=== PATIENT | male | born 1970 | race Two or more races ===

== ENCOUNTER → 2020-10-01 12:48 | Outpatient (BNVA) | payer MEDICARE, MEDICAID, SELFPAY | PROVIDERS: Visit Provider Physician Assistant ==

== ENCOUNTER 2020-10-01 15:34 | Outpatient (REF) | payer MEDICARE, MEDICAID, SELFPAY ==
--- NOTE | ~2020-10-01 | US_ITS ---
EXAMINATION: ULTRASOUND NONVASCULAR RIGHT ELBOW. CLINICAL INFORMATION: Pain and swelling status post injury right elbow. COMPARISON: None TECHNIQUE: Limited imaging through the right anterior and medial elbow is performed. FINDINGS: There is moderate amount of fluid collection seen within the biceps muscle fascia with discontinuous appearing biceps tendon to the radial tuberosity insertion. The findings is highly suspicious for if incomplete tear. No retraction of the tendon seen to suspect any complete tear. This finding can be better evaluated with MRI. If patient cannot have MRI further limited imaging of right elbow with IV contrast can be performed. US/US extremity nonvascular IMPRESSION: There is moderate fluid collection seen within the biceps muscle fascia with discontinuous appearing biceps tendon at the radial tuberosity insertion most suspicious of in complete biceps tear.
== END 2020-10-01 15:35 | disposition home or self-care (01) ==
LOC: HO.HMGCX 15:34
PROVIDERS: PCP Internal Medicine; Visit Provider Physician Assistant
DX: S46.201A Unspecified injury of muscle, fascia and tendon of other parts of biceps, right arm, initial encounter (principal); X58.XXXA Exposure to other specified factors, initial encounter; Y93.9 Activity, unspecified; Y92.9 Unspecified place or not applicable; Y99.9 Unspecified external cause status
CPT/HCPCS: 76882; 99202

== ENCOUNTER → 2021-08-21 10:54 | Outpatient (BNVA) | payer MEDICARE, MEDICAID, SELFPAY | PROVIDERS: PCP Internal Medicine; Visit Provider Internal Medicine Pulmonary Disease | DX: I82.533 Chronic embolism and thrombosis of popliteal vein, bilateral (principal); R06.00 Dyspnea, unspecified | CPT/HCPCS: 99202 ==

== ENCOUNTER → 2021-09-30 10:54 | Outpatient (REF) | payer MEDICARE, MEDICAID, SELFPAY | LOC: HO.SL 10:54 | PROVIDERS: PCP Internal Medicine; Visit Provider Internal Medicine | DX: G47.33 Obstructive sleep apnea (adult) (pediatric) (principal) | CPT/HCPCS: 95806 ==

== ENCOUNTER 2021-12-17 14:27 | Emergency (ER) | payer MEDICARE, MEDICAID, SELFPAY | END 2021-12-17 19:16 | disposition left against medical advice (07) | PROVIDERS: Emergency Provider Emergency Medicine; PCP Internal Medicine | DX: R11.10 Vomiting, unspecified (principal) ==

== ENCOUNTER → 2021-12-22 15:37 | Outpatient (BNVA) | payer MEDICARE, MEDICAID, SELFPAY | PROVIDERS: PCP Internal Medicine; Visit Provider Surgery Vascular Surgery | DX: I73.9 Peripheral vascular disease, unspecified (principal); I82.533 Chronic embolism and thrombosis of popliteal vein, bilateral | CPT/HCPCS: 99212 ==

== ENCOUNTER → 2022-01-20 11:05 | Outpatient (BNVA) | payer MEDICARE, MEDICAID, SELFPAY | PROVIDERS: PCP Internal Medicine; Visit Provider Dietitian, Registered | DX: E11.65 Type 2 diabetes mellitus with hyperglycemia (principal); Z71.3 Dietary counseling and surveillance | CPT/HCPCS: 97802 ==

== ENCOUNTER 2022-02-15 11:16 | Outpatient (REF) | payer MEDICARE, MEDICAID, SELFPAY ==
--- NOTE | 2022-02-15 14:54 | MHC.AU.AEV ---
Adult Audiological Evaluation Date of Visit: 02/15/22 Reason for Appointment: Genaro was referred for an audiological evaluation due to reported history of middle ear dysfunction/ear infections. He noted that he was on antibiotics about two weeks ago. Genaro reported that if his ears are clear, he is able to hear normally; however, he reported significant ear pain, discomfort, and intermittent hearing difficulties, bilaterally, that has not resolved since November. He also reported intermittent tinnitus, bilaterally, as well as constant lightheadedness/dizziness that also began about two months ago. Ear History: Recent Ear Pain: Both Ears Recent Ear Infections: Both Ears Ear Infections in Childhood: Both Ears Tinnitus/Ringing/Noises in Ears: Both Ears Blocked/Full Sensation in Ear(s): Both Ears History of occupational noise exposure?: No Medical History: Diabetes, High Blood Pressure Medication List: Metoprolol, Metformin Otoscopy: Right Ear: Unremarkable Left Ear: Tympanic membrane is red and bulging Tympanometry: Tympanometry performed due to: History of middle ear dysfunction Right Ear: Normal Middle Ear System (Type A) Left Ear: Non-compliant Middle Ear System (Type B) Hearing Evaluation: Transducer(s) Used: Insert Earphones, Method: Conventional Audiometry, Stimuli Used: Pure Tones Right Ear: Normal hearing 250-8000 Hz Left Ear: Mild to moderate conductive hearing loss 250-6000 Hz rising to normal hearing at 8000 Hz Speech Recognition Threshold (SRT): Method Used: Monitored Live Voice, Stimuli Used: Spondee Words Right Ear: 15 dB HL Left Ear: 30 dB HL Word Discrimination: Method: Recorded Lists Word Lists Used:: W-22 Right Ear: 96% correct at 55 dB HL Left Ear: 96% correct at 70 dB HL Recommendations: Follow up with primary care physician for middle ear dysfunction. Referral to Ear, Nose, and Throat for history of middle ear dysfunction/ear infections. Audiological re-evaluation post-treatment or in 3 months to monitor middle ear status and conductive hearing loss in left ear. Diagnosis: Primary Diagnosis: H90.12 ConductiveHL, Unilateral Left Ear, W/Unrestricted Contralateral Secondary Diagnosis: H69.92 Unspecified Eustachian Tube Dysfunction, Left Ear Services Performed: Comprehensive Audiological Evaluation (CPT 91282) Tympanometry (CPT 49401) Signature: Provider: Tad Duarte [facility]ieA
== END 2022-02-15 11:17 | disposition home or self-care (01) ==
LOC: HO.SH 11:16
PROVIDERS: Visit Provider Internal Medicine
DX: Z01.118 Encounter for examination of ears and hearing with other abnormal findings (principal); H90.12 Conductive hearing loss, unilateral, left ear, with unrestricted hearing on the contralateral side; H69.92 Unspecified Eustachian tube disorder, left ear
CPT/HCPCS: 92557; 92567

== ENCOUNTER → 2022-03-17 10:32 | Outpatient (BNVA) | payer MEDICARE, MEDICAID, SELFPAY | PROVIDERS: PCP Internal Medicine; Visit Provider Dietitian, Registered | DX: E11.65 Type 2 diabetes mellitus with hyperglycemia (principal) | CPT/HCPCS: 97803 ==

== ENCOUNTER 2022-10-10 03:39 | Emergency (ER) | payer MEDICARE, MEDICAID, SELFPAY ==
--- NOTE | ~2022-10-10 | XR_ITS ---
EXAMINATION: XR CHEST CLINICAL INFORMATION: Chest pain COMPARISON: None available. TECHNIQUE: Frontal view of the chest was obtained. FINDINGS: Normal symmetric lung volumes. No parenchymal consolidation. No pleural effusion. No pneumothorax. Cardiomediastinal silhouette and pulmonary vascularity are within normal limits. No acute osseous abnormalities. XR/XR chest 1V IMPRESSION: No acute findings.
--- NOTE | ~2022-10-10 | CT_ITS ---
EXAMINATION: CT ANGIOGRAM OF THE CHEST WITH AND WITHOUT CONTRAST (CT PULMONARY ANGIOGRAM FOR PE) CLINICAL INFORMATION: Reason for Exam R/O R sided PE COMPARISON: None available. TECHNIQUE: Prior to contrast administration, noncontrast localization images were obtained. Subsequently, multidetector volumetric imaging was performed from the thoracic inlet to below the diaphragms following the administration of 65 mL Omnipaque 350 intravenous contrast. No contrast reaction reported Sagittal, coronal, and MIP oblique sagittal reformatted images were obtained on the CT workstation, uploaded to PACS, and reviewed. This CT examination was performed using dose optimization techniques as appropriate, variously including the following: *Automated exposure control *Adjustment of mA and/or kV according to patient size (this includes techniques or standardized protocols for targeted exams where dose is matched to indication/reason for exam; i.e. extremities or head) *Use of iterative reconstruction technique Total exam dose-length product 582 mGy-cm FINDINGS: QUALITY OF STUDY/CONTRAST BOLUS: Satisfactory. PULMONARY ARTERIES: No pulmonary emboli. THORACIC AORTA: No aneurysm. LUNG: No focal consolidation, nodules or masses. Diffuse mild bronchial wall thickening without bronchiectasis. Mild mosaic attenuation in the lower lungs likely relates to air trapping related to a degree of small airways inflammation. PLEURA: No pleural effusion or pneumothorax. MEDIASTINUM: Normal heart size. No pericardial effusion. No hilar or mediastinal lymphadenopathy. No evidence of septal bowing or right heart strain. CORONARY ARTERY CALCIFICATION: None visualized on this study. CHEST WALL/AXILLA: No axillary or internal mammary lymphadenopathy. OSSEOUS STRUCTURES: No acute or suspicious osseous abnormality. UPPER ABDOMEN: Cholelithiasis. No reflux of contrast into the hepatic veins to suggest elevated right heart pressures. CT/CT angio chest PE protocol IMPRESSION: * No evidence of pulmonary embolism. * No aortic aneurysm or dissection. * No pneumonitis or parenchymal consolidation. * Diffuse mild bronchial wall thickening and mild mosaic attenuation in the lower lungs likely relates to a degree of small airways inflammation. * Cholelithiasis. VTE: negative.
--- NOTE | 2022-10-10 03:42 | ECG_ITS ---
Test Reason : chest pain Blood Pressure : / mmHG Vent. Rate : 084 BPM Atrial Rate : 084 BPM P-R Int : 162 ms QRS Dur : 092 ms QT Int : 392 ms P-R-T Axes : 059 012 017 degrees QTc Int : 463 ms Normal sinus rhythm Normal ECG No previous ECGs available Referred By: Generic ED Physician Electronically Signed By:Germán Rosenthal
[2022-10-10 03:48] VITALS: BP 124/85; PULSE 88; RESP 20; TEMP 36.6; O2SAT 98; BMI 40.0
[2022-10-10 04:02] LABS: Basophils Percent Auto 0.4 % (0-2); Eosinophils Absolute Auto 0.1 X10*3/uL (0.0-0.4); Eosinophils Percent Auto 1.1 % (0-4); Hematocrit 45.7 % (42.0-52.0); Hemoglobin 15.7 g/dl (14.0-18.0); Imm Gran Abs Auto 0.02 X10*3/uL (0.00-0.03); Imm Gran Pct Auto 0.2 % (0.0-0.4); Lymphocytes Percent Auto 65.3 % (20-40); MANUAL DIFF FLAG SCAN; Mean Corpuscular HGB Conc 34.4 g/dl (31.0-36.0); Mean Corpuscular Hemoglobin 31.5 pg (27.0-33.0); Mean Corpuscular Volume 91.8 fL (80.0-98.0); Mean Platelet Volume 9.6 fL (9.4-12.4); Monocytes Absolute Auto 0.6 X10*3/uL (0.1-1.2); Monocytes Percent Auto 6.6 % (2-11); Neutrophils Absolute Auto 2.5 x10*3/uL (2.0-8.3); Neutrophils Percent Auto 26.4 % (45-73); Platelet Count 266 X10*3/uL (160-400); Red Blood Count 4.98 X10*6/uL (4.60-5.80); Red Cell Distribution Width 12.2 % (11.0-16.0); SCAN SMEAR FLAG 1; White Blood Count 9.3 X10*3/uL (4.8-10.8)
--- NOTE | 2022-10-10 04:02 | ED_ITS ---
HPI - Chest Pain General Chief Complaint: Chest Pain Stated Complaint: Chest Pain Time Seen by Provider: 10/10/22 03:55 Source: patient Mode of arrival: wheelchair Limitations: no limitations History of Present Illness HPI narrative: Patient comes to the emergency room complaining of right-sided chest pain. Patient states he was sleeping and the chest pain woke him up for sleep. Patient states that he has history of DVTs, he is supposed to be on Eliquis, but has been off of it for several months because he is not compliant with his medication. Patient complaining of severe anxiety. Denies shortness of breath Related Data Home Medications Medication Instructions Recorded Confirmed aripiprazole 5 mg tablet (Abilify) 5 mg PO DAILY 05/07/20 11/19/21 escitalopram oxalate 20 mg tablet 20 mg PO DAILY 05/07/20 11/18/21 (Lexapro) trazodone 100 mg tablet 100 mg PO BEDTIME 05/07/20 11/19/21 metoclopramide HCl 10 mg tablet 10 mg PO QID 07/28/21 11/19/21 (Reglan) ondansetron HCl 4 mg tablet 4 mg PO Q8H PRN Nausea And Vomiting 07/28/21 11/19/21 Previous Rx's Medication Instructions Recorded lisinopril 5 mg tablet 5 mg PO DAILY 90 days #90 tabs 11/17/20 metoprolol succinate 50 mg 50 mg PO DAILY #90 tabs 11/17/20 tablet,extended release 24 hr alprazolam 0.25 mg tablet 0.25 mg PO BID PRN anxiety 10 days 02/19/21 #20 tabs empagliflozin 10 mg tablet 10 mg PO DAILY 30 days #30 tabs 08/27/21 (Jardiance) AUTO PAP 6-20 cm H2o humidified air #1 ea 10/15/21 apixaban 5 mg tablet (Eliquis) 5 mg PO BID 90 days #180 tabs 07/23/22 gabapentin 300 mg capsule 300 mg PO TID 90 days #270 caps 07/23/22 metformin 1,000 mg tablet 1,000 mg PO BID 90 days #180 tabs 07/23/22 blood sugar diagnostic (FreeStyle #100 ea 07/26/22 Lite Strips) blood-glucose meter (FreeStyle #1 ea 07/26/22 Lite Meter kit) lancets 28 gauge (FreeStyle #100 ea 07/26/22 Lancets) omeprazole 20 mg capsule,delayed 20 mg PO DAILY 30 days #30 caps 08/16/22 release Allergies Allergy/AdvReac Type Severity Reaction Status Date / Time Penicillins [PENICILLINS] Allergy Unknown UNKNOWN Verified 12/22/21 15:43 Review of Systems Review of Systems: Constitutional : No Weight loss, No Fever, No Chills, No Night Sweats, No Fatigue, No Malaise ENT/Mouth : No Hearing loss, No Ear Pain, No Nasal Congestion, No Sinus Pain, No Hoarseness, No sore throat, No Rhinorrhea, No Swallowing Difficulty Eyes: No Eye Pain, No Swelling, No Redness, No Foreign Body, No Discharge, No Vi kristy Changes Cardiovascular : Complaining of right-sided Chest Pain, No SOB, No Dyspnea on Exertion, No Orthopnea, No Edema, No Palpitations Respiratory : No Cough, No Sputum, No Wheezing, No Smoke Exposure, No Dyspnea Gastrointestinal : No Nausea, No Vomiting, No Diarrhea, No Constipation, No abdo filemon Pain, No Hematochezia, No Melena Genitourinary : no irregular bleeding, No Dysuria, No Urinary Frequency, No Hematuria, No Urinary Incontinence, No Urgency, No Flank Pain, No Urinary Flow Changes, No Hesitancy Musculoskeletal : No joint pain, No Myalgias, No Joint Swelling Skin : No Skin Lesions, No rash Neuro : No Weakness, No Numbness, No Paresthesias, No Loss of Consciousness, No Dizziness, No Headache Psych : Complaining of anxiety, No Depression, No SI/HI/AH/VH, No Social Issues, Heme/Lymph: No Bruising, No Bleeding,No Lymphadenopathy Endocrine : No Polyuria, No Polydipsia, No Temperature Intolerance [facility] Past Medical History Medical History Carpal tunnel syndrome Closed fracture of right proximal tibia DVT (deep venous thrombosis) Femoral distal fracture History of pulmonary embolism Hypertension Injury of tendon of biceps Medicare annual wellness visit, initial Nausea Obstructive sleep apnea Obstructive sleep apnea (adult) (pediatric) Peripheral vascular disease Type 2 diabetes mellitus with hyperglycemia Surgical History History of femoropopliteal bypass History of repair of left rotator cuff History of total right knee replacement Status post debridement Status post osteotomy Total knee replacement status Family History Family History Father CVD (cardiovascular disease) Diabetes Hypertension Mother Diabetes Hypertension Brother Past heart attack Substance abuse Maternal Uncle Schizophrenia Paternal Uncle CVD (cardiovascular disease) Social History Social History Household Members: None Housing: Condominium Are you a primary acute care physician to a significant other at home: No Do you presently have visiting nurse or other home services: No Alcohol intake: never Patient Tobacco Use Status: Never used Tobacco Smoked in Last 30 Days: No e-Cigarette/Vaping Use: Never Used Second Hand Smoke Exposure: No Use of substances other than those prescribed or required for medical reasons: Yes Substance Use Type: Marijuana Advance Directives: No Advance Directives Information Provided: No service: No Current occupational status: unemployed Cognitive needs: No Hearing needs: No Vision needs: No Physical Exam Vital Signs: Vital Signs: Last Vital Signs Temp 98.2 F 10/10/22 06:26 Pulse 83 10/10/22 06:26 Resp 17 10/10/22 06:26 BP 118/78 10/10/22 06:26 Pulse Ox 95 10/10/22 06:26 O2 Del Method Nasal Cannula 10/10/22 06:26 O2 Flow Rate 2 10/10/22 06:26 BMI result Body Mass Index 40.0 Const: Other: Appearance: Alert. Oriented X3. Very anxious Eyes: Pupils equal, round and reactive to light. ENT: Pharynx normal. Neck: Normal inspection. Neck supple. No lymph nodes noted. No crepitus CVS: Normal heart rate and rhythm. Pulses normal. Normal S1 and S2 Respiratory: No respiratory distress. Breath sounds normal. No Wheezing. No rales Abdomen: Soft and nontender. No rigidity. No distention. Skin: Diaphoretic, Normal skin color. Normal skin turgor. Extremities: No lower extremity edema. No Lacerations. No Rash Neuro: Oriented X 3. No motor deficit. No sensory deficit. Moving all ex tremities. No slurred speech. CN 2 through 12 grossly intact Psych: Calm, cooperative, anxious Course Course Course Narrative: -my interpretation of EKG: Normal sinus rhythm, heart rate 84, no ST segment depression or elevation, no T-wave inversion, QTC 463 -patient's labs are pending Medications Administered Discontinued Medications Generic Name Dose Route Start Last Admin Trade Name Vandana PRN Reason Stop Dose Admin Aspirin 325 mg 10/10/22 04:02 10/10/22 04:16 Aspirin Enteric Coated 325 Mg Tablet.Dr CALDERA 10/10/22 04:03 325 mg ONCE ONE Administration Iohexol 65 ml 10/10/22 06:19 10/10/22 06:19 Iohexol 350 Mg/Ml 100 Ml Infus..Btl IV 10/10/22 06:20 65 ml ONCE ONE Administration Lorazepam 2 mg 10/10/22 04:01 10/10/22 04:16 Lorazepam 2 Mg/Ml Vial IVPUSH 10/10/22 04:02 2 mg ONCE ONE Administration Lorazepam 2 mg 10/10/22 05:28 10/10/22 05:49 Lorazepam 2 Mg/Ml Vial IVPUSH 10/10/22 05:29 2 mg ONCE ONE Administration Medical Decision Making Medical Decision Making [facility] Narrative: -patient is very anxious, required 4 mg of IV Ativan. -CT scan for pulmonary embolism pending -interpretation of EKG: Sinus rhythm, heart rate 84, no ST segment depression or elevation, no T-wave inversion, QTC 463, troponin negative -please follow-up CTA, sign-out given to Dr. Hampton Lab Data 10/10/22 03:57 10/10/22 03:57 Labs: Lab Results 10/10/22 10/10/22 10/10/22 Range/Units 03:57 03:57 03:57 WBC 9.3 (4.8-10.8) X10*3/uL RBC 4.98 (4.60-5.80) X10*6/uL Hgb 15.7 (14.0-18.0) g/dl Hct 45.7 (42.0-52.0) % MCV 91.8 (80.0-98.0) fL MCH 31.5 (27.0-33.0) pg MCHC 34.4 (31.0-36.0) g/dl RDW 12.2 (11.0-16.0) % Plt Count 266 (160-400) X10*3/uL MPV 9.6 (9.4-12.4) fL Immature Gran % (Auto) 0.2 (0.0-0.4) % Neut % (Auto) 26.4 L (45-73) % Lymph % (Auto) 65.3 H (20-40) % Dillon % (Auto) 6.6 (2-11) % Eos % (Auto) 1.1 (0-4) % Baso % (Auto) 0.4 (0-2) % Lymph # (Auto) 6.1 H (1.2-4.9) X10*3/uL Dillon # (Auto) 0.6 (0.1-1.2) X10*3/uL Eos # (Auto) 0.1 (0.0-0.4) X10*3/uL Baso # (Auto) 0.0 (0.0-0.2) X10*3/uL Abs Immat Gran (auto) 0.02 (0.00-0.03) X10*3/uL Absolute Neuts (auto) 2.5 (2.0-8.3) x10*3/uL Absolute Nucleated RBC 0.000 (0.0-0.012) X10*3/uL Nucleated RBC % (auto) 0.0 (0.0-0.2) /100WBC Smear Tech's Comments VERIFIED D-Dimer High Sensitivty NG/ML Sodium 139 (135-145) mmol/L Potassium 3.9 (3.3-5.1) mmol/L Chloride 103 (96-108) mmol/L Carbon Dioxide 24 (22-29) mmol/L Anion Gap 16 (12-20) BUN 17 H (9-16) mg/dL Creatinine 1.07 (0.5-1.4) mg/dL Estim Creat Clear Calc 112.3 Estimated GFR > 60 Random Glucose 117 H (60-115) mg/dL Calcium 9.7 (8.4-10.2) mg/dL Troponin I High Sens 4.4 (<3.5-35.0) ng/L // Range/Units 03:57 WBC (4.8-10.8) X10*3/uL RBC (4.60-5.80) X10*6/uL Hgb (14.0-18.0) g/dl Hct (42.0-52.0) % MCV (80.0-98.0) fL MCH (27.0-33.0) pg MCHC (31.0-36.0) g/dl RDW (11.0-16.0) % Plt Count (160-400) X10*3/uL MPV (9.4-12.4) fL Immature Gran % (Auto) (0.0-0.4) % Neut % (Auto) (45-73) % Lymph % (Auto) (20-40) % Dillon % (Auto) (2-11) % Eos % (Auto) (0-4) % Baso % (Auto) (0-2) % Lymph # (Auto) (1.2-4.9) X10*3/uL Dillon # (Auto) (0.1-1.2) X10*3/uL Eos # (Auto) (0.0-0.4) X10*3/uL Baso # (Auto) (0.0-0.2) X10*3/uL Abs Immat Gran (auto) (0.00-0.03) X10*3/uL Absolute Neuts (auto) (2.0-8.3) x10*3/uL Absolute Nucleated RBC (0.0-0.012) X10*3/uL Nucleated RBC % (auto) (0.0-0.2) /100WBC Smear Tech's Comments D-Dimer High Sensitivty 249 NG/ML Sodium (135-145) mmol/L Potassium (3.3-5.1) mmol/L Chloride (96-108) mmol/L Carbon Dioxide (22-29) mmol/L Anion Gap (12-20) BUN (9-16) mg/dL Creatinine (0.5-1.4) mg/dL Estim Creat Clear Calc Estimated GFR Random Glucose (60-115) mg/dL Calcium (8.4-10.2) mg/dL Troponin I High Sens (<3.5-35.0) ng/L Discharge Plan Discharge Clinical Impression: Atypical chest pain Patient Disposition: Still a Patient Prescriptions: No Action (DME) AUTO PAP 6-20 cm H2o humidified air See Rx Instructions .Route .MEDSUPPLY Qty: 1 0RF Rx Instructions: As directed Eliquis 5 mg tablet 5 mg PO BID 90 Days Qty: 180 3RF gabapentin 300 mg capsule 300 mg PO TID 90 Days Qty: 270 1RF metformin 1,000 mg tablet 1,000 mg PO BID 90 Days Qty: 180 2RF (DME) blood-glucose meter [FreeStyle Lite Meter] Kit See Rx Instructions .ROUTE .MEDSUPPLY Qty: 1 0RF Rx Instructions: As directed (DME) FreeStyle Lite Strips Strip See Rx Instructions .ROUTE .MEDSUPPLY Qty: 100 3RF Rx Instructions: As directed check the BS QD (DME) lancets [FreeStyle Lancets] 28 gauge misc See Rx Instructions .ROUTE .MEDSUPPLY Qty: 100 3RF Rx Instructions: As directed check BS QD omeprazole 20 mg capsule,delayed release(DR/EC) 20 mg PO DAILY 30 Days Qty: 30 1RF aripiprazole [Abilify] 5 mg tablet 5 mg PO DAILY escitalopram oxalate [Lexapro] 20 mg tablet 20 mg PO DAILY trazodone 100 mg tablet 100 mg PO BEDTIME alprazolam 0.25 mg tablet 0.25 mg PO BID PRN (Reason: anxiety) 10 Days Qty: 20 0RF metoprolol succinate 50 mg tablet extended release 24 hr 50 mg PO DAILY Qty: 90 1RF lisinopril 5 mg tablet 5 mg PO DAILY 90 Days Qty: 90 2RF Jardiance 10 mg tablet 10 mg PO DAILY 30 Days Qty: 30 3RF metoclopramide HCl [Reglan] 10 mg tablet 10 mg PO QID ondansetron HCl 4 mg tablet 4 mg PO Q8H PRN (Reason: Nausea And Vomiting)
[2022-10-10 04:05] LABS: Lymphocytes Absolute Auto 6.1 X10*3/uL (1.2-4.9)
[2022-10-10] MEDS: Aspirin Enteric Coated 325 MG TABLET.DR PO (04:16)
[2022-10-10] MEDS: LORazepam 2 MG/ML VIAL IVPUSH ×2 (04:16→05:49)
[2022-10-10 04:21] LABS: D Dimer High Sensitivity 249 NG/ML
[2022-10-10 04:25] LABS: Anion Gap 16 (12-20); Blood Urea Nitrogen 17 mg/dL (9-16); Calcium 9.7 mg/dL (8.4-10.2); Carbon Dioxide 24 mmol/L (22-29); Chloride 103 mmol/L (96-108); Creatinine Clr Calc Pharmacy 112.3; Estimated Glomerular Filt Rate > 60; Glucose Random 117 mg/dL (60-115); Potassium 3.9 mmol/L (3.3-5.1); Sodium 139 mmol/L (135-145)
[2022-10-10 04:26] LABS: Troponin-I High Sensitivity 4.4 ng/L (<3.5-35.0)
--- NOTE | 2022-10-10 04:30 | PC.NURSE ---
pt calm and cooperative. bilateral 20g IV placed in ac by this rn and rn discharge. blood work obtained and sent down to lab. ekg obtained. dr canchola made aware of pt status and at pt bedside. pt medicated according to mar. pt at bedside. pt known to have sleep apnea. labwork pending now
[2022-10-10 04:38] LABS: SLIDE REVIEW VERIFIED
[2022-10-10 05:47] VITALS: BP 116/78; PULSE 82; RESP 16; TEMP 36.6; O2SAT 95
--- NOTE | 2022-10-10 05:52 | PC.NURSE ---
pt medicated according to mar. lights dimmed. at bedside
[2022-10-10] MEDS: iohexoL 350 MG/ML 100 ML INFUS..BTL 65 ML IV (06:19)
[2022-10-10 06:26] VITALS: BP 118/78; PULSE 83; RESP 17; TEMP 36.8; O2SAT 95
[2022-10-10 07:14] VITALS: BP 109/76; PULSE 85; RESP 13; O2SAT 100
--- NOTE | 2022-10-10 07:17 | PC.NURSE ---
assumed care of this pt at 0700. pt sleeping at the time of assuming care. at his bedside, vss.
[2022-10-10] MEDS: Apixaban 5 MG TABLET PO (08:57)
[2022-10-10 08:58] VITALS: BP 105/77; PULSE 88
--- NOTE | 2022-10-10 09:10 | PC.NURSE ---
pt cleared for discharge, discharge instructions reviewed with pt and at his bedside. Eliquis given prior to discharge. vss.
[2022-10-11 08:39] LABS: Glucose, Whole Blood 124 mg/dL (60-115)
== END 2022-10-10 09:10 | disposition home or self-care (01) ==
PROVIDERS: Emergency Medicine; Emergency Provider Emergency Medicine Emergency Medical Services; PCP Internal Medicine
DX: R07.89 Other chest pain (principal); F12.90 Cannabis use, unspecified, uncomplicated; Z79.899 Other long term (current) drug therapy; Z86.718 Personal history of other venous thrombosis and embolism; Z79.01 Long term (current) use of anticoagulants; Z91.148 Patient's other noncompliance with medication regimen for other reason
CPT/HCPCS: 36415; 71045; 71275; 80048; 82947; 84484; 85025; 85379; 93005; 96374; 96376; 99285; J2060; Q9967

== ENCOUNTER 2022-12-04 20:04 | Emergency (ER) | payer MEDICARE, MEDICAID, SELFPAY ==
--- NOTE | ~2022-12-04 | XR_ITS ---
EXAMINATION: XR RIBS, LEFT CLINICAL INFORMATION: Left-sided chest pain COMPARISON: None available. TECHNIQUE: Single view chest with 3 views of the left ribs were obtained. FINDINGS: Lungs are clear. No consolidation, pneumothorax, or pleural effusion. The cardiomediastinal silhouette and pulmonary vasculature are normal. Osseous structures are unremarkable. Ribs are intact. No fractures are identified. XR/XR ribs LT min 3V w CXR1V IMPRESSION: Unremarkable examination.
--- NOTE | ~2022-12-04 | XR_ITS ---
EXAMINATION: XR CHEST CLINICAL INFORMATION: Severe back and chest pain COMPARISON: 10/10/2022 TECHNIQUE: 2 views of the chest were obtained. FINDINGS: The lungs are clear with no focal consolidation. No evidence of pneumothorax, pulmonary edema, or pleural effusions. The cardiomediastinal silhouette is unremarkable. No acute osseous findings. XR/XR chest 2V IMPRESSION: No acute cardiopulmonary findings.
[2022-12-04 20:17] VITALS: BP 133/89; PULSE 92; RESP 18; TEMP 36.3; O2SAT 98; BMI 39.6
--- NOTE | 2022-12-04 20:19 | ED.BACK ---
HPI - Back Pain/Injury General Chief Complaint: Back Pain/Injury Stated Complaint: back INJ/chest INJ Time Seen by Provider: 12/04/22 21:46 Source: patient and family Mode of arrival: ambulatory Limitations: no limitations History of Present Illness HPI Narrative: 52 yo male with history of DM, anxiety, GERD, PAD, PE on Eliquis, HTN who prsents to the ER for evaluation of severe middle and lower back pain, lower chest pain that started 3 days ago when he was pushing his car when the battery . No falls. He heard a crack at the time, which brought him to his knees. He deferred ambulance transfer at the time. He has been in bed since. No improvement with tylenol. Tearful and very uncomfortable in triage. tenderness of the soft tissues of the entire thorax. limited ROM and mobility due to severe pain. SPO2 96%. No urinary incontinence or stool incontinence. Related Data Home Medications Medication Instructions Recorded Confirmed aripiprazole 5 mg tablet (Abilify) 5 mg PO DAILY 05/07/20 11/19/21 escitalopram oxalate 20 mg tablet 20 mg PO DAILY 05/07/20 11/18/21 (Lexapro) trazodone 100 mg tablet 100 mg PO BEDTIME 05/07/20 11/19/21 metoclopramide HCl 10 mg tablet 10 mg PO QID 07/28/21 11/19/21 (Reglan) ondansetron HCl 4 mg tablet 4 mg PO Q8H PRN Nausea And Vomiting 07/28/21 11/19/21 Previous Rx's Medication Instructions Recorded lisinopril 5 mg tablet 5 mg PO DAILY 90 days #90 tabs 11/17/20 metoprolol succinate 50 mg 50 mg PO DAILY #90 tabs 11/17/20 tablet,extended release 24 hr alprazolam 0.25 mg tablet 0.25 mg PO BID PRN anxiety 10 days 02/19/21 #20 tabs empagliflozin 10 mg tablet 10 mg PO DAILY 30 days #30 tabs 08/27/21 (Jardiance) AUTO PAP 6-20 cm H2o humidified air #1 ea 10/15/21 apixaban 5 mg tablet (Eliquis) 5 mg PO BID 90 days #180 tabs 07/23/22 gabapentin 300 mg capsule 300 mg PO TID 90 days #270 caps 07/23/22 metformin 1,000 mg tablet 1,000 mg PO BID 90 days #180 tabs 07/23/22 blood sugar diagnostic (FreeStyle #100 ea 07/26/22 Lite Strips) blood-glucose meter (FreeStyle #1 ea 07/26/22 Lite Meter kit) lancets 28 gauge (FreeStyle #100 ea 07/26/22 Lancets) omeprazole 20 mg capsule,delayed 20 mg PO DAILY 30 days #30 caps 08/16/22 release apixaban 5 mg tablet (Eliquis) 5 mg PO Q12H 30 days #60 tabs 10/10/22 morphine 15 mg immediate release 15 mg PO Q4-6H PRN pain #14 tabs 10/10/22 tablet ondansetron 4 mg disintegrating 4 mg PO Q6-8H PRN nausea and 10/10/22 tablet vomiting #14 tabs cyclobenzaprine 10 mg tablet 10 mg PO BEDTIME PRN muscle spasm 12/04/22 #10 tabs oxycodone 5 mg tablet 5 mg PO Q8H PRN pain #10 tabs 12/04/22 Allergies Allergy/AdvReac Type Severity Reaction Status Date / Time Penicillins [PENICILLINS] Allergy Unknown UNKNOWN Verified 12/22/21 15:43 Review of Systems Review of Systems: All other systems are reviewed and are negative Constitutional: Reports as per HPI and Reports no additional constitutional complaints Eyes: Reports as per HPI and Reports no additional eye complaints Reports system reviewed and no additional complaints, except as documented Cardiovascular: Reports as per HPI and Reports no additional cardiovascular complaints Respiratory: Reports as per HPI and Reports no additional respiratory complaints Gastrointestinal: Reports as per HPI and Reports no additional gastrointestinal complaints Genitourinary: Reports no additional female genitourinary complaints Musculoskeletal: Reports no additional musculoskeletal complaints Skin/Breast: Reports system reviewed and no additional complaints, except as docu Psychiatric: Reports no additional psychiatric complaints Endocrine: Reports no additional endocrine complaints Hematologic/Lymphatic: Reports no additional hematologic/lymphatic complaints Allergic/Immunologic: Reports no additional allergic/immunologic complaints Reports system reviewed and no additional complaints, except as documented and Reports Abnormal speech present [facility] Past Medical History Medical History Carpal tunnel syndrome Closed fracture of right proximal tibia DVT (deep venous thrombosis) Femoral distal fracture History of pulmonary embolism Hypertension Injury of tendon of biceps Medicare annual wellness visit, initial Nausea Obstructive sleep apnea Obstructive sleep apnea (adult) (pediatric) Peripheral vascular disease Type 2 diabetes mellitus with hyperglycemia Surgical History History of femoropopliteal bypass History of repair of left rotator cuff History of total right knee replacement Status post debridement Status post osteotomy Total knee replacement status Family History Family History Father CVD (cardiovascular disease) Diabetes Hypertension Mother Diabetes Hypertension Brother Past heart attack Substance abuse Maternal Uncle Schizophrenia Paternal Uncle CVD (cardiovascular disease) Social History Social History Household Members: None Housing: Condominium Are you a primary human services care specialist to a significant other at home: No Do you presently have visiting nurse or other home services: No Alcohol intake: never Patient Tobacco Use Status: Never used Tobacco Smoked in Last 30 Days: Yes e-Cigarette/Vaping Use: Never Used Second Hand Smoke Exposure: No Use of substances other than those prescribed or required for medical reasons: No Substance Use Type: Marijuana Advance Directives: No Advance Directives Information Provided: No service: No Current occupational status: unemployed Cognitive needs: No Hearing needs: No Vision needs: No Physical Exam Vital Signs: Vital Signs: Last Vital Signs Temp 97.2 F 12/04/22 23:52 Pulse 64 12/04/22 23:52 Resp 16 12/04/22 23:52 BP 102/62 12/04/22 23:52 Pulse Ox 96 12/04/22 23:52 O2 Del Method Room Air 12/04/22 23:52 BMI result Body Mass Index 39.6 Vital signs have been reviewed as appeared to be correct. Blood pressure normal. Heart rate normal. Respiration rate normal. Temperature normal. Oxygen saturation normal. Appearance: Alert. Oriented X3. In acute distress due to lumbar pain. Head: Normal external exam. Normocephalic. Atraumatic. No Renteria signs noted. No raccoon eyes noted Eyes: PERRLA. EOMI. Conjunctiva and sclera normal. Eyelids normal. ENT: TM's Normal. Pharynx normal. Uvula midline. Moist mucous membranes. No trismus noted. No drooling noted. No muffled voice noted. Neck: Normal inspection. Neck supple. FROM. No adenopathy. Thyroid Normal. No meningeal signs. No neck mass noted. CVS: Normal heart rate and rhythm. Heart sound normal. No murmurs noted. Pulses normal throughout. Respiratory: No respiratory distress. Painless inspiration. Breath sounds normal. No wheezes/rales/rhonchi noted. Chest nontender. No accessory muscle usage noted or decreased air movement noted. Abdomen: Soft and nontender. Bowel sounds normal in all 4 quadrants. No distention noted. No organomegaly noted. No visible injury noted. Back: No CVA tenderness. Limited movement with paraspinous muscle spasm. Skin: Skin warm and dry. Normal skin color. Normal skin turgor. No rashes/lesions/lacerations noted. Extremities: No lower extremity edema. Extremities exhibit normal range of motion. Extremities nontender. Neuro: Oriented X 3. Cranial nerve exam: II-XII are grossly intact No motor deficit. No sensory deficit. Reflexes normal. Course Course Course Narrative: RME - 52 yo male with history of DM, anxiety, GERD, PAD, PE on Eliquis, HTN who prsents to the ER for evaluation of severe middle and lower back pain, lower chest pain that started 3 days ago when he was pushing his car when the battery . No falls. He heard a crack at the time, which brought him to his knees. He deferred ambulance transfer at the time. He has been in bed since. No improvement with tylenol. Tearful and very uncomfortable in triage. tenderness of the soft tissues of the entire thorax. limited ROM and mobility due to severe pain. SPO2 96%. Plan: 2V CXR, mediate and reassess Reevaluation(s) Reevaluation #1: Feels better with muscle relaxant, oxycodone will recommend to avoid strenuous activity, bedrest and heating pad. Time: 22:36 Medications Administered Discontinued Medications Generic Name Dose Route Start Last Admin Trade Name Freq PRN Reason Stop Dose Admin Oxycodone HCl 5 mg 12/04/22 22:06 12/04/22 22:23 Oxycodone Hcl Immed Release 5 Mg Tablet PO 12/04/22 22:07 5 mg ONCE ONE Administration Medical Decision Making Differential Diagnosis Differential Diagnoses: The differential diagnosis associated with the presentation includes (Lumbar radiculopathy, sciatica, muscle spasm, rib fracture, chest wall contusion, ACS, electrolyte abnormalities, severe anemia.) Admission/Observation Consideration of admission/observation: Escalation of care including admission/observation considered Lab Data MDM Lab Attestation statement: I reviewed the patient's lab results. 12/04/22 22:22 12/04/22 22:22 Labs: Lab Results 12/04/22 12/04/22 12/04/22 Range/Units 22:22 22:22 22:22 WBC 7.7 (4.8-10.8) X10*3/uL RBC 3.94 L D (4.60-5.80) X10*6/uL Hgb 12.5 L D (14.0-18.0) g/dl Hct 37.4 L (42.0-52.0) % MCV 94.9 (80.0-98.0) fL MCH 31.7 (27.0-33.0) pg MCHC 33.4 (31.0-36.0) g/dl RDW 12.2 (11.0-16.0) % Plt Count 205 (160-400) X10*3/uL MPV 9.6 (9.4-12.4) fL Immature Gran % (Auto) 0.1 (0.0-0.4) % Neut % (Auto) 26.4 L (45-73) % Lymph % (Auto) 63.4 H (20-40) % Bladen % (Auto) 6.5 (2-11) % Eos % (Auto) 3.2 (0-4) % Baso % (Auto) 0.4 (0-2) % Lymph # (Auto) 4.9 (1.2-4.9) X10*3/uL Bladen # (Auto) 0.5 (0.1-1.2) X10*3/uL Eos # (Auto) 0.3 (0.0-0.4) X10*3/uL Baso # (Auto) 0.0 (0.0-0.2) X10*3/uL Abs Immat Gran (auto) 0.01 (0.00-0.03) X10*3/uL Absolute Neuts (auto) 2.0 (2.0-8.3) x10*3/uL Absolute Nucleated RBC 0.000 (0.0-0.012) X10*3/uL Nucleated RBC % (auto) 0.0 (0.0-0.2) /100WBC Smear Tech's Comments VERIFIED Sodium 140 (135-145) mmol/L Potassium 3.8 (3.3-5.1) mmol/L Chloride 108 (96-108) mmol/L Carbon Dioxide 24 (22-29) mmol/L Anion Gap 12 (12-20) BUN 18 H (9-16) mg/dL Creatinine 1.11 (0.5-1.4) mg/dL Estim Creat Clear Calc 104.5 Estimated GFR > 60 Random Glucose 146 H (60-115) mg/dL Calcium 8.7 D (8.4-10.2) mg/dL Troponin I High Sens < 2.7 (<3.5-35.0) ng/L Lipase 25 (8-78) U/L Independent Interpretation I performed an independent interpretation of an: Plain X-Ray (Lumbar spine/left trap and chest x-ray: No acute fracture) Radiology Impression Discussion of test interpretation with radiology: I have reviewed the radiologist's reading. Discharge Plan Discharge Clinical Impression: Strain of lumbar region Patient Disposition: Home, Self-Care Instructions: Muscle Strain (ED) Prescriptions: New oxycodone 5 mg tablet 5 mg PO Q8H PRN (Reason: pain) Qty: 10 0RF Rx Instructions: Partial Fill upon patient request. cyclobenzaprine 10 mg tablet 10 mg PO BEDTIME PRN (Reason: muscle spasm) Qty: 10 0RF No Action (DME) AUTO PAP 6-20 cm H2o humidified air See Rx Instructions .Route .MEDSUPPLY Qty: 1 0RF Rx Instructions: As directed Eliquis 5 mg tablet 5 mg PO BID 90 Days Qty: 180 3RF gabapentin 300 mg capsule 300 mg PO TID 90 Days Qty: 270 1RF metformin 1,000 mg tablet 1,000 mg PO BID 90 Days Qty: 180 2RF (DME) blood-glucose meter [FreeStyle Lite Meter] Kit See Rx Instructions .ROUTE .MEDSUPPLY Qty: 1 0RF Rx Instructions: As directed (DME) FreeStyle Lite Strips Strip See Rx Instructions .ROUTE .MEDSUPPLY Qty: 100 3RF Rx Instructions: As directed check the BS QD (DME) lancets [FreeStyle Lancets] 28 gauge misc See Rx Instructions .ROUTE .MEDSUPPLY Qty: 100 3RF Rx Instructions: As directed check BS QD omeprazole 20 mg capsule,delayed release(DR/EC) 20 mg PO DAILY 30 Days Qty: 30 1RF morphine 15 mg tablet 15 mg PO Q4-6H PRN (Reason: pain) Qty: 14 0RF Rx Instructions: Patient may request partial fill; Partial Fill upon patient request. ondansetron 4 mg tablet,disintegrating 4 mg PO Q6-8H PRN (Reason: nausea and vomiting) Qty: 14 0RF Eliquis 5 mg tablet 5 mg PO Q12H 30 Days Qty: 60 0RF aripiprazole [Abilify] 5 mg tablet 5 mg PO DAILY escitalopram oxalate [Lexapro] 20 mg tablet 20 mg PO DAILY trazodone 100 mg tablet 100 mg PO BEDTIME alprazolam 0.25 mg tablet 0.25 mg PO BID PRN (Reason: anxiety) 10 Days Qty: 20 0RF metoprolol succinate 50 mg tablet extended release 24 hr 50 mg PO DAILY Qty: 90 1RF lisinopril 5 mg tablet 5 mg PO DAILY 90 Days Qty: 90 2RF Jardiance 10 mg tablet 10 mg PO DAILY 30 Days Qty: 30 3RF metoclopramide HCl [Reglan] 10 mg tablet 10 mg PO QID ondansetron HCl 4 mg tablet 4 mg PO Q8H PRN (Reason: Nausea And Vomiting) Referrals: Po,Rebel Frances MD [Primary Care Provider] -
--- NOTE | 2022-12-04 22:06 | ECG_ITS ---
Test Reason : PAIN Blood Pressure : / mmHG Vent. Rate : 075 BPM Atrial Rate : 075 BPM P-R Int : 190 ms QRS Dur : 100 ms QT Int : 406 ms P-R-T Axes : 060 034 012 degrees QTc Int : 453 ms Normal sinus rhythm Normal ECG When compared with ECG of 10-OCT-2022 03:44, No significant change was found Referred By: Krystal Archibald Electronically Signed By:MIAN QUIROZ MD
[2022-12-04] MEDS: oxyCODONE HCl Immed Release 5 MG TABLET PO (22:23)
[2022-12-04 22:28] LABS: Basophils Percent Auto 0.4 % (0-2); Eosinophils Absolute Auto 0.3 X10*3/uL (0.0-0.4); Eosinophils Percent Auto 3.2 % (0-4); Hematocrit 37.4 % (42.0-52.0); Hemoglobin 12.5 g/dl (14.0-18.0); Imm Gran Abs Auto 0.01 X10*3/uL (0.00-0.03); Imm Gran Pct Auto 0.1 % (0.0-0.4); Lymphocytes Absolute Auto 4.9 X10*3/uL (1.2-4.9); Lymphocytes Percent Auto 63.4 % (20-40); MANUAL DIFF FLAG SCAN; Mean Corpuscular HGB Conc 33.4 g/dl (31.0-36.0); Mean Corpuscular Hemoglobin 31.7 pg (27.0-33.0); Mean Corpuscular Volume 94.9 fL (80.0-98.0); Mean Platelet Volume 9.6 fL (9.4-12.4); Monocytes Absolute Auto 0.5 X10*3/uL (0.1-1.2); Monocytes Percent Auto 6.5 % (2-11); Neutrophils Percent Auto 26.4 % (45-73); Platelet Count 205 X10*3/uL (160-400); Red Blood Count 3.94 X10*6/uL (4.60-5.80); Red Cell Distribution Width 12.2 % (11.0-16.0); SCAN SMEAR FLAG 1; White Blood Count 7.7 X10*3/uL (4.8-10.8)
[2022-12-04 22:33] VITALS: BP 143/78; PULSE 89; RESP 20; O2SAT 96
[2022-12-04 22:51] LABS: Anion Gap 12 (12-20); Blood Urea Nitrogen 18 mg/dL (9-16); Calcium 8.7 mg/dL (8.4-10.2); Carbon Dioxide 24 mmol/L (22-29); Chloride 108 mmol/L (96-108); Creatinine Clr Calc Pharmacy 104.5; Estimated Glomerular Filt Rate > 60; Glucose Random 146 mg/dL (60-115); Lipase 25 U/L (8-78); Potassium 3.8 mmol/L (3.3-5.1); Sodium 140 mmol/L (135-145)
[2022-12-04 22:56] LABS: SLIDE REVIEW VERIFIED
[2022-12-04 23:01] LABS: Troponin-I High Sensitivity < 2.7 ng/L (<3.5-35.0)
[2022-12-04 23:52] VITALS: BP 102/62; PULSE 64; RESP 16; TEMP 36.2; O2SAT 96
== END 2022-12-05 00:35 | disposition home or self-care (01) ==
PROVIDERS: Emergency Provider Emergency Medicine; PCP Internal Medicine
DX: S39.012A Strain of muscle, fascia and tendon of lower back, initial encounter (principal); X50.9XXA Other and unspecified overexertion or strenuous movements or postures, initial encounter; E11.9 Type 2 diabetes mellitus without complications; I10 Essential (primary) hypertension; Z86.711 Personal history of pulmonary embolism; Z86.718 Personal history of other venous thrombosis and embolism; Z79.01 Long term (current) use of anticoagulants; Y93.89 Activity, other specified; Y92.410 Unspecified street and highway as the place of occurrence of the external cause; Y99.9 Unspecified external cause status
CPT/HCPCS: 36415; 71046; 71101; 80048; 83690; 84484; 85025; 93005; 99283; 99285

== ENCOUNTER → 2022-12-04 22:06 | Outpatient (BNV) | payer MEDICARE, MEDICAID, SELFPAY | PROVIDERS: Emergency Provider Emergency Medicine; PCP Internal Medicine; Visit Provider Internal Medicine Cardiovascular Disease | DX: R07.9 Chest pain, unspecified (principal) | CPT/HCPCS: 93010 ==

== ENCOUNTER 2023-08-19 10:02 | Outpatient (AMB) | payer MEDICARE, MEDICAID, SELFPAY ==
[2023-08-19 10:03] VITALS: BP 112/70; PULSE 83; O2SAT 97; BMI 39.3
--- NOTE | 2023-08-19 10:03 | A.OFFPC_ITS ---
Vital Signs 08/19/23 10:03 Height 5 ft 10 in Weight 274 lb 0.8 oz BMI 39.3 BP 112/70 Blood Pressure Location Lt brachial Position Sitting Pulse 83 Pulse Source Pulse Oximeter Pulse Oximetry (%) 97 Oxygen Delivery Method Room Air Intake Visit Reasons: Annual PE Intake Note: Patient is here today for a physical. Endoscopy Nurse Required: No Allergies Penicillins [PENICILLINS] Allergy (Unknown, Verified 08/19/23 10:04) UNKNOWN Medication List - Last Reconciled 08/19/23 by Rebel Farah MD alprazolam 0.25 mg PO BID PRN 10 days aripiprazole (Abilify) 5 mg PO DAILY [AUTO PAP 6-20 cm H2o humidified air As directed] blood sugar diagnostic (FreeStyle Lite Strips) As directed check the BS QD blood-glucose meter (FreeStyle Lite Meter kit) As directed empagliflozin (Jardiance) 10 mg PO DAILY 30 days escitalopram oxalate (Lexapro) 20 mg PO DAILY gabapentin 300 mg PO TID 90 days lancets (FreeStyle Lancets) As directed check BS QD lisinopril 5 mg PO DAILY 90 days metformin 1,000 mg PO BID 90 days metoprolol succinate ER 50 mg PO DAILY omeprazole 20 mg PO DAILY 30 days ondansetron HCl 4 mg PO Q8H PRN trazodone 100 mg PO BEDTIME Tobacco use date assessed: 08/19/23 Dental Screening Dental Screen Date: 08/19/23 Did you have a dental visit in the last 12 months?: Yes Did you have a dental problem in the last 6 months where you did not have access to dental care?: No Was dental information given to patient?: Patient has dentist HPI Annual PE HPI Details 52-year-old obese male with severe obstr uctive sleep apnea GERD history of pulmonary embolism diabetes mellitus hypertension generalized anxiety disorder coming in for physical exam last seen in 2021. Review of the notes November 2022 ER visit for low back pain when he was pushing his car after the battery diet. Diagnosis of straining on the lower back. [facility] November 2022. PAtient stopped eliquis due to having hematochezia. better now. has nausea , vomiting , chills, not using the CPAP [facility] Medical History Carpal tunnel syndrome Closed fracture of right proximal tibia DVT (deep venous thrombosis) Femoral distal fracture History of pulmonary embolism Hypertension Injury of tendon of biceps Medicare annual wellness visit, initial Nausea Obstructive sleep apnea Obstructive sleep apnea (adult) (pediatric) Peripheral vascular disease Type 2 diabetes mellitus with hyperglycemia Surgical History History of femoropopliteal bypass History of repair of left rotator cuff History of total right knee replacement Status post debridement Status post osteotomy Total knee replacement status Family History Father CVD (cardiovascular disease) Diabetes Hypertension Mother Diabetes Hypertension Brother Past heart attack Substance abuse Maternal Uncle Schizophrenia Paternal Uncle CVD (cardiovascular disease) Social History (Updated 08/19/23 @ 10:40 by Rebel Farah MD) Household Members: None [facility] Are you a primary health careers instructor to a significant other at home: No Do you presently have visiting nurse or other home services: No Alcohol intake: never Patient Tobacco Use Status: Never used Tobacco Years Smoked: smokes week occ e-Cigarette/Vaping Use: Never Used Second Hand Smoke Exposure: No Substance Use Type: Marijuana service: No Current occupational status: unemployed Cognitive needs: No Hearing needs: No Vision needs: No Questionnaire PHQ-9 Over the last 2 weeks, how often have you been bothered by any of the following problems? 1. Little interest or pleasure in doing things: more than half the days 2. Feeling down, depressed, or hopeless: more than half the days 3. Trouble falling or staying asleep, or sleeping too much: more than half the days (falling asleep ) 4. Feeling tired or having little energy: more than half the days 5. Poor appetite or overeating: nearly every day 6. Feeling bad about yourself - or that you are a failure or have let yourself or your family down: nearly every day 7. Trouble concentrating on things, such as reading the newspaper or watching television: several days 8. Moving or speaking so slowly that other people could have noticed. Or the opposite - being so fidgety or restless that you have been moving around a lot more than usual: nearly every day 9. Thoughts that you would be better off or of hurting yourself in some way: not at all Total score: 18 Depression Screening Interpretation: Positive Depression Screening Done: Yes 14052 - PHQ-9 Billing: Yes Source: Developed by Drs. Leighton West, Comfort Harper, Aries Allan and colleagues, with an educational shane from [employer]. Thrive Questionnaire Date Thrive assessed: 08/19/23 I am a: Patient What is your living situation today?: I have a steady place to live Within the past 12 months, did the food you bought not last and you didn't have the money to get more?: Never true Within the past 12 months, did you worry whether your food would run out before you got money to buy more?: Never true Do you have trouble paying for medicines?: No Do you have trouble getting transportation to medical appointments?: No Do you have trouble paying your heating and electricity bill?: No Do you have trouble taking care of your child, family member or friend?: No Do you have trouble with day-to-day activities such as bathing, preparing meals, shopping, managing finances, etc.?: No Are you currently unemployed and looking for a job?: No Are you interested in more education?: No Please select the resources that you would like help with: None Currently or been in a relationship where the following occur: no concerns reported THRIVE Score: 0 AUDIT C Alcohol Use Questionnaire (AUDIT-C) 1. How often do you have a drink containing alcohol?: 2-4 times a month 2. How many drinks containing alcohol do you have on a typical day when you are drinking?: 3 or 4 3. How often do you have six or more drinks on one occasion?: Never Total Score: 3 CAM-7 AMB Questionnaire CAM-7 Date CAM - 7 assessed: 08/19/23 Feeling nervous, anxious, or on edge: 3 = Nearly every day Not being able to stop or control worryin = Nearly every day Worrying too much about different things: 3 = Nearly every day Trouble relaxin = Nearly every day Being so restless that it is hard to sit still: 3 = Nearly every day Becoming easily annoyed or irritable: 3 = Nearly every day Feeling afraid as if something awful might happen: 3 = Nearly every day Total CAM-7 score (0-4 normal; 5-9 mild; 10-14 moderate; 15-21 severe): 21 Source: Developed by Drs. Leighton West, Comfort Harper, Aries Allan and colleagues, with an educational shane from [employer]. CAM-7 Assessment Billing CAM-7 Assessment Tool: CAM-7 Assessment 88920 Review of Systems Const Denies poor appetite and Denies weakness Eyes Denies no additional complaints ENT Reports Normal hearing present, Denies dizziness, Denies nasal congestion, Denies tinnitus and Denies sore throat Card Denies chest pain, Denies syncope, Denies rapid heart rate and Denies dyspnea Resp Denies cough and Denies dyspnea GI Denies change in stool character, Reports constipation, Denies diarrhea, Denies nausea and Denies vomiting Denies dysuria and Denies urinary frequency Neuro Reports Normal hearing present, Denies confusion, Denies dizziness, Denies syncope and Denies weakness Psych Denies confusion Physical exam (Primary Care) Vital Signs: Last Vital Signs Pulse 83 08/19/23 10:03 BP 112/70 08/19/23 10:03 Pulse Ox 97 08/19/23 10:03 Oxygen Delivery Method Room Air 08/19/23 10:03 BMI result Body Mass Index 39.3 Tobacco/Smoking Status: Tobacco use Status Tobacco use date assessed 08/19/23 08/19/23 10:05 Patient Tobacco Use Status Never used Tobacco 08/19/23 10:05 e-Cigarette/Vaping Use Never Used 08/19/23 10:05 PHQ-9: PHQ-9 Score PHQ-9: Total score 18 08/19/23 10:25 Depression Screening Interpretation: Positive Thrive Assessment: Date of Thrive Assessment Date Thrive assessed 08/19/23 08/19/23 10:05 Currently or been in a relationship where the following occur: no concerns reported Const General: No confusion Orientation/consciousness: No confusion HENMT Head: Yes normocephalic Ears: external ears normal and TM's normal bilaterally Face and sinus: Yes normal facial exam Mouth: moist mucous membranes Throat: Yes tonsils normal Eyes Conjunctivae: conjunctivae normal Pupils: Equal, round and reactive pupils present and Pupil accommodation reflex normal Direct Ophthalmoscopy: normal light reflex Neck Neck: No lymphadenopathy Thyroid: Thyroid normal Chest Chest palpation & inspection: normal inspection of the chest Resp Effort & Inspection: normal respiratory effort and no audible wheezes Auscultation: clear to auscultation bilaterally, no crackles, no wheezes and lung sounds not diminished Cardio Rate: regular rate Rhythm: regular rhythm Peripheral pulses: radial pulses present and dorsalis pedis present GI Palpation (GI): no masses Auscultation: normal bowel sounds and normoactive bowel sounds Rectal Exam - Male: Yes deferred Skin General skin exam: no rashes or lesions noted Rashes: no rashes Neuro General: No confusion Cranial nerves: Yes Equal, round and reactive pupils present and Yes Normal hearing present Cognition (Neuro): normal cognition Gait exam (Neuro): Normal gait present Motor exam (neuro): 5/5 motor strength present throughout Deep tendon reflexes (DTR's): Right brachioradialis reflex intensity grade: 2+, Left brachioradialis reflex intensity grade: 2+, Right patellar reflex intensity grade: 2+ and Left patellar reflex intensity grade: 2+ Extrem General: No edema Results AMB Hemoglobin A1c AMB Hemoglobin A1c 6.6 % Last Edit by AKSHAT Bernal on 08/19/23 10:23 Results Reviewed Results Reviewed: Laboratory Last Values Hgb A1c (Clinic) 6.6 % (4.0-6.0) H 08/19/23 10:03 Assessment and Plan Assessment & Plan (1) Annual physical exam: Code(s): Z00.00 - Encounter for general adult medical examination without abnormal findings (2) Type 2 diabetes mellitus with hyperglycemia: Code(s): E11.65 - Type 2 diabetes mellitus with hyperglycemia Qualifiers: Diabetes mellitus half-way insulin use: without emt intermediate use Qualified Code(s): E11.65 - Type 2 diabetes mellitus with hyperglycemia Plan: Decrease the amount of carbohydrate intake, pasta, bread, rice and potatoes are all sugar and that is aside from all the sweet stuff, remember that fruits are good but they are Sweet also. Hemoglobin A1c goal of less than 6.5. Patient is on Jardiance 10 mg once a day metformin 1000 mg twice a day (3) Hypertension: Code(s): I10 - Essential (primary) hypertension Qualifiers: Hypertension type: essential hypertension Qualified Code(s): I10 - Essential (primary) hypertension Plan: Continue with blood pressure medication. Decrease salt intake and exercise patient takes metoprolol 50 mg once a day lisinopril 5 mg once a day (4) History of pulmonary embolism: Code(s): Z86.711 - Personal history of pulmonary embolism Plan: Continue with anticoagulation renal function test twice a day year. (5) GERD (gastroesophageal reflux disease): Code(s): K21.9 - Gastro-esophageal reflux disease without esophagitis Plan: Avoid the foods that causes that usually spicy foods, tomato products, juices, coffee, soda and foods that your sensitive to. After eating do not lie down, allow 3-4 hours before in lie down. And keep the head of bed above 30 degrees to avoid the acid from going up. (6) Generalized anxiety disorder: [facility] October 2019 Code(s): F41.1 - Generalized anxiety disorder Plan: Continue with counseling and therapy (7) Severe obstructive sleep apnea: Comment: September 2021 Code(s): G47.33 - Obstructive sleep apnea (adult) (pediatric) Plan: has n ot been using the CPAP, willing to reinstate again (8) Dysphagia: Code(s): R13.10 - Dysphagia, unspecified (9) Vasectomy evaluation: Code(s): Z30.09 - Encounter for other general counseling and advice on contraception (10) Onychomycosis: Code(s): B35.1 - Tinea unguium (11) Tinea pedis: Code(s): B35.3 - Tinea pedis (12) Hearing difficulty: Code(s): H91.90 - Unspecified hearing loss, unspecified ear Orders: Orders Complete Blood Count Auto Diff Today E11.65 - Type 2 diabetes mellitus with hyperglycemia Creatinine Urine Today E11.65 - Type 2 diabetes mellitus with hyperglycemia Microalbumin, Random (w Creat) Today E11.65 - Type 2 diabetes mellitus with hyperglycemia Free T4 (Free Thyroxine) Today E11.65 - Type 2 diabetes mellitus with hyperglyce melly FL barium swallow Today R13.10 - Dysphagia, unspecified FL upper GI series Today R13.10 - Dysphagia, unspecified AMB Hemoglobin A1c Today E11.65 - Type 2 diabetes mellitus with hyperglycemia Comprehensive Met. Panel Today E11.65 - Type 2 diabetes mellitus with hyperglycemia Lipid Panel Today E11.65 - Type 2 diabetes mellitus with hyperglycemia, E78.00 - Pure hypercholesterolemia, unspecified Thyroid Stimulating Hormone Today E11.65 - Type 2 diabetes mellitus with hyperglycemia Vitamin B12 and Folate Today E11.65 - Type 2 diabetes mellitus with hyperglycemia Prostate Specific Antigen Scr Today E11.65 - Type 2 diabetes mellitus with hyperglycemia IRON PROFILE Today E11.65 - Type 2 diabetes mellitus with hyperglycemia Reticulocyte Count Today E11.65 - Type 2 diabetes mellitus with hyperglycemia Ferritin Today E11.65 - Type 2 diabetes mellitus with hyperglycemia D Dimer High Sensitivity Today I82.533 - Chronic embolism and thrombosis of popliteal vein, bilateral Referrals Gastroenterology Referral Z12.11 - Encounter for screening for malignant neoplasm of colon Urology Referral Z30.09 - Encounter for other general counseling and advice on contraception Podiatry Referral E11.65 - Type 2 diabetes mellitus with hyperglycemia Speech and Hearing Referral H91.90 - Unspecified hearing loss, unspecified ear Medications: New clotrimazole 1% 1 appl topical BID 45 grams 2RF 4 weeks B35.3 - Tinea pedis miconazole nitrate 2% (Zeasorb AF) 1 appl topical BID 85 grams 2RF B35.3 - Tinea pedis Refilled [AUTO PAP 6-20 cm H2o humidified air] As directed 1 ea 0RF G47.33 - Obstructive sleep apnea (adult) (pediatric) apixaban (Eliquis) 5 mg PO BID 90 days 180 tabs 3RF Z86.711 - Personal history of pulmonary embolism Coding Level of Care Code Est Pt Prev Care 40-64y(26861) Diagnoses Annual physical exam Z00.00 Type 2 diabetes mellitus with hyperglycemia, without long-term current use of insulin E11.65 Diabetes mellitus emt intermediate insulin use: without emt intermediate use Essential hypertension I10 Hypertension type: essential hypertension History of pulmonary embolism Z86.711 GERD (gastroesophageal reflux disease) K21.9 Generalized anxiety disorder F41.1 Severe obstructive sleep apnea G47.33 Dysphagia R13.10 Vasectomy evaluation Z30.09 Onychomycosis B35.1 Tinea pedis B35.3 Hearing difficulty H91.90 Additional Codes CAM-7 Assessment Billing - CAM-7 Assessment Tool: CAM-7 Assessment 27253 ([id number])
== END 2023-08-19 11:06 | disposition home or self-care (01) ==
PROVIDERS: PCP Internal Medicine; Visit Provider Internal Medicine
DX: Z00.00 Encounter for general adult medical examination without abnormal findings (principal); E11.65 Type 2 diabetes mellitus with hyperglycemia; I10 Essential (primary) hypertension; Z86.711 Personal history of pulmonary embolism; K21.9 Gastro-esophageal reflux disease without esophagitis; F41.1 Generalized anxiety disorder; G47.33 Obstructive sleep apnea (adult) (pediatric); R13.10 Dysphagia, unspecified; Z30.09 Encounter for other general counseling and advice on contraception; B35.1 Tinea unguium; B35.3 Tinea pedis
CPT/HCPCS: 83036; 99396

== ENCOUNTER 2023-10-07 12:52 | Outpatient (AMB) | payer MEDICARE, MEDICAID, SELFPAY ==
--- NOTE | 2023-10-07 13:06 | A.OFFVIS_ITS ---
Intake Visit Reasons: vasectomy consultation Intake Note: New Patient presents for initial visit for Vasectomy Consult Children# 6 Expected Children# 1 Urology Medications: none Blood Thinner: Apixaban Reconnaissance Crewmember Required: No Accompanied by: Self / Same As Patient Allergies Penicillins [PENICILLINS] Allergy (Unknown, Verified 10/07/23 16:03) UNKNOWN Medication List - Last Reconciled 10/07/23 by ANNA FonsecaP- alprazolam 0.25 mg PO BID PRN 10 days apixaban (Eliquis) 5 mg PO BID 90 days aripiprazole (Abilify) 5 mg PO DAILY [AUTO PAP 6-20 cm H2o humidified air As directed] blood sugar diagnostic (FreeStyle Lite Strips) As directed check the BS QD blood-glucose meter (FreeStyle Lite Meter kit) As directed clotrimazole 1% 1 appl topical BID 4 weeks empagliflozin (Jardiance) 10 mg PO DAILY 30 days escitalopram oxalate (Lexapro) 20 mg PO DAILY gabapentin 300 mg PO TID 90 days lancets (FreeStyle Lancets) As directed check BS QD lisinopril 5 mg PO DAILY 90 days metformin 1,000 mg PO BID 90 days metoprolol succinate ER 50 mg PO DAILY miconazole nitrate 2% (Zeasorb AF) 1 appl topical BID omeprazole 20 mg PO DAILY 30 days ondansetron HCl 4 mg PO Q8H PRN trazodone 100 mg PO BEDTIME HPI Comments Details: Genaro is a very pleasant 53-year-old male patient of Dr. Farah. He has a past medical history of obstructive sleep apnea, DVT, carpal tunnel, PVD, type 2 diabetes, and hypertension. He presents to the office today for - vasectomy evaluation Vasectomy evaluation The patient presents for vasectomy consultation.? He is currently He has fathered -?6 children with 3 partners The youngest child is - is with his 7th child. She is due to give next week. 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 Vasectomy as intended as a permanent form of control. Printed information and literature was provided to the patient. Overall there is a one in 2500 failure rate. This can occur at any time after vasectomy. Risks were discussed highlighting hematoma, spermatocele, epididymal congestion, development of sperm antibodies, and development of chronic pain estimated between 1-5%. The procedure was reviewed in detail. Anatomical diagrams of the male genitalia were used to explain the location of the vas deferens. The vas deferens will be transected, the proximal end will be cauterized, a metal clip would be applied to separate the 2 vas deferens ends. It was explained the procedure will be done in the office and takes approximately 10-15 minutes. Less common problems that arise with vasectomy include hematoma, bleeding, allergic reaction to anesthetic, epididymal infection, epididymal congestion, scrotal discomfort, spermatic leak, spermatic granuloma and the possibility of antisperm antibodies. He understands these risks and wishes to proceed. Consent was signed at the office today. He also understands that it takes 12 weeks for sperm to fully clear the system. He will need to provide a semen sample at 12 weeks and if this is not clear a 2nd sample at 16 weeks. Medical clearance to stop using protection will only be provided if he satisfies published criteria for sperm clearance. [facility] Medical History Obstructive sleep apnea (adult) (pediatric) Medicare annual wellness visit, initial DVT (deep venous thrombosis) Injury of tendon of biceps Nausea Closed fracture of right proximal tibia Femoral distal fracture Obstructive sleep apnea Carpal tunnel syndrome Peripheral vascular disease History of pulmonary embolism Type 2 diabetes mellitus with hyperglycemia Hypertension Surgical History History of total right knee replacement Status post debridement Total knee replacement status Status post osteotomy History of femoropopliteal bypass History of repair of left rotator cuff Family History Father CVD (cardiovascular disease) Diabetes Hypertension Mother Diabetes Hypertension Brother Past heart attack Substance abuse Maternal Uncle Schizophrenia Paternal Uncle CVD (cardiovascular disease) Social History Household Members: None Housing: Condominium Are you a primary director medicare sales to a significant other at home: No Do you presently have visiting nurse or other home services: No Alcohol intake: never Patient Tobacco Use Status: Never used Tobacco Years Smoked: smokes week occ e-Cigarette/Vaping Use: Never Used Second Hand Smoke Exposure: No Substance Use Type: Marijuana service: No Current occupational status: unemployed Cognitive needs: No Hearing needs: No Vision needs: No Review of Systems Const Reports no additional complaints Eyes Reports no additional complaints ENT Reports no additional complaints Card Reports as per HPI Resp Reports as per HPI GI Reports no additional complaints Reports as per HPI Musc Reports no additional complaints Neuro Reports as per HPI Psych Reports no additional complaints Endo Reports as per HPI Vlad/Lymph Reports no additional complaints Aller/Immun Reports no additional complaints Physical Exam Const General: cooperative, healthy appearing, comfortable, no acute distress, well developed, alert and awake Nutritional Appearance: overweight Orientation/consciousness: patient oriented x3 Limitations: no limitations HEENT Head: Yes normal to inspection, Yes normocephalic and Yes atraumatic Ears: hearing grossly normal bilaterally Eyes General: appearance normal, both eyes and all related structures Neck Neck: Yes normal visual inspection and Yes trachea midline Chest Chest palpation & inspection: normal inspection of the chest Resp Effort & Inspection: normal respiratory effort and able to speak in complete sentences Cardio Rate: regular rate GI Inspection: Yes normal to inspection General: Yes no CVA tenderness Penis: normal penis Meatus: meatus normal Scrotum: scrotum normal Testes: Testes normal Back/Spine/Pelvis Back: no CVA tenderness Skin General skin exam: no rashes or lesions noted Neuro General: patient oriented x3 Extrem General: Yes normal to inspection Psych Appearance: grossly normal and well kempt Mental Status: mental status grossly normal Speech and movement: Normal speech and movement present and Clear speech present Affect: normal affect Attitude: cooperative Thought process: Normal thought process present Thought content: Normal thought content present Insight: Fair insight present (Psych) Judgement: Fair judgement present (Psych) Results AMB Urinalysis, Automated UA Leukoctes 0 Anayeli/uL Last Edit by Zohra Zavala on 10/07/23 13:28 UA Nitrite Negative Last Edit by Patrickhowsimplelilliam Zavala on 10/07/23 13:28 UA Urobilinogen 0.2 mg/dL Last Edit by Cristal Studioslilliam Zavala on 10/07/23 13:28 UA Protein 15 mg/dL Last Edit by Zohra Wendyrachele on 10/07/23 13:28 UA pH 5.5 Last Edit by Zohra Zavala on 10/07/23 13:28 UA Blood 10 Martin/uL Last Edit by Zohra Zavala on 10/07/23 13:28 UA Specific [place] 1.025 Last Edit by Zohra Zavala on 10/07/23 13:28 UA Ketone Negative Last Edit by Zohra Zavala on 10/07/23 13:28 UA Bilirubin 1 mg/dL Last Edit by Zohra Zavala on 10/07/23 13:28 UA Glucose 0 mg/dL Last Edit by Zohra Zavala on 10/07/23 13:28 Results Reviewed Results Reviewed: Laboratory Last Values Urine pH (Auto) 5.5 10/07/23 13:26 Specific [place] (Auto) 1.025 10/07/23 13:26 Urine Protein (Auto) 15 mg/dL 10/07/23 13:26 Glucose (UA)(Auto) 0 mg/dL 10/07/23 13:26 Urine Ketones (Auto) Negative 10/07/23 13:26 Urine Blood (Auto) 10 Martin/uL 10/07/23 13:26 Urine Nitrite (Auto) Negative 10/07/23 13:26 Urine Bilirubin (Auto) 1 mg/dL 10/07/23 13:26 Urine Urobilinogen (Auto) 0.2 mg/dL 10/07/23 13:26 Leukocyte Esterase (Auto) 0 Anayeli/uL 10/07/23 13:26 Assessment & Plan Assessment & Plan (1) Anxiety about health: Code(s): R45.89 - Other symptoms and signs involving emotional state Category: Medical Plan In office urinalysis results reviewed with the patient today; as noted above. Discussed at length risks and benefits of vasectomy; as noted above. All questions were answered. Prescriptions provided as well as education regarding specific instructions were given to bring medications to office day of procedure. Discussed semen analysis with in office assessment or fellows; information provided. Will schedule for vasectomy with Dr. Escobar as discussed. Follow-up per Dr. Escobar's order; or sooner with any issues, concerns, and or questions. Orders: Orders AMB Urinalysis Automated Today Z13.9 - Encounter for screening, unspecified Medications: New acetaminophen-codeine 300-30 mg 1 tab PO Q8H 3 days 9 tabs 0RF R45.89 - Other symptoms and signs involving emotional state diazepam Take medication after arrival at office 2 mg PO BID 1 day PRN 2 tabs 0RF anxiety R45.89 - Other symptoms and signs involving emotional state Patient Instructions: The patient had an opportunity to ask questions regarding the treatment plan. All questions were answered. Physical exam, labs, and imaging were discussed and reviewed in detail. As well as risks, benefits, and discussion of treatment choices. No major barriers to understanding were identified. The patient expre ssed understanding and agreement with the above treatment plan. The patient was made aware they should contact our office by phone for worsening of their current condition, the appearance of new symptoms, or with any questions or concerns. Compliance is encouraged with any medications and follow up testing that is ordered. It is a privilege to be allowed the opportunity to participate in? your urological care.? Again, if you have any questions or concerns If you have any questions or concerns please do not hesitate to contact me. The office is [phone]. This note is constructed using voice recognition software. While every effort has been made to ensure accuracy filament wound parts fabricator errors may have been included. Yours sincerely, SILVIA Fonseca-CHOLO Coding Level of Care Code New Pt Level 4 (09043) Diagnoses Anxiety about health R45.89
== END 2023-10-07 13:50 | disposition home or self-care (01) ==
PROVIDERS: PCP Internal Medicine; Visit Provider Nurse Practitioner Family
DX: Z13.9 Encounter for screening, unspecified (principal); R45.89 Other symptoms and signs involving emotional state
CPT/HCPCS: 99204

== ENCOUNTER → 2023-10-07 12:52 | Outpatient (BNVA) | payer MEDICARE, MEDICAID, SELFPAY | PROVIDERS: PCP Internal Medicine; Visit Provider Nurse Practitioner Family | DX: R45.89 Other symptoms and signs involving emotional state (principal) | CPT/HCPCS: 81003; 99202 ==

== ENCOUNTER 2023-10-20 10:25 | Outpatient (REF) | payer MEDICARE, MEDICAID, SELFPAY | END 2023-10-20 10:26 | disposition home or self-care (01) | LOC: HO.SH 10:25 | PROVIDERS: Visit Provider Internal Medicine | DX: Z01.118 Encounter for examination of ears and hearing with other abnormal findings (principal); H91.90 Unspecified hearing loss, unspecified ear | CPT/HCPCS: 92557; 92567 ==

== ENCOUNTER 2023-11-16 14:48 | Outpatient (AMB) | payer MEDICARE, MEDICAID, SELFPAY ==
--- NOTE | 2023-11-16 14:52 | MHC.OFFVIS ---
Intake Visit Reasons: vasectomy Intake Note: Patient presents to the office today for a vasectomy procedure. Urology Meds: None Blood Thinner: Apixaban Customer Supply Chain Analyst Required: No Accompanied by: Self / Same As Patient Allergies Penicillins [PENICILLINS] Allergy (Unknown, Verified 11/16/23 14:52) UNKNOWN HPI Comments Details: Genaro is a very pleasant 53-year-old male patient of Dr. Farah. He has a past medical history of obstructive sleep apnea, DVT, carpal tunnel, PVD, type 2 diabetes, and hypertension. He presents to the office today for - vasectomy evaluation Vasectomy evaluation The patient presents for vasectomy consultation.? He is currently He has fathered -?6 children with 3 partners The youngest child is - is with his 7th child. She is due to give next week. 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 Vasectomy as intended as a permanent form of control. Printed information and literature was provided to the patient. Overall there is a one in 2500 failure rate. This can occur at any time after vasectomy. Risks were discussed highlighting hematoma, spermatocele, epididymal congestion, development of sperm antibodies, and development of chronic pain estimated between 1-5%. The procedure was reviewed in detail. Anatomical diagrams of the male genitalia were used to explain the location of the vas deferens. The vas deferens will be transected, the proximal end will be cauterized, a metal clip would be applied to separate the 2 vas deferens ends. It was explained the procedure will be done in the office and takes approximately 10-15 minutes. Less common problems that arise with vasectomy include hematoma, bleeding, allergic reaction to anesthetic, epididymal infection, epididymal congestion, scrotal discomfort, spermatic leak, spermatic granuloma and the possibility of antisperm antibodies. He understands these risks and wishes to proceed. Consent was signed at the office today. He also understands that it takes 12 weeks for sperm to fully clear the system. He will need to provide a semen sample at 12 weeks and if this is not clear a 2nd sample at 16 weeks. Medical clearance to stop using protection will only be provided if he satisfies published criteria for sperm clearance. COUNTS INCLUDE 234 BEDS AT THE [facility] Medical History Obstructive sleep apnea (adult) (pediatric) Medicare annual wellness visit, initial DVT (deep venous thrombosis) Injury of tendon of biceps Nausea Closed fracture of right proximal tibia Femoral distal fracture Obstructive sleep apnea Carpal tunnel syndrome Peripheral vascular disease History of pulmonary embolism Type 2 diabetes mellitus with hyperglycemia Hypertension Surgical History History of total right knee replacement Status post debridement Total knee replacement status Status post osteotomy History of femoropopliteal bypass History of repair of left rotator cuff Family History Father CVD (cardiovascular disease) Diabetes Hypertension Mother Diabetes Hypertension Brother Past heart attack Substance abuse Maternal Uncle Schizophrenia Paternal Uncle CVD (cardiovascular disease) Social History Household Members: None Housing: Condominium Are you a primary medication care manager to a significant other at home: No Do you presently have visiting nurse or other home services: No Alcohol intake: never Patient Tobacco Use Status: Never used Tobacco Years Smoked: smokes week occ e-Cigarette/Vaping Use: Never Used Second Hand Smoke Exposure: No Substance Use Type: Marijuana service: No Current occupational status: unemployed Cognitive needs: No Hearing needs: No Vision needs: No Office Procedures Vasectomy Details: Preoperative diagnosis: Anxiety regarding Postoperative diagnosis: Anxiety regarding unplanned Procedure: Bilateral vasectomy Informed consent had been completed. Preoperative and postoperative instructions were provided to the patient. The patient has transportation to home identified at the completion of the procedure. Anti-anxiolytic prescription medication had been taken after consent verification and all questions answered. Tylenol with Codeine pain medication was also provided. The penis was elevated using a rubber band that was attached to the patient's shirt. Both vasa were palpated through the skin using a 3 finger technique and the penoscrotal junction was prepped with Betadine. After Betadine application the left vas was elevated using a 3 finger grasping technique. 1% lidocaine was used to create a subdermal bubble. Further anesthetic was then advanced using the 25-gauge needle along the vasa in a proximal fashion. Approximately 2 minutes were allowed to for local anesthetic uptake. Using the sharp spreading instrument the scrotal skin was spread longitudinally in line with the vasa until the subdermal layer had been divided. The vasa was then elevated from the scrotum using a ring clamp. Care was taken to elevate the superior portion of the vasa by rotating the ring clamp in a caudad direction. The battery powered cautery was used to divide the vasal sheath in a longitudinal direction on the exposed vasa and to strip the vasal sheath from the vasa. A 2nd narrower ring clamp was placed on the exposed vas and used to lift the vas from the vasal sheath. so it grasped the elevated vas. The cautery was used to divide vasal attachments and allow full exposure of a small loop of vasa. The sharp spreading instrument was then used to create a tunnel under the vasa and spread to allow the blood vessels of the vasa to retract from the vasa. A mosquito clamp was placed on the proximal portion of the vas. The battery-powered cautery was used to make a partial division in the proximal vas and then inserted in order to cauterize the proximal end of the vas. This was then cut and allowed to retract into the vasal sheath. The mosquito was then used to twist the vasa 180 degrees creating a fascial interposition. Using a 4-0 chromic suture the fascial interposition was sutured closed. The distal portion of the vas was then cut in order to obtain a segment of vasa. The vasa were allowed to retract back into the scrotum. A small snap was then used to approximate the skin edges and allow hemostasis without placement of a suture. A similar procedure was repeated on the right side. He tolerated the procedure well. Triple antibiotic was applied. A gauze was applied. An ice pack was applied to assist with minimizing swelling. Postoperative instructions were confirmed. He understands the need to continue to use control methods. A semen sample should be brought for inspection under the microscope in 10-12 weeks. CPT 36587 Vasectomy performed by: Bijan Escobar Informed consent given: Yes Informed consent signed: Yes Time out checklist: patient, procedure, site marked/identified, positioning of patient, supplies available, allergies confirmed and team agrees on procedure Time out staff in room: Yes Time out verified: Yes Preoperative sedation: Yes Anesthetic used: other Specimens: vas segments not sent to pathology 35654 - Vasectomy Assessment & Plan Assessment & Plan (1) Anxiety about health: Code(s): R45.89 - Other symptoms and signs involving emotional state Category: Medical Plan 3m f/u Patient Instructions: Imaging studies, laboratory and physical exam results were discussed and reviewed in detail. No major barriers to patient understanding were identified. An opportunity to ask questions regarding the treatment plan was provided. All questions were answered. The patient expressed understanding and agreement with the above treatment plan. The patient is aware they should contact our office by phone for worsening of their current condition or the appearance of new urologic symptoms. Compliance is encouraged with any medications and followup testing that is ordered. It is a privilege to participate in the urologic care of your patient. If you have any questions or concerns regarding treatment for the above conditions, or other urologic issues, please do not hesitate to contact me. The office telephone contact is [phone]. This note is constructed using voice recognition software. While every effort has been made to ensure accuracy manager philosophy errors may have been included. Yours sincerely, Dr Bijan Escobar MD, [facility] - Urology Providers of Expert, Compassionate Care for the Genitourinary System Coding Level of Care Code Global (82252) Diagnoses Anxiety about health R45.89 CPT Codes Office Procedure - CPT: 41224 - Vasectomy ([id number])
== END 2023-11-16 15:44 | disposition home or self-care (01) ==
PROVIDERS: PCP Internal Medicine; Visit Provider Urology
DX: Z30.2 Encounter for sterilization (principal); R45.89 Other symptoms and signs involving emotional state
CPT/HCPCS: 55250; 99024

== ENCOUNTER → 2023-11-16 14:48 | Outpatient (BNVA) | payer MEDICARE, MEDICAID, SELFPAY | PROVIDERS: PCP Internal Medicine; Visit Provider Urology | DX: Z30.2 Encounter for sterilization (principal); R45.89 Other symptoms and signs involving emotional state | CPT/HCPCS: 55250; 99212 ==

== ENCOUNTER 2023-11-30 08:21 | Outpatient (AMB) | payer MEDICARE, MEDICAID, SELFPAY ==
--- NOTE | 2023-11-30 08:29 | A.OFFVIS_ITS ---
Vital Signs 11/30/23 08:30 Height 5 ft 10 in Weight 275 lb BMI 39.5 BP 116/73 Blood Pressure Location Lt brachial Position Sitting Pulse 96 Intake Visit Reasons: Screening Colonoscopy Intake Note: Genaro presents in the office as a screening colonoscopy. CC: Has acid reflux - never had a colonoscopy. Episodes where he will wake up nauseous and vomiting all day - he wont be able to eat or keep anything down. Once a month at least this episode will occur. Depending on what he eats he will have trev reguriation. Dinkey Operator Required: No Allergies Penicillins [PENICILLINS] Allergy (Unknown, Verified 11/30/23 08:32) UNKNOWN HPI HPI Screening Colonoscopy: Details: 53 year old? male with past medical history of cholelithiasis, anxiety, PAD, history of PE, JEANINE, DVT, GERD, diabetes is here today for pre colonoscopy screening.? Patient was sent to us by his PCP.? This is his first colonoscopy screening.? Patient denies any gastrointestinal symptoms in the past or at present.? However patient does report to have acid reflux and has been on omeprazole 20 mg for some time. Patient reports that despite taking medications daily still has symptoms. Occasional dysphagia as well. Patient was sent for barium swallow and upper GI series and will have that done end of this month. Patient denies in trouble moving his bowels. Denies melena, hematochezia. Denies any personal or family history of gastrointestinal disease, colon polyps, or CRC.? Denies history of difficulty with sedation or anesthesia in the past.? History of sleep apnea, unable to use the machine as machine was never ordered for him. Patient was encouraged to call PCP to send him to Pulmonary for pulmonary function test. Denies any history of cardiac, renal, pulmonary, or hepatic disease.?? No history of infectious? diseases like hepatitis A, B, C, HIV or tuberculosis.? Patient is on Eliquis, history of DVTs and PE many years ago. Will need to stop 48 hours before the procedure REPLACED BY [facility] Medical History Obstructive sleep apnea (adult) (pediatric) Medicare annual wellness visit, initial DVT (deep venous thrombosis) Injury of tendon of biceps Nausea Closed fracture of right proximal tibia Femoral distal fracture Obstructive sleep apnea Carpal tunnel syndrome Peripheral vascular disease History of pulmonary embolism Type 2 diabetes mellitus with hyperglycemia Hypertension Surgical History History of total right knee replacement Status post debridement Total knee replacement status Status post osteotomy History of femoropopliteal bypass History of repair of left rotator cuff Family History Father CVD (cardiovascular disease) Diabetes Hypertension Mother Diabetes Hypertension Brother Past heart attack Substance abuse Maternal Uncle Schizophrenia Paternal Uncle CVD (cardiovascular disease) Social History Household Members: None [facility] Are you a primary child care lead teacher to a significant other at home: No Do you presently have visiting nurse or other home services: No Alcohol intake: never Patient Tobacco Use Status: Never used Tobacco Years Smoked: smokes week occ e-Cigarette/Vaping Use: Never Used Second Hand Smoke Exposure: No Substance Use Type: Marijuana service: No Current occupational status: unemployed Cognitive needs: No Hearing needs: No Vision needs: No Review of Systems Const Denies weight gain and Denies weight loss ENT Reports no additional complaints, Denies dysphagia and Denies odynophagia Card Reports no additional complaints Resp Reports no additional complaints GI Denies abdominal pain, Denies belching, Denies melena, Reports bloating, Denies change in bowel habits, Denies dysphagia, Denies excessive flatus, Denies dyspepsia, Reports heartburn, Denies diarrhea, Denies loose stools, Denies nausea, Denies odynophagia and Denies vomiting Reports no additional complaints Musc Reports no additional complaints Neuro Reports no additional complaints Psych Reports no additional complaints Endo Reports no additional complaints Physical Exam Vital Signs: Last Vital Signs Pulse 96 11/30/23 08:30 BP 116/73 11/30/23 08:30 BMI result Body Mass Index 39.5 Const General: healthy appearing and no acute distress Nutritional Appearance: obese Orientation/consciousness: patient oriented x3 Resp Effort & Inspection: normal respiratory effort, able to speak in complete sentences, no tracheal deviation and symmetric chest movement Auscultation: clear to auscultation bilaterally Cardio Rate: regular rate GI Inspection: Yes normal to inspection, No distended and Yes obesity Palpation (GI): Soft to palpation, not firm, nontender and No hepatosplenomegaly present Auscultation: normal bowel sounds General: Yes no CVA tenderness Back/Spine/Pelvis Back: no CVA tenderness Skin General skin exam: elasticity normal, turgor normal and dry skin Neuro General: patient oriented x3 Psych Appearance: grossly normal Mental Status: mental status grossly normal Assessment & Plan Assessment & Plan (1) GERD (gastroesophageal reflux disease): Code(s): K21.9 - Gastro-esophageal reflux disease without esophagitis Category: Medical Qualifiers: Esophagitis presence: esophagitis presence not specified Qualified Code(s): K21.9 - Gastro-esophageal reflux disease without esophagitis (2) Dysphagia: Code(s): R13.10 - Dysphagia, unspecified Category: Medical Qualifiers: Dysphagia type: unspecified Qualified Code(s): R13.10 - Dysphagia, unspecified (3) Colon cancer screening: Code(s): Z12.11 - Encounter for screening for malignant neoplasm of colon Category: Medical Plan Patient denies any GI, cardiac or respiratory symptoms.? Denies any issues with anesthesia in the past.? History of sleep apnea, not using CPAP.? No history infectious diseases in the past or present.? Patient is on Eliquis, history of PE. May stop Eliquis 48 hours before the procedure and restart as soon as able after.? Patient reports acid reflux currently on omeprazole. Has been on it for some time. Will change the omeprazole to pantoprazole 40 mg. Patient will be sent for upper endoscopy to rule out gastritis, esophagitis, Suero's, duodenitis, H pylori. No family or personal history of colon cancer or polyps.? Patient denies melena, hematochezia, unintentional weight loss or ribbon like stools.? Discussed at length the pre-procedure,? prep, diet & medications as well as what to expect prior, during and after the procedure.?? Stressed the importance of good bowel prep.? Recommended the use of Vaseline or Calmoseptine OTC & baby wipes with bowel movements to promote comfort.? ?Patient verbalizes understanding and agrees to plan of care.? She was given the opportunity to ask questions and all questions answered.? We will see her after the procedure.? Medications: New bisacodyl (Dulcolax (bisacodyl)) take 4 tabs at noon the day before your colonoscopy 20 mg (4 x 5 mg) PO ONCE 1 day 4 tabs 0RF Z12.11 - Encounter for screening for malignant neoplasm of colon pantoprazole take one tablet half an hour before breakfast 40 mg PO DAILY 30 tabs 3RF K21.9 - Gastro-esophageal reflux disease without esophagitis polyethylene glycol 3350 (Miralax) As directed by gastroenterology department at [facility] 238 grams PO ONCE 238 grams 0RF Z12.11 - Encounter for screening for malignant neoplasm of colon Discontinued omeprazole Discontinued Reason: Doctor's Order 20 mg PO DAILY 30 days 30 caps 1RF K21.9 - Gastro-esophageal reflux disease without esophagitis, R11.2 - Nausea with vomiting, unspecified Coding Level of Care Code New Pt Level 3 (42127) Diagnoses Gastroesophageal reflux disease, unspecified whether esophagitis present K21.9 Esophagitis presence: esophagitis presence not specified Dysphagia, unspecified type R13.10 Dysphagia type: unspecified Colon cancer screening Z12.11 Time Spent (min) 40 Comment 30 minutes spent with patient and additional 10 minutes spent reviewing his records
[2023-11-30 08:30] VITALS: BP 116/73; PULSE 96; BMI 39.5
== END 2023-11-30 09:12 | disposition home or self-care (01) ==
PROVIDERS: PCP Internal Medicine; Referring Provider Internal Medicine; Visit Provider Nurse Practitioner Family
DX: K21.9 Gastro-esophageal reflux disease without esophagitis (principal); R13.10 Dysphagia, unspecified; Z12.11 Encounter for screening for malignant neoplasm of colon
CPT/HCPCS: 99203; 99213

== ENCOUNTER → 2023-11-30 08:21 | Outpatient (BNVA) | payer MEDICARE, MEDICAID, SELFPAY | PROVIDERS: PCP Internal Medicine; Referring Provider Internal Medicine; Visit Provider Nurse Practitioner Family | DX: Z01.818 Encounter for other preprocedural examination (principal); K21.9 Gastro-esophageal reflux disease without esophagitis; R13.10 Dysphagia, unspecified | CPT/HCPCS: 99202 ==

== ENCOUNTER 2023-12-21 08:31 | Outpatient (REF) | payer MEDICARE, MEDICAID, SELFPAY ==
--- NOTE | ~2023-12-21 | FL_ITS ---
EXAMINATION: XR FLUOROSCOPY UPPER GI WITH AIR CLINICAL INFORMATION: Dysphagia. Abdominal pain and vomiting COMPARISON: None TECHNIQUE: Fluoroscopic air contrast upper GI examination was performed utilizing standard techniques with thin and thick barium and effervescent granules. Numerous spot images were obtained. FINDINGS: Lateral cine images of the oropharynx and hypopharynx demonstrate normal swallow mechanism with normal epiglottic inversion and soft palate elevation. No tracheal penetration, glottic or subglottic aspiration identified. No nasopharyngeal reflux present. Hypopharyngeal structures appear normal without evidence of mass or diverticulum. There is ballooning of the hypopharynx with mild to moderate cricopharyngeal achalasia present. Dual and single contrast images of the esophagus demonstrate normal caliber, contour, and mucosal pattern. No evidence of stricture, mass, or ulcerations identified. Esophageal peristalsis was mildly disordered. No evidence of hiatus hernia identified. No significant gastroesophageal reflux was seen during the course of the examination and on reflux views. Dual contrast and single contrast images of the stomach demonstrated a normal contour. There are multiple focal areas of contrast pooling in the fundus of the stomach that likely represents small superficial aphthous ulcers. No masses are present. Contrast freely passed into the gastric antrum and duodenal bulb without delay. Single and air-contrast images of the duodenal bulb demonstrate no abnormality. The duodenal sweep has a normal appearance, course, and mucosal fold appearance. The imaged proximal jejunum has a normal fold pattern and caliber. There is rapid transit of the barium column with the right colon starting to opacify after 10 minutes. FLUOROSCOPY TIME: 4 minutes 23 seconds Number of Spot Images: 10 Number of Cine: 14 DOSE AREA PRODUCT: 4300 uGy-m2 (microgray-meter squared) FL/FL upper GI w air w Ba Swallow IMPRESSION: 1. Ballooning of the hypopharynx with mild to moderate cricopharyngeal achalasia 2. Multifocal areas of contrast pooling in the fundus the stomach that likely represent small superficial aphthous ulcers. Findings suggest gastritis. Recommend correlation with EGD. 3. Rapid transit of the barium column with the right colon starting to opacify after 10 minutes. Etiology is unclear. This procedure was performed by Pb Williamson PA-C, and supervised by Dr. Gonzales
== END 2023-12-21 08:32 | disposition home or self-care (01) ==
LOC: HO.XRAY 08:31
PROVIDERS: PCP Internal Medicine; Visit Provider Internal Medicine
DX: R13.10 Dysphagia, unspecified (principal)
CPT/HCPCS: 74246

== ENCOUNTER → 2023-12-21 08:32 | Outpatient (BNV) | payer MEDICARE, MEDICAID, SELFPAY | PROVIDERS: PCP Internal Medicine; Visit Provider Physician Assistant Surgical | DX: R13.10 Dysphagia, unspecified (principal) | CPT/HCPCS: 74246 ==

== ENCOUNTER 2024-01-11 10:44 | Emergency (ER) | payer MEDICARE, MEDICAID, SELFPAY ==
--- NOTE | ~2024-01-11 | CT_ITS ---
EXAMINATION: CT HEAD WITHOUT CONTRAST (STROKE PROTOCOL) CLINICAL INFORMATION: Sudden onset severe headache. COMPARISON: None available. TECHNIQUE: Contiguous axial imaging was performed from the skull base to vertex without intravenous administration of contrast. This CT examination was performed using dose optimization techniques as appropriate, variously including the following: *Automated exposure control *Adjustment of mA and/or kV according to patient size (this includes techniques or standardized protocols for targeted exams where dose is matched to indication/reason for exam; i.e. extremities or head) *Use of iterative reconstruction technique DLP: 772 mGy-cm FINDINGS: No intracranial hemorrhage, large infarction, or mass lesion is seen. No extra-axial collection is appreciated. The ventricles are normal in size and configuration without evidence of hydrocephalus. Scattered right mastoid air cell air-fluid levels. Opacification of left mastoid air cells. Left middle ear opacification. The visualized paranasal sinuses appear clear. CT/CT head for stroke IMPRESSION: No acute intracranial finding. Bilateral mastoiditis, left worse than right. Left otitis media. This critical result was discussed with Dr. Silva at 11:46 AM on January 10, 2074. It was ascertained that the content and urgency of the report was understood at the time of direct communication. Electronically signed by: Anibal Malik MD 01/11/2024 11:47 AM EDT
[2024-01-11 10:46] VITALS: BP 136/88; PULSE 92; RESP 20; TEMP 36.9; O2SAT 94; BMI 36.6
--- NOTE | 2024-01-11 10:49 | ECG_ITS ---
Test Reason : PRE-SYNCOPE Blood Pressure : / mmHG Vent. Rate : 082 BPM Atrial Rate : 082 BPM P-R Int : 166 ms QRS Dur : 096 ms QT Int : 368 ms P-R-T Axes : 030 013 013 degrees QTc Int : 429 ms Normal sinus rhythm Normal ECG When compared with ECG of 04-DEC-2022 22:19, No significant change was found Referred By: Generic ED Physician Electronically Signed By:JORDAN RAMIREZ
--- NOTE | 2024-01-11 11:02 | ED_ITS ---
HPI - General Adult General Chief complaint: Syncope Stated complaint: Outpatient response Time Seen by Provider: 01/11/24 10:51 History of Present Illness ED Provider: Shira ESPARZA narrative: Patient is a 53-year-old male with a number of medical and psychiatric issues. He is on apixaban because of a history of DVTs. The patient says that he felt mildly chilled yesterday. Today he had an appointment at the hospital and drove himself to the hospital but at around the time that he arrived at the hospital he developed a fairly abrupt onset severe headache and he apparently had a near syncopal episode in the lobby of the hospital. A rapid response was called and he was brought to the hospital. He was sweaty, weak, and dizzy. The patient says that he has a chronic sensation of his ears being clogged. He does not really have any acute complaints with his ears. He says that he has a history of fluid in his ears and recently had an audiology evaluation. He is awaiting an ENT referral. Related Data Home Medications ?Medication ?Instructions ?Recorded ?Confirmed escitalopram oxalate 20 mg tablet 20 mg PO DAILY 05/07/20 10/07/23 (Lexapro) trazodone 100 mg tablet 100 mg PO BEDTIME 05/07/20 10/07/23 ondansetron HCl 4 mg tablet 4 mg PO Q8H PRN Nausea And Vomiting 07/28/21 10/07/23 aripiprazole 10 mg tablet 10 mg PO DAILY 11/30/23 Previous Rx's ?Medication ?Instructions ?Recorded lisinopril 5 mg tablet 5 mg PO DAILY 90 days #90 tabs 11/17/20 metoprolol succinate 50 mg 50 mg PO DAILY #90 tabs 11/17/20 tablet,extended release 24 hr alprazolam 0.25 mg tablet 0.25 mg PO BID PRN anxiety 10 days 02/19/21 #20 tabs empagliflozin 10 mg tablet 10 mg PO DAILY 30 days #30 tabs 08/27/21 (Jardiance) gabapentin 300 mg capsule 300 mg PO TID 90 days #270 caps 07/23/22 metformin 1,000 mg tablet 1,000 mg PO BID 90 days #180 tabs 07/23/22 blood sugar diagnostic (FreeStyle #100 ea 07/26/22 Lite Strips) blood-glucose meter (FreeStyle #1 ea 07/26/22 Lite Meter kit) lancets 28 gauge (FreeStyle #100 ea 07/26/22 Lancets) AUTO PAP 6-20 cm H2o humidified air #1 ea 08/19/23 apixaban 5 mg tablet (Eliquis) 5 mg PO BID 90 days #180 tabs 08/19/23 clotrimazole 1 % topical cream 1 appl topical BID 4 weeks #45 08/19/23 grams miconazole nitrate 2 % topical 1 appl topical BID #85 grams 08/19/23 powder (Zeasorb AF) diazepam 2 mg tablet 2 mg PO BID PRN anxiety 1 day #2 10/07/23 tabs bisacodyl 5 mg tablet,delayed 20 mg (4 x 5 mg) PO ONCE 1 day #4 11/30/23 release (Dulcolax (bisacodyl)) tabs pantoprazole 40 mg tablet,delayed 40 mg PO DAILY #30 tabs 11/30/23 release polyethylene glycol 3350 17 238 g PO ONCE #238 grams 11/30/23 gram/dose oral powder (Miralax) Allergies Allergy/AdvReac Type Severity Reaction Status Date / Time Penicillins [PENICILLINS] Allergy Unknown UNKNOWN Verified 01/11/24 10:48 Review of Systems 2 Review of Systems: Yes all other systems are reviewed and are negative [facility] Past Medical History Medical History Obstructive sleep apnea (adult) (pediatric) Medicare annual wellness visit, initial DVT (deep venous thrombosis) Injury of tendon of biceps Nausea Closed fracture of right proximal tibia Femoral distal fracture Obstructive sleep apnea Carpal tunnel syndrome Peripheral vascular disease History of pulmonary embolism Type 2 diabetes mellitus with hyperglycemia Hypertension Surgical History History of total right knee replacement Status post debridement Total knee replacement status Status post osteotomy History of femoropopliteal bypass History of repair of left rotator cuff Family History Family History Father CVD (cardiovascular disease) Diabetes Hypertension Mother Diabetes Hypertension Brother Past heart attack Substance abuse Maternal Uncle Schizophrenia Paternal Uncle CVD (cardiovascular disease) Social History Social History Household Members: None [facility] Are you a primary post acute care nurse practitioner to a significant other at home: No Do you presently have visiting nurse or other home services: No Alcohol intake: never Patient Tobacco Use Status: Never used Tobacco Years Smoked: smokes week occ e-Cigarette/Vaping Use: Never Used Second Hand Smoke Exposure: No Substance Use Type: Marijuana Advance Directives: No service: No Current occupational status: unemployed Cognitive needs: No Hearing needs: No Vision needs: No Physical Exam ED Vital Signs: Vital Signs - 24 hr 01/11/24 14:06 Temperature 98.5 F Pulse Rate 92 Respiratory Rate 20 Blood Pressure 136/88 Pulse Oximetry 94 Oxygen Delivery Method Room Air BMI result Body Mass Index 36.6 Const Other: The patient wa awake but seemed mildly drowsy. He was diaphoretic and looks uncomfortable. HENMT Other: Face is symmetrical. The pharynx is unremarkable. Tympanic membranes are unremarkable bilaterally. No bulging of the membranes. No deformed architecture of the membranes. No significant injection of the tympanic membranes. Ear canals are clear. Eyes Other: Pupils are round equal, conjunctivae clear, extraocular movements intact. Neck Other: No cervical adenopathy Resp Effort & Inspection: normal respiratory effort Auscultation: clear to auscultation bilaterally Cardio Rate: regular rate Rhythm: regular rhythm Heart sounds: S1 normal heart sound present and S2 normal heart sound present GI Other: Abdomen is soft and nontender Skin Other: The skin was initially diaphoretic, no rash Neuro Other: The patient initially looked somewhat drowsy and uncomfortable. No gross disorientation or altered cognition. The face is symmetrical. Eye movements intact. Speech was without dysarthria or aphasia. He moves his extremities symmetrically. No definite focal neurological finding. Extrem Other: No peripheral edema Medications Administered Discontinued Medications Generic Name Dose Route Start Last Admin Trade Name Freq PRN Reason Stop Dose Admin Acetaminophen 975 mg 01/11/24 13:35 01/11/24 14:00 Acetaminophen 325 Mg Tablet PO 01/11/24 13:36 975 mg ONCE ONE Administration Diphenhydramine HCl 25 mg 01/11/24 11:07 01/11/24 11:20 Diphenhydramine Hcl 50 Mg/Ml Vial IVPUSH 01/11/24 11:08 25 mg ONCE ONE Administration Metoclopramide HCl 10 mg 01/11/24 11:07 01/11/24 11:20 Metoclopramide Hcl 10 Mg/2 Ml Vial IVPUSH 01/11/24 11:08 10 mg ONCE ONE Administration Morphine Sulfate 4 mg 01/11/24 11:07 01/11/24 11:20 Morphine Sulfate 4 Mg/Ml Cartridge IVPUSH 01/11/24 11:08 4 mg ONCE ONE Administration Protocol Medical Decision Making Medical Decision Making MDM Narrative: The patient was brought to the emergency room after a rapid response in the hospital lobby. The patient was complaining of near-syncope and a sudden headache. Given this history the patient was made a code stroke for a stat noncontrast head CT to evaluate for possible subarachnoid hemorrhage. The head CT was done within 6 hours of the onset of the headache. No sign of subarachnoid hemorrhage. Other labs were sent including a COVID test. The patient has come back positive for COVID. The patient was treated for his headache with morphine, metoclopramide, and diphenhydramine as well as IV fluids. His headache improved somewhat. There were findings on the CT scan of left middle ear opacification as well as mastoid air cell opacification. Clinically the patient does not seem to have either otitis media or mastoiditis. I think this is an incidental finding to the patient's presentation and probably a chronic finding. The patient has had problems with hearing recently and has seen an sleeve machine tender and has been referred to ENT. He is encouraged to follow through with this referral. The patient is on multiple medications and I think he is not a candidate for Paxlovid for his COVID because of his multiple medications. He seems stable for discharge home to isolate himself at home until he is feeling better. Lab Data 01/11/24 10:59 01/11/24 10:59 Labs: Lab Results 01/11/24 01/11/24 Range/Units 10:59 11:45 WBC 5.8 (4.8-10.8) X10*3/uL RBC 4.49 L (4.60-5.80) X10*6/uL Hgb 14.6 (14.0-18.0) g/dl Hct 42.9 (42.0-52.0) % MCV 95.5 (80.0-98.0) fL MCH 32.5 (27.0-33.0) pg MCHC 34.0 (31.0-36.0) g/dl RDW 12.5 (11.0-16.0) % Plt Count 222 (160-400) X10*3/uL MPV 9.9 (9.4-12.4) fL Immature Gran % (Auto) 0.3 (0.0-0.4) % Neut % (Auto) 70.5 (45-73) % Lymph % (Auto) 16.6 L (20-40) % Conway % (Auto) 10.9 (2-11) % Eos % (Auto) 1.2 (0-4) % Baso % (Auto) 0.5 (0-2) % Lymph # (Auto) 1.0 L (1.2-4.9) X10*3/uL Conway # (Auto) 0.6 (0.1-1.2) X10*3/uL Eos # (Auto) 0.1 (0.0-0.4) X10*3/uL Baso # (Auto) 0.0 (0.0-0.2) X10*3/uL Abs Immat Gran (auto) 0.02 (0.00-0.03) X10*3/uL Absolute Neuts (auto) 4.1 (2.0-8.3) x10*3/uL Absolute Nucleated RBC 0.000 (0.0-0.012) X10*3/uL Nucleated RBC % (auto) 0.0 (0.0-0.2) /100WBC PT 11.4 (11.1-13.3) SEC INR 0.9 (0.9-1.1) Sodium 140 (135-145) mmol/L Potassium 4.3 (3.3-5.1) mmol/L Chloride 106 (96-108) mmol/L Carbon Dioxide 26 (22-29) mmol/L Anion Gap 12 (12-20) BUN 9 (9-16) mg/dL Creatinine 0.84 (0.5-1.4) mg/dL Estim Creat Clear Calc 131.0 Estimated GFR > 60 Random Glucose 103 (60-115) mg/dL Calcium 9.6 D (8.4-10.2) mg/dL Total Bilirubin 0.4 (0.0-1.0) mg/dL AST 17 (5-37) U/L ALT 11 (0-40) U/L Alkaline Phosphatase 67 (39-117) U/L Troponin I High Sens < 2.7 (<3.5-35.0) ng/L C-Reactive Protein 1.36 H (< or = 0.50) mg/dL Total Protein 7.8 (6.5-8.0) g/dL Albumin 4.0 (3.5-5.0) g/dL Influenza Type A (PCR) NEGATIVE (Negative) Influenza Type B (PCR) NEGATIVE (Negative) RSV RNA Qual (PCR) NEGATIVE (Negative) SARS-CoV-2 RNA (RT-PCR) POSITIVE A (Negative) Discharge Plan Discharge Clinical Impression: COVID-19, Acute headache Patient Disposition: Home, Self-Care Instructions: COVID-19 (Coronavirus Disease 2019) (ED) Additional Instructions: You have tested positive for COVID today. I suspect this is why you are feeling so miserable. Please plan on resting and taking it easy for the next several days. I recommend staying home for 4 days and isolate yourself at home. After that you may go outside wearing a mask for the next 5 days. Please stay in touch with your regular doctor for additional advice as needed. Drink lot of fluids. Use acetaminophen as needed for discomfort. Return to the emergency room if worse. Prescriptions: No Action gabapentin 300 mg capsule 300 mg PO TID 90 Days Qty: 270 1RF metformin 1,000 mg tablet 1,000 mg PO BID 90 Days Qty: 180 2RF (DME) blood-glucose meter [FreeStyle Lite Meter] Kit See Rx Instructions .ROUTE .MEDSUPPLY Qty: 1 0RF Rx Instructions: As directed (DME) FreeStyle Lite Strips Strip See Rx Instructions .ROUTE .MEDSUPPLY Qty: 100 3RF Rx Instructions: As directed check the BS QD (DME) lancets [FreeStyle Lancets] 28 gauge misc See Rx Instructions .ROUTE .MEDSUPPLY Qty: 100 3RF Rx Instructions: As directed check BS QD escitalopram oxalate [Lexapro] 20 mg tablet 20 mg PO DAILY trazodone 100 mg tablet 100 mg PO BEDTIME alprazolam 0.25 mg tablet 0.25 mg PO BID PRN (Reason: anxiety) 10 Days Qty: 20 0RF metoprolol succinate 50 mg tablet extended release 24 hr 50 mg PO DAILY Qty: 90 1RF lisinopril 5 mg tablet 5 mg PO DAILY 90 Days Qty: 90 2RF Jardiance 10 mg tablet 10 mg PO DAILY 30 Days Qty: 30 3RF ondansetron HCl 4 mg tablet 4 mg PO Q8H PRN (Reason: Nausea And Vomiting) (DME) AUTO PAP 6-20 cm H2o humidified air See Rx Instructions .Route .MEDSUPPLY Qty: 1 0RF Rx Instructions: As directed Eliquis 5 mg tablet 5 mg PO BID 90 Days Qty: 180 3RF clotrimazole 1 % cream 1 appl topical BID 28 Days Qty: 45 2RF miconazole nitrate [Zeasorb AF] 2 % powder 1 appl topical BID Qty: 85 2RF diazepam 2 mg tablet 2 mg PO BID PRN (Reason: anxiety) 1 Days Qty: 2 0RF Rx Instructions: Take medication after arrival at office aripiprazole 10 mg tablet 10 mg PO DAILY bisacodyl [Dulcolax (bisacodyl)] 5 mg tablet,delayed release (DR/EC) 20 mg PO ONCE 1 Days Qty: 4 0RF Rx Instructions: take 4 tabs at noon the day before your colonoscopy polyethylene glycol 3350 [Miralax] 17 gram/dose powder 238 g PO ONCE Qty: 238 0RF Rx Instructions: As directed by gastroenterology department at [facility] pantoprazole 40 mg tablet,delayed release (DR/EC) 40 mg PO DAILY Qty: 30 3RF Rx Instructions: take one tablet half an hour before breakfast Interventions: ED Discharge Assessment Last Done: 01/11/24 14:06 Discharge Date/Time: 01/11/24 14:07 Print Language: Portuguese
[2024-01-11 11:05] LABS: Basophils Percent Auto 0.5 % (0-2); Eosinophils Absolute Auto 0.1 X10*3/uL (0.0-0.4); Eosinophils Percent Auto 1.2 % (0-4); Hematocrit 42.9 % (42.0-52.0); Hemoglobin 14.6 g/dl (14.0-18.0); Imm Gran Abs Auto 0.02 X10*3/uL (0.00-0.03); Imm Gran Pct Auto 0.3 % (0.0-0.4); Lymphocytes Percent Auto 16.6 % (20-40); Mean Corpuscular Hemoglobin 32.5 pg (27.0-33.0); Mean Corpuscular Volume 95.5 fL (80.0-98.0); Mean Platelet Volume 9.9 fL (9.4-12.4); Monocytes Absolute Auto 0.6 X10*3/uL (0.1-1.2); Monocytes Percent Auto 10.9 % (2-11); Neutrophils Absolute Auto 4.1 x10*3/uL (2.0-8.3); Neutrophils Percent Auto 70.5 % (45-73); Red Blood Count 4.49 X10*6/uL (4.60-5.80); Red Cell Distribution Width 12.5 % (11.0-16.0)
[2024-01-11 11:06] LABS: Platelet Count 222 X10*3/uL (160-400); White Blood Count 5.8 X10*3/uL (4.8-10.8)
[2024-01-11 11:10] LABS: INTERNATIONAL NORM RATIO 0.9 (0.9-1.1); Prothrombin Time 11.4 SEC (11.1-13.3)
[2024-01-11 11:19] LABS: Alanine Aminotransferase 11 U/L (0-40); Alkaline Phosphatase 67 U/L (39-117); Anion Gap 12 (12-20); Aspartate Amino Transferase 17 U/L (5-37); Bilirubin Total 0.4 mg/dL (0.0-1.0); Blood Urea Nitrogen 9 mg/dL (9-16); Calcium 9.6 mg/dL (8.4-10.2); Carbon Dioxide 26 mmol/L (22-29); Chloride 106 mmol/L (96-108); Estimated Glomerular Filt Rate > 60; Glucose Random 103 mg/dL (60-115); Potassium 4.3 mmol/L (3.3-5.1); Sodium 140 mmol/L (135-145); Total Protein 7.8 g/dL (6.5-8.0)
[2024-01-11] MEDS: Metoclopramide HCl 10 MG/2 ML VIAL IVPUSH (11:20)
[2024-01-11] MEDS: Morphine Sulfate 4 MG/ML CARTRIDGE IVPUSH (11:20)
[2024-01-11] MEDS: diphenhydrAMINE HCL 50 MG/ML VIAL 25 MG IVPUSH (11:20)
[2024-01-11 11:27] LABS: Troponin-I High Sensitivity < 2.7 ng/L (<3.5-35.0)
[2024-01-11 11:44] LABS: C Reactive Protein 1.36 mg/dL (< or = 0.50)
[2024-01-11 12:25] LABS: Influenza A PCR NEGATIVE (Negative); Influenza B PCR NEGATIVE (Negative); Resp Syncy Virus RNA Qual PCR NEGATIVE (Negative); SARS COV2 PCR INHOUSE POSITIVE (Negative)
[2024-01-11] MEDS: Acetaminophen 325 MG TABLET 975 MG PO (14:00)
[2024-01-11 14:06] VITALS: BP 136/88; PULSE 92; RESP 20; TEMP 36.9; O2SAT 94
== END 2024-01-11 14:07 | disposition home or self-care (01) ==
PROVIDERS: Emergency Provider Emergency Medicine; PCP Internal Medicine
DX: U07.1 COVID-19 (principal); R51.9 Headache, unspecified; I10 Essential (primary) hypertension; E11.9 Type 2 diabetes mellitus without complications; Z79.899 Other long term (current) drug therapy
CPT/HCPCS: 0241U; 36415; 70450; 80053; 84484; 85025; 85610; 86140; 93005; 96374; 96375; 99283; 99284; J1200; J2270; J2765

== ENCOUNTER 2024-02-10 15:14 | Outpatient (AMB) | payer MEDICARE, MEDICAID, SELFPAY ==
--- NOTE | 2024-02-10 15:20 | A.OFFPC_ITS ---
Vital Signs 02/10/24 15:21 Height 5 ft 10 in Weight 256 lb 2 oz BMI 36.7 BP 140/78 H Blood Pressure Location Lt brachial Position Sitting Pulse 99 Pulse Source Pulse Oximeter Pulse Oximetry (%) 98 Oxygen Delivery Method Room Air Intake Visit Reasons: water in R ear Intake Note: Patient is here to follow up on water in right air, coughing, and hearing loss in both ear. Roofer Vinyl Coating Required: No Menu Planner: Not Required per policy Accompanied by: Self / Same As Patient Allergies Penicillins [PENICILLINS] Allergy (Unknown, Verified 02/10/24 15:21) UNKNOWN Tobacco use date assessed: 02/10/24 Dental Screening Dental Screen Date: 08/19/23 HPI water in R ear HPI Details 53-year-old obese male with diabetes salvatore litus hypertension history of pulmonary embolism GERD generalized anxiety disorder severe obstructive sleep apnea coming in for an acute problem. Last seen in 08/10/2023. ER visit in January 10 for syncope. Had severe headache patient feels complains of ears being clogged. Patient had a CT scan of the head negative results noted though COVID became positive. Noted left middle ear opacification as well as mastoid air cell opacification December 26 patient had an upper GI series showing ballooning hypopharynx with [id number] cricopharyngeal achalasia multiple areas of contrast pooling in the fundus of the stomach that represent small aphthous ulcers suggesting gastritis. Has a schedule gastroenterology follow-up in February meanwhile patient complains of dizziness and having ear pain can not hear much from the right ear but feels congested. Patient has been using a nose spray but I do not see that nose spray in my list. Patient does have penicillin allergy and will treat otitis media with doxycycline. ENT referral done as for the blood work that I have requested because of the diabetes prescription sent. [facility] Medical History Obstructive sleep apnea (adult) (pediatric) Medicare annual wellness visit, initial DVT (deep venous thrombosis) Injury of tendon of biceps Nausea Closed fracture of right proximal tibia Femoral distal fracture Obstructive sleep apnea Carpal tunnel syndrome Peripheral vascular disease History of pulmonary embolism Type 2 diabetes mellitus with hyperglycemia Hypertension Surgical History History of total right knee replacement Status post debridement Total knee replacement status Status post osteotomy History of femoropopliteal bypass History of repair of left rotator cuff Family History Father CVD (cardiovascular disease) Diabetes Hypertension Mother Diabetes Hypertension Brother Past heart attack Substance abuse Maternal Uncle Schizophrenia Paternal Uncle CVD (cardiovascular disease) Social History Household Members: None Housing: Condominium Are you a primary career development coordinator to a significant other at home: No Do you presently have visiting nurse or other home services: No Alcohol intake: never Patient Tobacco Use Status: Never used Tobacco Years Smoked: smokes week occ e-Cigarette/Vaping Use: Never Used Second Hand Smoke Exposure: No Substance Use Type: Marijuana service: No Current occupational status: unemployed Cognitive needs: No Hearing needs: No Vision needs: No Questionnaire Thrive Questionnaire Date Thrive assessed: 08/19/23 Are you currently unemployed and looking for a job?: I choose not to answer this question CAM-7 AMB Questionnaire CAM-7 Date CAM - 7 assessed: 08/19/23 Source: Developed by Drs. Leighton West, Comfort Harper, Aries Allan and colleagues, with an educational shane from [employer]. Physical exam (Primary Care) Vital Signs: Last Vital Signs Pulse 99 02/10/24 15:21 BP 140/78 H 02/10/24 15:21 Pulse Ox 98 02/10/24 15:21 Oxygen Delivery Method Room Air 02/10/24 15:21 BMI result Body Mass Index 36.7 Tobacco/Smoking Status: Tobacco use Status Tobacco use date assessed 02/10/24 02/10/24 15:26 Patient Tobacco Use Status Never used Tobacco 02/10/24 15:20 e-Cigarette/Vaping Use Never Used 02/10/24 15:20 Thrive Assessment: Date of Thrive Assessment Date Thrive assessed 08/19/23 02/10/24 15:20 Const General: alert; No acute distress HENMT Other: Bilateral TM bulging with erythema Eyes Conjunctivae: conjunctivae normal Resp Auscultation: no wheezes and diminished lung sounds Cardio Rate: regular rate Rhythm: regular rhythm GI Inspection: Yes normal to inspection Extrem General: Yes normal to inspection and No edema Assessment and Plan Assessment & Plan (1) Type 2 diabetes mellitus with hyperglycemia: Code(s): E11.65 - Type 2 diabetes mellitus with hyperglycemia Qualifiers: Diabetes mellitus terminal make up operator insulin use: without terminal make up operator use Qualified Code(s): E11.65 - Type 2 diabetes mellitus with hyperglycemia Plan: Decrease the amount of carbohydrate intake, pasta, bread, rice and potatoes are all sugar and that is aside from all the sweet stuff, remember that fruits are good but they are Sweet also. Hemoglobin A1c goal of less than 6.5. Patient on Jardiance 10 mg once a day metformin a 1000 mg twice a day (2) Hypertension: Code(s): I10 - Essential (primary) hypertension Qualifiers: Hypertension type: essential hypertension Qualified Code(s): I10 - Essential (primary) hypertension Plan: Continue with blood pressure medication. Decrease salt intake and exercise metoprolol 50 mg once a day lisinopril 5 mg once a day (3) History of pulmonary embolism: Code(s): Z86.711 - Personal history of pulmonary embolism Plan: Continue with anticoagulation and checking renal function twice a day year. (4) GERD (gastroesophageal reflux disease): Code(s): K21.9 - Gastro-esophageal reflux disease without esophagitis Qualifiers: Esophagitis presence: esophagitis presence not specified Qualified Code(s): K21.9 - Gastro-esophageal reflux disease without esophagitis Plan: Avoid the foods that causes that usually spicy foods, tomato products, juices, coffee, soda and foods that your sensitive to. After eating do not lie down, allow 3-4 hours before in lie down. And keep the head of bed above 30 degrees to avoid the acid from going up. Concern that the recent upper GI series ulcerations. (5) Colon cancer screening: Code(s): Z12.11 - Encounter for screening for malignant neoplasm of colon Plan: Reminder to see test deck supervisor and colon cancer screening. (6) Generalized anxiety disorder: Comment: Anais foss every month October 2019 Code(s): F41.1 - Generalized anxiety disorder Plan: Continue with present medication and counseling (7) Severe obstructive sleep apnea: Comment: September 2021 Code(s): G47.33 - Obstructive sleep apnea (adult) (pediatric) Plan: Discussion about sleep apnea problem (8) Otitis media, left: Code(s): H66.92 - Otitis media, unspecified, left ear Plan: Antibiotic prescription sent in advised to get ear nose and throat referral and sent in nose spray to decongest. Orders: Referrals Ear/Nose/Throat Referral H66.92 - Otitis media, unspecified, left ear Medications: New doxycycline hyclate 100 mg PO DAILY 20 caps 0RF H66.92 - Otitis media, unspecified, left ear fluticasone propionate 50 mcg/actuation (Flonase Allergy Relief) administer into each nostril 2 sprays intranasal DAILY 16 grams 2RF H66.92 - Otitis media, unspecified, left ear Coding Level of Care Code Est Pt Level 4 (19719) Complex EM visit Add On G2211 Diagnoses Type 2 diabetes mellitus with hyperglycemia, without long-term current use of insulin E11.65 Diabetes mellitus terminal make up operator insulin use: without terminal make up operator use Essential hypertension I10 Hypertension type: essential hypertension History of pulmonary embolism Z86.711 Gastroesophageal reflux disease, unspecified whether esophagitis present K21.9 Esophagitis presence: esophagitis presence not specified Colon cancer screening Z12.11 Generalized anxiety disorder F41.1 Severe obstructive sleep apnea G47.33 Otitis media, left H66.92
[2024-02-10 15:21] VITALS: BP 140/78; PULSE 99; O2SAT 98; BMI 36.7
== END 2024-02-10 16:14 | disposition home or self-care (01) ==
PROVIDERS: PCP Internal Medicine; Visit Provider Internal Medicine
DX: E11.65 Type 2 diabetes mellitus with hyperglycemia (principal); I10 Essential (primary) hypertension; Z86.711 Personal history of pulmonary embolism; K21.9 Gastro-esophageal reflux disease without esophagitis; Z12.11 Encounter for screening for malignant neoplasm of colon; F41.1 Generalized anxiety disorder; G47.33 Obstructive sleep apnea (adult) (pediatric); H66.92 Otitis media, unspecified, left ear

== ENCOUNTER → 2024-02-10 15:14 | Outpatient (BNVA) | payer MEDICARE, MEDICAID, SELFPAY | PROVIDERS: PCP Internal Medicine; Visit Provider Internal Medicine | DX: E11.65 Type 2 diabetes mellitus with hyperglycemia (principal); I10 Essential (primary) hypertension; K21.9 Gastro-esophageal reflux disease without esophagitis; F41.1 Generalized anxiety disorder; G47.33 Obstructive sleep apnea (adult) (pediatric); H66.92 Otitis media, unspecified, left ear; Z86.711 Personal history of pulmonary embolism | CPT/HCPCS: 99212 ==

== ENCOUNTER 2024-02-15 10:59 | Outpatient (AMB) | payer MEDICARE, MEDICAID, SELFPAY ==
--- NOTE | 2024-02-15 11:22 | MHC.OFFVIS ---
Intake Visit Reasons: hree-month follow-up sperm analysis Intake Note: Patient is present for Post OP Vasectomy Semen Analysis Cleaning And Maintenance Worker Required: No Accompanied by: Self / Same As Patient Allergies Penicillins [PENICILLINS] Allergy (Unknown, Verified 02/15/24 11:26) UNKNOWN HPI Comments Details: Genaro is a very pleasant 53-year-old male patient of Dr. Farah. He has a past medical history of obstructive sleep apnea, DVT, carpal tunnel, PVD, type 2 diabetes, and hypertension. He presents to the office today for - vasectomy follow-up No sperm seen on high-powered field evaluation Vasectomy follow-up The patient presents for vasectomy follow-up.? He is currently He has fathered -?6 children with 3 partners The youngest child is - is with his 7th child. She is due to give next week. His partner is aware and permissive for a vasectomy Current form of control is is [facility] Medical History Left ear pain Obstructive sleep apnea (adult) (pediatric) Medicare annual wellness visit, initial DVT (deep venous thrombosis) Injury of tendon of biceps Nausea Closed fracture of right proximal tibia Femoral distal fracture Obstructive sleep apnea Carpal tunnel syndrome Peripheral vascular disease History of pulmonary embolism Type 2 diabetes mellitus with hyperglycemia Hypertension Surgical History History of total right knee replacement Status post debridement Total knee replacement status Status post osteotomy History of femoropopliteal bypass History of repair of left rotator cuff Family History Father CVD (cardiovascular disease) Diabetes Hypertension Mother Diabetes Hypertension Brother Past heart attack Substance abuse Maternal Uncle Schizophrenia Paternal Uncle CVD (cardiovascular disease) Social History Household Members: None Housing: Condominium Are you a primary childcare worker to a significant other at home: No Do you presently have visiting nurse or other home services: No Alcohol intake: never Patient Tobacco Use Status: Never used Tobacco Years Smoked: smokes week occ e-Cigarette/Vaping Use: Never Used Second Hand Smoke Exposure: No Substance Use Type: Marijuana service: No Current occupational status: unemployed Cognitive needs: No Hearing needs: No Vision needs: No Review of Systems Const Denies chills and Denies fever(s) Card Reports no additional complaints and Denies syncope Resp Denies cough GI Denies abdominal pain and Denies heartburn Reports as per HPI and Denies change in libido Neuro Denies syncope Psych Denies change in libido Endo Denies change in libido Physical Exam Const General: cooperative, healthy appearing, comfortable and no acute distress Orientation/consciousness: patient oriented x3 HEENT Face and sinus: Yes normal facial exam Mouth: moist mucous membranes Neck Neck: Yes normal visual inspection, Yes full ROM and Yes trachea midline Chest Chest palpation & inspection: normal inspection of the chest Resp Effort & Inspection: normal respiratory effort, able to speak in complete sentences and no respiratory distress GI Inspection: Yes normal to inspection Back/Spine/Pelvis Cervical Spine: normal cervical lordosis Thoracic/Lumbar Spine: thoracic and lumbar spine normal to inspection Skin General skin exam: no rashes or lesions noted Neuro General: patient oriented x3, gait normal, tone normal and moves all extremities Extrem General: Yes normal to inspection and Yes capillary refill normal Assessment & Plan Assessment & Plan (1) Anxiety about health: Code(s): R45.89 - Other symptoms and signs involving emotional state Category: Medical Plan P.r.n. follow-up Patient Instructions: Imaging studies, laboratory and physical exam results were discussed and reviewed in detail. No major barriers to patient understanding were identified. An opportunity to ask questions regarding the treatment plan was provided. All questions were answered. The patient expressed understanding and agreement with the above treatment plan. The patient is aware they should contact our office by phone for worsening of their current condition or the appearance of new urologic symptoms. Compliance is encouraged with any medications and followup testing that is ordered. It is a privilege to participate in the urologic care of your patient. If you have any questions or concerns regarding treatment for the above conditions, or other urologic issues, please do not hesitate to contact me. The office telephone contact is [phone]. This note is constructed using voice recognition software. While every effort has been made to ensure accuracy transit mixer driver errors may have been included. Yours sincerely, Dr Bijan Escobar MD, [facility] - Urology Providers of Expert, Compassionate Care for the Genitourinary System Coding Level of Care Code Est Pt Level 3 (45018) Diagnoses Anxiety about health R45.40
== END 2024-02-15 11:58 | disposition home or self-care (01) ==
PROVIDERS: PCP Internal Medicine; Visit Provider Urology
DX: R45.89 Other symptoms and signs involving emotional state (principal)
CPT/HCPCS: 99213

== ENCOUNTER → 2024-02-15 10:59 | Outpatient (BNVA) | payer MEDICARE, MEDICAID, SELFPAY | PROVIDERS: PCP Internal Medicine; Visit Provider Urology | DX: R45.89 Other symptoms and signs involving emotional state (principal) | CPT/HCPCS: 99212 ==

== ENCOUNTER 2024-02-15 21:30 | Emergency (ER) | payer MEDICARE, MEDICAID, SELFPAY ==
--- NOTE | ~2024-02-15 | CT_ITS ---
EXAMINATION: CT ABDOMEN AND PELVIS WITH CONTRAST CLINICAL INFORMATION: Abdominal pain. COMPARISON: June 21, 2018. TECHNIQUE: Multidetector volumetric images were obtained from the superior aspect of the liver through the pubic symphysis following administration 85 mL of Omnipaque 350 intravenous contrast. Sagittal and coronal reformatted images were obtained on the technologist's workstation. Oral contrast: No This CT examination was performed using dose optimization techniques as appropriate, variously including the following: *Automated exposure control *Adjustment of mA and/or kV according to patient size (this includes techniques or standardized protocols for targeted exams where dose is matched to indication/reason for exam; i.e. extremities or head) *Use of iterative reconstruction technique DLP: 897 mGy-cm FINDINGS: LUNG BASES: There is a partially imaged lingular opacity/infiltrate. LIVER, GALLBLADDER, AND BILIARY TREE: The liver is normal in size, shape, and attenuation. No focal hepatic lesion or biliary ductal dilatation is present. Multiple gallstones are seen. PANCREAS: Unremarkable. SPLEEN: Unremarkable. ADRENAL GLANDS: Unremarkable. KIDNEYS AND URETERS: The kidneys are normal in size, shape, and attenuation. No hydronephrosis, hydroureter, or calculi seen. No perinephric stranding. BLADDER: Unremarkable. GASTROINTESTINAL TRACT: The small and large bowel are unremarkable. The appendix is unremarkable. ABDOMINAL WALL: There is a right inguinal hernia containing fat. LYMPH NODES: Normal. VASCULAR: Unremarkable. PELVIC VISCERA: Unremarkable. OSSEOUS STRUCTURES: Unremarkable. CT/CT abdomen pelvis w IV con IMPRESSION: 1. Partially imaged lingular opacity/infiltrate. Consider pneumonia. 2. Cholelithiasis. 3. Right inguinal hernia containing fat. 4. No other significant abnormality seen. Fleischner guidelines were followed. Electronically signed by: Ed Haynes MD 02/16/2024 12:00 AM EDT
--- NOTE | 2024-02-15 21:33 | ECG_ITS ---
Test Reason : CHEST PAIN Blood Pressure : / mmHG Vent. Rate : 091 BPM Atrial Rate : 091 BPM P-R Int : 168 ms QRS Dur : 094 ms QT Int : 382 ms P-R-T Axes : 055 005 016 degrees QTc Int : 469 ms Normal sinus rhythm Septal infarct , age undetermined Abnormal ECG When compared with ECG of 11-JAN-2024 11:00, No significant change was found Referred By: Generic ED Physician Electronically Signed By:JORDAN RAMIREZ
[2024-02-15 21:37] VITALS: BP 162/102; PULSE 101; O2SAT 98
[2024-02-15 21:46] VITALS: BP 170/103; PULSE 89; RESP 18; TEMP 37.4; O2SAT 96; BMI 34.6
--- NOTE | 2024-02-15 21:50 | PC.NURSE ---
EKG obtained at bedside by all source intelligence technician. IV established, labs obtained, provider at bedside.
[2024-02-15 21:51] LABS: MANUAL DIFF FLAG NO
[2024-02-15 21:52] LABS: Basophils Percent Auto 0.5 % (0-2); Eosinophils Percent Auto 0.3 % (0-4); Hematocrit 43.1 % (42.0-52.0); Hemoglobin 14.9 g/dl (14.0-18.0); Imm Gran Abs Auto 0.01 X10*3/uL (0.00-0.03); Imm Gran Pct Auto 0.2 % (0.0-0.4); Lymphocytes Absolute Auto 2.5 X10*3/uL (1.2-4.9); Mean Corpuscular HGB Conc 34.6 g/dl (31.0-36.0); Mean Corpuscular Volume 92.5 fL (80.0-98.0); Mean Platelet Volume 9.4 fL (9.4-12.4); Monocytes Absolute Auto 0.3 X10*3/uL (0.1-1.2); Monocytes Percent Auto 4.2 % (2-11); Neutrophils Absolute Auto 3.7 x10*3/uL (2.0-8.3); Neutrophils Percent Auto 56.8 % (45-73); Platelet Count 338 X10*3/uL (160-400); Red Blood Count 4.66 X10*6/uL (4.60-5.80); Red Cell Distribution Width 12.3 % (11.0-16.0); SCAN SMEAR FLAG 1; White Blood Count 6.4 X10*3/uL (4.8-10.8)
--- NOTE | 2024-02-15 22:08 | ED.CHESTPAIN ---
HPI - Chest Pain General Chief Complaint: Chest Pain Stated Complaint: DIZZY,CHEST PAIN Time Seen by Provider: 02/15/24 21:52 Source: patient, EMS and old records reviewed Mode of arrival: EMS Limitations: no limitations History of Present Illness ED Provider: CORY ESPARZA narrative: 53 yo male with PMH of PAD, gastritis, anxiety, GERD, HTN, DM2, PE on eliquis, recently put on doxy 02/09 by PCP for ear infection and mastoid effusion now here with n/v and abrupt onset epigastric pain 1.5 hours after taking doxy on an empty stomach. He is hyperventilating and crying. Stating this has never happened to him before. He feels short of breath. He is breathing rapidly. He notes his stomach has never hurt like this before MD complaint: chest pain (epigastric pain) Onset (ago): hour(s) (630pm) Timing of current episode: constant Prior episodes: No Onset: during rest and other (after taking doxy) Pain location: substernal and epigastric Pain radiation: none Severity: severe Quality: fullness Relieving factors: nothing Exacerbating factors: eating Context: other (recent doxy dose) Associated symptoms: nausea, vomiting and dyspnea Treatment prior to arrival: none Related Data Home Medications ?Medication ?Instructions ?Recorded ?Confirmed escitalopram oxalate 20 mg tablet 20 mg PO DAILY 05/07/20 10/07/23 (Lexapro) trazodone 100 mg tablet 100 mg PO BEDTIME 05/07/20 10/07/23 ondansetron HCl 4 mg tablet 4 mg PO Q8H PRN Nausea And Vomiting 07/28/21 10/07/23 aripiprazole 10 mg tablet 10 mg PO DAILY 11/30/23 Previous Rx's ?Medication ?Instructions ?Recorded lisinopril 5 mg tablet 5 mg PO DAILY 90 days #90 tabs 11/17/20 metoprolol succinate 50 mg 50 mg PO DAILY #90 tabs 11/17/20 tablet,extended release 24 hr alprazolam 0.25 mg tablet 0.25 mg PO BID PRN anxiety 10 days 02/19/21 #20 tabs empagliflozin 10 mg tablet 10 mg PO DAILY 30 days #30 tabs 08/27/21 (Jardiance) gabapentin 300 mg capsule 300 mg PO TID 90 days #270 caps 07/23/22 metformin 1,000 mg tablet 1,000 mg PO BID 90 days #180 tabs 07/23/22 blood sugar diagnostic (FreeStyle #100 ea 07/26/22 Lite Strips) blood-glucose meter (FreeStyle #1 ea 07/26/22 Lite Meter kit) lancets 28 gauge (FreeStyle #100 ea 07/26/22 Lancets) AUTO PAP 6-20 cm H2o humidified air #1 ea 08/19/23 apixaban 5 mg tablet (Eliquis) 5 mg PO BID 90 days #180 tabs 08/19/23 clotrimazole 1 % topical cream 1 appl topical BID 4 weeks #45 08/19/23 grams miconazole nitrate 2 % topical 1 appl topical BID #85 grams 08/19/23 powder (Zeasorb AF) diazepam 2 mg tablet 2 mg PO BID PRN anxiety 1 day #2 10/07/23 tabs bisacodyl 5 mg tablet,delayed 20 mg (4 x 5 mg) PO ONCE 1 day #4 11/30/23 release (Dulcolax (bisacodyl)) tabs pantoprazole 40 mg tablet,delayed 40 mg PO DAILY #30 tabs 11/30/23 release polyethylene glycol 3350 17 238 g PO ONCE #238 grams 11/30/23 gram/dose oral powder (Miralax) doxycycline hyclate 100 mg capsule 100 mg PO DAILY #20 caps 02/10/24 fluticasone propionate 50 2 spray intranasal DAILY #16 grams 02/10/24 mcg/actuation nasal spray,suspension (Flonase Allergy Relief) levofloxacin 750 mg tablet 750 mg PO Q24H #9 tabs 02/16/24 Allergies Allergy/AdvReac Type Severity Reaction Status Date / Time Penicillins [PENICILLINS] Allergy Unknown UNKNOWN Verified 02/15/24 21:50 Review of Systems Review of Systems: Constitutional : No Weight loss, No Fever, No Chills ENT/Mouth : No sore throat, No Rhinorrhea Eyes: No Eye Pain, No Swelling Cardiovascular : pos Chest Pain, pos SOB, no Dyspnea on Exertion, No Orthopnea, No Edema, No Palpitations Respiratory : No Cough, No Sputum Gastrointestinal : pos Nausea, pos Vomiting, No Diarrhea, pos abdominal Pain, No Hematochezia, No Melena Genitourinary : No Dysuria, No Urinary Frequency Musculoskeletal : No joint pain, No Myalgias, No Joint Swelling Skin : No Skin Lesions, No rash Neuro : No Weakness, No Numbness, No Dizziness, No Headache Psych : No Anxiety/Panic, No Depression Heme/Lymph: No Bruising, No Lymphadenopathy Endocrine : No Polyuria, No Polydipsia All other systems reviewed and are negative [facility] Past Medical History Attestation statement: The following information was validated with the patient. Source: old records reviewed Medical History Left ear pain Obstructive sleep apnea (adult) (pediatric) Medicare annual wellness visit, initial DVT (deep venous thrombosis) Injury of tendon of biceps Nausea Closed fracture of right proximal tibia Femoral distal fracture Obstructive sleep apnea Carpal tunnel syndrome Peripheral vascular disease History of pulmonary embolism Type 2 diabetes mellitus with hyperglycemia Hypertension Surgical History History of total right knee replacement Status post debridement Total knee replacement status Status post osteotomy History of femoropopliteal bypass History of repair of left rotator cuff Family History Family History Father CVD (cardiovascular disease) Diabetes Hypertension Mother Diabetes Hypertension Brother Past heart attack Substance abuse Maternal Uncle Schizophrenia Paternal Uncle CVD (cardiovascular disease) Social History Social History Household Members: None Housing: Condominium Are you a primary inspector health care facilities to a significant other at home: No Do you presently have visiting nurse or other home services: No Alcohol intake: never Patient Tobacco Use Status: Never used Tobacco Years Smoked: smokes week occ e-Cigarette/Vaping Use: Never Used Second Hand Smoke Exposure: No Substance Use Type: Marijuana Advance Directives: No Advance Directives Information Provided: No Do you have a plan to hurt others: No Plan service: No Current occupational status: unemployed Cognitive needs: No Hearing needs: No Vision needs: No Physical Exam Vital Signs: Vital Signs: Last Vital Signs Temp 99.0 F 02/15/24 23:57 Pulse 100 02/15/24 23:57 Resp 20 02/15/24 23:57 BP 143/95 H 02/15/24 23:57 Pulse Ox 99 02/15/24 23:57 O2 Del Method Nasal Cannula 02/15/24 23:57 O2 Flow Rate 1 02/15/24 23:57 BMI result Body Mass Index 34.6 Appearance: Alert. Oriented X3. anxious tearful hyperventilating mild acute distress. Eyes: Pupils equal, round and reactive to light. ENT: Pharynx dry MM. Neck: Normal inspection. Neck supple. CVS: Normal heart rate and rhythm. Pulses normal. Respiratory: No respiratory distress. Breath sounds normal. Abdomen: Soft and moderate diffuse ttp no rebound Skin: Skin warm and dry. Normal skin color. Normal skin turgor. Extremities: No lower extremity edema. Neuro: Oriented X 3. No motor deficit. No sensory deficit. Medications Administered Discontinued Medications Generic Name Dose Route Start Last Admin Trade Name Freq PRN Reason Stop Dose Admin Acetaminophen 650 mg 02/16/24 00:06 02/16/24 00:20 Acetaminophen 325 Mg Tablet PO 02/16/24 00:07 650 mg ONCE ONE Administration Sodium Chloride 1,000 mls @ 999 mls/hr 02/15/24 21:56 02/15/24 22:20 Ns IV 02/15/24 22:56 999 mls/hr .Q1H1M ONE Administration Iohexol 85 ml 02/15/24 22:37 02/15/24 22:38 Iohexol 350 Mg/Ml 100 Ml Infus..Btl IV 02/15/24 22:38 85 ml ONCE ONE Administration Lorazepam 2 mg 02/15/24 21:56 02/15/24 22:16 Lorazepam 2 Mg/Ml Vial IVPUSH 02/15/24 21:57 2 mg ONCE ONE Administration Pantoprazole Sodium 40 mg 02/15/24 21:56 02/15/24 22:16 Pantoprazole Sodium 40 Mg/10 Ml Vial IVPUSH 02/15/24 21:57 40 mg ONCE ONE Administration Medical Decision Making Medical Decision Making MDM Narrative: 53 yo male with PMH of PAD, gastritis, anxiety, GERD, HTN, DM2, PE on eliquis here with c/o abdominal pain after taking doxy on empty stomach at this time he is hyperventilating will obtain labs, EKG, CT scan for perforation but lower suspicion. IVF, IV ativan for anxiety, IV protonix for gastritis. He will be switched to levofloxacin instead of doxy if his work up is reassuring and he feels better. Symptoms atypical for ACS seems related to the pill - will repeat trop x 2, he is compliant with eliquis doubt VTE Differential Diagnosis Differential Diagnoses: The differential diagnosis associated with the presentation includes gastritis from doxy, anxiety, viral syndrome, atypical chest pain, acs Admission/Observation Consideration of admission/observation: Escalation of care including admission/observation considered patient is feeling much better repeat trop flat plan to start on levofloxacin and stop doxycycline no further vomiting states he feels much better with ativan and protonix Lab Data [facility] Lab Attestation statement: I reviewed the patient's lab results. repeat trop flat 02/15/24 21:44 02/15/24 21:44 Labs: Lab Results 02/15/24 02/15/24 02/16/24 Range/Units 21:33 21:44 00:12 WBC 6.4 (4.8-10.8) X10*3/uL RBC 4.66 (4.60-5.80) X10*6/uL Hgb 14.9 (14.0-18.0) g/dl Hct 43.1 (42.0-52.0) % MCV 92.5 (80.0-98.0) fL MCH 32.0 (27.0-33.0) pg MCHC 34.6 (31.0-36.0) g/dl RDW 12.3 (11.0-16.0) % Plt Count 338 D (160-400) X10*3/uL MPV 9.4 (9.4-12.4) fL Immature Gran % (Auto) 0.2 (0.0-0.4) % Neut % (Auto) 56.8 (45-73) % Lymph % (Auto) 38.0 (20-40) % Schuyler % (Auto) 4.2 (2-11) % Eos % (Auto) 0.3 (0-4) % Baso % (Auto) 0.5 (0-2) % Lymph # (Auto) 2.5 (1.2-4.9) X10*3/uL Schuyler # (Auto) 0.3 (0.1-1.2) X10*3/uL Eos # (Auto) 0.0 (0.0-0.4) X10*3/uL Baso # (Auto) 0.0 (0.0-0.2) X10*3/uL Abs Immat Gran (auto) 0.01 (0.00-0.03) X10*3/uL Absolute Neuts (auto) 3.7 (2.0-8.3) x10*3/uL Absolute Nucleated RBC 0.000 (0.0-0.012) X10*3/uL Nucleated RBC % (auto) 0.0 (0.0-0.2) /100WBC Hold Purple Top SEE NOTE Hold Blue Top SEE NOTE Sodium 141 (135-145) mmol/L Potassium 3.7 (3.3-5.1) mmol/L Chloride 103 (96-108) mmol/L Carbon Dioxide 24 (22-29) mmol/L Anion Gap 18 (12-20) BUN 11 (9-16) mg/dL Creatinine 0.96 (0.5-1.4) mg/dL Estim Creat Clear Calc 118.1 Estimated GFR > 60 Random Glucose 194 H (60-115) mg/dL Calcium 9.7 (8.4-10.2) mg/dL Total Bilirubin 0.7 (0.0-1.0) mg/dL Direct Bilirubin 0.2 (0.0-0.5) mg/dL AST 13 (5-37) U/L ALT 9 (0-40) U/L Alkaline Phosphatase 68 (39-117) U/L Troponin I High Sens < 2.7 < 2.7 (<3.5-35.0) ng/L Total Protein 8.4 H (6.5-8.0) g/dL Albumin 4.2 (3.5-5.0) g/dL Lipase 10 (8-78) U/L Hold Red Top See Note Independent Interpretation I performed an independent interpretation of an: EKG and CT Scan (gallstones but LFTs normal, R LL subtle opacity) Interpretation: Rate: 91 Rhythm: NSR Erskine: normal Normal P waves. Normal VERO. Normal QRS complex. ST T wave : normal no CAMILLE qTC: 469 prior studies: no acute ischemia The study has been interpreted contemporaneously by me. . Radiology Impression Discussion of test interpretation with radiology: I have reviewed the radiologist's reading. External Record Review External record reviewed: Office record Prescription Management I considered prescription management with: Antibiotic Discharge Plan Discharge Clinical Impression: Panic attack Gastritis Qualifiers: Gastritis type: unspecified gastritis Chronicity: acute Gastritis bleeding: without bleeding Qualified Code(s): K29.00 - Acute gastritis without bleeding Pneumonia Qualifiers: Pneumonia type: due to unspecified organism Laterality: left Lung location: lower lobe of lung Qualified Code(s): J18.9 - Pneumonia, unspecified organism Patient Disposition: Home, Self-Care Instructions: Gastritis (ED), Anxiety (ED), Pneumonia (ED) Additional Instructions: STOP DOXYCYCLINE stay hydrated return for any worsening symptoms - fevers, vomiting, worsening pain or any other concerns small pneumonia left lung - the new antibiotic will cover both lung and ear issues they found small gallstones on CT scan you can follow up with your doctor or surgeon as needed while on the antibiotic no strenuous exercise until 5 days after antibiotic you can injure your tendon. Prescriptions: New levofloxacin 750 mg tablet 750 mg PO Q24H Qty: 9 0RF No Action gabapentin 300 mg capsule 300 mg PO TID 90 Days Qty: 270 1RF metformin 1,000 mg tablet 1,000 mg PO BID 90 Days Qty: 180 2RF (DME) blood-glucose meter [FreeStyle Lite Meter] Kit See Rx Instructions .ROUTE .MEDSUPPLY Qty: 1 0RF Rx Instructions: As directed (DME) FreeStyle Lite Strips Strip See Rx Instructions .ROUTE .MEDSUPPLY Qty: 100 3RF Rx Instructions: As directed check the BS QD (DME) lancets [FreeStyle Lancets] 28 gauge misc See Rx Instructions .ROUTE .MEDSUPPLY Qty: 100 3RF Rx Instructions: As directed check BS QD escitalopram oxalate [Lexapro] 20 mg tablet 20 mg PO DAILY trazodone 100 mg tablet 100 mg PO BEDTIME alprazolam 0.25 mg tablet 0.25 mg PO BID PRN (Reason: anxiety) 10 Days Qty: 20 0RF metoprolol succinate 50 mg tablet extended release 24 hr 50 mg PO DAILY Qty: 90 1RF lisinopril 5 mg tablet 5 mg PO DAILY 90 Days Qty: 90 2RF Jardiance 10 mg tablet 10 mg PO DAILY 30 Days Qty: 30 3RF ondansetron HCl 4 mg tablet 4 mg PO Q8H PRN (Reason: Nausea And Vomiting) (DME) AUTO PAP 6-20 cm H2o humidified air See Rx Instructions .Route .MEDSUPPLY Qty: 1 0RF Rx Instructions: As directed Eliquis 5 mg tablet 5 mg PO BID 90 Days Qty: 180 3RF clotrimazole 1 % cream 1 appl topical BID 28 Days Qty: 45 2RF miconazole nitrate [Zeasorb AF] 2 % powder 1 appl topical BID Qty: 85 2RF doxycycline hyclate 100 mg capsule 100 mg PO DAILY Qty: 20 0RF fluticasone propionate [Flonase Allergy Relief] 50 mcg/actuation spray,suspension 2 spray intranasal DAILY Qty: 16 2RF Rx Instructions: administer into each nostril diazepam 2 mg tablet 2 mg PO BID PRN (Reason: anxiety) 1 Days Qty: 2 0RF Rx Instructions: Take medication after arrival at office aripiprazole 10 mg tablet 10 mg PO DAILY bisacodyl [Dulcolax (bisacodyl)] 5 mg tablet,delayed release (DR/EC) 20 mg PO ONCE 1 Days Qty: 4 0RF Rx Instructions: take 4 tabs at noon the day before your colonoscopy polyethylene glycol 3350 [Miralax] 17 gram/dose powder 238 g PO ONCE Qty: 238 0RF Rx Instructions: As directed by gastroenterology department at [facility] pantoprazole 40 mg tablet,delayed release (DR/EC) 40 mg PO DAILY Qty: 30 3RF Rx Instructions: take one tablet half an hour before breakfast Print Language: Khmer
[2024-02-15 22:11] VITALS: BP 181/109; PULSE 92; RESP 20; TEMP 36.8; O2SAT 100
[2024-02-15 22:15] LABS: Anion Gap 18 (12-20); Blood Urea Nitrogen 11 mg/dL (9-16); Calcium 9.7 mg/dL (8.4-10.2); Carbon Dioxide 24 mmol/L (22-29); Chloride 103 mmol/L (96-108); Creatinine Clr Calc Pharmacy 118.1; Estimated Glomerular Filt Rate > 60; Glucose Random 194 mg/dL (60-115); Potassium 3.7 mmol/L (3.3-5.1); Sodium 141 mmol/L (135-145)
[2024-02-15] MEDS: Pantoprazole Sodium 40 MG/10 ML VIAL IVPUSH (22:16)
[2024-02-15] MEDS: LORazepam 2 MG/ML VIAL IVPUSH (22:16)
[2024-02-15] MEDS: 0.9 % Sodium Chloride 1,000 ML 999 ML IV (22:20)
[2024-02-15 22:24] LABS: Troponin-I High Sensitivity < 2.7 ng/L (<3.5-35.0)
[2024-02-15 22:27] LABS: Alanine Aminotransferase 9 U/L (0-40); Albumin Level 4.2 g/dL (3.5-5.0); Alkaline Phosphatase 68 U/L (39-117); Aspartate Amino Transferase 13 U/L (5-37); Bilirubin Direct 0.2 mg/dL (0.0-0.5); Bilirubin Total 0.7 mg/dL (0.0-1.0); Lipase 10 U/L (8-78); Total Protein 8.4 g/dL (6.5-8.0)
[2024-02-15] MEDS: iohexoL 350 MG/ML 100 ML INFUS..BTL 85 ML IV (22:38)
[2024-02-15 23:57] VITALS: BP 143/95; PULSE 100; RESP 20; TEMP 37.2; O2SAT 99
--- NOTE | 2024-02-16 00:18 | MHC.EDTECH ---
0000 rounding done ,vitals taken ,repeated trop drawn and sent to lab .
[2024-02-16] MEDS: Acetaminophen 325 MG TABLET 650 MG PO (00:20)
[2024-02-16 00:38] LABS: Troponin-I High Sensitivity < 2.7 ng/L (<3.5-35.0)
[2024-02-16] MEDS: levoFLOXacin 750 MG TABLET PO (00:52)
[2024-02-16 00:57] VITALS: BP 143/95; PULSE 100; RESP 20; TEMP 37.2; O2SAT 99
== END 2024-02-16 01:45 | disposition home or self-care (01) ==
PROVIDERS: Emergency Provider Emergency Medicine
DX: K29.00 Acute gastritis without bleeding (principal); F41.0 Panic disorder [episodic paroxysmal anxiety]; J18.9 Pneumonia, unspecified organism; R42 Dizziness and giddiness; R06.02 Shortness of breath; I10 Essential (primary) hypertension; E11.9 Type 2 diabetes mellitus without complications; Z86.711 Personal history of pulmonary embolism; Z79.01 Long term (current) use of anticoagulants
CPT/HCPCS: 36415; 74177; 80048; 80076; 83690; 84484; 85025; 93005; 96374; 96375; 99284; J2060; J2470; Q9967

== ENCOUNTER 2024-02-18 12:21 | Inpatient (IN) | payer MEDICARE, MEDICAID, SELFPAY ==
--- NOTE | ~2024-02-18 | US_ITS ---
EXAMINATION: US ABDOMEN LIMITED CLINICAL INFORMATION: Right upper quadrant/epigastric pain. Tenderness to palpation. Nausea and vomiting.. COMPARISON: CT scan dated February 15, 2024. TECHNIQUE: Real-time imaging of the right upper quadrant abdominal viscera. FINDINGS: PANCREAS: Head and body appear unremarkable. Tail not visualized. LIVER: The liver appears unremarkable in size, contour, and echogenicity. No focal hepatic lesion is appreciated. No intrahepatic biliary duct dilatation is seen. Hepatopedal portal flow. GALLBLADDER: Multiple, approximately 1 cm gallstones. The gallbladder is physiologically distended without evidence of sludge, polyps, wall thickening or pericholecystic fluid. Technologist reports positive sonographic Gan's sign. COMMON BILE DUCT: Normal in caliber measuring 0.3 cm in diameter. RIGHT KIDNEY: Not evaluated by the technologist. FREE FLUID: None. US/US abdomen limited IMPRESSION: Cholelithiasis. Technologist reports a positive sonographic Gan's sign. Electronically signed by: Anibal Malik MD 02/18/2024 03:01 PM EDT
--- NOTE | ~2024-02-18 | XR_ITS ---
EXAMINATION: XR CHEST CLINICAL INFORMATION: Shortness of breath, weakness. COMPARISON: Chest radiograph 12/04/2022. TECHNIQUE: Frontal view of the chest was obtained. FINDINGS: Increased interstitial markings. New focal nodular-like opacity projecting over the left lower lung field. No pleural effusion. No pneumothorax. Normal appearance of the cardiomediastinal silhouette. No acute osseous findings. XR/XR chest 1V IMPRESSION: New nodular-like opacity overlying the left lower lung field possibly related with an infectious/inflammatory infiltrate in the appropriate clinical context. Recommend short-term follow-up imaging to ensure resolution and to rule out true underlying pulmonary nodule. Mild diffuse interstitial prominence could be seen with small airways disease. Electronically signed by: Tova Contreras MD 02/18/2024 01:33 PM EDT
--- NOTE | ~2024-02-18 | NM_ITS ---
BILIARY TRACT IMAGING STUDY CLINICAL INDICATION: Right upper quadrant pain, cholelithiasis, positive Gan sign. Also nausea and vomiting. PROCEDURE: Scintillation camera images were obtained over the abdomen for an observation of 4 hours following the intravenous administration of 5 millicuries technetium 99m mebrofenin. COMPARISON: No previous biliary scan is available for comparison. Abdominal ultrasound dated 02/18/[address] scan of the abdomen and pelvis dated 02/15/2024 are available for comparison.. FINDINGS: There is good concentration of activity in the liver by 5 minutes post injection. Biliary activity is well visualized by 10 minutes, and there is good visualization of small bowel activity by 20 minutes. The gallbladder is well visualized by 30 minutes. Delayed images obtained at 4 hours post injection show visualization of diffuse small bowel activity and almost complete clearance of activity from the liver. The gallbladder continues to be well visualized at this time. NM/NM hepatobiliary wo pharm IMPRESSION: Normal biliary scan. Visualization of the gallbladder is evidence of a patent cystic duct and strong evidence against the diagnosis of acute cholecystitis. The common bile duct is patent. Liver function appears normal. Electronically signed by: Dain Tony MD 02/21/2024 11:23 AM EDT
[2024-02-18 12:26] VITALS: BP 155/74; PULSE 105; RESP 24; TEMP 36.5; O2SAT 100; BMI 35.8
--- NOTE | 2024-02-18 12:35 | ECG_ITS ---
Test Reason : SOB Blood Pressure : / mmHG Vent. Rate : 106 BPM Atrial Rate : 106 BPM P-R Int : 144 ms QRS Dur : 088 ms QT Int : 370 ms P-R-T Axes : 066 006 015 degrees QTc Int : 491 ms Sinus tachycardia with Premature atrial complexes Otherwise normal ECG When compared with ECG of 15-FEB-2024 21:32, Premature atrial complexes are now Present Referred By: Namrata Peck Electronically Signed By:JORDAN RAMIREZ
[2024-02-18 12:40] LABS: Glucose, Whole Blood 215 mg/dL (60-115)
--- NOTE | 2024-02-18 12:55 | ED.ABDPAIN ---
HPI - Abdominal Pain General Chief Complaint: Abdominal Pain Stated Complaint: vomiting-weakness Time Seen by Provider: 02/18/24 12:38 Source: patient Mode of arrival: ambulatory Limitations: no limitations History of Present Illness HPI narrative: Patient is a 53-year-old male with past medical history of PID, gastritis, anxiety, GERD, hypertension, type 2 diabetes, pulmonary embolism compliant on Eliquis who presents emergency department for evaluation. Review of his medical record he had a CT of the head obtained 01/11/2024 to rule out stroke due to sudden onset severe headache was found to have left otitis media and bilateral mastoiditis left worse than right, who was found to be positive for COVID-19 at that time and was ultimately discharged home. Patient reports on 02/10/2024 he was prescribed doxycycline for treatment of an ear infection and mastoid effusion by his primary care doctor. Reports during that 5 day. He attempted to take the antibiotic a couple of times but he would vomit within a few minutes of taking it, he had presented to the emergency department 5 days later reporting that he had taken the doxycycline on an empty stomach, he had abrupt onset of nausea vomiting and epigastric pain. He had serum labs obtained which were overall unremarkable, CT of the abdomen and pelvis without acute intra-abdominal pathology, there were gallstones noted at that time however LFTs and lipase were unremarkable, additionally there was an incidental finding of pneumonia in the left lower lobe, doxycycline was discontinued and he was advised to begin taking Levaquin. He reports that since his discharge, he has been unable to tolerate any oral intake. Reports that he attempted to take the Levaquin and he vomited approximately 5 minutes afterwards. He has not been able to keep anything down. He continues to have pain to the epigastric and right upper quadrant of his abdomen. He feels generally fatigued and weak. He states he additionally has some dizziness described as a room spinning sensation that is intermittent, at times is worse with position change for/head movement, endorses ringing to the right ear but this has been chronic over the past 2 months due to his reported infection of the ear Related Data Home Medications ?Medication ?Instructions ?Recorded ?Confirmed escitalopram oxalate 20 mg tablet 20 mg PO DAILY 05/07/20 02/18/24 (Lexapro) trazodone 100 mg tablet 100 mg PO BEDTIME PRN Sleep 05/07/20 02/18/24 aripiprazole 10 mg tablet 10 mg PO DAILY 11/30/23 02/18/24 pantoprazole 40 mg tablet,delayed 40 mg PO DAILY PRN Acid Reflux 02/18/24 02/18/24 release Previous Rx's ?Medication ?Instructions ?Recorded lisinopril 5 mg tablet 5 mg PO DAILY 90 days #90 tabs 11/17/20 metoprolol succinate 50 mg 50 mg PO DAILY #90 tabs 11/17/20 tablet,extended release 24 hr gabapentin 300 mg capsule 300 mg PO TID 90 days #270 caps 07/23/22 metformin 1,000 mg tablet 1,000 mg PO BID 90 days #180 tabs 07/23/22 blood sugar diagnostic (FreeStyle #100 ea 07/26/22 Lite Strips) blood-glucose meter (FreeStyle #1 ea 07/26/22 Lite Meter kit) lancets 28 gauge (FreeStyle #100 ea 07/26/22 Lancets) AUTO PAP 6-20 cm H2o humidified air #1 ea 08/19/23 apixaban 5 mg tablet (Eliquis) 5 mg PO BID 90 days #180 tabs 08/19/23 fluticasone propionate 50 2 spray intranasal DAILY #16 grams 02/10/24 mcg/actuation nasal spray,suspension (Flonase Allergy Relief) levofloxacin 750 mg tablet 750 mg PO Q24H #9 tabs 02/16/24 Allergies Allergy/AdvReac Type Severity Reaction Status Date / Time Penicillins [PENICILLINS] Allergy Unknown UNKNOWN Verified 02/18/24 12:31 Review of Systems Review of Systems Yes all other systems are reviewed and are negative PMFSH Past Medical History Attestation statement: The following information was validated with the patient. Source: old records reviewed Medical History Left ear pain Obstructive sleep apnea (adult) (pediatric) Medicare annual wellness visit, initial DVT (deep venous thrombosis) Injury of tendon of biceps Nausea Closed fracture of right proximal tibia Femoral distal fracture Obstructive sleep apnea Carpal tunnel syndrome Peripheral vascular disease History of pulmonary embolism Type 2 diabetes mellitus with hyperglycemia Hypertension Surgical History History of total right knee replacement Status post debridement Total knee replacement status Status post osteotomy History of femoropopliteal bypass History of repair of left rotator cuff Family History Family History Father CVD (cardiovascular disease) Diabetes Hypertension Mother Diabetes Hypertension Brother Past heart attack Substance abuse Maternal Uncle Schizophrenia Paternal Uncle CVD (cardiovascular disease) Social History Social History Household Members: Spouse Housing: House Are you a primary infant childcare provider to a significant other at home: No Do you presently have visiting nurse or other home services: Yes ([employer]) Alcohol intake: never Patient Tobacco Use Status: Never used Tobacco Years Smoked: smokes week occ e-Cigarette/Vaping Use: Never Used Second Hand Smoke Exposure: No Substance Use Type: Marijuana service: No Current occupational status: unemployed Cognitive needs: No Hearing needs: No Vision needs: No Physical Exam ED Vital Signs: Vital Signs - 24 hr 02/18/24 12:26 02/18/24 15:02 Temperature 97.7 F 98 F Pulse Rate 105 H 80 Respiratory Rate 24 H 15 Blood Pressure 155/74 H 107/71 Pulse Oximetry 100 95 Oxygen Delivery Method Room Air Room Air BMI result Body Mass Index 35.8 Appearance: Alert.?Oriented to person, place and time. No acute distress.?Normal affect. Eyes: Pupils equal, round and reactive to light.? EOMI. No nystagmus. ENT: Pharynx normal.? Uvula is midline. No trismus. No drooling. Left TM is mildly erythematous, left mastoid tenderness upon palpation, right TM with increased erythema in comparison to left, mildly bulging without mastoid tenderness Neck: Normal inspection.? Neck supple.?? CVS: Heart sounds normal. Normal heart rate and rhythm.? Pulses normal.?? Respiratory: No respiratory distress.? Lung sounds clear to auscultation bilaterally?? Abdomen: Soft with right upper quadrant and epigastric tenderness upon palpation, no lower abdominal tenderness, no rebound tenderness. CVA tenderness. Normoactive bowel sounds. No pulsatile mass.?? Skin: Skin warm and dry.? Normal skin color.? Extremities: No lower extremity edema.? No calf ttp? Neuro: Moves all extremities spontaneously. Sensation intact bilaterally. CN II-XII intact. No focal neuro deficits. Ambulates with normal steady gait. Course Reevaluation(s) Reevaluation #1: Chest x-ray was obtained from nursing protocol, new nodular like opacity overlying the left lower lung field infectious versus inflammatory infiltrate, correlates with lower lobe infiltrate seen on recent CT imaging consistent with pneumonia, do not suspect this is a true underlying pulmonary nodule given his imaging obtained 2 days ago. Abdominal ultrasound revealing cholelithiasis, no gallbladder wall thickening or sludge is noted. He has a notable ROBERTA with BUN and creatinine 24/1.42 with GFR of 52 in comparison to labs from 3 days ago BUN/creatinine 11/0.96 and GFR >60 , this coupled with his intractable nausea and vomiting inability to tolerate his routine oral medications including anticoagulants, as well as antibiotics for his urine infection and pneumonia I feel he is appropriate for inpatient admission at this time Time: 15:41 Medical Decision Making Medical Decision Making MDM Narrative: Patient is a 53-year-old male with past medical history of PAD, gastritis, anxiety, GERD, hypertension, type 2 diabetes, pulmonary embolism compliant on Eliquis presenting to emergency department for evaluation of abdominal pain, intractable nausea vomiting, and dizziness as per HPI. Overall he appears very anxious, at times hyperventilating but is able to be calmed with instruction. Arrives initially mildly tachypneic, mild tachycardia but afebrile. Lung sounds are clear at the apices bilaterally, diminished at the bilateral lower bases. On abdominal examination he is noted to have exquisite tenderness over the right upper quadrant and epigastrium, has mild tenderness over the left upper quadrant, lower quadrants are benign. No CVA tenderness. He has no focal neurological deficits. Given gallstones found on CT imaging, concern for possible cholecystitis, as etiology for increased pain and nausea/vomiting, will obtain LFTs, lipase, consider ultrasound for further evaluation, he had a CT scan 2 days ago home, at this time would defer repeat CT scan. He has known left lower lobe pneumonia, lower suspicion that this is a causes acute right upper abdominal pain, additionally he is not hypoxic, and is tachypnea I believe is secondary to his anxiety. He does have a history of gastritis and GERD which may be attributing to his symptoms and has not been taking his antacids. Unfortunately due to his vomiting he has not been able to keep down any of his medications including his Eliquis, I have a lower suspicion for acute pulmonary embolism as etiology for his pain. Differential Diagnosis Differential Diagnoses: The differential diagnosis associated with the presentation includes (See narrative above) Admission/Observation Consideration of admission/observation: Escalation of care including admission/observation considered (See narrative above) Lab Data MDM Lab Attestation statement: I reviewed the patient's lab results. CBC is without leukocytosis anemia or thrombocytopenia. No electrolyte derangement. Noted to have an ROBERTA, likely due to volume loss with dehydration acute vomiting. No lactic acidosis. Viral serologies negative. 02/19/24 05:52 02/19/24 05:52 Labs: Lab Results 02/18/24 02/18/24 02/18/24 Range/Units 12:36 12:51 12:52 WBC 7.0 (4.8-10.8) X10*3/uL RBC 4.63 (4.60-5.80) X10*6/uL Hgb 14.9 (14.0-18.0) g/dl Hct 42.4 (42.0-52.0) % MCV 91.6 (80.0-98.0) fL MCH 32.2 (27.0-33.0) pg MCHC 35.1 (31.0-36.0) g/dl RDW 12.1 (11.0-16.0) % Plt Count 316 (160-400) X10*3/uL MPV 9.5 (9.4-12.4) fL Immature Gran % (Auto) 0.3 (0.0-0.4) % Neut % (Auto) 42.4 L (45-73) % Lymph % (Auto) 50.9 H (20-40) % [place] % (Auto) 6.0 (2-11) % Eos % (Auto) 0.1 (0-4) % Baso % (Auto) 0.3 (0-2) % Lymph # (Auto) 3.6 (1.2-4.9) X10*3/uL [place] # (Auto) 0.4 (0.1-1.2) X10*3/uL Eos # (Auto) 0.0 (0.0-0.4) X10*3/uL Baso # (Auto) 0.0 (0.0-0.2) X10*3/uL Abs Immat Gran (auto) 0.02 (0.00-0.03) X10*3/uL Absolute Neuts (auto) 3.0 (2.0-8.3) x10*3/uL Absolute Nucleated RBC 0.000 (0.0-0.012) X10*3/uL Nucleated RBC % (auto) 0.0 (0.0-0.2) /100WBC PT 11.7 (10.9-12.4) SEC INR 1.0 (0.9-1.1) APTT 30.7 (26.0-36.8) SEC Sodium 135 (135-145) mmol/L Potassium 3.8 (3.3-5.1) mmol/L Chloride 101 (96-108) mmol/L Carbon Dioxide 22 (22-29) mmol/L Anion Gap 16 (12-20) BUN 20 H (9-16) mg/dL Creatinine 1.42 H (0.5-1.4) mg/dL Estim Creat Clear Calc 79.0 Estimated GFR 52 POC Glucose 215 H (60-115) mg/dL Random Glucose 197 H (60-115) mg/dL Lactic Acid 1.5 (0.5-2.0) mmol/L Calcium 9.8 (8.4-10.2) mg/dL Magnesium 1.8 (1.6-2.6) mg/dL Total Bilirubin 0.9 (0.0-1.0) mg/dL AST 16 (5-37) U/L ALT 11 (0-40) U/L Alkaline Phosphatase 63 (39-117) U/L Troponin I High Sens < 2.7 (<3.5-35.0) ng/L Total Protein 8.2 H (6.5-8.0) g/dL Albumin 4.2 (3.5-5.0) g/dL Influenza Type A (PCR) NEGATIVE (Negative) Influenza Type B (PCR) NEGATIVE (Negative) RSV RNA Qual (PCR) NEGATIVE (Negative) SARS-CoV-2 RNA (RT-PCR) NEGATIVE (Negative) Independent Interpretation I performed an independent interpretation of an: EKG Interpretation: Rate: 106 Rhythm:? Sinus tachycardia Normal P waves.? Normal VERO.?? Normal QRS complex.?? ST T wave :??No ST elevation, no ST depression qTC: 491 prior studies:? 02/15/2024 The study has been interpreted contemporaneously by me. Radiology Impression Discussion of test interpretation with radiology: I have reviewed the radiologist's reading. Radiologist Impression: XR/XR chest 1V IMPRESSION: New nodular-like opacity overlying the left lower lung field possibly related with an infectious/inflammatory infiltrate in the appropriate clinical context. Recommend short-term follow-up imaging to ensure resolution and to rule out true underlying pulmonary nodule. Mild diffuse interstitial prominence could be seen with small airways disease. US/US abdomen limited IMPRESSION: Cholelithiasis. Technologist reports a positive sonographic Gan's sign. External Record Review External record reviewed: Outpatient record Tests considered The following testing was considered but not selected: See narrative above, at this time would defer repeat CT abdomen and pelvis Medications Administered Generic Name Dose Route Start Last Admin Trade Name Freq PRN Reason Stop Dose Admin Apixaban 5 mg 02/18/24 21:00 02/19/24 08:55 Apixaban 5 Mg Tablet PO 5 mg BID TAMERA Administration Aripiprazole 10 mg 02/19/24 09:00 02/19/24 08:55 Aripiprazole 10 Mg Tablet PO 10 mg DAILY TAMERA Administration Escitalopram Oxalate 20 mg 02/19/24 09:00 02/19/24 08:55 Escitalopram Oxalate 20 Mg Tablet PO 20 mg DAILY TAMERA Administration Azithromycin 500 mg/ Sodium 250 mls @ 125 mls/hr 02/18/24 18:00 02/18/24 21:51 Chloride IV Infused Q24H TAMERA Infusion Lactated Ringer's 1,000 mls @ 80 mls/hr 02/18/24 16:30 02/19/24 10:16 Lr IVCONT 80 mls/hr .[id number] TAMERA Administration Ceftriaxone Sodium 1 gm/ 50 mls @ 100 mls/hr 02/18/24 18:30 02/18/24 19:55 Sodium Chloride IV Infused Q24H TAMERA Infusion Insulin Human Lispro 0 unit 02/18/24 16:30 02/19/24 11:37 Insulin Lispro 100 Unit/Ml 3 Ml Vial SUBCUT Not Given QIDACHS TAMERA Protocol Metoprolol Succinate 50 mg 02/19/24 09:00 02/19/24 08:55 Metoprolol Succinate Er 50 Mg Tab.Er.24h PO 50 mg DAILY TAMERA Administration Protocol Morphine Sulfate 2 mg 02/18/24 16:16 02/19/24 11:14 Morphine Sulfate 2 Mg/Ml Cartridge IVPUSH 2 mg Q4H PRN Administration Pain, Moderate(Pain Scale 4-6) Protocol Ondansetron HCl 4 mg 02/18/24 16:16 02/19/24 10:15 Ondansetron Hcl 4 Mg/2 Ml Vial IVPUSH 4 mg Q6H PRN Administration Nausea Sodium Chloride 3 ml 02/19/24 00:00 02/19/24 08:10 0.9 % Sodium Chloride Flush 3 Ml Syringe IVFLUSH Not Given QSHIFT TAMERA Discontinued Medications Generic Name Dose Route Start Last Admin Trade Name Freq PRN Reason Stop Dose Admin Sodium Chloride 1,000 mls @ 999 mls/hr 02/18/24 13:15 02/18/24 15:05 Ns IV 02/18/24 14:15 Infused .Q1H1M TAMERA Infusion Levofloxacin 750 mg in 150 mls @ 100 mls/hr 02/18/24 15:51 02/18/24 19:25 Levaquin IV 02/18/24 17:20 Infused ONCE ONE Infusion Ceftriaxone Sodium 1 gm/ 50 mls @ 100 mls/hr 02/18/24 16:30 02/18/24 20:08 Sodium Chloride IV Not Given Q24H TAMERA Morphine Sulfate 2 mg 02/18/24 14:52 02/18/24 15:03 Morphine Sulfate 2 Mg/Ml Cartridge IVPUSH 02/18/24 14:53 2 mg ONCE ONE Administration Protocol Ondansetron HCl 4 mg 02/18/24 13:08 02/18/24 13:42 Ondansetron Hcl 4 Mg/2 Ml Vial IVPUSH 02/18/24 13:09 4 mg ONCE ONE Administration Pantoprazole Sodium 40 mg 02/18/24 13:08 02/18/24 13:42 Pantoprazole Sodium 40 Mg/10 Ml Vial IVPUSH 02/18/24 13:09 40 mg ONCE ONE Administration Discharge Plan Discharge Clinical Impression: Intractable nausea and vomiting, Left lower lobe pneumonia Patient Disposition: Admitted As Inpatient Interventions: Admission Worksheet (ED) Last Done: 02/18/24 20:02 Discharge Date/Time: 02/18/24 20:55
[2024-02-18 12:59] LABS: MANUAL DIFF FLAG NO
[2024-02-18 13:04] LABS: Basophils Percent Auto 0.3 % (0-2); Eosinophils Percent Auto 0.1 % (0-4); Hematocrit 42.4 % (42.0-52.0); Hemoglobin 14.9 g/dl (14.0-18.0); Imm Gran Abs Auto 0.02 X10*3/uL (0.00-0.03); Imm Gran Pct Auto 0.3 % (0.0-0.4); Lymphocytes Absolute Auto 3.6 X10*3/uL (1.2-4.9); Lymphocytes Percent Auto 50.9 % (20-40); Mean Corpuscular HGB Conc 35.1 g/dl (31.0-36.0); Mean Corpuscular Hemoglobin 32.2 pg (27.0-33.0); Mean Corpuscular Volume 91.6 fL (80.0-98.0); Mean Platelet Volume 9.5 fL (9.4-12.4); Monocytes Absolute Auto 0.4 X10*3/uL (0.1-1.2); Neutrophils Percent Auto 42.4 % (45-73); Platelet Count 316 X10*3/uL (160-400); Red Blood Count 4.63 X10*6/uL (4.60-5.80); Red Cell Distribution Width 12.1 % (11.0-16.0)
[2024-02-18 13:09] LABS: Lactic Acid 1.5 mmol/L (0.5-2.0)
[2024-02-18 13:14] LABS: Alanine Aminotransferase 11 U/L (0-40); Albumin Level 4.2 g/dL (3.5-5.0); Alkaline Phosphatase 63 U/L (39-117); Anion Gap 16 (12-20); Aspartate Amino Transferase 16 U/L (5-37); Bilirubin Total 0.9 mg/dL (0.0-1.0); Blood Urea Nitrogen 20 mg/dL (9-16); Calcium 9.8 mg/dL (8.4-10.2); Carbon Dioxide 22 mmol/L (22-29); Chloride 101 mmol/L (96-108); Estimated Glomerular Filt Rate 52; Glucose Random 197 mg/dL (60-115); Magnesium 1.8 mg/dL (1.6-2.6); Potassium 3.8 mmol/L (3.3-5.1); Sodium 135 mmol/L (135-145); Total Protein 8.2 g/dL (6.5-8.0)
[2024-02-18 13:23] LABS: Troponin-I High Sensitivity < 2.7 ng/L (<3.5-35.0)
[2024-02-18 13:25] LABS: Prothrombin Time 11.7 SEC (10.9-12.4)
[2024-02-18 13:28] LABS: Partial Thromboplastin Time 30.7 SEC (26.0-36.8)
[2024-02-18 13:40] LABS: Influenza A PCR NEGATIVE (Negative); Influenza B PCR NEGATIVE (Negative); Resp Syncy Virus RNA Qual PCR NEGATIVE (Negative); SARS COV2 PCR INHOUSE NEGATIVE (Negative)
[2024-02-18] MEDS: 0.9 % Sodium Chloride 1,000 ML 999 ML IV (13:41)
[2024-02-18] MEDS: Pantoprazole Sodium 40 MG/10 ML VIAL IVPUSH (13:42)
[2024-02-18] MEDS: ondansetron HCL 4 MG/2 ML VIAL IVPUSH (13:42)
[2024-02-18 15:02] VITALS: BP 107/71; PULSE 80; RESP 15; TEMP 36.6; O2SAT 95
[2024-02-18] MEDS: Morphine Sulfate 2 MG/ML CARTRIDGE IVPUSH ×3 (15:03→23:49)
[2024-02-18 16:26] VITALS: BP 114/80; PULSE 74; RESP 8; TEMP 36.7; O2SAT 96
--- NOTE | 2024-02-18 16:26 | P.HPHOSP_ITS ---
History of Present Illness Date of Service: 02/18/24 Chief Complaint: n/v, ruq pain 53M PMH pulmonary embolism on Eliquis, bilateral mastoiditis, hypertension, hyperlipidemia, diabetes, obesity, peripheral vascular disease, mood disorder, achalasia presented with nausea vomiting abdominal pain. Patient was recently started on doxycycline about 1 week prior to presentation for otitis media. After taking 2 pills started having nausea and vomiting, came to ED on 02/15/2024, was found to have pneumonia and antibiotics changed to levofloxacin. Patient took the levofloxacin but still had nausea vomiting, then started to have severe right upper quadrant abdominal pain so he decided to come back to the ED today. In ED today lab significant for a elevated creatinine 1.46, LFTs normal, abdominal ultrasound with cholelithiasis and positive Gan sign but no gallbladder wall thickening or edema. Review of Systems 2 ENT: Reports hearing loss Cardiovascular: Cardiovascular: Reports chest pain with activity and Reports dyspnea on exertion Respiratory: Respiratory: Reports dyspnea on exertion [facility] Medical History Left ear pain Obstructive sleep apnea (adult) (pediatric) Medicare annual wellness visit, initial DVT (deep venous thrombosis) Injury of tendon of biceps Nausea Closed fracture of right proximal tibia Femoral distal fracture Obstructive sleep apnea Carpal tunnel syndrome Peripheral vascular disease History of pulmonary embolism Type 2 diabetes mellitus with hyperglycemia Hypertension Family History Father CVD (cardiovascular disease) Diabetes Hypertension Mother Diabetes Hypertension Brother Past heart attack Substance abuse Maternal Uncle Schizophrenia Paternal Uncle CVD (cardiovascular disease) Surgical History History of total right knee replacement Status post debridement Total knee replacement status Status post osteotomy History of femoropopliteal bypass History of repair of left rotator cuff Social History Household Members: None Housing: Condominium Are you a primary resident care associate to a significant other at home: No Do you presently have visiting nurse or other home services: No Alcohol intake: never Patient Tobacco Use Status: Never used Tobacco Years Smoked: smokes week occ Smoked in Last 30 Days: No e-Cigarette/Vaping Use: Never Used Second Hand Smoke Exposure: No Use of substances other than those prescribed or required for medical reasons: Yes Substance Use Type: Marijuana Advance Directives: No Advance Directives Information Provided: No Do you have a plan to hurt others: No Plan Nutrition Risks: No Nutritional Risk service: No Current occupational status: unemployed Cognitive needs: No Hearing needs: No Vision needs: No Meds Allergies Allergy/AdvReac Type Severity Reaction Status Date / Time Penicillins [PENICILLINS] Allergy Unknown UNKNOWN Verified 02/18/24 12:31 Active Medications: Current Medications Acetaminophen (Acetaminophen 325 Mg Tablet) 650 mg PO Q6H PRN PRN Reason: Pain, Mild (Pain Scale 1-3), fever or headache Calcium Carbonate (Calcium Carbonate 750 Mg Tab.Chew) 750 mg PO Q4H PRN PRN Reason: Heartburn Glucose (Glucose Gel 15 Gm Gel..Gram.) 15 gm PO Q15M PRN; Protocol PRN Reason: per Hypoglycemia Standing Ord. Levofloxacin (Levaquin) 750 mg in 150 mls @ 100 mls/hr IV ONCE ONE Stop: 02/18/24 17:20 Ceftriaxone Sodium 1 gm/ (Sodium Chloride) 50 mls @ 100 mls/hr IV Q24H TAMERA Azithromycin 500 mg/ Sodium (Chloride) 250 mls @ 125 mls/hr IV Q24H [facility] Lactated Ringer's (Lr) 1,000 mls @ 80 mls/hr IVCONT .[id number] [facility] Dextrose (D10) 250 mls @ 750 mls/hr IV Q15M PRN; Protocol PRN Reason: per Hypoglycemia Standing Ord. Insulin Human Lispro (Insulin Lispro 100 Unit/Ml 3 Ml Vial) 0 unit SUBCUT QIDACHS [facility]; Protocol Magnesium Hydroxide (Milk Of Magnesia 30 Ml Oral.Susp) 30 ml PO DAILY PRN PRN Reason: Constipation Melatonin (Melatonin 3 Mg Tablet) 6 mg PO BEDTIME PRN PRN Reason: Insomnia Morphine Sulfate (Morphine Sulfate 2 Mg/Ml Cartridge) 2 mg IVPUSH Q4H PRN; Protocol PRN Reason: Pain, Moderate(Pain Scale 4-6) Ondansetron HCl (Ondansetron Hcl 4 Mg/2 Ml Vial) 4 mg IVPUSH Q6H PRN PRN Reason: Nausea Sodium Chloride (0.9 % Sodium Chloride Flush 3 Ml Syringe) [facility] Medications ?Medication ?Instructions ?Recorded ?Confirmed ?Last Taken ?Type escitalopram oxalate 20 mg tablet 20 mg PO DAILY 05/07/20 02/18/24 Unknown History (Lexapro) trazodone 100 mg tablet 100 mg PO BEDTIME PRN Sleep 05/07/20 02/18/24 Unknown History aripiprazole 10 mg tablet 10 mg PO DAILY 11/30/23 02/18/24 Unknown History pantoprazole 40 mg tablet,delayed 40 mg PO DAILY PRN Acid Reflux 02/18/24 02/18/24 Unknown History release Physical Exam 2 Vital Signs and Narrative: Vital Signs: Last Vital Signs Temp 98 F 02/18/24 15:02 Pulse 80 02/18/24 15:02 Resp 15 02/18/24 15:02 BP 107/71 02/18/24 15:02 Pulse Ox 95 02/18/24 15:02 O2 Del Method Room Air 02/18/24 15:02 BMI result Body Mass Index 35.8 General: AO X 3, no acute distress Resp: CTA bilateral, no accessory muscles used CVS: S1,S2,RRR GI: soft, ruq tender, non distended Neuro: motor grossly intact, alert Psych: appropriate affect, appropriate insight hard of hearing Results Labs 02/18/24 12:52 02/18/24 12:52 Labs: Laboratory Results - last 24 hr 02/18/24 02/18/24 02/18/24 12:36 12:51 12:52 MCV 91.6 MCH 32.2 MCHC 35.1 RDW 12.1 Plt Count 316 MPV 9.5 Immature Gran % (Auto) 0.3 Neut % (Auto) 42.4 L Lymph % (Auto) 50.9 H [place] % (Auto) 6.0 Eos % (Auto) 0.1 Baso % (Auto) 0.3 Lymph # (Auto) 3.6 [place] # (Auto) 0.4 Eos # (Auto) 0.0 Baso # (Auto) 0.0 Abs Immat Gran (auto) 0.02 Absolute Neuts (auto) 3.0 Absolute Nucleated RBC 0.000 Nucleated RBC % (auto) 0.0 PT 11.7 INR 1.0 APTT 30.7 Anion Gap 16 Estim Creat Clear Calc 79.0 Estimated GFR 52 POC Glucose 215 H Random Glucose 197 H Lactic Acid 1.5 Calcium 9.8 Magnesium 1.8 Total Bilirubin 0.9 AST 16 ALT 11 Alkaline Phosphatase 63 Troponin I High Sens < 2.7 Total Protein 8.2 H Albumin 4.2 Influenza Type A (PCR) NEGATIVE Influenza Type B (PCR) NEGATIVE RSV RNA Qual (PCR) NEGATIVE SARS-CoV-2 RNA (RT-PCR) NEGATIVE Imaging Radiologist's Impressions: Impressions Chest X-Ray 02/18/24 12:35 IMPRESSION: New nodular-like opacity overlying the left lower lung field possibly related with an infectious/inflammatory infiltrate in the appropriate clinical context. Recommend short-term follow-up imaging to ensure resolution and to rule out true underlying pulmonary nodule. Mild diffuse interstitial prominence could be seen with small airways disease. Electronically signed by: Tova Contreras MD 02/18/2024 01:33 PM EDT RP Abdomen Ultrasound 02/18/24 14:15 IMPRESSION: Cholelithiasis. Technologist reports a positive sonographic Gan's sign. Electronically signed by: Anibal Malik MD 02/18/2024 03:01 PM EDT RP Assessment and Plan (1) Otitis media, left: Status: Acute Plan 53M PMH pulmonary embolism on Eliquis, bilateral mastoiditis, hypertension, hyperlipidemia, diabetes, obesity, peripheral vascular disease, mood disorder, achalasia presented with nausea vomiting abdominal pain Nausea vomiting and right upper quadrant pain complicated by acute kidney injury due to dehydration Likely due to antibiotics versus cholelithiasis, cholecystitis less likely Clear liquids, IV fluids, antiemetics Check HIDA Pneumonia Community-acquired versus aspiration Ceftriaxone and azithromycin Bilateral mastoiditis Will need outpatient ENT follow-up Diabetes Insulin Report of chest pain shortness breath on exertion Will need outpatient Cardiology follow-up for stress test Pulmonary embolism history Continue with Eliquis mood diosrder lexapro htn toprol Obesity Weight loss recommended Full code Patient with significant acute kidney injury due to nausea and vomiting requiring IV fluids and close monitoring for at least 2 midnights inpatient Quality Stroke Does the patient have a stroke diagnosis?: No VTE Prior VTE?: Yes VTE Risk Level:: Medical - moderate - high VTE Device Contraindication: Treatment Not Indicated VTE Drug Contraindication: N/A - Med Ordered
[2024-02-18 16:40] LABS: Glucose, Whole Blood 119 mg/dL (60-115)
[2024-02-18] MEDS: levoFLOXacin/D5W 750 MG/150 ML PIGGYBACK 100 MG IV (17:07)
--- NOTE | 2024-02-18 17:16 | PHA.MEDREC ---
Addendum entered by Jose Miguel Seay RPh 02/20/24 10:01: Reviewed by [facility], spoke with [facility] in [place] ([address] [facility], [place], [place]). Patient has not filled there since July 2022. Last filled Lexapro, Trazodone, Metformin, and Abilify with them in early 2022. Called to confirm this pharmacy was correct, she confirmed and states all his home medication are delivered from this address. read off a list from the most recent visit with Dr. Farah. Medications were confirmed based on list, as we could not confirm with a recent pharmacy fill. Addendum entered by Anish Doherty 02/18/24 17:28: Will have med rec tech/[facility] call his delivery pharmacy Tuesday to confirm claims [facility] [place] if patient is still here. Original Note: Pharmacy Consult ? Medication Reconciliation Pharmacy has completed the medication reconciliation. Spoke with patient and over the phone to confirm medications. Patient could not recall meds so i called his (Nell) and she read off his medication list from his providers office. I then confirmed that list with him. He reports he has not taken eliquis in 3 weeks. He does not remember Jardiance (only metformin) and there are no claims for it, leaving it off med rec. He states gabapentin is 300 mg TID scheduled however PDMP shows last fill was in December of 2022. He took levofloxacin yesterday but could not keep it down. Patient and both told me he takes lisinopril, pantoprazole, and metorpolol but I do not see any claim history for them ( confirmed doses). He said he takes pantoprazole and trazadone prn. He said he has not taken any of his medications for about a week. Meds on claim history have been due for a refill for a few months.
[2024-02-18 19:24] VITALS: RESP 16
[2024-02-18] MEDS: cefTRIAXone sodium 1 GM in 0.9 % Sodium Chloride 50 ML IV (19:25)
[2024-02-18] MEDS: Azithromycin 500 MG in 0.9 % Sodium Chloride 250 ML 125 MG IV (19:40)
[2024-02-18 20:56] VITALS: BP 139/98; PULSE 85; RESP 18; TEMP 36.4; O2SAT 95
[2024-02-18 21:00] LABS: Glucose, Whole Blood 119 mg/dL (60-115)
[2024-02-18 21:23] VITALS: BMI 34.5
[2024-02-18] MEDS: Apixaban 5 MG TABLET PO (21:50)
[2024-02-18] MEDS: Lactated Ringers 1,000 ML 80 ML IVCONT (21:56)
[2024-02-19 03:37] VITALS: BP 107/70; PULSE 99; RESP 20; TEMP 36.9; O2SAT 95
[2024-02-19] MEDS: Morphine Sulfate 2 MG/ML CARTRIDGE IVPUSH ×3 (05:38→20:42)
[2024-02-19 06:29] LABS: Alanine Aminotransferase 9 U/L (0-40); Albumin Level 3.3 g/dL (3.5-5.0); Alkaline Phosphatase 50 U/L (39-117); Anion Gap 12 (12-20); Aspartate Amino Transferase 14 U/L (5-37); Bilirubin Direct 0.3 mg/dL (0.0-0.5); Bilirubin Total 0.9 mg/dL (0.0-1.0); Blood Urea Nitrogen 14 mg/dL (9-16); Calcium 8.8 mg/dL (8.4-10.2); Carbon Dioxide 23 mmol/L (22-29); Chloride 106 mmol/L (96-108); Creatinine Clr Calc Pharmacy 118.4; Estimated Glomerular Filt Rate > 60; Glucose Fasting 92 mg/dL (60-99); Magnesium 1.9 mg/dL (1.6-2.6); Potassium 3.6 mmol/L (3.3-5.1); Sodium 137 mmol/L (135-145); Total Protein 6.7 g/dL (6.5-8.0)
[2024-02-19 06:53] LABS: Hematocrit 38.9 % (42.0-52.0); Hemoglobin 12.8 g/dl (14.0-18.0); Mean Corpuscular HGB Conc 32.9 g/dl (31.0-36.0); Mean Corpuscular Hemoglobin 31.7 pg (27.0-33.0); Mean Corpuscular Volume 96.3 fL (80.0-98.0); Mean Platelet Volume 9.8 fL (9.4-12.4); Platelet Count 262 X10*3/uL (160-400); Red Blood Count 4.04 X10*6/uL (4.60-5.80); Red Cell Distribution Width 11.9 % (11.0-16.0)
[2024-02-19 07:21] VITALS: BP 125/82; PULSE 72; RESP 18; TEMP 36.9; O2SAT 94
[2024-02-19 07:36] LABS: Glucose, Whole Blood 85 mg/dL (60-115)
[2024-02-19] MEDS: Metoprolol Succinate ER 50 MG TAB.ER.24H PO (08:55)
[2024-02-19] MEDS: Apixaban 5 MG TABLET PO ×2 (08:55→20:43)
[2024-02-19] MEDS: ARIPiprazole 10 MG TABLET PO (08:55)
[2024-02-19] MEDS: Escitalopram Oxalate 20 MG TABLET PO (08:55)
--- NOTE | 2024-02-19 09:40 | HO.PM.IMPN ---
Subjective Subjective Date of Service: 02/19/24 Interval History: still with abd pain Physical Exam Vital Signs: Vital Signs: Last Vital Signs Temp 98.5 F 02/19/24 07:21 Pulse 72 02/19/24 07:21 Resp 18 02/19/24 07:21 BP 125/82 02/19/24 07:21 Pulse Ox 94 02/19/24 07:21 O2 Del Method Room Air 02/19/24 07:21 BMI result Body Mass Index 34.5 General: AO X 3, no acute distress Resp: CTA bilateral, no accessory muscles used CVS: S1,S2,RRR GI: soft, tender, non distended Neuro: motor grossly intact, alert Psych: appropriate affect, appropriate insight Objective Data Active Medications Acetaminophen (Acetaminophen 325 Mg Tablet) 650 mg PO Q6H PRN PRN Reason: Pain, Mild (Pain Scale 1-3), fever or headache Apixaban (Apixaban 5 Mg Tablet) 5 mg PO BID [facility] Last Admin: 02/19/24 08:55 Dose: 5 mg Documented By: GÉNESIS Aripiprazole (Aripiprazole 10 Mg Tablet) 10 mg PO DAILY [facility] Last Admin: 02/19/24 08:55 Dose: 10 mg Documented By: GÉNESIS Calcium Carbonate (Calcium Carbonate 750 Mg Tab.Chew) 750 mg PO Q4H PRN PRN Reason: Heartburn Escitalopram Oxalate (Escitalopram Oxalate 20 Mg Tablet) 20 mg PO DAILY [facility] Last Admin: 02/19/24 08:55 Dose: 20 mg Documented By: GÉNESIS Glucose (Glucose Gel 15 Gm Gel..Gram.) 15 gm PO Q15M PRN; Protocol PRN Reason: per Hypoglycemia Standing Ord. Azithromycin 500 mg/ Sodium (Chloride) 250 mls @ 125 mls/hr IV Q24H [facility] Last Infusion: 02/18/24 21:51 Dose: Infused Documented By: BRENNAN Lactated Ringer's (Lr) 1,000 mls @ 80 mls/hr IVCONT .[id number] [facility] Last Admin: 02/19/24 05:05 Dose: Not Given Documented By: BRENNAN Non-Admin Reason: IV Running Dextrose (D10) 250 mls @ 750 mls/hr IV Q15M PRN; Protocol PRN Reason: per Hypoglycemia Standing Ord. Ceftriaxone Sodium 1 gm/ (Sodium Chloride) 50 mls @ 100 mls/hr IV Q24H [facility] Last Infusion: 02/18/24 19:55 Dose: Infused Documented By: KENDRA Insulin Human Lispro (Insulin Lispro 100 Unit/Ml 3 Ml Vial) 0 unit SUBCUT QIDACHS [facility]; Protocol Last Admin: 02/19/24 07:46 Dose: Not Given Documented By: GÉNESIS Non-Admin Reason: No Insulin Coverage Magnesium Hydroxide (Milk Of Magnesia 30 Ml Oral.Susp) 30 ml PO DAILY PRN PRN Reason: Constipation Melatonin (Melatonin 3 Mg Tablet) 6 mg PO BEDTIME PRN PRN Reason: Insomnia Metoprolol Succinate (Metoprolol Succinate Er 50 Mg Tab.Er.24h) 50 mg PO DAILY [facility]; Protocol Last Admin: 02/19/24 08:55 Dose: 50 mg Documented By: GÉNESIS Morphine Sulfate (Morphine Sulfate 2 Mg/Ml Cartridge) 2 mg IVPUSH Q4H PRN; Protocol PRN Reason: Pain, Moderate(Pain Scale 4-6) Last Admin: 02/19/24 05:38 Dose: 2 mg Documented By: BRENNAN Comments: per pt request Omeprazole (Omeprazole 20 Mg Capsule.Dr) 20 mg PO DAILY PRN PRN Reason: Acid Reflux Ondansetron HCl (Ondansetron Hcl 4 Mg/2 Ml Vial) 4 mg IVPUSH Q6H PRN PRN Reason: Nausea Sodium Chloride (0.9 % Sodium Chloride Flush 3 Ml Syringe) 3 ml IVFLUSH QSHIFT [facility] Last Admin: 02/19/24 08:10 Dose: Not Given Documented By: GÉNESIS Non-Admin Reason: IV Running Trazodone HCl (Trazodone Hcl 100 Mg Tablet) 100 mg PO BEDTIME PRN PRN Reason: Sleep Labs 02/19/24 05:52 02/19/24 05:52 Labs: Laboratory Results - last 24 hr 02/18/24 02/18/24 02/18/24 12:36 12:51 12:52 MCV 91.6 MCH 32.2 MCHC 35.1 RDW 12.1 Plt Count 316 MPV 9.5 Immature Gran % (Auto) 0.3 Neut % (Auto) 42.4 L Lymph % (Auto) 50.9 H [place] % (Auto) 6.0 Eos % (Auto) 0.1 Baso % (Auto) 0.3 Lymph # (Auto) 3.6 [place] # (Auto) 0.4 Eos # (Auto) 0.0 Baso # (Auto) 0.0 Abs Immat Gran (auto) 0.02 Absolute Neuts (auto) 3.0 Absolute Nucleated RBC 0.000 Nucleated RBC % (auto) 0.0 PT 11.7 INR 1.0 APTT 30.7 Anion Gap 16 Estim Creat Clear Calc 79.0 Estimated GFR 52 POC Glucose 215 H Random Glucose 197 H Fasting Glucose Lactic Acid 1.5 Calcium 9.8 Magnesium 1.8 Total Bilirubin 0.9 Direct Bilirubin AST 16 ALT 11 Alkaline Phosphatase 63 Troponin I High Sens < 2.7 Total Protein 8.2 H Albumin 4.2 Influenza Type A (PCR) NEGATIVE Influenza Type B (PCR) NEGATIVE RSV RNA Qual (PCR) NEGATIVE SARS-CoV-2 RNA (RT-PCR) NEGATIVE 02/18/24 02/18/24 02/19/24 16:35 20:56 05:52 MCV 96.3 MCH 31.7 MCHC 32.9 RDW 11.9 Plt Count 262 MPV 9.8 Immature Gran % (Auto) Neut % (Auto) Lymph % (Auto) [place] % (Auto) Eos % (Auto) Baso % (Auto) Lymph # (Auto) [place] # (Auto) Eos # (Auto) Baso # (Auto) Abs Immat Gran (auto) Absolute Neuts (auto) Absolute Nucleated RBC 0.000 Nucleated RBC % (auto) 0.0 PT INR APTT Anion Gap 12 Estim Creat Clear Calc 118.4 Estimated GFR > 60 POC Glucose 119 H 119 H Random Glucose Fasting Glucose 92 Lactic Acid Calcium 8.8 D Magnesium 1.9 Total Bilirubin 0.9 Direct Bilirubin 0.3 AST 14 ALT 9 Alkaline Phosphatase 50 Troponin I High Sens Total Protein 6.7 Albumin 3.3 L Influenza Type A (PCR) Influenza Type B (PCR) RSV RNA Qual (PCR) SARS-CoV-2 RNA (RT-PCR) 02/19/24 07:20 MCV MCH MCHC RDW Plt Count MPV Immature Gran % (Auto) Neut % (Auto) Lymph % (Auto) [place] % (Auto) Eos % (Auto) Baso % (Auto) Lymph # (Auto) [place] # (Auto) Eos # (Auto) Baso # (Auto) Abs Immat Gran (auto) Absolute Neuts (auto) Absolute Nucleated RBC Nucleated RBC % (auto) PT INR APTT Anion Gap Estim Creat Clear Calc Estimated GFR POC Glucose 85 Random Glucose Fasting Glucose Lactic Acid Calcium Magnesium Total Bilirubin Direct Bilirubin AST ALT Alkaline Phosphatase Troponin I High Sens Total Protein Albumin Influenza Type A (PCR) Influenza Type B (PCR) RSV RNA Qual (PCR) SARS-CoV-2 RNA (RT-PCR) Assessment and Plan (1) Left lower lobe pneumonia: Status: Acute Plan 53M PMH pulmonary embolism on Eliquis, bilateral mastoiditis, hypertension, hyperlipidemia, diabetes, obesity, peripheral vascular disease, mood disorder, achalasia presented with nausea vomiting abdominal pain Nausea vomiting and right upper quadrant pain complicated by acute kidney injury due to dehydration Likely due to antibiotics versus cholelithiasis, cholecystitis less likely advance to solids, IV fluids, antiemetics Check HIDA Pneumonia Community-acquired versus aspiration Ceftriaxone and azithromycin Bilateral mastoiditis Will need outpatient ENT follow-up Diabetes Insulin Report of chest pain shortness breath on exertion Will need outpatient Cardiology follow-up for stress test Pulmonary embolism history Continue with Eliquis mood diosrder lexapro htn toprol Obesity Weight loss recommended Full code reason for continued hospitalization:still with pain Quality Stroke Does the patient have a stroke diagnosis?: No VTE Prior VTE?: Yes VTE Risk Level:: Medical - moderate - high VTE Device Contraindication: Treatment Not Indicated VTE Drug Contraindication: N/A - Med Ordered
[2024-02-19] MEDS: ondansetron HCL 4 MG/2 ML VIAL IVPUSH ×2 (10:15→20:49)
[2024-02-19] MEDS: Lactated Ringers 1,000 ML 80 ML IVCONT (10:16)
[2024-02-19 10:22] LABS: Glucose, Whole Blood 135 mg/dL (60-115)
[2024-02-19 10:25] VITALS: BP 133/88; PULSE 91; RESP 18; TEMP 36.5; O2SAT 97
--- NOTE | 2024-02-19 11:31 | MHC.CM.PN ---
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
[2024-02-19 11:33] LABS: Glucose, Whole Blood 125 mg/dL (60-115)
[2024-02-19 15:29] VITALS: BP 123/76; PULSE 87; RESP 16; TEMP 36.9; O2SAT 94
[2024-02-19 16:19] LABS: Glucose, Whole Blood 114 mg/dL (60-115)
[2024-02-19] MEDS: cefTRIAXone sodium 1 GM in 0.9 % Sodium Chloride 50 ML IV (17:53)
[2024-02-19] MEDS: Azithromycin 500 MG in 0.9 % Sodium Chloride 250 ML 125 MG IV (18:31)
[2024-02-19] MEDS: Fluticasone Propionate Nasal 16 GM SPRAY 2 SPRAY NOSTRIL-B (18:37)
[2024-02-19 19:30] VITALS: BP 112/66; PULSE 83; RESP 17; TEMP 37.1; O2SAT 97
[2024-02-19 20:40] LABS: Glucose, Whole Blood 117 mg/dL (60-115)
[2024-02-20 03:14] VITALS: BP 120/83; PULSE 88; RESP 16; TEMP 36; O2SAT 97
[2024-02-20 07:12] LABS: Glucose, Whole Blood 125 mg/dL (60-115)
[2024-02-20 07:15] LABS: Hematocrit 39.8 % (42.0-52.0); Hemoglobin 13.5 g/dl (14.0-18.0); Mean Corpuscular HGB Conc 33.9 g/dl (31.0-36.0); Mean Corpuscular Hemoglobin 32.3 pg (27.0-33.0); Mean Corpuscular Volume 95.2 fL (80.0-98.0); Mean Platelet Volume 10.1 fL (9.4-12.4); Platelet Count 265 X10*3/uL (160-400); Red Blood Count 4.18 X10*6/uL (4.60-5.80); Red Cell Distribution Width 11.7 % (11.0-16.0); White Blood Count 5.8 X10*3/uL (4.8-10.8)
[2024-02-20 07:19] LABS: Alanine Aminotransferase 9 U/L (0-40); Albumin Level 3.5 g/dL (3.5-5.0); Alkaline Phosphatase 53 U/L (39-117); Anion Gap 10 (12-20); Aspartate Amino Transferase 14 U/L (5-37); Bilirubin Direct 0.2 mg/dL (0.0-0.5); Bilirubin Total 0.7 mg/dL (0.0-1.0); Blood Urea Nitrogen 11 mg/dL (9-16); Carbon Dioxide 28 mmol/L (22-29); Chloride 103 mmol/L (96-108); Creatinine Clr Calc Pharmacy 126.5; Estimated Glomerular Filt Rate > 60; Glucose Fasting 157 mg/dL (60-99); Potassium 3.9 mmol/L (3.3-5.1); Sodium 137 mmol/L (135-145); Total Protein 6.8 g/dL (6.5-8.0)
[2024-02-20 07:44] VITALS: BP 129/80; PULSE 82; RESP 16; TEMP 36.4; O2SAT 99
--- NOTE | 2024-02-20 08:35 | P.PNIM_ITS ---
Subjective Subjective Date of Service: 02/20/24 Interval History: Still with pain not tolerating p.o. Physical Exam 2 Vital Signs: Vital Signs: Last Vital Signs Temp 97.5 F 02/20/24 07:44 Pulse 82 02/20/24 07:44 Resp 16 02/20/24 07:44 BP 129/80 02/20/24 07:44 Pulse Ox 99 02/20/24 07:44 O2 Del Method Room Air 02/20/24 07:44 BMI result Body Mass Index 34.5 General: AO X 3, no acute distress Resp: CTA bilateral, no accessory muscles used CVS: S1,S2,RRR GI: soft, tender, non distended Neuro: motor grossly intact, alert Psych: appropriate affect, appropriate insight Objective Data Active Medications Acetaminophen (Acetaminophen 325 Mg Tablet) 650 mg PO Q6H PRN PRN Reason: Pain, Mild (Pain Scale 1-3), fever or headache Apixaban (Apixaban 5 Mg Tablet) 5 mg PO BID [facility] Last Admin: 02/19/24 20:43 Dose: 5 mg Documented By: JOSEE Aripiprazole (Aripiprazole 10 Mg Tablet) 10 mg PO DAILY [facility] Last Admin: 02/19/24 08:55 Dose: 10 mg Documented By: GÉNESIS Calcium Carbonate (Calcium Carbonate 750 Mg Tab.Chew) 750 mg PO Q4H PRN PRN Reason: Heartburn Escitalopram Oxalate (Escitalopram Oxalate 20 Mg Tablet) 20 mg PO DAILY [facility] Last Admin: 02/19/24 08:55 Dose: 20 mg Documented By: GÉNESIS Glucose (Glucose Gel 15 Gm Gel..Gram.) 15 gm PO Q15M PRN; Protocol PRN Reason: per Hypoglycemia Standing Ord. Azithromycin 500 mg/ Sodium (Chloride) 250 mls @ 125 mls/hr IV Q24H [facility] Last Infusion: 02/19/24 22:32 Dose: Infused Documented By: JOSEE Lactated Ringer's (Lr) 1,000 mls @ 80 mls/hr IVCONT .[id number] [facility] Last Infusion: 02/19/24 20:59 Dose: 0 mls/hr Documented By: JOSEE Dextrose (D10) 250 mls @ 750 mls/hr IV Q15M PRN; Protocol PRN Reason: per Hypoglycemia Standing Ord. Ceftriaxone Sodium 1 gm/ (Sodium Chloride) 50 mls @ 100 mls/hr IV Q24H [facility] Last Infusion: 02/19/24 18:39 Dose: Infused Documented By: GÉNESIS Insulin Human Lispro (Insulin Lispro 100 Unit/Ml 3 Ml Vial) 0 unit SUBCUT QIDACHS [facility]; Protocol Last Admin: 02/19/24 20:36 Dose: Not Given Documented By: JOSEE Non-Admin Reason: No Insulin Coverage Magnesium Hydroxide (Milk Of Magnesia 30 Ml Oral.Susp) 30 ml PO DAILY PRN PRN Reason: Constipation Melatonin (Melatonin 3 Mg Tablet) 6 mg PO BEDTIME PRN PRN Reason: Insomnia Metoprolol Succinate (Metoprolol Succinate Er 50 Mg Tab.Er.24h) 50 mg PO DAILY [facility]; Protocol Last Admin: 02/19/24 08:55 Dose: 50 mg Documented By: GÉNESIS Morphine Sulfate (Morphine Sulfate 2 Mg/Ml Cartridge) 2 mg IVPUSH Q4H PRN; Protocol PRN Reason: Pain, Moderate(Pain Scale 4-6) Last Admin: 02/19/24 20:42 Dose: 2 mg Documented By: JOSEE Omeprazole (Omeprazole 20 Mg Capsule.Dr) 20 mg PO DAILY PRN PRN Reason: Acid Reflux Ondansetron HCl (Ondansetron Hcl 4 Mg/2 Ml Vial) 4 mg IVPUSH Q6H PRN PRN Reason: Nausea Last Admin: 02/19/24 20:49 Dose: 4 mg Documented By: JOSEE Sodium Chloride (0.9 % Sodium Chloride Flush 3 Ml Syringe) 3 ml IVFLUSH [facility] Last Admin: 02/19/24 21:20 Dose: Not Given Documented By: JOSEE Non-Admin Reason: IV Running Trazodone HCl (Trazodone Hcl 100 Mg Tablet) 100 mg PO BEDTIME PRN PRN Reason: Sleep Labs 02/20/24 05:39 02/20/24 05:39 Labs: Laboratory Results - last 24 hr 02/19/24 02/19/24 02/19/24 10:15 11:20 16:14 MCV MCH MCHC RDW Plt Count MPV Absolute Nucleated RBC Nucleated RBC % (auto) Anion Gap Estim Creat Clear Calc Estimated GFR POC Glucose 135 H 125 H 114 Fasting Glucose Calcium Magnesium Total Bilirubin Direct Bilirubin AST ALT Alkaline Phosphatase Total Protein Albumin 02/19/24 02/20/24 02/20/24 20:28 05:39 07:08 MCV 95.2 MCH 32.3 MCHC 33.9 RDW 11.7 Plt Count 265 MPV 10.1 Absolute Nucleated RBC 0.000 Nucleated RBC % (auto) 0.0 Anion Gap 10 L Estim Creat Clear Calc 126.5 Estimated GFR > 60 POC Glucose 117 H 125 H Fasting Glucose 157 H Calcium 9.0 Magnesium 2.0 Total Bilirubin 0.7 Direct Bilirubin 0.2 AST 14 ALT 9 Alkaline Phosphatase 53 Total Protein 6.8 Albumin 3.5 Microbiology Microbiology Results: Microbiology 02/18/24 17:05 Blood Culture - Preliminary Blood - Venous No growth after 24 hours. 02/18/24 16:55 Blood Culture - Preliminary Blood - Venous No growth after 24 hours. Assessment and Plan (1) Left lower lobe pneumonia: Status: Acute Plan 53M PMH pulmonary embolism on Eliquis, bilateral mastoiditis, hypertension, hyperlipidemia, diabetes, obesity, peripheral vascular disease, mood disorder, achalasia presented with nausea vomiting abdominal pain Nausea vomiting and right upper quadrant pain complicated by acute kidney injury due to dehydration Likely due to antibiotics versus cholelithiasis, cholecystitis less likely advance to solids - reports not tolerating, IV fluids, antiemetics Check HIDA Pneumonia Community-acquired versus aspiration Ceftriaxone and azithromycin Bilateral mastoiditis Will need outpatient ENT follow-up Diabetes Insulin Report of chest pain shortness breath on exertion Will need outpatient Cardiology follow-up for stress test Pulmonary embolism history Continue with Eliquis mood diosrder lexapro htn toprol Obesity Weight loss recommended Full code reason for continued hospitalization:still with pain Quality Stroke Does the patient have a stroke diagnosis?: No VTE Prior VTE?: Yes VTE Risk Level:: Medical - moderate - high VTE Device Contraindication: Treatment Not Indicated VTE Drug Contraindication: N/A - Med Ordered
[2024-02-20] MEDS: Morphine Sulfate 2 MG/ML CARTRIDGE IVPUSH ×2 (08:50→18:29)
[2024-02-20] MEDS: Lactated Ringers 1,000 ML 80 ML IVCONT (08:55)
[2024-02-20 12:33] VITALS: BP 151/91; PULSE 82; RESP 18; TEMP 36.1; O2SAT 97
[2024-02-20 12:34] LABS: Glucose, Whole Blood 97 mg/dL (60-115)
[2024-02-20] MEDS: Apixaban 5 MG TABLET PO ×2 (13:22→20:18)
[2024-02-20] MEDS: Metoprolol Succinate ER 50 MG TAB.ER.24H PO (13:22)
[2024-02-20 15:21] VITALS: BP 134/81; PULSE 80; RESP 18; TEMP 36.6; O2SAT 95
[2024-02-20 15:56] LABS: Glucose, Whole Blood 182 mg/dL (60-115)
--- NOTE | 2024-02-20 16:15 | MHC.CM.PN ---
Per MD rounds no discharge today r/t Pain management. DP home with resumption of [employer] services. Patient will have a ride home.
[2024-02-20] MEDS: Insulin Lispro 100 UNIT/ML 3 ML VIAL SUBCUT (17:09)
[2024-02-20] MEDS: 0.9 % Sodium Chloride Flush 3 ML SYRINGE IVFLUSH ×2 (17:11→20:18)
[2024-02-20] MEDS: cefTRIAXone sodium 1 GM in 0.9 % Sodium Chloride 50 ML IV (17:18)
[2024-02-20] MEDS: Azithromycin 500 MG in 0.9 % Sodium Chloride 250 ML 125 MG IV (17:56)
[2024-02-20 19:27] VITALS: BP 133/86; PULSE 71; RESP 18; TEMP 37; O2SAT 97
[2024-02-20 19:59] LABS: Glucose, Whole Blood 105 mg/dL (60-115)
[2024-02-20] MEDS: traZODone HCL 100 MG TABLET PO (20:18)
[2024-02-21 03:31] VITALS: BP 145/76; PULSE 79; RESP 16; TEMP 36.6; O2SAT 96
[2024-02-21 07:14] VITALS: BP 127/99; PULSE 75; RESP 16; TEMP 36.3; O2SAT 98
[2024-02-21 07:21] LABS: Hematocrit 39.9 % (42.0-52.0); Hemoglobin 13.4 g/dl (14.0-18.0); Mean Corpuscular HGB Conc 33.6 g/dl (31.0-36.0); Mean Corpuscular Hemoglobin 31.8 pg (27.0-33.0); Mean Corpuscular Volume 94.8 fL (80.0-98.0); Mean Platelet Volume 10.5 fL (9.4-12.4); Platelet Count 245 X10*3/uL (160-400); Red Blood Count 4.21 X10*6/uL (4.60-5.80); Red Cell Distribution Width 11.7 % (11.0-16.0); White Blood Count 5.6 X10*3/uL (4.8-10.8)
[2024-02-21 07:28] LABS: Glucose, Whole Blood 98 mg/dL (60-115)
[2024-02-21 07:46] LABS: Alanine Aminotransferase 9 U/L (0-40); Albumin Level 3.5 g/dL (3.5-5.0); Alkaline Phosphatase 53 U/L (39-117); Anion Gap 11 (12-20); Aspartate Amino Transferase 12 U/L (5-37); Bilirubin Direct 0.2 mg/dL (0.0-0.5); Bilirubin Total 0.7 mg/dL (0.0-1.0); Blood Urea Nitrogen 10 mg/dL (9-16); Calcium 8.8 mg/dL (8.4-10.2); Carbon Dioxide 26 mmol/L (22-29); Chloride 105 mmol/L (96-108); Estimated Glomerular Filt Rate > 60; Glucose Fasting 90 mg/dL (60-99); Magnesium 2.1 mg/dL (1.6-2.6); Potassium 4.2 mmol/L (3.3-5.1); Sodium 138 mmol/L (135-145); Total Protein 6.9 g/dL (6.5-8.0)
[2024-02-21] MEDS: Apixaban 5 MG TABLET PO (08:52)
[2024-02-21] MEDS: ARIPiprazole 10 MG TABLET PO (08:52)
[2024-02-21] MEDS: Escitalopram Oxalate 20 MG TABLET PO (08:52)
[2024-02-21] MEDS: Metoprolol Succinate ER 50 MG TAB.ER.24H PO (08:52)
[2024-02-21] MEDS: 0.9 % Sodium Chloride Flush 3 ML SYRINGE IVFLUSH (08:53)
--- NOTE | 2024-02-21 10:50 | PM.DS ---
DS: Providers Provider Date of Service: 02/21/24 Date of admission: 02/18/24 16:20 Date of discharge: 02/21/24 Primary care physician: Rebel Farah MD DS: Diagnosis Discharge Diagnosis (1) Left lower lobe pneumonia: Status: Acute DS: Summary Hospital Course Hospital Course: from initial hpi: 53M PMH pulmonary embolism on Eliquis, bilateral mastoiditis, hypertension, hyperlipidemia, diabetes, obesity, peripheral vascular disease, mood disorder, achalasia presented with nausea vomiting abdominal pain. Patient was recently started on doxycycline about 1 week prior to presentation for otitis media. After taking 2 pills started having nausea and vomiting, came to ED on 02/15/2024, was found to have pneumonia and antibiotics changed to levofloxacin. Patient took the levofloxacin but still had nausea vomiting, then started to have severe right upper quadrant abdominal pain so he decided to come back to the ED today. In ED today lab significant for a elevated creatinine 1.46, LFTs normal, abdominal ultrasound with cholelithiasis and positive Gan sign but no gallbladder wall thickening or edema. hospital course: Patient was admitted for nausea and vomiting and right upper quadrant pain complicated by acute kidney injury due to dehydration. Patient was supported with IV fluids and antiemetics, diet was advanced solids and symptoms has resolved. HIDA scan was was negative, if has recurrent pain can follow up with surgery. For pneumonia was continued on ceftriaxone azithromycin and will continue with Levaquin as outpatient. For bilateral mastoiditis will follow up with ENT as outpatient. For diabetes was continued on insulin. For report of chest pain and shortness of breath on exertion chronically will need outpatient cardiology follow-up, likely need stress test. For history of pulmonary embolism was continue with Eliquis. For mood disorder was continued on Lexapro, for hypertension continue metoprolol. For obesity weight loss recommended. Patient is feeling better will be discharged home. Time Attestation Discharge Coordination Time (in mins): 35 Quality: Safe Use of Opioids Does Pt have an Active Cancer Diagnosis on the Problem List?: No Quality: Stroke Does the patient have a stroke diagnosis?: No Physical Exam Vital Signs: Vital Signs: Last Vital Signs Temp 97.3 F 02/21/24 07:14 Pulse 75 02/21/24 07:14 Resp 16 02/21/24 07:14 BP 127/99 H 02/21/24 07:14 Pulse Ox 98 02/21/24 07:14 O2 Del Method Room Air 02/21/24 07:14 BMI result Body Mass Index 34.5 General: AO X 3, no acute distress Resp: CTA bilateral, no accessory muscles used CVS: S1,S2,RRR GI: soft, non tender, non distended Neuro: motor grossly intact, alert Psych: appropriate affect, appropriate insight DS: Data Data Completed and Pending Labs on day of discharge: Laboratory Results - last 24 hr 02/20/24 02/20/24 02/20/24 12:29 15:45 19:42 WBC RBC Hgb Hct MCV MCH MCHC RDW Plt Count MPV Absolute Nucleated RBC Nucleated RBC % (auto) Sodium Potassium Chloride Carbon Dioxide Anion Gap BUN Creatinine Estim Creat Clear Calc Estimated GFR POC Glucose 97 182 H 105 Fasting Glucose Calcium Magnesium Total Bilirubin Direct Bilirubin AST ALT Alkaline Phosphatase Total Protein Albumin 02/21/24 02/21/24 05:51 07:16 WBC 5.6 RBC 4.21 L Hgb 13.4 L Hct 39.9 L MCV 94.8 MCH 31.8 MCHC 33.6 RDW 11.7 Plt Count 245 MPV 10.5 Absolute Nucleated RBC 0.000 Nucleated RBC % (auto) 0.0 Sodium 138 Potassium 4.2 Chloride 105 Carbon Dioxide 26 Anion Gap 11 L BUN 10 Creatinine 0.77 Estim Creat Clear Calc 143.0 Estimated GFR > 60 POC Glucose 98 Fasting Glucose 90 Calcium 8.8 Magnesium 2.1 Total Bilirubin 0.7 Direct Bilirubin 0.2 AST 12 ALT 9 Alkaline Phosphatase 53 Total Protein 6.9 Albumin 3.5 Preliminary micro results at discharge 02/18/24 17:05 Blood Culture - Preliminary Blood - Venous No growth after 48 hours. 02/18/24 16:55 Blood Culture - Preliminary Blood - Venous No growth after 48 hours. Discharge Plan Discharge Anticipated Discharge Date/Time: 02/21/24 10:43 Patient Disposition: Home, Self-Care Discharge Diagnosis: pneumonia, abd pain Referrals: Ronnie Schaeffer [Physician] - 1 Week Germán Rosenthal MD [Physician] - 1 Week (chest pain on exertion) Po,Rebel Frances MD [Primary Care Provider] - 1 Week Discharge Medications: Continued gabapentin 300 mg capsule 300 mg PO TID 90 Days Qty: 270 1RF metformin 1,000 mg tablet 1,000 mg PO BID 90 Days Qty: 180 2RF (DME) blood-glucose meter [FreeStyle Lite Meter] Kit See Rx Instructions .ROUTE .MEDSUPPLY Qty: 1 0RF Rx Instructions: As directed (DME) FreeStyle Lite Strips Strip See Rx Instructions .ROUTE .MEDSUPPLY Qty: 100 3RF Rx Instructions: As directed check the BS QD (DME) lancets [FreeStyle Lancets] 28 gauge misc See Rx Instructions .ROUTE .MEDSUPPLY Qty: 100 3RF Rx Instructions: As directed check BS QD pantoprazole 40 mg tablet,delayed release (DR/EC) 40 mg PO DAILY PRN (Reason: Acid Reflux) Rx Instructions: take one tablet half an hour before breakfast levofloxacin 750 mg tablet 750 mg PO Q24H Qty: 9 0RF escitalopram oxalate [Lexapro] 20 mg tablet 20 mg PO DAILY trazodone 100 mg tablet 100 mg PO BEDTIME PRN (Reason: Sleep) metoprolol succinate 50 mg tablet extended release 24 hr 50 mg PO DAILY Qty: 90 1RF lisinopril 5 mg tablet 5 mg PO DAILY 90 Days Qty: 90 2RF (DME) AUTO PAP 6-20 cm H2o humidified air See Rx Instructions .Route .MEDSUPPLY Qty: 1 0RF Rx Instructions: As directed Eliquis 5 mg tablet 5 mg PO BID 90 Days Qty: 180 3RF fluticasone propionate [Flonase Allergy Relief] 50 mcg/actuation spray,suspension 2 spray intranasal DAILY Qty: 16 2RF Rx Instructions: administer into each nostril aripiprazole 10 mg tablet 10 mg PO DAILY Discharge Orders: Discharge Order (Routine); Ordered 02/21/24 Ordered By: Omega Gibson Diet: Diabetic diet Activity on Discharge: As tolerated Stand Alone Forms: Patient Portal Discharge page Print Language: Polish Care Plan Goals: recovery Health Concerns: mastoiditis, cholilithiasis, pneumonia Plan of Treatment: complete levaquin course, follow up with ENT, if recurrent ruq pain follow up with surgery follow up with cardiology for your chest pain and shortness of breath on exertion Assessment: see above
[2024-02-21 11:17] LABS: Glucose, Whole Blood 159 mg/dL (60-115)
--- NOTE | 2024-02-21 11:25 | MHC.CM.PN ---
IMM 02/19/24 Patient is discharged today, home with family assist. 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 Patient has arranged for a ride home.
== END 2024-02-21 11:41 | disposition home or self-care (01) | DRG 194 ==
LOC: HO.ED 13:22 → HO.EDOVER 16:25 → HO.S3 19:42
PROVIDERS: Nurse Practitioner Family; Physician Assistant Medical; Admitting Provider Internal Medicine; Emergency Provider Emergency Medicine Emergency Medical Services; PCP Internal Medicine; Visit Provider Internal Medicine
DX: J18.9 Pneumonia, unspecified organism (principal); N17.9 Acute kidney failure, unspecified; E86.0 Dehydration; E11.51 Type 2 diabetes mellitus with diabetic peripheral angiopathy without gangrene; I10 Essential (primary) hypertension; E66.9 Obesity, unspecified; Z68.34 Body mass index [BMI] 34.0-34.9, adult; H70.93 Unspecified mastoiditis, bilateral; Z20.822 Contact with and (suspected) exposure to COVID-19; Z88.0 Allergy status to penicillin; Z86.711 Personal history of pulmonary embolism; Z79.01 Long term (current) use of anticoagulants; Z79.51 Long term (current) use of inhaled steroids; Z79.84 Long term (current) use of oral hypoglycemic drugs; Z79.899 Other long term (current) drug therapy
CPT/HCPCS: 0241U; 36415; 71045; 74177; 76705; 78226; 80048; 80053; 80076; 82947; 83605; 83690; 83735; 84484; 85025; 85027; 85610; 85730; 87040; 93005; 96374; 96375; 99212; 99284; 99285; A9537; J0456; J0696; J1956; J2060; J2270; J2405; J2470; J7120; Q9967

== ENCOUNTER → 2024-02-18 16:20 | Outpatient (BNV) | payer MEDICARE, MEDICAID, SELFPAY | PROVIDERS: Admitting Provider Internal Medicine; Emergency Provider Emergency Medicine Emergency Medical Services; PCP Internal Medicine; Visit Provider Internal Medicine | DX: J18.9 Pneumonia, unspecified organism (principal); N17.9 Acute kidney failure, unspecified; R11.2 Nausea with vomiting, unspecified | CPT/HCPCS: 99223; 99232; 99239 ==

== ENCOUNTER 2024-03-05 13:00 | Outpatient (AMB) | payer MEDICARE, MEDICAID, SELFPAY ==
[2024-03-05 13:04] VITALS: BP 122/80; PULSE 93; O2SAT 95; BMI 37.2
--- NOTE | 2024-03-05 13:04 | A.OFFPC_ITS ---
Vital Signs 03/05/24 13:04 Height 5 ft 11 in Weight 267 lb 0.2 oz BMI 37.2 BP 122/80 Blood Pressure Location Lt brachial Position Sitting Pulse 93 Pulse Source Pulse Oximeter Pulse Oximetry (%) 95 Oxygen Delivery Method Room Air Intake Visit Reasons: tcm Marketing Summer Intern Required: No Allergies Penicillins [PENICILLINS] Allergy (Unknown, Verified 03/05/24 13:04) UNKNOWN Medication List - Last Reconciled 03/05/24 by Karyn Luciano PA-C apixaban (Eliquis) 5 mg PO BID 90 days aripiprazole 10 mg PO DAILY [AUTO PAP 6-20 cm H2o humidified air As directed] blood sugar diagnostic (FreeStyle Lite Strips) As directed check the BS QD blood-glucose meter (FreeStyle Lite Meter kit) As directed escitalopram oxalate (Lexapro) 20 mg PO DAILY fluticasone propionate 50 mcg/actuation (Flonase Allergy Relief) 2 sprays intranasal DAILY gabapentin 300 mg PO TID 90 days lancets (FreeStyle Lancets) As directed check BS QD lisinopril 5 mg PO DAILY 90 days metformin 1,000 mg PO BID 90 days metoprolol succinate ER 50 mg PO DAILY pantoprazole 40 mg PO DAILY PRN trazodone 100 mg PO BEDTIME PRN Tobacco use date assessed: 02/10/24 Dental Screening Dental Screen Date: 08/19/23 HPI tcm HPI Details 53-year-old obese male with diabetes salvatore litus, hypertension, history of pulmonary embolism, GERD, generalized anxiety disorder, severe obstructive sleep apnea last seen by Dr. Farah January 2024 coming in for hospital discharge while. In review of the notes, patient was [place] [facility] [place] abdominal pain with nausea and vomiting after starting on levofloxacin for pneumonia and patient was admitted for right upper quadrant pain complicated by acute kidney injury. Patient was admitted 02/18/2024 and started on IV fluid and antiemetics and diet was slowly advanced until symptoms have resolved. HIDA scan was negative and patient was continued on ceftriaxone and azithromycin for pneumonia and continue on Levaquin outpatient. Patient was found to have bilateral mastoiditis and we will follow up with ENT. Advised to follow up with Cardiology for shortness of breath on exertion. Discharged home 02/21/2024. Today he tells us he completed his course of Levaquin and is no longer having a cough or chest pains. He does still continue to have some nausea with and without vomiting in the mornings and is scheduled to have a colonoscopy with endoscopy in March. He also mentioned since being discharged from the hospital he has been straining more with bowel movements and has been having bright red rectal bleeding. Bilateral ear pain has increased but still has some decreased hearing in bubbling in the right ear. Lastly he mentions when he is lying down in bed he will have left shoulder and arm pain which has been ongoing for 4-5 months. He has not yet scheduled an appointment with ear nose and throat or Cardiology. TCM TCM Information Date of Discharge 02/21/24 Discharged From [facility] Medical History Left ear pain Obstructive sleep apnea (adult) (pediatric) Medicare annual wellness visit, initial DVT (deep venous thrombosis) Injury of tendon of biceps Nausea Closed fracture of right proximal tibia Femoral distal fracture Obstructive sleep apnea Carpal tunnel syndrome Peripheral vascular disease History of pulmonary embolism Type 2 diabetes mellitus with hyperglycemia Hypertension Surgical History History of total right knee replacement Status post debridement Total knee replacement status Status post osteotomy History of femoropopliteal bypass History of repair of left rotator cuff Family History Father CVD (cardiovascular disease) Diabetes Hypertension Mother Diabetes Hypertension Brother Past heart attack Substance abuse Maternal Uncle Schizophrenia Paternal Uncle CVD (cardiovascular disease) Social History Household Members: Spouse Housing: House Are you a primary spiritual care coordinator to a significant other at home: No Do you presently have visiting nurse or other home services: Yes (RN PROCEDURES) Alcohol intake: never Patient Tobacco Use Status: Never used Tobacco Years Smoked: smokes week occ e-Cigarette/Vaping Use: Never Used Second Hand Smoke Exposure: No Substance Use Type: Marijuana service: No Current occupational status: unemployed Cognitive needs: No Hearing needs: No Vision needs: No Questionnaire Thrive Questionnaire Date Thrive assessed: 02/19/24 Are you currently unemployed and looking for a job?: I choose not to answer this question AUDIT C Alcohol Use Questionnaire (AUDIT-C) 1. How often do you have a drink containing alcohol?: 2-4 times a month 2. How many drinks containing alcohol do you have on a typical day when you are drinking?: 3 or 4 3. How often do you have six or more drinks on one occasion?: Never Total Score: 3 CAM-7 AMB Questionnaire CAM-7 Date CAM - 7 assessed: 08/19/23 Source: Developed by Drs. Leighton West, Comfort Harper, Aries Allan and colleagues, with an educational shane from [employer]. Review of Systems Const Denies body aches, Denies chills, Denies fever(s), Denies headache(s) and Denies poor appetite Eyes Reports no additional complaints ENT Denies dizziness, Denies otalgia and Denies headache(s) Card Denies chest pain, Denies syncope, Denies edema, Denies irregular heart rhythm, Denies lightheadedness, Denies dyspnea and Reports dyspnea on exertion Resp Denies cough, Denies dyspnea and Reports dyspnea on exertion GI Denies abdominal pain, Reports hematochezia (With straining), Reports constipation, Denies diarrhea, Reports nausea and Reports vomiting Reports no additional complaints Musc Details: Left shoulder pain Reports abnormal gait Skin/Breast Reports system reviewed and no additional complaints, except as documented Neuro Reports abnormal gait, Denies dizziness, Denies syncope and Denies headache(s) Psych Reports no additional complaints Physical exam (Primary Care) Vital Signs: Last Vital Signs Pulse 93 03/05/24 13:04 BP 122/80 03/05/24 13:04 Pulse Ox 95 03/05/24 13:04 Oxygen Delivery Method Room Air 03/05/24 13:04 BMI result Body Mass Index 37.2 Tobacco/Smoking Status: Tobacco use Status Tobacco use date assessed 02/10/24 03/05/24 13:05 Patient Tobacco Use Status Never used Tobacco 03/05/24 13:05 e-Cigarette/Vaping Use Never Used 03/05/24 13:05 Thrive Assessment: Date of Thrive Assessment Date Thrive assessed 02/19/24 03/05/24 13:05 Const General: cooperative, healthy appearing, comfortable and no acute distress Orientation/consciousness: patient oriented x3 HENMT Head: Yes normocephalic Ears: hearing grossly normal bilaterally, external ears normal, TM's normal bilaterally, EAC's normal and mastoids normal bilaterally General nose exam: Normal external nose present Eyes General: appearance normal, both eyes and all related structures Conjunctivae: conjunctivae normal Neck Neck: Yes full ROM and Yes no lymphadenopathy Resp Effort & Inspection: normal respiratory effort Auscultation: clear to auscultation bilaterally, no crackles, no rales, no rhonchi and no wheezes Cardio Rate: regular rate Rhythm: regular rhythm Skin General skin exam: no rashes or lesions noted Neuro General: patient oriented x3 Gait exam (Neuro): Normal gait present Extrem General: Yes normal to inspection, Yes full ROM and No edema Psych Affect: normal affect Attitude: cooperative Insight: Good insight present (Psych) Judgement: Good judgement present (Psych) Results AMB Hemoglobin A1c AMB Hemoglobin A1c 6.5 % Last Edit by AKSHAT Bernal on 03/05/24 13:17 Results Reviewed Results Reviewed: Laboratory Last Values Hgb A1c (Clinic) 6.5 % (4.0-6.0) H 03/05/24 08:09 Coding Level of Care Code TCM Mod MDM <= 14 Days Complex EM visit Add On G2211 Diagnoses Left lower lobe pneumonia J18.9 Otitis media, left H66.92 Dyspnea on exertion R06.00 Generalized anxiety disorder F41.1 Type 2 diabetes mellitus with hyperglycemia, without long-term current use of insulin E11.65 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 Lung sounds are clear on exam continue to monitor for symptoms. (2) Otitis media, left: Code(s): H66.92 - Otitis media, unspecified, left ear Category: Medical Plan: Bilateral ear pain has resolved at this time continue to monitor for recurrent symptoms and follow up with your nose and throat as directed. (3) Dyspnea on exertion: Code(s): R06.00 - Dyspnea, unspecified Category: Medical Plan: Per discharge note referral was placed for Cardiology for further evaluation. Patient can not tolerate exercise stress test. Ordered for BNP and updated blood work. (4) Generalized anxiety disorder: Comment: Renerasmokarol group every month October 2019 Code(s): F41.1 - Generalized anxiety disorder Category: Medical Plan: Continue on current medication and continue to follow with counselor every 2 weeks. (5) Type 2 diabetes mellitus with hyperglycemia: Code(s): E11.65 - Type 2 diabetes mellitus with hyperglycemia Category: Medical Qualifiers: Diabetes mellitus detention insulin use: without detention use Qualified Code(s): E11.65 - Type 2 diabetes mellitus with hyperglycemia Plan: Decrease the amount of carbohydrates such as pasta, bread, rice, and potatoes and limit the amount of sweets. Although fruits are generally healthy they should be eaten in moderation as they are still high in sugar. Hemoglobin A1c goal of less than 7%. A1c is 6.5% today continue on current medication. (6) Hypertension: Code(s): I10 - Essential (primary) hypertension Category: Medical Qualifiers: Hypertension type: essential hypertension Qualified Code(s): I10 - Essential (primary) hypertension Plan: Continue on current blood pressure medication. Avoid salt intake and encourage healthy diet and regular exercise. (7) History of pulmonary embolism: Code(s): Z86.711 - Personal history of pulmonary embolism Category: Medical Plan: Continue on anticoagulation. (8) Peripheral vascular disease: Code(s): I73.9 - Peripheral vascular disease, unspecified Category: Medical Plan: Encouraged healthy diet and regular exercise and good control of blood sugar, blood pressure and cholesterol. (9) Left shoulder pain: Code(s): M25.512 - Pain in left shoulder Category: Medical Plan: Ordered for x-ray given muscle relaxer for pain at night. Can consider referral to Orthopedics and or physical therapy pending x-ray results. (10) Nausea & vomiting: Code(s): R11.2 - Nausea with vomiting, unspecified Category: Medical Qualifiers: Vomiting type: unspecified Qualified Code(s): R11.2 - Nausea with vomiting, unspecified Plan: Plan for endoscopy in March per patient report. Continue to use antinausea medication as needed. (11) Bloody stools: Code(s): K92.1 - Melena Category: Medical Plan: Plan for colonoscopy in March advised patient to follow up if colonoscopy date is changed. Plan This note was constructed using voice recognition software. While every effort has been made to ensure accuracy and low pressure kettle operator, still areas may have been included sometimes these areas may affect the content or meeting of the given symptoms. Total time spent caring for the patient today was 30 minutes. This includes time spent before the visit reviewing the chart, time spent during the visit, and time spent after the visit and documentation. Orders: Orders AMB Hemoglobin A1c 03/05/24 E11.65 - Type 2 diabetes mellitus with hyperglycemia XR shoulder LT min 2V 03/05/24 M25.512 - Pain in left shoulder B Type Natriuretic Peptide 03/05/24 R06.00 - Dyspnea, unspecified Referrals Cardiology Referral R06.00 - Dyspnea, unspecified, Z86.711 - Personal history of pulmonary embolism Medications: New cyclobenzaprine 5 mg PO BEDTIME 20 tabs 0RF walker (Ultra-Light Rollator misc) As directed 1 ea 0RF
== END 2024-03-05 13:47 | disposition home or self-care (01) ==
PROVIDERS: PCP Internal Medicine
DX: J18.9 Pneumonia, unspecified organism (principal); E11.65 Type 2 diabetes mellitus with hyperglycemia; I73.9 Peripheral vascular disease, unspecified; H66.92 Otitis media, unspecified, left ear; R06.00 Dyspnea, unspecified; F41.1 Generalized anxiety disorder; I10 Essential (primary) hypertension; Z86.711 Personal history of pulmonary embolism; M25.512 Pain in left shoulder; R11.2 Nausea with vomiting, unspecified; K92.1 Melena

== ENCOUNTER → 2024-03-05 13:00 | Outpatient (BNVA) | payer MEDICARE, MEDICAID, SELFPAY | PROVIDERS: PCP Internal Medicine | DX: E11.65 Type 2 diabetes mellitus with hyperglycemia (principal); J18.9 Pneumonia, unspecified organism; H66.92 Otitis media, unspecified, left ear; R06.00 Dyspnea, unspecified; F41.1 Generalized anxiety disorder; I10 Essential (primary) hypertension; I73.9 Peripheral vascular disease, unspecified; M25.512 Pain in left shoulder; R11.2 Nausea with vomiting, unspecified; K92.1 Melena; Z86.711 Personal history of pulmonary embolism | CPT/HCPCS: 83036; 99495 ==

== ENCOUNTER 2024-04-11 11:21 | Outpatient (AMB) | payer MEDICARE, MEDICAID, SELFPAY ==
--- NOTE | 2024-04-11 11:23 | MHC.PC.OV ---
Vital Signs 04/11/24 11:24 Height 5 ft 11 in Weight 257 lb 0.8 oz BMI 35.8 BP 114/78 Blood Pressure Location Rt brachial Position Sitting Pulse 75 Pulse Source Pulse Oximeter Pulse Oximetry (%) 98 Oxygen Delivery Method Room Air Intake Visit Reasons: 2mth f/u Merchandise Coordinator Required: No Allergies Penicillins [PENICILLINS] Allergy (Unknown, Verified 04/11/24 11:24) UNKNOWN Medication List - Last Reconciled 04/11/24 by Karyn Luciano PA-C apixaban (Eliquis) 5 mg PO BID 90 days aripiprazole 10 mg PO DAILY [AUTO PAP 6-20 cm H2o humidified air As directed] blood sugar diagnostic (FreeStyle Lite Strips) As directed check the BS QD blood-glucose meter (FreeStyle Lite Meter kit) As directed cyclobenzaprine 5 mg PO BEDTIME escitalopram oxalate (Lexapro) 20 mg PO DAILY fluticasone propionate 50 mcg/actuation (Flonase Allergy Relief) 2 sprays intranasal DAILY gabapentin 300 mg PO TID 90 days lancets (FreeStyle Lancets) As directed check BS QD lisinopril 5 mg PO DAILY 90 days metformin 1,000 mg PO BID 90 days metoprolol succinate ER 50 mg PO DAILY pantoprazole 40 mg PO DAILY PRN trazodone 100 mg PO BEDTIME PRN walker (Ultra-Light Rollator misc) As directed Tobacco use date assessed: 02/10/24 Dental Screening Dental Screen Date: 08/19/23 HPI 2mth f/u HPI Details 53-year-old obese male with diabetes mellitus, hypertension, history of pulmonary embolism, GERD, generalized anxiety disorder, severe obstructive sleep apnea last seen 02/2024 coming in for follow up. At his last visit he is referred to Cardiology for dyspnea on exertion. He is advised to have x-ray of the left shoulder done for left shoulder pain while lying flat which was not completed. He states this pain has been worsening and now seems to stem from the cervical spine with occasional numbness and tingling down the arm only while lying flat. He has not yet made an appointment with Cardiology or ear nose and throat. He also mentions he has a history of claudication which has been worsening over the last several months-years. He will have claudication episodes when to 3 times per week primarily with walking very long distances. [facility] Medical History Left ear pain Obstructive sleep apnea (adult) (pediatric) Medicare annual wellness visit, initial DVT (deep venous thrombosis) Injury of tendon of biceps Nausea Closed fracture of right proximal tibia Femoral distal fracture Obstructive sleep apnea Carpal tunnel syndrome Peripheral vascular disease History of pulmonary embolism Type 2 diabetes mellitus with hyperglycemia Hypertension Surgical History History of total right knee replacement Status post debridement Total knee replacement status Status post osteotomy History of femoropopliteal bypass History of repair of left rotator cuff Family History Father CVD (cardiovascular disease) Diabetes Hypertension Mother Diabetes Hypertension Brother Past heart attack Substance abuse Maternal Uncle Schizophrenia Paternal Uncle CVD (cardiovascular disease) Social History Household Members: Spouse Housing: House Are you a primary career center advisor to a significant other at home: No Do you presently have visiting nurse or other home services: Yes (EUCLID OPERATOR) Alcohol intake: never Patient Tobacco Use Status: Never used Tobacco Years Smoked: smokes week occ e-Cigarette/Vaping Use: Never Used Second Hand Smoke Exposure: No Substance Use Type: Marijuana service: No Current occupational status: unemployed Cognitive needs: No Hearing needs: No Vision needs: No Questionnaire Thrive Questionnaire Date Thrive assessed: 02/19/24 Are you currently unemployed and looking for a job?: I choose not to answer this question AUDIT C Alcohol Use Questionnaire (AUDIT-C) 1. How often do you have a drink containing alcohol?: 2-4 times a month 2. How many drinks containing alcohol do you have on a typical day when you are drinking?: 3 or 4 3. How often do you have six or more drinks on one occasion?: Never Total Score: 3 CAM-7 AMB Questionnaire CAM-7 Date CAM - 7 assessed: 08/19/23 Source: Developed by Drs. Leighton West, Comfort Harper, Aries Allan and colleagues, with an educational shane from [employer]. Review of Systems Const Denies body aches, Denies chills, Denies fever(s), Denies headache(s) and Denies poor appetite Eyes Reports no additional complaints ENT Denies dysphagia, Denies dizziness, Denies headache(s) and Denies odynophagia Card Denies chest pain, Denies syncope, Denies edema, Denies irregular heart rhythm, Denies lightheadedness, Denies dyspnea and Reports dyspnea on exertion Resp Denies cough, Denies dyspnea and Reports dyspnea on exertion GI Denies abdominal pain, Denies constipation, Denies dysphagia, Denies diarrhea, Denies nausea, Denies odynophagia and Denies vomiting Reports no additional complaints Musc Details: Hip and leg pain on exertion Reports abnormal gait (Ambulates with walker for long distances) Skin/Breast Reports system reviewed and no additional complaints, except as documented Neuro Reports abnormal gait (Ambulates with walker for long distances), Denies dizziness, Denies syncope and Denies headache(s) Psych Reports no additional complaints Physical exam (Primary Care) Vital Signs: Oxygen Delivery Method Room Air 04/11/24 11:24 Tobacco/Smoking Status: Tobacco use Status Tobacco use date assessed 02/10/24 04/11/24 11:25 Patient Tobacco Use Status Never used Tobacco 04/11/24 11:25 e-Cigarette/Vaping Use Never Used 04/11/24 11:25 Thrive Assessment: Date of Thrive Assessment Date Thrive assessed 02/19/24 04/11/24 11:25 Const General: cooperative, healthy appearing, comfortable and no acute distress Orientation/consciousness: patient oriented x3 HENMT Head: Yes normocephalic Ears: hearing grossly normal bilaterally General nose exam: Normal external nose present Eyes General: appearance normal, both eyes and all related structures Conjunctivae: conjunctivae normal Neck Neck: Yes full ROM and Yes no lymphadenopathy Resp Effort & Inspection: normal respiratory effort Auscultation: clear to auscultation bilaterally, no crackles, no rales, no rhonchi and no wheezes Cardio Rate: regular rate Rhythm: regular rhythm Skin General skin exam: no rashes or lesions noted Neuro General: patient oriented x3 Gait exam (Neuro): Normal gait present Extrem General: Yes normal to inspection, Yes full ROM and No edema Psych Affect: normal affect Attitude: cooperative Insight: Good insight present (Psych) Judgement: Good judgement present (Psych) Coding Level of Care Code Est Pt Level 3 (40552) Diagnoses Obesity (BMI 35.0-39.9 without comorbidity) E66.9 Severe obstructive sleep apnea G47.33 Generalized anxiety disorder F41.1 Gastroesophageal reflux disease, unspecified whether esophagitis present K21.9 Esophagitis presence: esophagitis presence not specified Peripheral vascular disease I73.9 Type 2 diabetes mellitus with hyperglycemia, without long-term current use of insulin E11.65 Diabetes mellitus skilled nursing insulin use: without laborer marine terminal 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 (2) Severe obstructive sleep apnea: Comment: September 2021 Code(s): G47.33 - Obstructive sleep apnea (adult) (pediatric) Category: Medical Plan: does not use CPAP and has to follow up again for repeat machine and different mask with specialist. (3) Generalized anxiety disorder: Comment: [facility] every month October 2019 Code(s): F41.1 - Generalized anxiety disorder Category: Medical Plan: Continue to follow with counselor and continue on current medication regimen. (4) GERD (gastroesophageal reflux disease): Code(s): K21.9 - Gastro-esophageal reflux disease without esophagitis Category: Medical Qualifiers: Esophagitis presence: esophagitis presence not specified Qualified Code(s): K21.9 - Gastro-esophageal reflux disease without esophagitis Plan: Avoid trigger foods such as citrus, tomato products, soda, caffeine, spicy foods and other foods that may be irritating to your stomach. Avoid laying flat 3-4 hours after eating and elevate the head of the bed 30 degrees to prevent acid from moving into the esophagus. Continue on pantoprazole (5) Peripheral vascular disease: Code(s): I73.9 - Peripheral vascular disease, unspecified Category: Medical Plan: Advised compression stockings, exercise as tolerated, leg elevation (6) Type 2 diabetes mellitus with hyperglycemia: Code(s): E11.65 - Type 2 diabetes mellitus with hyperglycemia Category: Medical Qualifiers: Diabetes mellitus laborer marine terminal insulin use: without laborer marine terminal use Qualified Code(s): E11.65 - Type 2 diabetes mellitus with hyperglycemia Plan: Decrease the amount of carbohydrates such as pasta, bread, rice, and potatoes and limit the amount of sweets. Although fruits are generally healthy they should be eaten in moderation as they are still high in sugar. Hemoglobin A1c goal of less than 7%. (7) Hypertension: Code(s): I10 - Essential (primary) hypertension Category: Medical Qualifiers: Hypertension type: essential hypertension Qualified Code(s): I10 - Essential (primary) hypertension Plan: Continue on current blood pressure medication. Avoid salt intake and encourage healthy diet and regular exercise. (8) PAD (peripheral artery disease): Code(s): I73.9 - Peripheral vascular disease, unspecified Category: Medical Plan: Remote history of popliteal artery bypass. Long history of intermittent claudication has been worsening over the last several months. Has not been seen by vascular surgery in over 10 years. Declines foot exam today however no redness, warmth or swelling of bilateral calves. Referral placed to vascular surgery. (9) Left shoulder pain: Code(s): M25.512 - Pain in left shoulder Category: Medical Plan: Reminded about shoulder x-ray and placed order for cervical spine x-ray. Offered physical therapy which was declined at this time Plan This note was constructed using voice recognition software. While every effort has been made to ensure accuracy and coil strapper, still areas may have been included sometimes these areas may affect the content or meeting of the given symptoms. Total time spent caring for the patient today was twenty minutes. This includes time spent before the visit reviewing the chart, time spent during the visit, and time spent after the visit and documentation. Orders: Orders XR cervical spine 2V Today M25.512 - Pain in left shoulder Referrals Vascular Surgery Referral I73.9 - Peripheral vascular disease, unspecified
[2024-04-11 11:24] VITALS: BP 114/78; PULSE 75; O2SAT 98; BMI 35.8
== END 2024-04-11 11:58 | disposition home or self-care (01) ==
PROVIDERS: PCP Internal Medicine
DX: E11.65 Type 2 diabetes mellitus with hyperglycemia (principal); I73.9 Peripheral vascular disease, unspecified; E66.9 Obesity, unspecified; Z68.35 Body mass index [BMI] 35.0-35.9, adult; G47.33 Obstructive sleep apnea (adult) (pediatric); K21.9 Gastro-esophageal reflux disease without esophagitis; F41.1 Generalized anxiety disorder; I10 Essential (primary) hypertension; M25.512 Pain in left shoulder

== ENCOUNTER → 2024-04-11 11:21 | Outpatient (BNVA) | payer MEDICARE, MEDICAID, SELFPAY | PROVIDERS: PCP Internal Medicine | DX: E66.9 Obesity, unspecified (principal); G47.33 Obstructive sleep apnea (adult) (pediatric); F41.1 Generalized anxiety disorder; K21.9 Gastro-esophageal reflux disease without esophagitis; I73.9 Peripheral vascular disease, unspecified; E11.65 Type 2 diabetes mellitus with hyperglycemia; I10 Essential (primary) hypertension; M25.512 Pain in left shoulder | CPT/HCPCS: 99212 ==

== ENCOUNTER 2024-07-17 15:20 | Outpatient (AMB) | payer MEDICARE, MEDICAID, SELFPAY ==
--- NOTE | 2024-07-17 15:20 | A.OFFVIS_ITS ---
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 Pt states that he needs a colonoscopy and endoscopy. 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 He had actually seen us back in November of 2019. At that time he had a nonhealing right lower extremity ulcer. His leg was significantly swollen. Reports he is doing fairly well since that time. He now complains of claudication. It is right more so than left. He can barely walk about 100 yd prior to any significant discomfort. Upon further discussion with him he reports that he has lateral leg pain that has been persistent. This may be more related to trauma that he had had in the past. He had undergone prior bypass surgery at [facility] nearly 15 years ago. He now presents to us for vascular follow-up. [facility] Medical History Left ear pain Obstructive sleep apnea (adult) (pediatric) Medicare annual wellness visit, initial DVT (deep venous thrombosis) Injury of tendon of biceps Nausea Closed fracture of right proximal tibia Femoral distal fracture Obstructive sleep apnea Carpal tunnel syndrome Peripheral vascular disease History of pulmonary embolism Type 2 diabetes mellitus with hyperglycemia Hypertension Surgical History History of total right knee replacement Status post debridement Total knee replacement status Status post osteotomy History of femoropopliteal bypass History of repair of left rotator cuff Family History Father CVD (cardiovascular disease) Diabetes Hypertension Mother Diabetes Hypertension Brother Past heart attack Substance abuse Maternal Uncle Schizophrenia Paternal Uncle CVD (cardiovascular disease) Social History Household Members: Spouse Housing: House Are you a primary child day care teacher to a significant other at home: No Do you presently have 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 nurse or 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) Alcohol intake: never Patient Tobacco Use Status: Never used Tobacco Years Smoked: smokes week occ e-Cigarette/Vaping Use: Never Used Second Hand Smoke Exposure: No Substance Use Type: Marijuana service: No Current occupational status: unemployed Cognitive needs: No Hearing needs: No Vision needs: No Review of Systems Const All systems reviewed & are unremarkable except as noted in HPI and below Reports no additional complaints ENT Reports Normal hearing present Card Denies chest pain, Denies chest pain at rest, Denies chest pain with activity and Denies pedal edema Resp Denies cough GI Denies abdominal pain Musc Denies abnormal gait, Denies muscle cramps and Denies radiating pain into limb Skin/Breast Denies skin ulcer and Denies wounds Neuro Reports Normal hearing present and Denies abnormal gait Psych Reports no additional complaints Physical Exam Vital Signs: BMI result Body Mass Index 35.8 Const General: cooperative, healthy appearing and comfortable Orientation/consciousness: oriented to person, oriented to place and oriented to time HEENT Head: Yes normal to inspection Neck Neck: Yes normal visual inspection Carotids: no bruits Chest Chest palpation & inspection: normal inspection of the chest Resp Effort & Inspection: normal respiratory effort and able to speak in complete sentences Auscultation: clear to auscultation bilaterally, no crackles, no rales, no rhonchi and no wheezes Cardio Other: Bilateral palpable DP pulses Rate: regular rate Rhythm: regular rhythm Heart sounds: S1 normal heart sound present and S2 normal heart sound present Bruits: no carotid bruits Peripheral pulses: Peripheral pulses 2+ throughout GI Inspection: Yes normal to inspection Skin Wounds: no wounds Hair: normal Neuro General: oriented to person, oriented to place and oriented to time Cranial nerves: Yes CN's II-XII intact bilaterally and Yes Normal hearing present Cognition (Neuro): normal cognition Motor exam (neuro): 5/5 motor strength present throughout Extrem Other: venous exam: No significant superficial varicosities or spider telangiectasias, minimal edema General: No clubbing, No cyanosis and No edema Psych Appearance: grossly normal Mental Status: mental status grossly normal Speech and movement: Normal speech and movement present Assessment & Plan Assessment & Plan (1) PAD (peripheral artery disease): Comment: 2010 - right lower extremity bypass by Dr. Perez at [facility] vascular Code(s): I73.9 - Peripheral vascular disease, unspecified Category: Medical Plan: In short patient has lower extremity pain. Unclear what the etiology of this is as I did appreciate palpable pulses bilaterally. I do suspect he does have a significant neurogenic component of this and he does complain of back issues. I did review the pathophysiology of peripheral vascular disease with the patient. In addition we did discuss routine conservative measures including a healthy diet and the importance of exercise and ambulation. We did discuss risk factor modification. I have taken the liberty of ordering noninvasive arterial testing and he will follow up with us after testing. Orders: Orders US arterial duplex LE BI 1 Week I73.9 - Peripheral vascular disease, unspecified Coding Level of Care Code New Pt Level 4 (31976) Complex EM visit Add On G2211 Diagnoses PAD (peripheral artery disease) I73.9
[2024-07-17 15:23] VITALS: BMI 35.8
--- OUTSIDE RECORDS SUMMARY | 2024-07-17 19:06 | XMS_ITS | Clinical Summary ---
Author Organization [facility] Address [address] [place] [address] Care Team Providers Care Juvenile Court Judge Name Role Phone Unavailable Primary Care Provider Unavailabl e Source Comments PLEASE NOTE, if this patient is a minor, it may be UNLAWFUL to discuss sensitive information that is contained in these records (such as FAMILY PLANNING, MENTAL HEALTH or SUBSTANCE ABUSE) with the minor patient's parent or other person without the patient's specific authorization.[facility] Allergies Active Allergy Reactions Criticality Noted Date Comments Penicillins 10/04/2022 Medications No known medications Active Problems No known active problems Social History Tobacco Use Types Packs/Day Years Used Date Smoking Tobacco: Never Smokeless Tobacco: Never Tobacco Cessation:Counseling Given: Not Answered Social Connections Answer Date Recorded Connectedness 0 02/04/2024 Financial Resource Strain Answer Date R ecorded Financial Resource Strain 0 2022 Stress Answer Date Recorded Stress 0 10/04/2022 Physical Activity Answer Date Recorded Physical Activity 0 10/04/2022 Food Insecurity Answer Date Recorded Food 0 02/16/2024 Transportation Needs Answer Date Record ed Transportation 0 10/04/2022 Housing Stability Answer Date Recorded Housing 0 10/04/2022 Safety and Environment Answer Date Eladio rded Safety 0 10/04/2022 Utilities Answer Date Recorded Utilities 0 10/04/2022 Employment Answer Date Recorded Stress 0 02/04/2024 Sex and Gender Information Value Date Recorded Sex Assigned at Not on file Legal Sex Male 10:27 AM PDT Gender Identity Not on file Sexual Orientation Not on file Last Filed Vital Signs Vital Sign Reading Time Taken Comments Blood Pressure 134/101 10/04/2022 4:01 PM EDT Pulse 80 10/04/2022 4:01 PM EDT Temperature - - Respiratory Rate - - Oxygen Saturation - - Inhaled Oxygen Concentration - - Weight - - Height - - Body Mass Index - - Plan of Treatment Health Maintenance Due Date Last Done Comments Diabetes Screening 1971 Hepatitis C Screening 1971 Lipid Screening 1971 Tobacco Screening 1971 HIV Screening 09/12/1986 Annual Preventive Care Visit 09/12/1989 Imm-Hepatitis B (1 of 3 - 19 + 3-dose series) 09/12/1990 CT Colonography 09/12/2016 Colonoscopy 09/12/2016 Colorectal Cancer Screening 09/12/2016 FIT/gFOBT 09/12/2016 Fecal DNA 09/12/2016 Flexible Sigmoidoscopy 09/12/2016 Imm-Zoster, Recombinant (1 of 2) 09/12/2021 Hypertension Screening (#1) 10/04/2023 Udg-EXCSI-32 (2023- season) 2024 021, 09/20/2020 Imm-Influenza (#1) 2024 03/22/2019, 1 07/03/2013, 04/09/2013, Additional history exists Alcohol and Drug Screen 05/23/2024 Depression Annual Screen 05/23/2024 Imm-DTaP/Tdap/Td (5 - Td or Tdap) 08/28/2031 08/27/2021, 06/23/2017, 05/02/2014, Additional history exists
== END 2024-07-17 15:41 | disposition home or self-care (01) ==
PROVIDERS: PCP Internal Medicine; Visit Provider Surgery Vascular Surgery
DX: I73.9 Peripheral vascular disease, unspecified (principal)
CPT/HCPCS: 99214; G2211

== ENCOUNTER → 2024-07-17 15:20 | Outpatient (BNVA) | payer MEDICARE, MEDICAID, SELFPAY | PROVIDERS: PCP Internal Medicine; Visit Provider Surgery Vascular Surgery | DX: I73.9 Peripheral vascular disease, unspecified (principal) | CPT/HCPCS: 99212 ==

== ENCOUNTER 2024-08-03 13:18 | Outpatient (AMB) | payer MEDICARE, MEDICAID, SELFPAY ==
[2024-08-03 13:29] VITALS: BP 108/60; PULSE 89; BMI 36.3
--- NOTE | 2024-08-03 13:29 | A.OFFVIS_ITS ---
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 Allergies Penicillins [PENICILLINS] Allergy (Severe, Verified 08/03/24 13:41) hives Medication List - Last Reconciled 08/03/24 by Gómez Curran MD apixaban (Eliquis) 5 mg PO BID 90 days aripiprazole 10 mg PO DAILY [AUTO PAP 6-20 cm H2o humidified air As directed] blood sugar diagnostic (FreeStyle Lite Strips) As directed check the BS QD blood-glucose meter (FreeStyle Lite Meter kit) As directed cyclobenzaprine 5 mg PO BEDTIME escitalopram oxalate (Lexapro) 20 mg PO DAILY fluticasone propionate 50 mcg/actuation (Flonase Allergy Relief) 2 sprays intranasal DAILY gabapentin 300 mg PO TID 90 days lancets (FreeStyle Lancets) As directed check BS QD lisinopril 5 mg PO DAILY 90 days metformin 1,000 mg PO BID 90 days metoprolol succinate ER 50 mg PO DAILY pantoprazole 40 mg PO DAILY PRN trazodone 100 mg PO BEDTIME PRN walker (Ultra-Light Rollator misc) As directed HPI Comments Details: Genaro is here for consultation regarding shortness of breath. He does not have any known cardiac issues including coronary disease or myocardial infarction or cardiomyopathy or in fact any other cardiac concerns. 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 After that, it seems he had fem-pop bypass done. Then it seems he has had DVT/PE issues and is on long-term anticoagulation. He states he gets shortness of breath with any form of physical activity. Random chest pains that can happen any time including at nighttime. He has obstructive sleep apnea but does not use CPAP machine. Also listed to have diabetes and hypertension. [facility] Medical History Left ear pain Obstructive sleep apnea (adult) (pediatric) Medicare annual wellness visit, initial DVT (deep venous thrombosis) Injury of tendon of biceps Nausea Closed fracture of right proximal tibia Femoral distal fracture Obstructive sleep apnea Carpal tunnel syndrome Peripheral vascular disease History of pulmonary embolism Type 2 diabetes mellitus with hyperglycemia Hypertension Surgical History History of total right knee replacement Status post debridement Total knee replacement status Status post osteotomy History of femoropopliteal bypass History of repair of left rotator cuff Family History Father CVD (cardiovascular disease) Diabetes Hypertension Mother Diabetes Hypertension Brother Past heart attack Substance abuse Maternal Uncle Schizophrenia Paternal Uncle CVD (cardiovascular disease) Social History Household Members: Spouse Housing: House Are you a primary skin care consultant to a significant other at home: No Do you presently have visiting nurse or other home services: Yes ([employer]) Alcohol intake: never Patient Tobacco Use Status: Never used Tobacco Years Smoked: smokes week occ e-Cigarette/Vaping Use: Never Used Second Hand Smoke Exposure: No Substance Use Type: Marijuana service: No Current occupational status: unemployed Cognitive needs: No Hearing needs: No Vision needs: No Review of Systems Const Denies weakness ENT Denies dizziness Card Reports chest pain, Denies chest pain with activity, Denies syncope, Denies rapid heart rate, Denies pedal edema, Denies edema, Denies leg edema, Denies lightheadedness, Denies palpitations, Denies dyspnea, Denies dyspnea on exertion and Reports orthopnea Resp Denies cough, Denies dyspnea and Denies dyspnea on exertion GI Denies hematochezia and Denies change in stool character Musc Denies abnormal gait, Denies muscle cramps, Denies muscle weakness, Denies numbness, Denies radiating pain into limb and Denies tingling Neuro Denies abnormal gait, Denies dizziness, Denies syncope, Denies numbness, Denies tingling and Denies weakness Endo Denies palpitations Physical Exam Vital Signs: Last Vital Signs Pulse 89 08/03/24 13:29 BP 108/60 08/03/24 13:29 BMI result Body Mass Index 36.3 Const General: comfortable and no acute distress Orientation/consciousness: patient oriented x3 HEENT Other: Unremarkable Head: Yes normal to inspection Neck Neck: Yes normal visual inspection Chest Chest palpation & inspection: normal inspection of the chest Resp Auscultation: clear to auscultation bilaterally Cardio Palpation: normal PMI Heart sounds: S1 normal heart sound present, S2 normal heart sound present, no gallops, no murmurs and no rubs GI Palpation (GI): Soft to palpation Back/Spine/Pelvis Other: unremarkable Skin General skin exam: no rashes or lesions noted Neuro General: patient oriented x3 Extrem General: Yes normal to inspection Psych Mental Status: mental status grossly normal Office Procedures EKG Details: EKG with underlying sinus rhythm at 89/Min; no significant ST-T changes and otherwise unremarkable[place] [id number], Complete Assessment & Plan Assessment & Plan (1) SOB (shortness of breath): Code(s): R06.02 - Shortness of breath Category: Medical (2) Chest pain: Code(s): R07.9 - Chest pain, unspecified Category: Medical Plan We will start with an echocardiogram for further evaluation. If this is mostly unremarkable and does not show any obvious wall motion abnormalities, then consider coronary CTA. If on the other hand, there is any clear-cut cardiomyopathy/wall motion abnormalities, then consider diagnostic catheterization. Ischemic workup will need to be decided based on the above findings. Otherwise, if any worsening symptoms from now till the timing of testing, advised him to seek emergency care without delay. Discussed with significant other. Orders: Orders CA echo transthoracic complete Today R06.02 - Shortness of breath Coding Level of Care Code New Pt Level 4 (11949) Complex EM visit Add On G2211 Diagnoses SOB (shortness of breath) R06.02 Chest pain R07.9 CPT Codes EKG - CPT: 55377-[id number], Complete ([id number])
--- OUTSIDE RECORDS SUMMARY | 2024-08-03 14:51 | XMS_ITS | Encounter Summary ---
Author Organization [facility] Address [address] [place] [address] Care Team Providers Care Wire Inspector Name Role Phone Michele Castillo MD Primary Care Provider Unavail able Alea Do MD Primary Care Provider Tereva nalini [facility], Pcp Primary Care Provider Unavailabl e Michele Castillo MD Unavailable Unavailable Alea Do MD Unavailable Unavailable Rebel Farah MD Primary Care Provider Unavailabl e Encounter Details Date Type Department Care Team Description 05/28/2014 Home Health Certification Medical Records [address] [place] [address] Social History Tobacco Use Types Packs/Day Years Used Date Smoking Tobacco: Never Comments:pt uses marijuana d aily Alcohol Use Standard Drinks/Week Comments Yes 0 (1 standard drink = 0.6 oz pur e alcohol) four times a year Sex Assigned at Date Recorded Not on file documented as of this encounter Plan of Treatment Not on file documented as of this encounter Visit Diagnoses Not on filedocumented in this encounter Care Teams Wire Inspector Relationship Specialty Start Date End Date Michele Castillo MD PCP - General Internal Medicine 04/15/14 07/20/15 Alea Do MD PCP - General 07/21/15 03/26/18 [facility], Pcp PCP - General Internal Medicine 03/27/18 08/21/23 Rebel Farah MD PCP - General Internal Medicine 08/22/23 Michele Castillo MD Internal Medicine 07/21/15 03/26/18 Alea Do MD 03/27/18 documented as of this encounter
--- OUTSIDE RECORDS SUMMARY | 2024-08-03 14:51 | XMS_ITS | Encounter Summary ---
Author Organization [facility] Address [address] [place] [address] Care Team Providers Care Nurse Plastics Name Role Phone Michele Castillo MD Primary Care Provider Unavail able Eleonora Breen MD Primary Care Provider Unava ilable Michele Castillo MD Primary Care Provider Unavail able Alea Do MD Primary Care Provider Unava ilable [facility], Pcp Primary Care Provider Unavailabl e Michele Castillo MD Unavailable Unavailable Alea Do MD Unavailable Unavailable Rebel Farah MD Primary Care Provider Unavailabl e Encounter Details Date Type Department Care Team Description 03/18/2014 Home Health Certification Medical Records [address] [place] [address] Social History Tobacco Use Types Packs/Day Years [...] on filedocumented in this encounter Care Teams Nurse Plastics Relationship Specialty Start Date End Date Michele Castillo MD PCP - General Internal Medicine 07/30/13 04/10/14 Eleonora Breen MD PCP - General Internal Medicine 04/11/14 04/14/14 Michele Castillo MD PCP - General Internal Medicine 04/15/14 07/20/15 Alea Do MD PCP - General 07/21/15 03/26/18 [facility], Pcp PCP - General Internal Medicine 03/27/18 08/21/23 Rebel Farah MD PCP - General Internal Medicine 08/22/23 Michele Castillo MD Internal Medicine 07/21/15 03/26/18 Alea Do MD 03/27/18 documented as of this encounter
--- OUTSIDE RECORDS SUMMARY | 2024-08-03 14:51 | XMS_ITS | Encounter Summary ---
Author Organization [facility] Address [address] [place] [address] Care Team Providers Care Regional Telecommunications Specialist Name Role Phone Alea Do MD Primary Care Provider Abhijeet Roach, Pcp Primary Care Provider Unavailabl e Michele Castillo MD Unavailable Unavailable Alea Do MD Unavailable Unavailable Rebel Farah MD Primary Care Provider Unavailabl e Encounter Details Date Type Department Care Team Description 03/10/2018 Release of Information Medical Records [address] [place] [id number] Abstract, Provider Social History Tobacco Use Types Packs/Day Years [...] on filedocumented in this encounter Care Teams Regional Telecommunications Specialist Relationship Specialty Start Date End Date Alea Do MD PCP - General 07/21/15 03/26/18 Doc, Pcp PCP - General Internal Medicine 03/27/18 08/21/23 Rebel Farah MD PCP - General Internal Medicine 08/22/23 Michele Castillo MD Internal Medicine 07/21/15 03/26/18 Alea Do MD 03/27/18 documented as of this encounter
--- OUTSIDE RECORDS SUMMARY | 2024-08-03 14:51 | XMS_ITS | Encounter Summary ---
Author Organization [facility] Address [address] [place] [address] Care Team Providers Care Corporate Travel Expert Name Role Phone [facility], Pcp Primary Care Provider Alea Mccallum MD Unavailable Unavailable Rebel Farah MD Primary Care Provider Salinas vyas Encounter Details Date Type Department Care Team Description 02/21/2019 Release of Information Medical Records [address] [place] [id number] Abstract, Provider Social History Tobacco Use Types [...] on filedocumented in this encounter Care Teams Corporate Travel Expert Relationship Specialty Start Date End Date [facility], Pcp PCP - General Internal Medicine 03/27/18 08/21/23 Rebel Farah MD PCP - General Internal Medicine 08/22/23 Alea Do MD 03/27/18 documented as of this encounter
--- OUTSIDE RECORDS SUMMARY | 2024-08-03 14:51 | XMS_ITS | Encounter Summary ---
Author Organization [facility] Address [address] [place] [address] Care Team Providers Care Bark Spudder Name Role Phone Jasen Villarreal MD Primary Care Provider UnaMichele Duncan MD Primary Care Provider Unavail able Eleonora Breen MD Primary Care Provider UnaMichele Duncan MD Primary Care Provider Unavail able Alea Do MD Primary Care Provider Unava nalini [facility] Pcp Primary Care Provider Unavailabl e Michele Castillo MD Unavailable Unavailable Alea Do MD Unavailable Unavailable Rebel Farah MD Primary Care Provider Unavailabl e Encounter Details Date Type Department Care Team Description 07/18/2013 Orders Only Coumadin [address] [address] Jasen Villarreal MD DVT (deep venous thrombosis) (Primary Dx) Social History Tobacco Use Types Packs/Day Years Used Date Smoking Tobacco: Never Comments:pt uses marijuana d aily Alcohol Use Standard Drinks/Week Comments Not Asked 0 (1 standard drink = 0.6 oz pur e alcohol) Sex Assigned at Date Recorded Not on file documented as of this encounter Plan of Treatment Not on file documented as of this encounter Procedures Procedure Name Priority Date/Time Associated Diagnosis Comments ACCLINIC (ANTICOAGULATION THERAPY MANAGEMEN Routine 07/23/2013 8:32 AM EST DVT (deep venous thrombosis) documented in this encounter Visit Diagnoses Diagnosis DVT (deep venous thrombosis) (HCC)- Primary Acute venous embolism and thrombosis of unspecified deep vessels of lower extremity documented in this encounter Care Teams Bark Spudder Relationship Specialty Start Date End Date Jasen Villarreal MD PCP - General Internal Medicine 07/12/13 07/29/13 Michele Castillo MD PCP - General Internal Medicine 3/10/14 11/19/14 Eleonora Breen MD PCP - General Internal Medicine 04/11/14 04/14/14 Michele Castillo MD PCP - General Internal Medicine 04/15/14 07/20/15 Alea Do MD PCP - General 07/21/15 03/26/18 [facility] PCP - General Internal Medicine 03/27/18 08/21/23 Rebel Farah MD PCP - General Internal Medicine 08/22/23 Michele Castillo MD Internal Medicine 07/21/15 03/26/18 Alea Do MD 03/27/18 documented as of this encounter
--- OUTSIDE RECORDS SUMMARY | 2024-08-03 14:51 | XMS_ITS | Encounter Summary ---
Author Organization [facility] Address [address] [place] [address] Care Team Providers Care Corporate Safety Director Name Role Phone Michele Castillo MD Primary Care Provider Unavail able Eleonora Breen MD Primary Care Provider Unava ilable Michele Castillo MD Primary Care Provider Unavail able Alea Do MD Primary Care Provider Unava ilable [facility], Pcp Primary Care Provider Unavailabl e Michele Castillo MD Unavailable Unavailable Alea Do MD Unavailable Unavailable Rebel Farah MD Primary Care Provider Unavailabl e Encounter Details Date Type Department Care Team Description 08/02/2013 Home Health Certification Medical Records [address] [place] [address] Social History Tobacco Use Types Packs/Day Years [...] filedocumented in this encounter Care Teams Corporate Safety Director Relationship Specialty Start Date End Date Michele Castillo MD PCP - General Internal Medicine 07/30/13 04/10/14 Eleonora Breen MD PCP - General Internal Medicine 04/11/14 04/14/14 Michele Castillo MD PCP - General Internal Medicine 04/15/14 07/20/15 Alea Do MD PCP - General 07/21/15 03/26/18 [facility], Pcp PCP - General Internal Medicine 03/27/18 08/21/23 Rebel Farah MD PCP - General Internal Medicine 08/22/23 Michele Castillo MD Internal Medicine 07/21/15 03/26/18 Alea Do MD 03/27/18 documented as of this encounter
--- OUTSIDE RECORDS SUMMARY | 2024-08-03 14:51 | XMS_ITS | Clinical Summary ---
Author Organization [facility] Address [address] [place] [address] Care Team Providers Care Waiter/Waitress Cafeteria Name Role Phone Unavailable Primary Care Provider [...] of 2) 09/12/2021 Hypertension Screening (#1) 10/04/2023 [id number] (2023- season) 2024 021, 09/20/2020 Imm-Influenza (#1) 2024 03/22/2019, 1 07/03/2013, 04/09/2013, Additional history exists Alcohol and Drug Screen 05/23/2024 Depression Annual Screen 05/23/2024 Imm-DTaP/Tdap/Td (5 - Td or Tdap) 08/28/2031 08/27/2021, 06/23/2017, 05/02/2014, Additional history exists
--- OUTSIDE RECORDS SUMMARY | 2024-08-03 14:51 | XMS_ITS | Encounter Summary ---
Author Organization [facility] Address [address] [place] [address] Care Team Providers Care Corporation Pilot Name Role Phone Michele Castillo MD Primary Care Provider Unavail able Alea Do MD Primary Care Provider Unava [facility], Pcp Primary Care Provider Unavailabl e Michele Castillo MD Unavailable Unavailable Alea Do MD Unavailable Unavailable Rebel Farah MD Primary Care Provider Unavailabl e Reason for Visit * Reason Onset Date Comments Residential Monitor Feedback 08/08/2014 [facility] Encounter Details Date Type Department Care Team Description 08/08/2014 Telephone Medicine/Pediatrics - [address] [id number] Michele Castillo MD Residential Monitor Feedback ([facility]) Social History Tobacco Use Types Packs/Day Years Used Date Smoking Tobacco: Never Comments:pt uses marijuana d aily Alcohol Use Standard Drinks/Week Comments Yes 0 (1 standard drink = 0.6 oz pur e alcohol) four times a year Sex Assigned at Date Recorded Not on file documented as of this encounter Miscellaneous Notes * Telephone Encounter - Eleonora Ibrahim - 08/23/2014 9:50 AM EDT Labs 07/19/14 and order faxed to [phone]. [facility] mailed for sensitive info. * Telephone Encounter - Gladys Burnetteleah - 08/08/2014 10:27 AM EDT You have successfully submitted the Referral for [facility] . The following Referral Authorization Number should be retained in your records. Referral Authorization # [id number] Number of Visits 6 If you require assistance or support related to this submission, please contact Customer Support [phone]. 08/08/14-08/09/15 Letter with appointment information mailed to patient. Diagnosis: bariatric surgery Fax to [phone]. Notes and Order documented in this encounter Plan of Treatment Not on file documented as of this encounter Visit Diagnoses Not on filedocumented in this encounter Care Teams Corporation Pilot Relationship Specialty Start Date End Date Michele Castillo MD PCP - General Internal Medicine 04/15/14 07/20/15 Alea Do MD PCP - General 07/21/15 03/26/18 [facility] PCP - General Internal Medicine 03/27/18 08/21/23 Rebel Farah MD PCP - General Internal Medicine 08/22/23 Michele Castillo MD Internal Medicine 07/21/15 03/26/18 Alea Do MD 03/27/18 documented as of this encounter
== END 2024-08-03 14:08 | disposition home or self-care (01) ==
LOC: HO.HCS 13:19
PROVIDERS: PCP Internal Medicine; Visit Provider Internal Medicine
DX: R06.02 Shortness of breath (principal); R07.9 Chest pain, unspecified
CPT/HCPCS: 93010; 99204; G2211

== ENCOUNTER → 2024-08-03 13:18 | Outpatient (BNVA) | payer MEDICARE, MEDICAID, SELFPAY | PROVIDERS: PCP Internal Medicine; Visit Provider Internal Medicine | DX: I10 Essential (primary) hypertension (principal); R06.02 Shortness of breath; R07.9 Chest pain, unspecified; G47.33 Obstructive sleep apnea (adult) (pediatric); Z79.01 Long term (current) use of anticoagulants; Z86.718 Personal history of other venous thrombosis and embolism | CPT/HCPCS: 93005; 99202 ==

== ENCOUNTER → 2024-08-13 13:19 | Outpatient (REF) | payer MEDICARE, MEDICAID, SELFPAY ==
--- NOTE | ~2024-08-13 | US_ITS ---
EXAMINATION: Noninvasive assessment of the bilateral lower extremities with ARTERIAL DUPLEX, ANKLE BRACHIAL INDICES (ABIs), and PULSE VOLUME RECORDINGS (PVRs). CLINICAL INFORMATION: Hypertension. Status post femoropopliteal bypass. TECHNIQUE: Duplex Doppler techniques with waveform analysis and measurement of velocities in the bilateral common femoral, profunda femoris, superficial femoral, popliteal and tibial arteries were performed. Additionally, ankle pulse volume recordings, ankle pressure measurements and ankle brachial indices were obtained of the lower extremity arterial system bilaterally. The study was performed only at rest. COMPARISON: None FINDINGS: DIRECT DUPLEX DOPPLER FINDINGS: RIGHT LEG: Common femoral artery: 110 cm/s, phasicity: Triphasic. Spectral broadening. Profunda femoris artery: 59 cm/s, phasicity: Triphasic. Spectral broadening. Superficial femoral artery (proximal): 117 cm/s, phasicity: Triphasic. Spectral broadening. Superficial femoral artery (mid): 91 cm/s, phasicity: Triphasic. Superficial femoral artery (distal): 77 cm/s, phasicity: Triphasic. Spectral broadening. Popliteal artery: 129 cm/s, phasicity: Monophasic. Spectral broadening. Posterior tibial artery: 34 cm/s, phasicity: Monophasic. Spectral broadening. Peroneal artery: Not identified. Anterior tibial artery: 58 cm/s, phasicity: Monophasic. Spectral broadening. Dorsalis pedis artery: 39 cm/s, phasicity:Monophasic. Spectral broadening. LEFT LEG: Common femoral artery: 127 cm/s, phasicity: Triphasic. Profunda femoris artery: 53 cm/s, phasicity: Triphasic. Superficial femoral artery (proximal): 122 cm/s, phasicity: Triphasic. Superficial femoral artery (mid): 83 cm/s, phasicity: Triphasic. Superficial femoral artery (distal): 92 cm/s, phasicity: Triphasic. Popliteal artery: 66 cm/s, phasicity: Monophasic. Spectral broadening. Posterior tibial artery: 67 cm/s, phasicity: Triphasic. Spectral broadening. Peroneal artery: Not identified. Anterior tibial artery: 56 cm/s, phasicity: Monophasic. Spectral broadening. Dorsalis pedis artery: 59 cm/s, phasicity: Monophasic. Spectral broadening. There is a partially compressible left popliteal vein. BRACHIAL PRESSURES: Right: 126 Left: 128 ANKLE PRESSURES: Right: PT 85, DP 88 Left: PT 136, DP 144 ANKLE-BRACHIAL INDEX: Right: 0.69 Left: 1.13 ANKLE PVR WAVEFORMS: Right: Abnormal. Left: Abnormal. US/US arterial duplex BI w/ SHREYA IMPRESSION: Right leg: Severe inflow disease from the popliteal artery to the dorsalis pedis artery. Left leg: Severe inflow disease from the popliteal artery to the dorsalis pedis artery. Nonocclusive thrombus, left popliteal vein. The referring physician Dr. Mark Anthony was notified by the photonics engineering technologist during the examination. SHREYA Reference: - >1.4 = calcified vessels - 0.9 - 1.4 = normal - no significant arterial disease - 0.7 - 0.89 = mild peripheral arterial disease - 0.51 - 0.69 = moderate peripheral arterial disease - d 0.50 = severe peripheral arterial disease - < .30 = critical arterial disease Electronically signed by: Atul Reese MD 08/14/2024 08:11 AM EDT
--- NOTE | 2024-08-13 13:22 | CA_ITS ---
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 Normal LV ejection fraction 55-60% with grade 1 diastolic dysfunction 2. Cardiac valvular Dopplers within normal limits 3. Upper limits of normal ascending aortic size at 3.5 cm 4. No gross pericardial effusion Findings Left Ventricle Normal left ventricular size, thickness, and systolic function. The visually estimated ejection fraction is between 55-60%. Spectral Doppler is indicative of an impaired relaxation filling pattern. E/E prime ratio is <8, consistent with normal filling pressures. Evidence suggests grade I (mild) diastolic dysfunction. Right Ventricle Normal right ventricular cavity size and systolic function. Atria Both atria are normal in size. Interatrial shunt cannot be excluded. Aortic Valve The aortic valve structure and function is likely normal. There is no aortic valve stenosis. There is no aortic valve regurgitation. Mitral Valve Normal mitral valve structure and function. There is trace mitral valve regurgitation. There is no mitral valve stenosis. Pulmonic Valve The pulmonic valve was not well visualized. Tricuspid Valve Likely normal tricuspid valve structure and function. Tricuspid regurgitation envelope is inadequate for calculation of right ventricular systolic pressure. Great Vessels The pulmonary artery was not well visualized. Venous The inferior vena cava is normal in size and collapses greater than 50% with inspiration. Pericardium/Pleural There is no evidence of pericardial effusion. Prior Study Comparison No prior study available for comparison. Measurements 2D Linear Measurements IVSd: 1.22 0.6-0.9/0.6-1.0 cm LVIDd: 5.22 3.9-5.3/4.2-5.9 cm LVIDd Index: 2.21 2.4-3.2/2.2-3.1 cm/m2 LVIDs: 3.58 2.0-3.6 cm LVPWd: 0.85 0.7-1.1 cm LA Diam: 3.70 2.7-3.8/3.0-4.0 cm LAIDs Index: 1.57 1.5-2.3 cm/m2 LV Mass: 254.16 67-162/88-224 g LV Mass Index: 107.70 43-95/49-115 g/m2 LVOT Diam: 2.50 3.0+(-)1.3 cm Mitral Valve E'Lateral: 8.70 Aortic Valve AoV Pk Jerome: 1.17 AoV Pk Grad: 5.00 ELMA: 3.95 LVOT LVOT Pk Jerome: 0.89 LVOT Mn Jerome: 0.67 LVOT VTI: 0.17 LVOT Pk Grad: 3.00 LVOT Mn Grad: 2.00 LVOT Diam: 2.50 LVOT Area: 4.91 Diastolic Function E' Laterial: 8.70 Right Ventricle TAPSE (mm): 22.40 TVS' Jerome: 16.90 Tricuspid Valve RA Press: 3.00 Great Vessels Aorta Sinus of Valsalva: 3.90 2.0-3.5 cm Ao Asc: 3.50 2.1-3.4 cm Pulmonary Valve PV Pk Jerome: 0.78 Peak PV Grad: 2.00 Updated in Other Vendor System with Status of Final Saud Carreno MD electronically signed on 08/14/2024 2:50:53 PM with status of Final
== END ==
LOC: HO.CARD 13:19
PROVIDERS: PCP Internal Medicine; Visit Provider Surgery Vascular Surgery
DX: R06.02 Shortness of breath (principal); I73.9 Peripheral vascular disease, unspecified
CPT/HCPCS: 93306; 93922; 93925

== ENCOUNTER → 2024-08-13 13:22 | Outpatient (BNV) | payer MEDICARE, MEDICAID, SELFPAY | PROVIDERS: PCP Internal Medicine; Visit Provider Internal Medicine Cardiovascular Disease | DX: I42.8 Other cardiomyopathies (principal) | CPT/HCPCS: 93306 ==

== ENCOUNTER → 2024-08-13 14:24 | Outpatient (BNV) | payer MEDICARE, MEDICAID, SELFPAY | PROVIDERS: PCP Internal Medicine; Visit Provider Radiology Diagnostic Radiology | DX: I70.213 Atherosclerosis of native arteries of extremities with intermittent claudication, bilateral legs (principal) | CPT/HCPCS: 93922; 93925 ==

== ENCOUNTER 2024-08-23 09:08 | Outpatient (AMB) | payer MEDICARE, MEDICAID, SELFPAY ==
[2024-08-23 09:09] VITALS: BMI 36.3
--- NOTE | 2024-08-23 09:09 | MHC.OFFVIS ---
Vital Signs 08/23/24 09:09 Height 5 ft 11 in Weight 260 lb BMI 36.3 Intake Visit Reasons: follow up s/p Arterial US 08/13/24 Intake Note: follow up Arterial US, pt states right LE worse than Left LE. Hx of femoral bypass due to severe football injury 30 yrs ago @ [facility]. 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 He has previously undergone bypass surgery due to peripheral artery disease. The patient reports significant difficulty walking even short distances without resting due to discomfort in the right leg, which is the same side as the prior bypass. He now presents for follow-up with arterial testing He is diagnosed with a popliteal deep vein thrombosis for which he is on anticoagulant therapy with Eliquis. This was managed immediately upon diagnosis, ensuring continued treatment for his blood clot. His ability to participate in physical activities, such as playing with his daughter, is profoundly affected. The patient's claudication issues are further compounded by a longstanding history of Type 2 Diabetes Mellitus, diagnosed more than 20 years ago. The patient was initiated on oral diabetic medications following a hospitalization in his early thirties when hyperglycemia was discovered. 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 Plans to manage this include evaluating medication strategies further to optimize his quality of life. The patient is covered by Medicare for his current medication needs. [facility] Medical History Left ear pain Obstructive sleep apnea (adult) (pediatric) Medicare annual wellness visit, initial DVT (deep venous thrombosis) Injury of tendon of biceps Nausea Closed fracture of right proximal tibia Femoral distal fracture Obstructive sleep apnea Carpal tunnel syndrome Peripheral vascular disease History of pulmonary embolism Type 2 diabetes mellitus with hyperglycemia Hypertension Surgical History History of total right knee replacement Status post debridement Total knee replacement status Status post osteotomy History of femoropopliteal bypass History of repair of left rotator cuff Family History Father CVD (cardiovascular disease) Diabetes Hypertension Mother Diabetes Hypertension Brother Past heart attack Substance abuse Maternal Uncle Schizophrenia Paternal Uncle CVD (cardiovascular disease) Social History Household Members: Spouse Housing: House Are you a primary resident care aide to a significant other at home: No Do you presently have visiting nurse or other home services: Yes ([employer] PRINCIPAL) Alcohol intake: never Patient Tobacco Use Status: Never used Tobacco Years Smoked: smokes week occ e-Cigarette/Vaping Use: Never Used Second Hand Smoke Exposure: No Substance Use Type: Marijuana service: No Current occupational status: unemployed Cognitive needs: No Hearing needs: No Vision needs: No Review of Systems Const All systems reviewed & are unremarkable except as noted in HPI and below Reports no additional complaints ENT Reports Normal hearing present Card Denies chest pain, Denies chest pain at rest, Denies chest pain with activity and Denies pedal edema Resp Denies cough GI Denies abdominal pain Musc Denies abnormal gait, Denies muscle cramps and Denies radiating pain into limb Skin/Breast Denies skin ulcer and Denies wounds Neuro Reports Normal hearing present and Denies abnormal gait Psych Reports no additional complaints Physical Exam Vital Signs: BMI result Body Mass Index 36.3 Const General: cooperative, healthy appearing and comfortable Orientation/consciousness: oriented to person, oriented to place and oriented to time HEENT Head: Yes normal to inspection Neck Neck: Yes normal visual inspection Carotids: no bruits Chest Chest palpation & inspection: normal inspection of the chest Resp Effort & Inspection: normal respiratory effort and able to speak in complete sentences Auscultation: clear to auscultation bilaterally, no crackles, no rales, no rhonchi and no wheezes Cardio Other: Bilateral DP signals Rate: regular rate Rhythm: regular rhythm Heart sounds: S1 normal heart sound present and S2 normal heart sound present Bruits: no carotid bruits Peripheral pulses: Peripheral pulses 2+ throughout GI Inspection: Yes normal to inspection Skin Wounds: no wounds Hair: normal Neuro General: oriented to person, oriented to place and oriented to time Cranial nerves: Yes CN's II-XII intact bilaterally and Yes Normal hearing present Cognition (Neuro): normal cognition Motor exam (neuro): 5/5 motor strength present throughout Extrem Other: venous exam: +1 edema General: No clubbing, No cyanosis and Yes edema Psych Appearance: grossly normal Mental Status: mental status grossly normal Speech and movement: Normal speech and movement present Results Reviewed Results Reviewed: Noninvasive arterial testing dated 08/13/2024 demonstrates SHREYA on the right of 0.69 and on the left of 1.13. Written report and images were reviewed. Assessment & Plan Assessment & Plan (1) PAD (peripheral artery disease): Comment: 2009 - right lower extremity bypass by Dr. Perez at [facility] vascular Code(s): I73.9 - Peripheral vascular disease, unspecified Category: Medical Plan: This visit addressed the patient's multiple vascular and metabolic challenges, guiding the continuation of his current management. The patient will remain on Eliquis for the popliteal DVT, with reassurance of Medicare coverage ensuring medication adherence. For his neuropathic complications of diabetes, gabapentin therapy continues, with potential for dose reevaluation or additional options to manage symptoms effectively. Closer monitoring of his arterial function is planned, and a follow-up is recommended in six months to evaluate his progress. He will follow up with us after testing. Thank you for allowing us to assist in his care. Patient was informed and verbally consented to the use of an ambient scribe for clinic note documentation during this visit. (2) DVT (deep venous thrombosis): Code(s): I82.409 - Acute embolism and thrombosis of unspecified deep veins of unspecified lower extremity Category: Medical Qualifiers: DVT location: lower extremity Affected thrombotic vein of extremity: popliteal Chronicity: chronic Laterality: bilateral Qualified Code(s): I82.533 - Chronic embolism and thrombosis of popliteal vein, bilateral Plan: Will remain on Eliquis Orders: Orders US arterial duplex LE BI 6 Months I73.9 - Peripheral vascular disease, unspecified Patient Instructions: - Continue taking Eliquis as prescribed to manage your DVT. - Maintain gabapentin therapy; consult with me if symptoms of neuropathy worsen. - Be aware of worsening symptoms of leg pain or changes in mobility. - Adhere to prescribed medication regimen; do not discontinue without consultation. - Follow up in six months for arterial health reassessment and management review. - Seek care sooner if there is a significant change in symptoms or new issues arise. Coding Level of Care Code Est Pt Level 4 (21268) Complex EM visit Add On G2211 Diagnoses PAD (peripheral artery disease) I73.9 Chronic deep vein thrombosis (DVT) of popliteal vein of both lower extremities I82.533 DVT location: lower extremity Affected thrombotic vein of extremity: popliteal Chronicity: chronic Laterality: bilateral
--- OUTSIDE RECORDS SUMMARY | 2024-08-23 09:29 | XMS_ITS | Clinical Summary ---
Author Organization [facility] Address [address] [place] [address] Care Team Providers Care Storage Consultant Name Role Phone Unavailable Primary Care Provider [...] Health Maintenance Due Date Last Done Comments Anxiety Screening 1971 Diabetes Screening 1971 Hepatitis C Screening 1971 Lipid Screening 1971 Tobacco Screening 1971 HIV Screening 09/12/1986 Imm-Hepatitis B (1 of 3 - 19 + 3-dose series) 09/12/1990 CT Colonography 09/12/2016 Colonoscopy 09/12/2016 Colorectal Cancer Screening 09/12/2016 FIT/gFOBT 09/12/2016 Fecal DNA 09/12/2016 Flexible Sigmoidoscopy 09/12/2016 Imm-Zoster, Recombinant (1 of 2) 09/12/2021 Hypertension Screening (#1) 10/04/2023 [id number] (2023- season) 2024 021, 09/20/2020 Imm-Influenza (#1) 2024 03/22/2019, 1 07/03/2013, 04/09/2013, Additional history exists Alcohol and Drug Screen 05/23/2024 Depression Annual Screen 05/23/2024 Imm-DTaP/Tdap/Td (5 - Td or Tdap) 08/28/2031 08/27/2021, 06/23/2017, 05/02/2014, Additional history exists
== END 2024-08-23 09:46 | disposition home or self-care (01) ==
LOC: HO.HVS 09:09
PROVIDERS: PCP Internal Medicine; Visit Provider Surgery Vascular Surgery
DX: I73.9 Peripheral vascular disease, unspecified (principal); I82.533 Chronic embolism and thrombosis of popliteal vein, bilateral
CPT/HCPCS: 99214; G2211

== ENCOUNTER → 2024-08-23 09:08 | Outpatient (BNVA) | payer MEDICARE, MEDICAID, SELFPAY | PROVIDERS: PCP Internal Medicine; Visit Provider Surgery Vascular Surgery | DX: E11.51 Type 2 diabetes mellitus with diabetic peripheral angiopathy without gangrene (principal); I82.533 Chronic embolism and thrombosis of popliteal vein, bilateral; Z79.01 Long term (current) use of anticoagulants | CPT/HCPCS: 99212 ==

== ENCOUNTER → 2024-08-31 08:39 | Outpatient (BNVA) | payer MEDICARE, MEDICAID, SELFPAY | PROVIDERS: PCP Internal Medicine; Visit Provider Internal Medicine | DX: Z00.01 Encounter for general adult medical examination with abnormal findings (principal); E11.51 Type 2 diabetes mellitus with diabetic peripheral angiopathy without gangrene; E11.65 Type 2 diabetes mellitus with hyperglycemia; H92.03 Otalgia, bilateral; R51.9 Headache, unspecified; E11.9 Type 2 diabetes mellitus without complications; I10 Essential (primary) hypertension; E66.9 Obesity, unspecified; G47.33 Obstructive sleep apnea (adult) (pediatric); K21.9 Gastro-esophageal reflux disease without esophagitis; R26.2 Difficulty in walking, not elsewhere classified; I82.533 Chronic embolism and thrombosis of popliteal vein, bilateral; F41.1 Generalized anxiety disorder; Z68.35 Body mass index [BMI] 35.0-35.9, adult; Z91.81 History of falling; Z79.84 Long term (current) use of oral hypoglycemic drugs; Z86.711 Personal history of pulmonary embolism; Z79.01 Long term (current) use of anticoagulants | CPT/HCPCS: 83036; 96127 ==

== ENCOUNTER 2024-09-13 14:27 | Outpatient (AMB) | payer MEDICARE, MEDICAID, SELFPAY ==
[2024-09-13 14:32] VITALS: BP 130/80; PULSE 94; O2SAT 96; BMI 35.7
--- NOTE | 2024-09-13 14:32 | A.OFFPC_ITS ---
Vital Signs 09/13/24 14:32 Height 5 ft 11 in Weight 256 lb 4 oz BMI 35.7 BP 130/80 Blood Pressure Location Lt brachial Position Sitting Pulse 94 Pulse Source Pulse Oximeter Pulse Oximetry (%) 96 Oxygen Delivery Method Room Air Intake Visit Reasons: earache Legal Secretary Receptionist Required: No Accompanied by: Self / Same As Patient Allergies Penicillins [PENICILLINS] Allergy (Severe, Verified 09/13/24 14:48) hives Medication List - Last Reconciled 09/13/24 by Karyn Luciano PA-C apixaban (Eliquis) 5 mg PO BID 90 days aripiprazole 10 mg PO DAILY [AUTO PAP 6-20 cm H2o humidified air As directed] blood sugar diagnostic (FreeStyle Lite Strips) As directed check the BS QD blood-glucose meter (FreeStyle Lite Meter kit) As directed cyclobenzaprine 5 mg PO BEDTIME escitalopram oxalate (Lexapro) 20 mg PO DAILY fluticasone propionate 50 mcg/actuation (Flonase Allergy Relief) 2 sprays intranasal DAILY gabapentin 300 mg PO TID 90 days lancets (FreeStyle Lancets) As directed check BS QD lisinopril 5 mg PO DAILY 90 days metformin 1,000 mg PO BID 90 days metoprolol succinate ER 50 mg PO DAILY pantoprazole 40 mg PO DAILY PRN trazodone 100 mg PO BEDTIME PRN walker (Ultra-Light Rollator misc) As directed Tobacco use date assessed: 09/13/24 Dental Screening Dental Screen Date: 09/13/24 Did you have a dental visit in the last 12 months?: No Did you have a dental problem in the last 6 months where you did not have access to dental care?: No Was dental information given to patient?: No HPI earache HPI Details 54-year-old male with past medical histo ry of diabetes mellitus, hypertension, history of pulmonary embolism, GERD, generalized anxiety disorder, obstructive sleep apnea last seen 08/2024 coming in For acute problem. Presenting with persistent ear pain and dysfunction. Symptoms include prolonged bilateral ear discomfort and auditory issues for several months, despite prior interventions. Treatment at urgent care included ear drops and penicillin-type antibiotics without resolution. Patient does admit he did not finish the penicillin antibiotics due to side effects. Patient describes recent attempts at ear irrigation with limited benefit. Difficulty with sleep due to ear discomfort, accompanied by a whooshing sensation, implying fluid presence. Additional issue includes recurrent falls linked to hip pain, previously evalu ated with a CT scan showing no abnormalities. 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 [facility] Medical History Left ear pain Obstructive sleep apnea (adult) (pediatric) Medicare annual wellness visit, initial DVT (deep venous thrombosis) Injury of tendon of biceps Nausea Closed fracture of right proximal tibia Femoral distal fracture Obstructive sleep apnea Carpal tunnel syndrome Peripheral vascular disease History of pulmonary embolism Type 2 diabetes mellitus with hyperglycemia Hypertension Surgical History History of total right knee replacement Status post debridement Total knee replacement status Status post osteotomy History of femoropopliteal bypass History of repair of left rotator cuff Family History Father CVD (cardiovascular disease) Diabetes Hypertension Mother Diabetes Hypertension Brother Past heart attack Substance abuse Maternal Uncle Schizophrenia Paternal Uncle CVD (cardiovascular disease) Social History Household Members: Spouse Housing: House Are you a primary patient care to a significant other at home: No 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 1. Little interest or pleasure in doing things: several days 2. Feeling down, depressed, or hopeless: several days 3. Trouble falling or staying asleep, or sleeping too much: nearly every day 4. Feeling tired or having little energy: several days 5. Poor appetite or overeating: several days 6. Feeling bad about yourself - or that you are a failure or have let yourself or your family down: several days 7. Trouble concentrating on things, such as reading the newspaper or watching television: several days 8. Moving or speaking so slowly that other people could have noticed. Or the opposite - being so fidgety or restless that you have been moving around a lot more than usual: not at all 9. Thoughts that you would be better off or of hurting yourself in some way: several days Total score: 10 Depression Screening Interpretation: Positive Depression Screening Done: Yes 68179 - PHQ-9 Billing: Yes Source: Developed by Drs. Leighton West, Comfort Harper, Aries Allan and colleagues, with an educational shane from [employer]. Thrive Questionnaire Date Thrive assessed: 09/13/24 I am a: Patient What is your living situation today?: I have a steady place to live Within the past 12 months, did the food you bought not last and you didn't have the money to get more?: Sometimes True Within the past 12 months, did you worry whether your food would run out before you got money to buy more?: Sometimes True Do you have trouble paying for medicines?: No Do you have trouble getting transportation to medical appointments?: No Do you have trouble paying your heating and electricity bill?: Yes Do you have trouble taking care of your child, family member or friend?: No Do you have trouble with day-to-day activities such as bathing, preparing meals, shopping, managing finances, etc.?: Yes Are you currently unemployed and looking for a job?: Yes Are you interested in more education?: Yes Please select the resources that you would like help with: None Currently or been in a relationship where the following occur: No concerns reported THRIVE Score: 3 AUDIT C Alcohol Use Questionnaire (AUDIT-C) 1. How often do you have a drink containing alcohol?: Never 3. How often do you have six or more drinks on one occasion?: Never Total Score: 0 CAM-7 AMB Questionnaire CAM-7 Date CAM - 7 assessed: 09/13/24 Feeling nervous, anxious, or on edge: 1 = Several days Not being able to stop or control worryin = Several days Worrying too much about different things: 1 = Several days Trouble relaxin = Several days Being so restless that it is hard to sit still: 1 = Several days Becoming easily annoyed or irritable: 1 = Several days Feeling afraid as if something awful might happen: 1 = Several days Total CAM-7 score (0-4 normal; 5-9 mild; 10-14 moderate; 15-21 severe): 7 Source: Developed by Drs. Leighton West, Comfort Harper, Aries Allan and colleagues, with an educational shane from [employer]. CAM-7 Assessment Billing CAM-7 Assessment Tool: CAM-7 Assessment 26586 Review of Systems Const Denies body aches, Denies chills, Denies fever(s), Reports headache(s) and Denies poor appetite Eyes Reports no additional complaints ENT Denies dizziness, Reports otalgia and Reports headache(s) Card Denies chest pain and Denies dyspnea Resp Denies dyspnea GI Denies diarrhea, Denies nausea and Denies vomiting Reports no additional complaints Musc Reports as per HPI and Reports abnormal gait Skin/Breast Reports system reviewed and no additional complaints, except as documented Neuro Reports abnormal gait, Denies dizziness and Reports headache(s) Psych Reports no additional complaints Physical exam (Primary Care) Vital Signs: Last Vital Signs Pulse 94 09/13/24 14:32 BP 130/80 09/13/24 14:32 Pulse Ox 96 09/13/24 14:32 Oxygen Delivery Method Room Air 09/13/24 14:32 BMI result Body Mass Index 35.7 Tobacco/Smoking Status: Tobacco use Status Tobacco use date assessed 09/13/24 09/13/24 14:42 Patient Tobacco Use Status Never used Tobacco 09/13/24 14:42 Tobacco use type Cigarette 09/13/24 14:42 e-Cigarette/Vaping Use Never Used 09/13/24 14:42 PHQ-9: PHQ-9 Score PHQ-9: Total score 10 09/13/24 14:42 Depression Screening Interpretation: Positive Thrive Assessment: Date of Thrive Assessment Date Thrive assessed 09/13/24 09/13/24 14:42 Currently or been in a relationship where the following occur: No concerns reported Const General: cooperative, healthy appearing, comfortable and no acute distress Orientation/consciousness: patient oriented x3 HENMT Other: Tenderness to palpation over bilateral TMJs. Tenderness to palpation over right pinna. No tenderness to palpation over bilateral mastoids Head: Yes normocephalic Ears: hearing grossly normal bilaterally, EAC's normal and TM abnormal erythematous bilateral General nose exam: Normal external nose present Eyes General: appearance normal, both eyes and all related structures Conjunctivae: conjunctivae normal Neck Neck: Yes full ROM and Yes no lymphadenopathy Resp Effort & Inspection: normal respiratory effort Auscultation: clear to auscultation bilaterally, no crackles, no rales, no rhonchi and no wheezes Cardio Rate: regular rate Rhythm: regular rhythm Back/Spine/Pelvis Other: Tenderness to palpation over lateral aspect of bilateral hips and pain with lateral raise of bilateral hips Skin General skin exam: no rashes or lesions noted Neuro General: patient oriented x3 Gait exam (Neuro): Normal gait present Extrem General: Yes normal to inspection, Yes full ROM and No edema Psych Affect: normal affect Attitude: cooperative Insight: Good insight present (Psych) Judgement: Good judgement present (Psych) Coding Level of Care Code Est Pt Level 3 (89057) Diagnoses Obesity (BMI 35.0-39.9 without comorbidity) E66.9 Essential hypertension I10 Hypertension type: essential hypertension Left hip pain M25.552 Right hip pain M25.551 Otitis media H66.90 Additional Codes CAM-7 Assessment Billing - CAM-7 Assessment Tool: CAM-7 Assessment 51176 ([id number]) PHQ-9 - 44903 - PHQ-9 Billing: Yes ([id number]) Assessment & Plan Assessment & Plan (1) Obesity (BMI 35.0-39.9 without comorbidity): Code(s): E66.9 - Obesity, unspecified Category: Medical Plan: Healthy diet and regular exercise is encouraged. (2) Hypertension: Code(s): I10 - Essential (primary) hypertension Category: Medical Qualifiers: Hypertension type: essential hypertension Qualified Code(s): I10 - Essential (primary) hypertension Plan: Continue on current blood pressure medication. Avoid salt intake and encourage healthy diet and regular exercise. (3) Left hip pain: Code(s): M25.552 - Pain in left hip Category: Medical Plan: Patient having left hip pain cat scan from January was negative for abnormality. Plan to engage in physical therapy and have patient follow up at next visit with PCP. (4) Right hip pain: Code(s): M25.551 - Pain in right hip Category: Medical Plan: See above (5) Otitis media: Code(s): H66.90 - Otitis media, unspecified, unspecified ear Category: Medical Plan: Patient having otitis media plan to treat with doxycycline twice daily for 7 days and antibiotic/steroid ear drops. Patient does have tenderness to palpation over bilateral TMJ suspecting bruxism recommend the use of mouth guard. Plan The patient is to commence an alternative antibiotic regimen for the acute otitis media due to intolerance to previous treatments. Probiotic supplementation is advised to counteract potential gastrointestinal side effects. Antihistamines and decongestants can be used judiciously to manage ear fluid. A referral to physical therapy has been ordered to address the hip pain and mitigate the risk of future falls. The patient is encouraged to acquire a mouth guard to aid TMJ symptoms associated with bruxism. The importance of adhering to these treatment plans and notifying regarding any persistence of symptoms has been emphasized. This note was constructed using voice recognition software. While every effort has been made to ensure accuracy and layout former, still areas may have been included sometimes these areas may affect the content or meeting of the given symptoms. Total time spent caring for the patient today was 20 minutes. This includes time spent before the visit reviewing the chart, time spent during the visit, and time spent after the visit and documentation. Patient was informed and verbally consented to the use of an ambient scribe for clinic note documentation during this visit. Orders: Orders PT Evaluation and Treatment Today M25.551 - Pain in right hip, M25.552 - Pain in left hip Medications: New doxycycline hyclate 100 mg PO BID 7 days 14 caps 0RF [id number]-[id number]-[id number] 3.5-10,000-1 mg/mL-unit/mL-% 4 drps otic (ear) left Q8H 10 mL 0RF oxymetazoline 0.05% (Afrin (oxymetazoline)) 2 sprays intranasal Q12H 3 days PRN 15 mL 0RF nasal congestion
--- OUTSIDE RECORDS SUMMARY | 2024-09-13 17:02 | XMS_ITS | Clinical Summary ---
Author Organization [facility] Address [address] [place] [address] Care Team Providers Care Segregator Name Role Phone Unavailable Primary Care Provider [...] of 2) 09/12/2021 Hypertension Screening (#1) 10/04/2023 [id number] (2023- season) 2024 021, 09/20/2020 Imm-Influenza (#1) 2024 03/22/2019, 1 07/03/2013, 04/09/2013, Additional history exists Alcohol and Drug Screen 05/23/2024 Depression Annual Screen 05/23/2024 Imm-DTaP/Tdap/Td (5 - Td or Tdap) 08/28/2031 08/27/2021, 06/23/2017, 05/02/2014, Additional history exists
== END 2024-09-13 15:12 | disposition home or self-care (01) ==
LOC: HO.HMCH 14:28
PROVIDERS: PCP Internal Medicine
DX: I10 Essential (primary) hypertension (principal); Z68.35 Body mass index [BMI] 35.0-35.9, adult; E66.9 Obesity, unspecified; M25.552 Pain in left hip; M25.551 Pain in right hip; H66.93 Otitis media, unspecified, bilateral

== ENCOUNTER → 2024-09-13 14:27 | Outpatient (BNVA) | payer MEDICARE, MEDICAID, SELFPAY | PROVIDERS: PCP Internal Medicine | DX: E66.9 Obesity, unspecified (principal); I10 Essential (primary) hypertension; M25.552 Pain in left hip; M25.551 Pain in right hip; H66.90 Otitis media, unspecified, unspecified ear | CPT/HCPCS: 96127; 99212 ==

== ENCOUNTER 2024-10-26 14:53 | Outpatient (AMB) | payer MEDICARE, MEDICAID, SELFPAY ==
[2024-10-26 15:10] VITALS: BP 116/64; PULSE 101; O2SAT 99; BMI 36.4
--- NOTE | 2024-10-26 15:10 | A.OFFVIS_ITS ---
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 Accompanied by: Self / Same As Patient Allergies Penicillins [PENICILLINS] Allergy (Severe, Verified 10/26/24 15:15) hives Medication List - Last Reconciled 10/26/24 by Rebel Farah MD apixaban (Eliquis) 5 mg PO BID 90 days aripiprazole 10 mg PO DAILY [AUTO PAP 6-20 cm H2o humidified air As directed] blood sugar diagnostic (FreeStyle Lite Strips) As directed check the BS QD blood-glucose meter (FreeStyle Lite Meter kit) As directed cyclobenzaprine 5 mg PO BEDTIME escitalopram oxalate (Lexapro) 20 mg PO DAILY fluticasone propionate 50 mcg/actuation (Flonase Allergy Relief) 2 sprays intranasal DAILY gabapentin 300 mg PO TID 90 days lancets (FreeStyle Lancets) As directed check BS QD lisinopril 5 mg PO DAILY 90 days metformin 1,000 mg PO BID 90 days metoprolol succinate ER 50 mg PO DAILY pantoprazole 40 mg PO DAILY PRN trazodone 100 mg PO BEDTIME PRN walker (Ultra-Light Rollator misc) As directed HPI annual exam HPI Details [place] of care Dr. Anthony vascular surgeon Dr. Curran cardiology [facility] urology Dr. Escobar Hematology-Oncology Dr. Reagan Pulmonary Dr. Allen Orthopedics tarsal Instrum. Colon cancer screening has been put on hold due to asking for cardiac clearance. Patient had a problem with shortness of breath and workup with Cardiology started in July echocardiogram done having grade 1 diastolic dysfunction and also has requested for a CAT scan coronary which is scheduled for November 2024 meanwhile in the office while doing the annual well visit patient is lethargic. Patient does have a severe sleep apnea and can not tolerate the CPAP. Will refer to sleep Medicine for evaluation and further management. [facility] Medical History (Updated 10/26/24 @ 15:52 by Rebel Farah MD) Otitis media Right hip pain Left ear pain Obstructive sleep apnea (adult) (pediatric) Medicare annual wellness visit, initial DVT (deep venous thrombosis) Injury of tendon of biceps Nausea Closed fracture of right proximal tibia Femoral distal fracture Obstructive sleep apnea Carpal tunnel syndrome Peripheral vascular disease History of pulmonary embolism Type 2 diabetes mellitus with hyperglycemia Hypertension Surgical History History of total right knee replacement Status post debridement Total knee replacement status Status post osteotomy History of femoropopliteal bypass History of repair of left rotator cuff Family History Father CVD (cardiovascular disease) Diabetes Hypertension Mother Diabetes Hypertension Brother Past heart attack Substance abuse Maternal Uncle Schizophrenia Paternal Uncle CVD (cardiovascular disease) Social History Household Members: Spouse Housing: House Are you a primary clinical care coordinator to a significant other at home: No Do you presently have visiting nurse or other home services: Yes ([employer]) Alcohol intake: never Patient Tobacco Use Status: Never used Tobacco Tobacco use type: Cigarette Years Smoked: smokes week occ e-Cigarette/Vaping Use: Never Used Second Hand Smoke Exposure: No Substance Use Type: Marijuana service: No Current occupational status: unemployed Cognitive needs: No Hearing needs: No Vision needs: No Questionnaire Medicare Wellness Checkup [age] What gender do you identify with?: male During the past 4 weeks, how much have you been bothered by emotional problems such as feeling anxious, depressed, irritable, sad or downhearted, and blue?: extremely During the past 4 weeks, has your physical & emotional health limited your social activities with family, friends, neighbors, or groups?: extremely During the past 4 weeks, how much bodily pain have you generally had?: moderate pain During the past 4 weeks, was someone available to help you if you needed & wanted help?: yes, as much as I wanted During the past 4 weeks, what was the hardest physical activity you could do for at least 2 minutes?: very light Can you get to places out of walking distance without help? (For eg., can you travel alone on buses, taxis or drive your car?): No Can you go shopping for groceries or clothes without someone's help?: No Can you prepare your own meals?: No Can you do your housework without help?: No Because of any health problems, do you need the help of another person with your personal care needs such as eating, bathing, dressing or getting around the house?: Yes Can you handle your own money without help?: Yes During the past 4 weeks, how would you rate your health in general?: poor During the past 4 weeks how have things been going for you?: good & bad parts about equal Are you having difficulties driving your car?: yes, often Do you always fasten your seat belt when you are in a car?: yes, usually During past 4 weeks, have you been bothered by the following: never: Problems using the telephone?, sometimes: Trouble eating well? and Teeth or denture problems?, often: Sexual problems? and always: Falling or dizzy when standing up and Tiredness or fatigue? Have you fallen 2 or more times in the past year?: Yes Are you afraid of falling?: Yes Are you a smoker?: no During the past 4 weeks, how many drinks of wine, beer, or other alcoholic beverages did you have?: no alcohol at all Do you exercise for about 20 minutes 3 or more times a week?: no, I usually do not exercise this much Have you been given information to help with the following?: yes: Hazards in your house that might hurt you? and yes: Keeping track of your medications? How often do you have trouble taking medicines the way you have been told to edward e them?: I always take medicine as prescribed How confident are you that you can control & manage most of your health problems?: not very confident What is your race?: or origin or descent PHQ-9 Over the last 2 weeks, how often have you been bothered by any of the following problems? 1. Little interest or pleasure in doing things: nearly every day 2. Feeling down, depressed, or hopeless: nearly every day 3. Trouble falling or staying asleep, or sleeping too much: nearly every day 4. Feeling tired or having little energy: nearly every day 5. Poor appetite or overeating: more than half the days 6. Feeling bad about yourself - or that you are a failure or have let yourself or your family down: nearly every day 7. Trouble concentrating on things, such as reading the newspaper or watching television: nearly every day 8. Moving or speaking so slowly that other people could have noticed. Or the opposite - being so fidgety or restless that you have been moving around a lot more than usual: more than half the days 9. Thoughts that you would be better off or of hurting yourself in some way: nearly every day Total score: 25 Depression Screening Interpretation: Positive Depression Screening Done: Yes 63124 - PHQ-9 Billing: Yes Source: Developed by Drs. Leighton West, Comfort Harper, Aries Allan and colleagues, with an educational shane from [employer]. Review of Systems Const Denies poor appetite and Denies weakness Eyes Denies no additional complaints ENT Reports Normal hearing present, Denies dizziness, Denies nasal congestion, Denies tinnitus and Denies sore throat Card Denies chest pain, Denies syncope, Denies rapid heart rate and Denies dyspnea Resp Denies cough and Denies dyspnea GI Denies change in stool character, Reports constipation, Denies diarrhea, Denies nausea and Denies vomiting Denies dysuria and Denies urinary frequency Neuro Reports Normal hearing present, Denies confusion, Denies dizziness, Denies syncope and Denies weakness Psych Denies confusion Physical Exam Vital Signs: Last Vital Signs Pulse 101 H 10/26/24 15:10 BP 116/64 10/26/24 15:10 Pulse Ox 99 10/26/24 15:10 Oxygen Delivery Method Room Air 10/26/24 15:10 BMI result Body Mass Index 36.4 Const General: No confusion Orientation/consciousness: No confusion HEENT Head: Yes normocephalic Ears: external ears normal and TM's normal bilaterally Face and sinus: Yes normal facial exam Mouth: moist mucous membranes Throat: Yes tonsils normal Eyes Conjunctivae: conjunctivae normal Pupils: Equal, round and reactive pupils present and Pupil accommodation reflex normal Direct Ophthalmoscopy: normal light reflex Neck Neck: No lymphadenopathy Thyroid: Thyroid normal Chest Chest palpation & inspection: normal inspection of the chest Resp Effort & Inspection: normal respiratory effort and no audible wheezes Auscultation: clear to auscultation bilaterally, no crackles, no wheezes and lung sounds not diminished Cardio Rate: regular rate Rhythm: regular rhythm Peripheral pulses: radial pulses present and dorsalis pedis present GI Other: decline rectal Palpation (GI): no masses Auscultation: normal bowel sounds and normoactive bowel sounds Rectal Exam - Male: Yes deferred Other: declined Skin General skin exam: no rashes or lesions noted Rashes: no rashes Neuro General: No confusion Cranial nerves: Yes Equal, round and reactive pupils present and Yes Normal hearing present Cognition (Neuro): normal cognition Gait exam (Neuro): Normal gait present Motor exam (neuro): 5/5 motor strength present throughout Deep tendon reflexes (DTR's): Right brachioradialis reflex intensity grade: 2+, Left brachioradialis reflex intensity grade: 2+, Right patellar reflex intensity grade: 2+ and Left patellar reflex intensity grade: 2+ Extrem Other: interdigital area whitish skin and edo and nail thick General: No edema Assessment & Plan Assessment & Plan (1) Annual physical exam: Code(s): Z00.00 - Encounter for general adult medical examination without abnormal findings Plan: Patient is advised to eat healthy, keep well hydrated, keep active and have adequate sleep. 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 Hemoglobin A1c goal of less than 6.5. Patient is on metformin a 1000 mg twice a day (3) Hypertension: Code(s): I10 - Essential (primary) hypertension Qualifiers: Hypertension type: essential hypertension Qualified Code(s): I10 - Essential (primary) hypertension Plan: Continue with blood pressure medication. Decrease salt intake and exercise carito ent is on metoprolol 50 mg once a day lisinopril 5 mg once a day (4) History of pulmonary embolism: Code(s): Z86.711 - Personal history of pulmonary embolism Plan: Continuing anticoagulation history of DVT (5) Colon cancer screening: Code(s): Z12.11 - Encounter for screening for malignant neoplasm of colon Plan: Patient is reminded about colonoscopy (6) GERD (gastroesophageal reflux disease): Code(s): K21.9 - Gastro-esophageal reflux disease without esophagitis Qualifiers: Esophagitis presence: esophagitis presence not specified Qualified Code(s): K21.9 - Gastro-esophageal reflux disease without esophagitis Plan: Avoid the foods that causes that usually spicy foods, tomato products, juices, coffee, soda and foods that your sensitive to. After eating do not lie down, allow 3-4 hours before in lie down. And keep the head of bed above 30 degrees to avoid the acid from going up. (7) Generalized anxiety disorder: Comment: [facility] every month October 2019 Code(s): F41.1 - Generalized anxiety disorder Plan: Continue with counseling and therapy on Abilify Lexapro gabapentin trazodone (8) Severe obstructive sleep apnea: Comment: September 2021 Code(s): G47.33 - Obstructive sleep apnea (adult) (pediatric) (9) PAD (peripheral artery disease): Comment: 2009 - right lower extremity bypass by Dr. Perez at [facility] vascular Code(s): I73.9 - Peripheral vascular disease, unspecified Plan: Continue to follow-up with vascular surgeon (10) Obesity (BMI 35.0-39.9 without comorbidity): Code(s): E66.9 - Obesity, unspecified Plan: Diet and exercise (11) Encounter for subsequent annual wellness visit (AWV) in Medicare patient: Code(s): Z00.00 - Encounter for general adult medical examination without abnormal findings (12) Gait instability: Code(s): R26.81 - Unsteadiness on feet (13) Left hip pain: Comment: fall 09/2024 Code(s): M25.552 - Pain in left hip (14) Tinea pedis: Code(s): B35.3 - Tinea pedis Plan History of Present Illness The patient is a 54-year-old male presenting for an annual physical exam. He has a history of several chronic conditions including diabetes mellitus, managed with metformin, and essential hypertension, treated with metoprolol and lisinopril. He has previously experienced pulmonary embolism and deep vein thrombosis and is continuing with anticoagulation therapy. The patient's history also includes peripheral vascular disease and gastroesophageal reflux disease. He is being treated for generalized anxiety disorder with a combination of medications including Abilify, Lexapro, and gabapentin, among others. He was diagnosed with severe obstructive sleep apnea in 2021, which significantly impacts his sleep quality. His current concerns include an earache recently treated with antibiotics for acute otitis media, and left hip pain, which is addressed with physical therapy. Laboratory results show mild anemia with a hemoglobin level of 13.4 from February; however, his diabetes is well managed with a recent hemoglobin A1c of 5.8 in August. Full assessment for cholesterol levels remains pending. Health Maintenance - Diabetes management with a hemoglobin A1c target of less than 6.5 - Continued monitoring and management of hypertension - Scheduled CT coronary as part of cardiovascular health assessment - Reminder for colonoscopy screening - Regular follow-ups to manage chronic conditions and prescribed therapies - Lifestyle discussions on diet and exercise to manage peripheral vascular disease risk Social History Review of Systems - Ear/Nose/Throat: Reports earache - Musculoskeletal: Reports left hip pain Physical Exam General: Cooperative, healthy appearing, comfortable, no acute distress and well developed Orientation: Patient oriented x3 Limitations: No limitations Head: Normal to inspection Ears: Hearing grossly normal bilaterally, but patient complaining of ear ache Nose: Normal external nose present Face and sinus: Normal facial exam Eyes: Appearance normal, both eyes and all related structures Neck: Normal visual inspection and Yes full ROM Respiratory: Normal respiratory effort and able to speak in complete sentences. Clear to auscultation bilaterally Cardiovascular: Regular rate and rhythm. Normal S1 and S2 GI: Normal to inspection. Soft to palpation and nontender Skin: No rashes or lesions noted Neuro: Patient oriented x3 Extremities: Normal to inspection, but patient had left hip pain. Advised physical therapy. Results - Labs: Mild anemia with hemoglobin at 13.4 - Tests and Diagnostics: Hemoglobin A1c at 5.8 as of August; CT coronary scheduled Plan The management plan focus during this visit included interventions for diabetes with metformin, hypertension with antihypertensives, and the continuation of anticoagulation for DVT history. Earache treatment involved antibiotics for acute otitis media, and physical therapy was recommended for hip pain relief. Scheduled testing such as a CT coronary and colonoscopy reminders were in the health maintenance agenda. Lifestyle discussions featured strongly with encouragement towards dietary control and exercise to enhance the cardiovascular and overall health profile. Coordination of care with various specialists remains crucial for his chronic conditions. Patient was informed and verbally consented to the use of an ambient scribe for clinic note documentation during this visit. Discussion Notes During our discussions, we reviewed the patient?s chronic conditions and ongoing management protocols. Diabetes management with metformin has yielded positive results with lowered hemoglobin A1c values, and the blood pressure is regulated with the current medication regimen. We discussed the importance of continuing anticoagulation therapy for DVT prevention. Due to mild anemia, we discussed future monitoring. Recommendations for lifestyle improvements were emphasized, stressing dietary and exercise improvements. We scheduled a CT coronary and reminded the patient to arrange a colonoscopy. Follow-up appointments and continued collaboration with specialists were advised for comprehensive care. The patient consented to the management plan, understanding the devised strategy and potential implications. Patient Instructions - Continue taking metformin, metoprolol, and lisinopril as prescribed. - Complete the prescribed antibiotic course for ear infection. - Attend physical therapy sessions for hip pain management. - Schedule and complete the CT coronary test. - Prepare for colonoscopy screening as advised. - Follow a balanced diet and regular exercise routine. - Return for follow-up in three months or sooner if symptoms worsen. Orders: Orders Free T4 (Free Thyroxine) Today E11.65 - Type 2 diabetes mellitus with hyperglycemia Lipid Panel Today E11.65 - Type 2 diabetes mellitus with hyperglycemia, E78.00 - Pure hypercholesterolemia, unspecified Creatinine Urine Today E11.65 - Type 2 diabetes mellitus with hyperglycemia Prostate Specific Antigen Scr Today E11.65 - Type 2 diabetes mellitus with hyperglycemia PT Evaluation and Treatment Today R26.81 - Unsteadiness on feet Reticulocyte Count Today B35.3 - Tinea pedis Complete Blood Count Auto Diff Today E11.65 - Type 2 diabetes mellitus with hyperglycemia Comprehensive Met. Panel Today E11.65 - Type 2 diabetes mellitus with hyperglycemia Thyroid Stimulating Hormone Today E11.65 - Type 2 diabetes mellitus with hyperglycemia Vitamin B12 and Folate Today E11.65 - Type 2 diabetes mellitus with hyperglycemia Microalbumin, Random (w Creat) Today E11.65 - Type 2 diabetes mellitus with hyperglycemia Hemoglobin A1c Today E11.65 - Type 2 diabetes mellitus with hyperglycemia XR hip LT w PEL1V Today M25.552 - Pain in left hip Ferritin Today B35.3 - Tinea pedis IRON PROFILE Today B35.3 - Tinea pedis Referrals Gastroenterology Referral Z12.11 - Encounter for screening for malignant neoplasm of colon Sleep Medicine Referral G47.33 - Obstructive sleep apnea (adult) (pediatric) Podiatry Referral E11.65 - Type 2 diabetes mellitus with hyperglycemia Medications: New clotrimazole 1% 1 appl topical BID 45 grams 2RF 4 weeks B35.3 - Tinea pedis miconazole nitrate 2% (Zeasorb AF) 1 appl topical BID 85 grams 0RF B35.3 - Tinea pedis Quality Reporting (2019) Depression/Bipolar (159/160/161/177) PHQ-9: Total score: 25 Coding Level of Care Code Medicare Subsequent (G0439) Diagnoses Annual physical exam Z00.00 Type 2 diabetes mellitus with hyperglycemia, without long-term current use of insulin E11.65 Diabetes mellitus [facility] insulin use: without [facility] use Essential hypertension I10 Hypertension type: essential hypertension History of pulmonary embolism Z86.711 Colon cancer screening Z12.11 Gastroesophageal reflux disease, unspecified whether esophagitis present K21.9 Esophagitis presence: esophagitis presence not specified Generalized anxiety disorder F41.1 Severe obstructive sleep apnea G47.33 PAD (peripheral artery disease) I73.9 Obesity (BMI 35.0-39.9 without comorbidity) E66.9 Encounter for subsequent annual wellness visit (AWV) in Medicare patient Z00.00 Gait instability R26.81 Left hip pain M25.552 Tinea pedis B35.3 Additional Codes PHQ-9 - 68296 - PHQ-9 Billing: Yes ([id number])
== END 2024-10-26 16:02 | disposition home or self-care (01) ==
LOC: HO.HMCH 14:54
PROVIDERS: PCP Internal Medicine; Visit Provider Internal Medicine
DX: Z00.00 Encounter for general adult medical examination without abnormal findings (principal); E11.65 Type 2 diabetes mellitus with hyperglycemia; I10 Essential (primary) hypertension; Z86.711 Personal history of pulmonary embolism; Z12.11 Encounter for screening for malignant neoplasm of colon; K21.9 Gastro-esophageal reflux disease without esophagitis; F41.1 Generalized anxiety disorder; G47.33 Obstructive sleep apnea (adult) (pediatric); E66.9 Obesity, unspecified; R26.81 Unsteadiness on feet; M25.552 Pain in left hip; B35.3 Tinea pedis

== ENCOUNTER → 2024-10-26 14:53 | Outpatient (BNVA) | payer MEDICARE, MEDICAID, SELFPAY | PROVIDERS: PCP Internal Medicine; Visit Provider Internal Medicine | DX: Z00.00 Encounter for general adult medical examination without abnormal findings (principal); E11.65 Type 2 diabetes mellitus with hyperglycemia; I10 Essential (primary) hypertension; K21.9 Gastro-esophageal reflux disease without esophagitis; F41.1 Generalized anxiety disorder; G47.33 Obstructive sleep apnea (adult) (pediatric); I73.9 Peripheral vascular disease, unspecified; E66.9 Obesity, unspecified; Z68.34 Body mass index [BMI] 34.0-34.9, adult; R26.81 Unsteadiness on feet; B35.3 Tinea pedis; M25.552 Pain in left hip; Z86.711 Personal history of pulmonary embolism; Z71.3 Dietary counseling and surveillance | CPT/HCPCS: 96127 ==

== ENCOUNTER 2024-11-02 07:31 | Emergency (ER) | payer MEDICARE, MEDICAID, SELFPAY ==
[2024-11-02 07:32] VITALS: BP 127/93; PULSE 77; RESP 18; TEMP 37.1; O2SAT 97; BMI 36.3
--- OUTSIDE RECORDS SUMMARY | 2024-11-02 10:19 | XMS_ITS | Clinical Summary ---
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 Name Role Phone Rebel Farah MD Primary Care Provider [phone] Surgical History Surgery Date Site/Laterality Comments OTHER SURGICAL HISTORY 1993 PROCEDURE: ---- OTHER ----; COMMENT: rt popliteal bypass after football injury KNEE ARTHROSCOPY 2003 PROCEDURE: [place] ARTHROSCOPY AID [place] SPINE&/FX KNEE W/O FIXJ; COMMENT: knee replacement at [facility] KNEE SURGERY 2005 PROCEDURE: HISTORICAL KNEE SURGERY; COMMENT: osteotomy Medical History Medical History Date Comments DVT (deep venous thrombosis) ([facility] V24, [facility] V28) 1993 DX:DVT (deep venous thrombos is) ([facility]); COMMENT: on coumadin for 20 yrs ago, f/u by Dr. Sheppard DM (diabetes mellitus) ([facility] V24, [facility] V28) 2011 DX:DM (diabetes mellitus) ( CC); COMMENT: managed by Dr. Sheppard JEANINE (obstructive sleep apnea) 2012 DX :JEANINE (obstructive sleep apnea); COMMENT: sleep study done at [facility], ordered by Dr. Sheppard Venous insufficiency DX:Venous i nsufficiency; COMMENT: had surgery in 1993, started as a football injury CTS (carpal tunnel syndrome) DX: CTS (carpal tunnel syndrome) History of pulmonary embolism 1998 DX :History of pulmonary embolism Family History Medical History Relation Name Comments Stroke Brother 1 Hypertension Brother 2 Coronary artery disease Father in h is 40's Diabetes Father Heart failure Father Hypertension Father Stroke Father Hypertension Mother Other cancer Other 1 cousin Relation Name Status Comments Brother 1 Brother 2 Brother 3 Father Mother Alive Other 1 Other 2 Social History Tobacco Use Types Packs/Day Years Used Date Smoking Tobacco: Never Alcohol Use Standard Drinks/Week Comments Yes 0 (1 standard drink = 0.6 oz pur e alcohol) Sex and Gender Information Value Date Recorded Sex Assigned at Not on file Legal Sex Male 11:18 AM EDT Gender Identity Not on file Sexual Orientation Not on file Obstetrics History Plan of Treatment Upcoming Encounters Date Type Department Care Team (Late st Contact Info) Description 01/10/2025 11:00 AM EDT Office Visit Plastic & Reconstructive Surgery - [place] [address] [place] [phone] Benji David DO [address] [place] [address] Health Maintenance Due Date Last Done Comments Diabetes: Annual GFR (Glomerular Filtration Rate) 1971 Diabetes: Annual Foot Exam 09/12/1981 Diabetes: Annual Retina Eye Exam 09/12/1981 Hepatitis B Vaccines (1 of 3 - 19+ 3-dose series) 09/12/1990 Pneumococcal Vaccine: 50+ Years (2 of 2 - PCV) 09/12/2021 03/22/2019, 05/02/2014 Zoster Vaccines (1 of 2) 09/12/2021 Cholesterol Screening (Lipid Panel) 05/05/2022 Colorectal Cancer Screening: Colonoscopy 05/05/2022 Depression Screening 05/05/2022 Diabetes: Annual Urine Albumin-Creatinine Ratio (uACR) 05/05/2022 Diabetes: Blood Sugar Contro l Test (HGBA1C) 05/05/2022 HIV Screening 05/05/2022 Hepatitis C Screening 05/05/2022 Medicare Annual Wellness Visit 05/05/2022 Social Influencers of Health Screening 05/05/2022 COVID-19 Vaccine (2 - 2023-2 5 season) 2024 09/20/2020 DTaP,Tdap,and Td Vaccines (2 - Td or Tdap) 05/02/2024 05/02/2014 Influenza Vaccine (Season Ended) 2025 03/22/2019, 05/02/2014 Pneumococcal Vaccine: Pediatrics (0 to 5 Years) and At-Risk Patients (6 to 64 Years) Aged Out 03/22/2019, 05/02/2014 No longer eligible based on patient's age to complete this topic HIB Vaccines Aged Out No longer eligi ble based on patient's age to complete this topic HPV Vaccines Aged Out No longer eligi ble based on patient's age to complete this topic Hepatitis A Vaccines Aged Out No long er eligible based on patient's age to complete this topic IPV Vaccines Aged Out No longer eligi ble based on patient's age to complete this topic MMR Vaccines Aged Out No longer eligi ble based on patient's age to complete this topic Meningococcal ACWY Vaccine Aged Out N o longer eligible based on patient's age to complete this topic Meningococcal B Vaccine Aged Out No l onger eligible based on patient's age to complete this topic RSV Immunization Patients Under 20 months Aged Out No longer eligible b ased on patient's age to complete this topic Varicella Vaccines Aged Out No longer eligible based on patient's age to complete this topic Insurance MEDICARE MEDICAID - [place] Care Teams 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
== END 2024-11-02 09:46 | disposition left against medical advice (07) ==
LOC: HO.ED 09:47
PROVIDERS: Emergency Provider Emergency Medicine; PCP Internal Medicine
DX: M79.602 Pain in left arm (principal); Z53.21 Procedure and treatment not carried out due to patient leaving prior to being seen by health care provider
CPT/HCPCS: 99281

== ENCOUNTER 2024-11-11 13:06 | Emergency (ER) | payer MEDICARE, MEDICAID, SELFPAY ==
--- NOTE | ~2024-11-11 | XR_ITS ---
CLINICAL HISTORY: left shoulder pain. 3 view left shoulder Comparison: None provided Findings: No fractures or dislocations. Mild degenerative change of the AC joint. There is a calcification adjacent to the AC joint. There is mixed lytic and sclerotic change of the proximal humerus diaphysis. No erosions. No radiopaque foreign body. IMPRESSION: No acute fracture. Mixed lytic and sclerotic change of the proximal humerus. Further evaluation by MRI as indicated. This document has been electronically signed by: Sheron Godwin MD on 11/11/2024 14:43:00
--- NOTE | ~2024-11-11 | XR_ITS ---
CLINICAL HISTORY: chest wall pain 1 view chest x-ray Comparison: None provided Findings: The lungs are clear. Normal size heart. No acute fracture. IMPRESSION: 1. No acute findings. This document has been electronically signed by: Sheron Godwin MD on 11/11/2024 14:40:12
[2024-11-11 13:12] VITALS: BP 116/77; PULSE 106; RESP 18; TEMP 36.5; O2SAT 97; BMI 36.4
--- NOTE | 2024-11-11 13:15 | ECG_ITS ---
Test Reason : SHOULDER PAIN Blood Pressure : */* mmHG Vent. Rate : 100 BPM Atrial Rate : 100 BPM P-R Int : 176 ms QRS Dur : 96 ms QT Int : 368 ms P-R-T Axes : 47 8 10 degrees QTcB Int : 474 ms Normal sinus rhythm Low voltage QRS Borderline ECG When compared with ECG of 18-Feb-2024 12:36, No significant changes seen Referred By: Nathan Mcleod Electronically Signed By: VIANNEY GARCIA
--- NOTE | 2024-11-11 13:18 | ED.GENADULT ---
HPI - General Adult General Chief complaint: Extremity Problem Stated complaint: shoudler pain Time Seen by Provider: 11/11/24 13:47 Source: patient Mode of arrival: ambulatory Limitations: no limitations History of Present Illness ED Provider: kell davis np HPI narrative: Patient is a 54-year-old male with past medical history of diabetes, hypertension, history of pulmonary embolism/DVT, anticoagulated on Eliquis, GERD, generalized anxiety disorder, JEANINE, history of previously repaired left rotator cuff who presents emergency department for evaluation of 2-3 weeks of atraumatic left shoulder/arm pain. He reports intermittent numbness and tingling. He states he had similar symptoms in the past before diagnosed with rotator cuff tear. Pain is provoked with range of motion to the shoulder such as forward extension, abduction, external rotation. He denies associated chest pain, shortness of breath, dizziness, lightheadedness, neck pain or neck stiffness. No associated rashes or lesions. No abdominal pain nausea or vomiting. Related Data Home Medications ?Medication ?Instructions ?Recorded ?Confirmed escitalopram oxalate 20 mg tablet 20 mg PO DAILY 05/07/20 10/26/24 (Lexapro) trazodone 100 mg tablet 100 mg PO BEDTIME PRN Sleep 05/07/20 10/26/24 aripiprazole 10 mg tablet 10 mg PO DAILY 11/30/23 10/26/24 pantoprazole 40 mg tablet,delayed 40 mg PO DAILY PRN Acid Reflux 02/18/24 10/26/24 release Previous Rx's ?Medication ?Instructions ?Recorded lisinopril 5 mg tablet 5 mg PO DAILY 90 days #90 tabs 11/17/20 metoprolol succinate 50 mg 50 mg PO DAILY #90 tabs 11/17/20 tablet,extended release 24 hr gabapentin 300 mg capsule 300 mg PO TID 90 days #270 caps 07/23/22 metformin 1,000 mg tablet 1,000 mg PO BID 90 days #180 tabs 07/23/22 blood sugar diagnostic (FreeStyle #100 ea 07/26/22 Lite Strips) blood-glucose meter (FreeStyle #1 ea 07/26/22 Lite Meter kit) lancets 28 gauge (FreeStyle #100 ea 07/26/22 Lancets) AUTO PAP 6-20 cm H2o humidified air #1 ea 08/19/23 apixaban 5 mg tablet (Eliquis) 5 mg PO BID 90 days #180 tabs 08/19/23 cyclobenzaprine 5 mg tablet 5 mg PO BEDTIME #20 tabs 03/05/24 walker (Ultra-Light Rollator misc) #1 ea 03/05/24 fluticasone propionate 50 2 spray intranasal DAILY #16 grams 05/09/24 mcg/actuation nasal spray,suspension (Flonase Allergy Relief) clotrimazole 1 % topical cream 1 appl topical BID 4 weeks #45 10/26/24 grams miconazole nitrate 2 % topical 1 appl topical BID #85 grams 10/26/24 powder (Zeasorb AF) Allergies Allergy/AdvReac Type Severity Reaction Status Date / Time Penicillins (PENICILLINS) Allergy Severe hives Verified 11/11/24 13:14 Review of Systems Review of Systems: Yes all other systems are reviewed and are negative [facility] Past Medical History Attestation statement: The following information was validated with the patient. Source: old records reviewed Medical History Otitis media Right hip pain Left ear pain Obstructive sleep apnea (adult) (pediatric) Medicare annual wellness visit, initial DVT (deep venous thrombosis) Injury of tendon of biceps Nausea Closed fracture of right proximal tibia Femoral distal fracture Obstructive sleep apnea Carpal tunnel syndrome Peripheral vascular disease History of pulmonary embolism Type 2 diabetes mellitus with hyperglycemia Hypertension Surgical History History of total right knee replacement Status post debridement Total knee replacement status Status post osteotomy History of femoropopliteal bypass History of repair of left rotator cuff Family History Family History Father CVD (cardiovascular disease) Diabetes Hypertension Mother Diabetes Hypertension Brother Past heart attack Substance abuse Maternal Uncle Schizophrenia Paternal Uncle CVD (cardiovascular disease) Social History Social History Household Members: Spouse Housing: House Are you a primary rn coronary care unit to a significant other at home: No Do you presently have visiting nurse or other home services: Yes ([employer]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) Alcohol intake: never Patient Tobacco Use Status: Never used Tobacco Tobacco use type: Cigarette Years Smoked: smokes week occ e-Cigarette/Vaping Use: Never Used Second Hand Smoke Exposure: No Substance Use Type: Marijuana Advance Directives: No Advance Directives Information Provided: Yes Do you have a plan to hurt others: No Plan service: No Current occupational status: unemployed Cognitive needs: No Hearing needs: No Vision needs: No Physical Exam ED Vital Signs: Vital Signs - 24 hr 11/11/24 13:12 11/11/24 15:45 11/11/24 15:47 Temperature 97.7 F 98 F 98 F Pulse Rate 106 H 75 75 Respiratory Rate 18 20 20 Blood Pressure 116/77 122/73 122/73 Pulse Oximetry 97 97 97 Oxygen Delivery Method Room Air Room Air Room Air BMI result Body Mass Index 36.4 Appearance: Alert.?Oriented to person, place and time. No acute distress.?Normal affect. Eyes: Pupils equal, round and reactive to light.? ENT: Pharynx normal.?? Neck: Normal inspection.? Neck supple.?? CVS: Heart sounds normal. Normal heart rate and rhythm.? Pulses normal.?? Respiratory: No respiratory distress.? Lung sounds clear to auscultation bilaterally?? Abdomen: Soft and non-tender. Normoactive bowel sounds. Skin: Skin warm and dry.? Normal skin color.? Extremities: No lower extremity edema.? No upper extremity edema. 2+ radial pulse bilaterally. Painful and limited AROM to the left shoulder, provoked with forward extension of the arm at 90-120 degrees, abduction at approximately 60 degrees as well as with external rotation. Neuro: Moves all extremities spontaneously. Sensation intact bilaterally. No focal neuro deficits. Ambulates with normal steady gait. Course Course Course Narrative: RME: 54 yold male with pmh of DM, HTN, and left rotator cuff tear presents to the ED for left shoudler pain radiating down left arm with numbness/tingling. patient denies any recent trauma, swelling, redness, fever, or chills. NIH score 0. positive for shoulder tenderness on palpation, and left upper chest wall tenderness. labs, EKG, and xrays ordedered Medical Decision Making Medical Decision Making MDM Narrative: Patient is a 54-year-old male with past medical history of diabetes, hypertension, history of pulmonary embolism/DVT, anticoagulated on Eliquis, GERD, generalized anxiety disorder, JEANINE, history of previously repaired left rotator cuff presenting to emergency department for evaluation of 2 weeks with left arm pain as per HPI. Examination is concerning for rotator cuff injury. Had workup initiated prior to my assumption of care; CBC without leukocytosis, has a mild normocytic anemia that does not meet transfusion criteria, no thrombocytopenia. Chemistries without significant electrolyte derangement ROBERTA or abnormal LFTs. High sensitive troponin below detectable limits, ECG revealing normal sinus rhythm with ventricular rate of 100, normal VERO, QTC 474, no ST-elevation, T-wave inversion in lead III has been seen similarly in priors. At this time does not appear consistent with ACS, referred pain from pancreatitis, full range of motion to neck without palpable tenderness or notable pain to suggest radiculopathy, no focal deficits to suggest CVA NIH stroke score of 0. XR imaging of the chest/shoulder no consolidation infiltrate in the lungs, no pleural effusion no visualized mass. Clear x-ray revealing degenerative changes of the AC joint education adjacent, mixed lytic and sclerotic change of the proximal humerus diaphysis with recommendation for further evaluation with MRI. He has had prior imaging of the left shoulder in April of 2018 where I appreciate a similar though less enhanced lesion, reviewed with patient potential for benign versus cancerous lesions of the bone. Feel he is most appropriate for outpatient follow-up with orthopedics. We will provide contact information for the orthopedic office associated with our hospital. Reviewed use of acetaminophen/NSAID. Differential Diagnosis Differential Diagnoses: The differential diagnosis associated with the presentation includes (See narrative above) Admission/Observation Consideration of admission/observation: Escalation of care including admission/observation considered Lab Data MDM Lab Attestation statement: I reviewed the patient's lab results. (See narrative above) 11/11/24 13:39 11/11/24 13:39 Labs: Lab Results 11/11/24 Range/Units 13:39 WBC 5.8 (4.8-10.8) X10*3/uL RBC 4.13 L (4.60-5.80) X10*6/uL Hgb 13.4 L (14.0-18.0) g/dl Hct 39.1 L (42.0-52.0) % MCV 94.7 (80.0-98.0) fL MCH 32.4 (27.0-33.0) pg MCHC 34.3 (31.0-36.0) g/dl RDW 12.6 (11.0-16.0) % Plt Count 221 (160-400) X10*3/uL MPV 9.4 (9.4-12.4) fL Immature Gran % (Auto) 0.3 (0.0-0.4) % Neut % (Auto) 28.8 L (45-73) % Lymph % (Auto) 62.6 H (20-40) % Kleberg % (Auto) 6.1 (2-11) % Eos % (Auto) 1.7 (0-4) % Baso % (Auto) 0.5 (0-2) % Lymph # (Auto) 3.6 (1.2-4.9) X10*3/uL Kleberg # (Auto) 0.4 (0.1-1.2) X10*3/uL Eos # (Auto) 0.1 (0.0-0.4) X10*3/uL Baso # (Auto) 0.0 (0.0-0.2) X10*3/uL Abs Immat Gran (auto) 0.02 (0.00-0.03) X10*3/uL Absolute Neuts (auto) 1.7 L (2.0-8.3) x10*3/uL Absolute Nucleated RBC 0.000 (0.0-0.012) X10*3/uL Nucleated RBC % (auto) 0.0 (0.0-0.2) /100WBC Smear Tech's Comments VERIFIED Sodium 141 (135-145) mmol/L Potassium 3.8 (3.3-5.1) mmol/L Chloride 109 H (96-108) mmol/L Carbon Dioxide 26 (22-29) mmol/L Anion Gap 10 L (12-20) BUN 12 (9-16) mg/dL Creatinine 0.86 (0.5-1.4) mg/dL Estim Creat Clear Calc 130.0 Estimated GFR > 60 Random Glucose 213 H (60-115) mg/dL Calcium 8.6 (8.4-10.2) mg/dL Total Bilirubin 0.3 (0.0-1.0) mg/dL AST 22 (5-37) U/L ALT 16 (0-40) U/L Alkaline Phosphatase 61 (39-117) U/L Troponin I High Sens < 2.7 (<3.5-35.0) ng/L Total Protein 6.9 (6.5-8.0) g/dL Albumin 3.8 (3.5-5.0) g/dL Independent Interpretation I performed an independent interpretation of an: EKG (See narrative above) and Plain X-Ray (See narrative above) Radiology Impression Discussion of test interpretation with radiology: I have reviewed the radiologist's reading. Radiologist Impression: 1 view chest x-ray Comparison: None provided Findings: The lungs are clear. Normal size heart. No acute fracture. IMPRESSION: 1. No acute findings. 3 view left shoulder Comparison: None provided Findings: No fractures or dislocations. Mild degenerative change of the AC joint. There is a calcification adjacent to the AC joint. There is mixed lytic and sclerotic change of the proximal humerus diaphysis. No erosions. No radiopaque foreign body. IMPRESSION: No acute fracture. Mixed lytic and sclerotic change of the proximal humerus. Further evaluation by MRI as indicated. External Record Review External record reviewed: Outpatient record Chronic Conditions Patient?s care impacted by: Other (See narrative above) Discharge Plan Discharge Clinical Impression: Lytic bone lesions on xray Rotator cuff arthropathy Qualifiers: Laterality: left Qualified Code(s): M12.812 - Other specific arthropathies, not elsewhere classified, left shoulder Patient Disposition: Home, Self-Care Additional Instructions: As discussed, examination today is concerning for rotator cuff injury. There was an incidental finding of a sclerotic lytic lesion in your humerus the bone in your upper arm. It is difficult to say without further imaging whether this is something cancerous or benign. However I did review an x-ray that you had previously done in 2018 and there appears to be a similar lesion at that time. I recommend that you contact Orthopedics to arrange for outpatient follow-up. In the interim, please be sure to rest, apply ice for 10-15 minutes 4-6 times daily, perform gentle stretching exercises of the shoulder and refrain from keeping at immobile as this may result in worsening of symptoms. You can take ibuprofen 200 mg, 3 tablets (600mg) every 6-8 hours as needed for pain, in addition to Tylenol 500 mg, 2 tablets (1,000mg) every 4-6 hours as needed for pain, but not to exceed 3 doses daily (3,000mg).? Return back to emergency department any new or worsening symptoms or concerns Prescriptions: No Action gabapentin 300 mg capsule 300 mg PO TID 90 Days Qty: 270 1RF metformin 1,000 mg tablet 1,000 mg PO BID 90 Days Qty: 180 2RF (DME) blood-glucose meter [FreeStyle Lite Meter] Kit See Rx Instructions .ROUTE .MEDSUPPLY Qty: 1 0RF Rx Instructions: As directed (DME) FreeStyle Lite Strips Strip See Rx Instructions .ROUTE .MEDSUPPLY Qty: 100 3RF Rx Instructions: As directed check the BS QD (DME) lancets [FreeStyle Lancets] 28 gauge misc See Rx Instructions .ROUTE .MEDSUPPLY Qty: 100 3RF Rx Instructions: As directed check BS QD fluticasone propionate [Flonase Allergy Relief] 50 mcg/actuation spray,suspension 2 spray intranasal DAILY Qty: 16 2RF Rx Instructions: administer into each nostril pantoprazole 40 mg tablet,delayed release (DR/EC) 40 mg PO DAILY PRN (Reason: Acid Reflux) Rx Instructions: take one tablet half an hour before breakfast escitalopram oxalate [Lexapro] 20 mg tablet 20 mg PO DAILY trazodone 100 mg tablet 100 mg PO BEDTIME PRN (Reason: Sleep) metoprolol succinate 50 mg tablet extended release 24 hr 50 mg PO DAILY Qty: 90 1RF lisinopril 5 mg tablet 5 mg PO DAILY 90 Days Qty: 90 2RF (DME) AUTO PAP 6-20 cm H2o humidified air See Rx Instructions .Route .MEDSUPPLY Qty: 1 0RF Rx Instructions: As directed Eliquis 5 mg tablet 5 mg PO BID 90 Days Qty: 180 3RF clotrimazole 1 % cream 1 appl topical BID 28 Days Qty: 45 2RF miconazole nitrate [Zeasorb AF] 2 % powder 1 appl topical BID Qty: 85 0RF aripiprazole 10 mg tablet 10 mg PO DAILY cyclobenzaprine 5 mg tablet 5 mg PO BEDTIME Qty: 20 0RF (DME) Ultra-Light Rollator Misc See Rx Instructions .Route Qty: 1 0RF Rx Instructions: As directed Referrals: [facility] [Provider Group] Clinical Impression: Lytic bone lesions on xray; Rotator cuff arthropathy Po,Rebel Frances MD [Primary Care Provider, Internal Medicine] Interventions: ED Discharge Assessment Last Done: 11/11/24 15:47 Discharge Date/Time: 11/11/24 15:47 Print Language: Azeri
[2024-11-11 13:45] LABS: Basophils Percent Auto 0.5 % (0-2); Eosinophils Absolute Auto 0.1 X10*3/uL (0.0-0.4); Eosinophils Percent Auto 1.7 % (0-4); Hematocrit 39.1 % (42.0-52.0); Hemoglobin 13.4 g/dl (14.0-18.0); Imm Gran Abs Auto 0.02 X10*3/uL (0.00-0.03); Imm Gran Pct Auto 0.3 % (0.0-0.4); Lymphocytes Absolute Auto 3.6 X10*3/uL (1.2-4.9); Lymphocytes Percent Auto 62.6 % (20-40); MANUAL DIFF FLAG SCAN; Mean Corpuscular HGB Conc 34.3 g/dl (31.0-36.0); Mean Corpuscular Hemoglobin 32.4 pg (27.0-33.0); Mean Corpuscular Volume 94.7 fL (80.0-98.0); Mean Platelet Volume 9.4 fL (9.4-12.4); Monocytes Absolute Auto 0.4 X10*3/uL (0.1-1.2); Monocytes Percent Auto 6.1 % (2-11); Neutrophils Absolute Auto 1.7 x10*3/uL (2.0-8.3); Neutrophils Percent Auto 28.8 % (45-73); Platelet Count 221 X10*3/uL (160-400); Red Blood Count 4.13 X10*6/uL (4.60-5.80); Red Cell Distribution Width 12.6 % (11.0-16.0); SCAN SMEAR FLAG 1; White Blood Count 5.8 X10*3/uL (4.8-10.8)
[2024-11-11 14:01] LABS: Alanine Aminotransferase 16 U/L (0-40); Albumin Level 3.8 g/dL (3.5-5.0); Alkaline Phosphatase 61 U/L (39-117); Anion Gap 10 (12-20); Aspartate Amino Transferase 22 U/L (5-37); Bilirubin Total 0.3 mg/dL (0.0-1.0); Blood Urea Nitrogen 12 mg/dL (9-16); Calcium 8.6 mg/dL (8.4-10.2); Carbon Dioxide 26 mmol/L (22-29); Chloride 109 mmol/L (96-108); Estimated Glomerular Filt Rate > 60; Glucose Random 213 mg/dL (60-115); Potassium 3.8 mmol/L (3.3-5.1); Sodium 141 mmol/L (135-145); Total Protein 6.9 g/dL (6.5-8.0)
[2024-11-11 14:03] LABS: SLIDE REVIEW VERIFIED
[2024-11-11 14:08] LABS: Troponin-I High Sensitivity < 2.7 ng/L (<3.5-35.0)
[2024-11-11 15:45] VITALS: BP 122/73; PULSE 75; RESP 20; TEMP 36.6; O2SAT 97
[2024-11-11 15:47] VITALS: BP 122/73; PULSE 75; RESP 20; TEMP 36.6; O2SAT 97
== END 2024-11-11 15:47 | disposition home or self-care (01) ==
PROVIDERS: Physician Assistant; Emergency Provider Emergency Medicine; PCP Internal Medicine
DX: M12.812 Other specific arthropathies, not elsewhere classified, left shoulder (principal); R94.31 Abnormal electrocardiogram [ECG] [EKG]; M25.512 Pain in left shoulder; Z79.899 Other long term (current) drug therapy
CPT/HCPCS: 36415; 71045; 73030; 80053; 84484; 85025; 93005; 99283; 99284

== ENCOUNTER → 2024-11-11 13:15 | Outpatient (BNV) | payer MEDICARE, MEDICAID, SELFPAY | PROVIDERS: Emergency Provider Emergency Medicine; PCP Internal Medicine; Visit Provider Internal Medicine | DX: M25.512 Pain in left shoulder (principal) | CPT/HCPCS: 93010 ==

== ENCOUNTER → 2024-11-11 13:17 | Outpatient (BNV) | payer MEDICARE, MEDICAID, SELFPAY | PROVIDERS: Emergency Provider Emergency Medicine; PCP Internal Medicine; Visit Provider Nuclear Medicine | DX: M19.012 Primary osteoarthritis, left shoulder (principal); R07.89 Other chest pain | CPT/HCPCS: 71045; 73030 ==

== ENCOUNTER 2024-11-19 08:16 | Outpatient (REF) | payer MEDICARE, MEDICAID, SELFPAY ==
--- OUTSIDE RECORDS SUMMARY | 2024-11-19 08:21 | XMS_ITS | Clinical Summary ---
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 Phone Rebel Farah MD Primary Care Provider [phone] Surgical History Surgery Date Site/Laterality Comments OTHER SURGICAL HISTORY 1993 PROCEDURE: ---- OTHER ----; COMMENT: rt popliteal bypass after football injury KNEE ARTHROSCOPY 2003 PROCEDURE: [place] ARTHROSCOPY AID [place] SPINE&/FX KNEE W/O FIXJ; COMMENT: knee replacement at [facility] KNEE SURGERY 2005 PROCEDURE: HISTORICAL KNEE SURGERY; COMMENT: osteotomy Medical History Medical History Date Comments DVT (deep venous thrombosis) ([facility] V24, [facility] V28) 1993 DX:DVT (deep venous thrombos is) ([facility]); COMMENT: on coumadin for 20 yrs ago, f/u by Dr. Sheppard DM (diabetes mellitus) ([facility] V24, [facility] V28) 2011 DX:DM (diabetes mellitus) ( CC); COMMENT: managed by Dr. Sheppard JEANINE (obstructive sleep apnea) 2012 DX :JEANINE (obstructive sleep apnea); COMMENT: [place] [facility] ordered by Dr. Sheppard Venous insufficiency DX:Venous [...] Office Visit Plastic & Reconstructive Surgery - [place] [address] [place] [phone] Benji David DO [address] [place] [address] Health Maintenance Due Date Last Done Comments [...] Insurance MEDICARE MEDICAID - [place] Care Teams Hydro Electric Station Operator Relationship Specialty Start Date End Date Rebel Farah MD [address] [place] [address] [address] [facility] [place] [address] PCP - General Internal Medicine 10/17/24
[2024-11-19 09:53] LABS: Basophils Percent Auto 0.5 % (0-2); Eosinophils Absolute Auto 0.1 X10*3/uL (0.0-0.4); Hematocrit 41.6 % (42.0-52.0); Hemoglobin 13.8 g/dl (14.0-18.0); Imm Gran Abs Auto 0.01 X10*3/uL (0.00-0.03); Imm Gran Pct Auto 0.2 % (0.0-0.4); Immature Retic Fraction 8.9 % (2.3-13.4); Lymphocytes Absolute Auto 3.9 X10*3/uL (1.2-4.9); Lymphocytes Percent Auto 69.8 % (20-40); MANUAL DIFF FLAG SCAN; Mean Corpuscular HGB Conc 33.2 g/dl (31.0-36.0); Mean Corpuscular Hemoglobin 31.7 pg (27.0-33.0); Mean Corpuscular Volume 95.6 fL (80.0-98.0); Mean Platelet Volume 10.1 fL (9.4-12.4); Monocytes Absolute Auto 0.4 X10*3/uL (0.1-1.2); Monocytes Percent Auto 7.4 % (2-11); Neutrophils Absolute Auto 1.1 x10*3/uL (2.0-8.3); Neutrophils Percent Auto 20.1 % (45-73); Platelet Count 242 X10*3/uL (160-400); Red Blood Count 4.35 X10*6/uL (4.60-5.80); Red Cell Distribution Width 12.3 % (11.0-16.0); Retic HGB Equivalent 35.9 pg (30.0-35.0); Reticulocyte Percent 1.4 % (0.5-1.8); Reticulocytes Absolute 0.062 X10*6/uL (0.026-0.095); SCAN SMEAR FLAG 1; White Blood Count 5.6 X10*3/uL (4.8-10.8)
[2024-11-19 09:59] LABS: D Dimer High Sensitivity 184 NG/ML
[2024-11-19 10:01] LABS: Estimated Average Glucose 131 mg/dL; Hemoglobin A1c % 6.2 % (<6.0); Total Hemoglobin (HGBA1C) 3725.4636 umol/L
[2024-11-19 10:27] LABS: B Type Natriuretic Peptide 82 pg/mL (<100)
[2024-11-19 10:53] LABS: Alanine Aminotransferase 15 U/L (0-40); Albumin Level 4.1 g/dL (3.5-5.0); Alkaline Phosphatase 60 U/L (39-117); Anion Gap 9 (12-20); Aspartate Amino Transferase 24 U/L (5-37); Bilirubin Total 0.6 mg/dL (0.0-1.0); Blood Urea Nitrogen 9 mg/dL (9-16); Calcium 8.9 mg/dL (8.4-10.2); Carbon Dioxide 26 mmol/L (22-29); Chloride 109 mmol/L (96-108); Cholesterol 177 mg/dL (<200); Estimated Glomerular Filt Rate > 60; Glucose Random 99 mg/dL (60-115); HDL Cholesterol 32 mg/dL (>40); Iron 116 mcg/dL (45-160); LDL Cholesterol Calculated 125 mg/dL (<100); Percent Iron Saturation 44 % (15-50); Potassium 4.2 mmol/L (3.3-5.1); Sodium 140 mmol/L (135-145); Total Iron Binding Capacity 263 mcg/dL (228-428); Total Protein 7.4 g/dL (6.5-8.0); Triglycerides 102 mg/dL (<150); Unsaturated Iron Binding 147 ug/dL
[2024-11-19 10:55] LABS: Ferritin 103 ng/mL (20-250); Free T4 (Free Thyroxine) 0.95 ng/dL (0.71-1.85); Thyroid Stimulating Hormone 2.57 uIU/mL (0.32-4.0)
[2024-11-19 10:56] LABS: SLIDE REVIEW VERIFIED
[2024-11-19 10:59] LABS: Folate 10.2 ng/mL (> or = 4.0); Prostate Specific Antigen Scr 1.49 ng/mL (<0.05-4.0); Vitamin B12 382 pg/mL (200-900)
== END 2024-11-19 08:17 | disposition home or self-care (01) ==
LOC: HO.LAB 08:16
PROVIDERS: PCP Internal Medicine; Visit Provider Internal Medicine
DX: R06.00 Dyspnea, unspecified (principal); E11.65 Type 2 diabetes mellitus with hyperglycemia; I82.533 Chronic embolism and thrombosis of popliteal vein, bilateral; E78.00 Pure hypercholesterolemia, unspecified; B35.3 Tinea pedis; Z12.5 Encounter for screening for malignant neoplasm of prostate
CPT/HCPCS: 36415; 80053; 80061; 82607; 82728; 82746; 83036; 83540; 83880; 84153; 84439; 84443; 85025; 85045; 85379

== ENCOUNTER 2024-11-27 09:51 | Outpatient (AMB) | payer MEDICARE, MEDICAID, SELFPAY ==
--- NOTE | 2024-11-27 09:57 | A.OFFVIS_ITS ---
Vital Signs 11/27/24 10:04 Height 5 ft 11 in Weight 261 lb BMI 36.4 Intake Visit Reasons: ED- Lytic bone lesions on xray Intake Note: Genaro is a 54 year old right hand dominant male who presents today for an ER follow up of his left shoulder. Patient presented to [facility] ER on 11/11/24 due to ongoing pain in his shoulder for 2 weeks. Denies injury. X-rays were obtained and he was referred to orthopedics. Patient reports his pain is located in his shoulder that radiates down his arm to his hand. He has ongoing swelling in his hand as well as numbness and tingling. Limited ROM. His most discomfort is at night and with sleeping. Hx of RTC surgery. Allergies Penicillins (PENICILLINS) Allergy (Severe, Verified 11/27/24 09:59) hives Medication List - Last Reconciled 11/27/24 by Khris Reyes PA-C apixaban (Eliquis) 5 mg PO BID 90 days aripiprazole 10 mg PO DAILY [AUTO PAP 6-20 cm H2o humidified air As directed] blood sugar diagnostic (FreeStyle Lite Strips) As directed check the BS QD blood-glucose meter (FreeStyle Lite Meter kit) As directed clotrimazole 1% 1 appl topical BID 4 weeks cyclobenzaprine 5 mg PO BEDTIME escitalopram oxalate (Lexapro) 20 mg PO DAILY fluticasone propionate 50 mcg/actuation (Flonase Allergy Relief) 2 sprays intranasal DAILY gabapentin 300 mg PO TID 90 days lancets (FreeStyle Lancets) As directed check BS QD lisinopril 5 mg PO DAILY 90 days metformin 1,000 mg PO BID 90 days metoprolol succinate ER 50 mg PO DAILY miconazole nitrate 2% (Zeasorb AF) 1 appl topical BID pantoprazole 40 mg PO DAILY PRN trazodone 100 mg PO BEDTIME PRN walker (Ultra-Light Rollator misc) As directed HPI HPI ED- Lytic bone lesions on xray: Details: 84-year-old gentleman presents to the office today for pain in the left shoulder. He states a sudden onset of left shoulder pain on 11/11/2024. He denies injury. He states the pain is constant and it limits his ability to perform daily activities. He states he has difficulty raising the arm and bringing it away from his body. He denies fever chills or night sweats. FORMERLY [facility] Medical History Otitis media Right hip pain Left ear pain Obstructive sleep apnea (adult) (pediatric) Medicare annual wellness visit, initial DVT (deep venous thrombosis) Injury of tendon of biceps Nausea Closed fracture of right proximal tibia Femoral distal fracture Obstructive sleep apnea Carpal tunnel syndrome Peripheral vascular disease History of pulmonary embolism Type 2 diabetes mellitus with hyperglycemia Hypertension Surgical History History of total right knee replacement Status post debridement Total knee replacement status Status post osteotomy History of femoropopliteal bypass History of repair of left rotator cuff Family History Father CVD (cardiovascular disease) Diabetes Hypertension Mother Diabetes Hypertension Brother Past heart attack Substance abuse Maternal Uncle Schizophrenia Paternal Uncle CVD (cardiovascular disease) Social History Household Members: Spouse Housing: House Are you a primary women's health care nurse practitioner to a significant other at home: No 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) Alcohol intake: never Patient Tobacco Use Status: Never used Tobacco Tobacco use type: Cigarette Years Smoked: smokes week occ e-Cigarette/Vaping Use: Never Used Second Hand Smoke Exposure: No Substance Use Type: Marijuana service: No Current occupational status: unemployed Cognitive needs: No Hearing needs: No Vision needs: No Review of Systems Const All systems reviewed & are unremarkable except as noted in HPI and below Physical Exam Vital Signs: BMI result Body Mass Index 36.4 Const General: cooperative and no acute distress Orientation/consciousness: patient oriented x3 Resp Effort & Inspection: normal respiratory effort and able to speak in complete sentences Cardio Peripheral pulses: Peripheral pulses 2+ throughout Neuro General: patient oriented x3 Extrem Other: Left shoulder is normal to inspection. He does have tenderness over the proximal humerus and also pain along the biceps region. Biceps tendon is intact. Forward flexion is 100 degrees external rotation to 50 degrees internal rotation to S1. Neurovascularly intact. Results Reviewed Results Reviewed: IMPRESSION: No acute fracture. Mixed lytic and sclerotic change of the proximal humerus. Further evaluation by MRI as indicated. Assessment & Plan Assessment & Plan (1) Left shoulder pain: Code(s): M25.512 - Pain in left shoulder Category: Medical (2) Lytic bone lesions on xray: Code(s): M89.8X9 - Other specified disorders of bone, unspecified site Category: Medical Plan At this time an MRI with her without contrast has been ordered of the left shoulder to further evaluate the lesion. I explained to the patient he should work on maintaining his range of motion and he can use [id number] Tylenol or anti-inflammatories as needed. He is on Eliquis so he needs to use caution with anti-inflammatories as this can cause a risk for bleeding. Once the scan is complete I will see him back to discuss the results. The patient states he is severely claustrophobic and needs to have an open MRI scanning machine. Coding Level of Care Code New Pt Level 3 (19954) Complex EM visit Add On G2211 Diagnoses Left shoulder pain M25.512 Lytic bone lesions on xray M89.8X9
[2024-11-27 10:04] VITALS: BMI 36.4
--- OUTSIDE RECORDS SUMMARY | 2024-11-27 10:31 | XMS_ITS | Clinical Summary ---
Author Organization [facility] Address [address] [place] [address] Care Team Providers Care Ux Specialist Name Role Phone Rebel Farah MD Primary Care Provider [phone] Surgical History Surgery Date Site/Laterality Comments OTHER SURGICAL HISTORY 1993 PROCEDURE: ---- OTHER ----; COMMENT: rt popliteal bypass after football injury KNEE ARTHROSCOPY 2003 PROCEDURE: [place] ARTHROSCOPY AID [place] SPINE&/FX KNEE W/O FIXJ; COMMENT: knee replacement at [facility] KNEE SURGERY 2005 PROCEDURE: HISTORICAL KNEE SURGERY; COMMENT: osteotomy Medical History Medical History Date Comments DVT (deep venous thrombosis) ([facility] V24, [facility] V28) 1993 DX:DVT (deep venous thrombos is) ([facility]); COMMENT: on coumadin for 20 yrs ago, f/u by Dr. Sheppard DM (diabetes mellitus) ([facility] V24, [facility] V28) 2011 DX:DM (diabetes mellitus) ( [facility]); COMMENT: managed by Dr. Sheppard JEANINE (obstructive sleep apnea) 2012 DX :JEANINE (obstructive sleep apnea); COMMENT: sleep study done at [facility], ordered by Dr. Sheppard Venous insufficiency DX:Venous [...] Contact Info) Description 01/10/2025 11:00 AM EDT Procedure visit [facility] [place] [address] [place] [id number] Benji David DO [address] [place] [address] Health Maintenance Due Date Last Done Comments [...] Td or Tdap) 05/02/2024 05/02/2014 Influenza Vaccine (#1) 2025 , 05/02/2014 HIB Vaccines Aged Out No longer eligi [...] Insurance MEDICARE MEDICAID - [place] Care Teams Ux Specialist Relationship Specialty Start Date End Date Rebel Farah MD [address] [place] [address] [address] [facility] [place] [address] PCP - General Internal Medicine 10/17/24
--- OUTSIDE RECORDS SUMMARY | 2024-11-27 10:31 | XMS_ITS | Clinical Summary ---
Author Organization [facility] Address [address] [place] [address] Care Team Providers Care Catalytic Converter Operator Name Role Phone Unavailable Primary Care Provider [...] of 2) 09/12/2021 Hypertension Screening (#1) 10/04/2023 Eze-WBVIZ-25 (3 - 2023- season) 2024 021, 09/20/2020 Imm-Pneumococcal 50+ (3 of 3 - PCV20 or PCV21) 03/22/2024 03/22/2019, 05/02/2014, 09/08/2011, Additional history exists Alcohol and Drug Screen 05/23/2024 Depression Annual Screen 05/23/2024 Imm-Influenza (Season Ended) 2025, 05/02/2014, 04/09/2013, Additional history exists Imm-DTaP/Tdap/Td (5 - Td or Tdap) 08/28/2031 08/27/2021, 06/23/2017, 05/02/2014, Additional history exists
== END 2024-11-27 10:44 | disposition home or self-care (01) ==
LOC: HO.HOS 09:52
PROVIDERS: PCP Internal Medicine; Visit Provider Physician Assistant
DX: M25.512 Pain in left shoulder (principal); M89.8X0 Other specified disorders of bone, multiple sites
CPT/HCPCS: 99203; G2211

== ENCOUNTER → 2024-11-27 09:51 | Outpatient (BNVA) | payer MEDICARE, MEDICAID, SELFPAY | PROVIDERS: PCP Internal Medicine; Visit Provider Physician Assistant | DX: M25.512 Pain in left shoulder (principal); M89.8X9 Other specified disorders of bone, unspecified site | CPT/HCPCS: 99202 ==

== ENCOUNTER 2025-01-15 10:09 | Outpatient (AMB) | payer MEDICARE, MEDICAID, SELFPAY ==
--- NOTE | 2025-01-15 10:17 | A.OFFPC_ITS ---
Vital Signs 01/15/25 10:19 Height 5 ft 11 in Weight 260 lb 2 oz BMI 36.3 BP 132/78 Blood Pressure Location Lt brachial Position Sitting Pulse 97 Pulse Source Pulse Oximeter Pulse Oximetry (%) 97 Oxygen Delivery Method Room Air Intake Visit Reasons: (L) shoulder pain radiating to fingers. 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 Accompanied by: Self / Same As Patient Allergies Penicillins (PENICILLINS) Allergy (Severe, Verified 01/15/25 10:18) hives Medication List - Last Reconciled 01/15/25 by Karyn Luciano PA-C apixaban (Eliquis) 5 mg PO BID 90 days aripiprazole 10 mg PO DAILY [AUTO PAP 6-20 cm H2o humidified air As directed] blood sugar diagnostic (FreeStyle Lite Strips) As directed check the BS QD blood-glucose meter (FreeStyle Lite Meter kit) As directed clotrimazole 1% 1 appl topical BID 4 weeks cyclobenzaprine 5 mg PO BEDTIME escitalopram oxalate (Lexapro) 20 mg PO DAILY fluticasone propionate 50 mcg/actuation (Flonase Allergy Relief) 2 sprays intranasal DAILY gabapentin 300 mg PO TID 90 days lancets (FreeStyle Lancets) As directed check BS QD lisinopril 5 mg PO DAILY 90 days metformin 1,000 mg PO BID 90 days metoprolol succinate ER 50 mg PO DAILY miconazole nitrate 2% (Zeasorb AF) 1 appl topical BID pantoprazole 40 mg PO DAILY PRN trazodone 100 mg PO BEDTIME PRN walker (Ultra-Light Rollator misc) As directed Tobacco use date assessed: 01/15/25 Dental Screening Dental Screen Date: 01/15/25 Did you have a dental visit in the last 12 months?: No Did you have a dental problem in the last 6 months where you did not have access to dental care?: No Was dental information given to patient?: No HPI (L) shoulder pain radiating to fingers. HPI Details 54-year-old male with past medical histo ry of diabetes mellitus, hypertension, history of pulmonary embolism, GERD, generalized anxiety disorder, obstructive sleep apnea last seen 10/2024 coming in For acute problem. Presenting with arm pain, numbness, and visual disturbances. Persistent arm pain radiating to the fingertips, with numbness and tingling, ongoing for approximately two and a half months. Pain is worse at night and limits range of motion.Numbness and tingling in the left hand, consistent throughout the day. No prior nerve conduction studies performed. Lytic bone lesion Noted on imaging, prompting further investigation with an MRI, which has not yet been completed. Episodes of transient vision loss, described as foggy vision or seeing a white light, lasting several minutes. Occurred three times, including once while driving. FORMERLY [facility] Medical History Otitis media Right hip pain Left ear pain Obstructive sleep apnea (adult) (pediatric) Medicare annual wellness visit, initial DVT (deep venous thrombosis) Injury of tendon of biceps Nausea Closed fracture of right proximal tibia Femoral distal fracture Obstructive sleep apnea Carpal tunnel syndrome Peripheral vascular disease History of pulmonary embolism Type 2 diabetes mellitus with hyperglycemia Hypertension Surgical History History of total right knee replacement Status post debridement Total knee replacement status Status post osteotomy History of femoropopliteal bypass History of repair of left rotator cuff Family History Father CVD (cardiovascular disease) Diabetes Hypertension Mother Diabetes Hypertension Brother Past heart attack Substance abuse Maternal Uncle Schizophrenia Paternal Uncle CVD (cardiovascular disease) Social History Household Members: Spouse Housing: House Are you a primary senior care provider to a significant other at home: No 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 1. Little interest or pleasure in doing things: nearly every day 2. Feeling down, depressed, or hopeless: nearly every day 3. Trouble falling or staying asleep, or sleeping too much: nearly every day 4. Feeling tired or having little energy: nearly every day 5. Poor appetite or overeating: more than half the days 6. Feeling bad about yourself - or that you are a failure or have let yourself or your family down: nearly every day 7. Trouble concentrating on things, such as reading the newspaper or watching t elevision: nearly every day 8. Moving or speaking so slowly that other people could have noticed. Or the opposite - being so fidgety or restless that you have been moving around a lot more than usual: more than half the days 9. Thoughts that you would be better off or of hurting yourself in some way: nearly every day Total score: 25 Depression Screening Interpretation: Positive Depression Screening Done: Yes Source: Developed by Drs. Leighton eWst, Comfort Harper, Aries Allan and colleagues, with an educational shane from [employer]. Thrive Questionnaire Date Thrive assessed: 08/31/24 I am a: Patient What is your living situation today?: I have a steady place to live Within the past 12 months, did the food you bought not last and you didn't have the money to get more?: Sometimes True Within the past 12 months, did you worry whether your food would run out before you got money to buy more?: Sometimes True Do you have trouble paying for medicines?: No Do you have trouble getting transportation to medical appointments?: No Do you have trouble paying your heating and electricity bill?: Yes Do you have trouble taking care of your child, family member or friend?: No Do you have trouble with day-to-day activities such as bathing, preparing meals, shopping, managing finances, etc.?: Yes Are you currently unemployed and looking for a job?: Yes Are you interested in more education?: Yes Currently or been in a relationship where the following occur: No concerns reported THRIVE Score: 3 AUDIT C Alcohol Use Questionnaire (AUDIT-C) 1. How often do you have a drink containing alcohol?: Never 3. How often do you have six or more drinks on one occasion?: Never Total Score: 0 CAM-7 AMB Questionnaire CAM-7 Date CAM - 7 assessed: 09/13/24 Feeling nervous, anxious, or on edge: 1 = Several days Not being able to stop or control worryin = Several days Worrying too much about different things: 1 = Several days Trouble relaxin = Several days Being so restless that it is hard to sit still: 1 = Several days Becoming easily annoyed or irritable: 1 = Several days Feeling afraid as if something awful might happen: 1 = Several days Total CAM-7 score (0-4 normal; 5-9 mild; 10-14 moderate; 15-21 severe): 7 Source: Developed by Drs. Leighton West, Comfort Harper, Aries Allan and colleagues, with an educational shane from [employer]. Review of Systems Const Denies body aches, Denies chills, Denies fever(s), Denies headache(s) and Denies poor appetite Eyes Reports no additional complaints ENT Reports Normal hearing present, Denies dizziness and Denies headache(s) Card Denies chest pain, Denies syncope, Denies irregular heart rhythm and Denies dyspnea Resp Denies dyspnea GI Denies nausea and Denies vomiting Reports no additional complaints Musc Reports no additional complaints and Denies abnormal gait Skin/Breast Reports system reviewed and no additional complaints, except as documented Neuro Reports Normal hearing present, Denies abnormal gait, Denies dizziness, Denies syncope and Denies headache(s) Psych Reports no additional complaints Physical exam (Primary Care) Vital Signs: Last Vital Signs Pulse 97 01/15/25 10:19 BP 132/78 01/15/25 10:19 Pulse Ox 97 01/15/25 10:19 Oxygen Delivery Method Room Air 01/15/25 10:19 BMI result Body Mass Index 36.3 Tobacco/Smoking Status: Tobacco use Status Tobacco use date assessed 01/15/25 01/15/25 10:19 Patient Tobacco Use Status Never used Tobacco 01/15/25 10:19 Tobacco use type Cigarette 01/15/25 10:19 e-Cigarette/Vaping Use Never Used 01/15/25 10:19 PHQ-9: PHQ-9 Score PHQ-9: Total score 01/15/25 11:44 Depression Screening Interpretation: Positive Thrive Assessment: Date of Thrive Assessment Date Thrive assessed 08/31/24 01/15/25 10:19 Currently or been in a relationship where the following occur: No concerns reported Const General: cooperative, healthy appearing, comfortable and no acute distress Orientation/consciousness: patient oriented x3 HENMT Head: Yes normocephalic Ears: hearing grossly normal bilaterally General nose exam: Normal external nose present Eyes General: appearance normal, both eyes and all related structures Conjunctivae: conjunctivae normal Pupils: Equal, round and reactive pupils present Neck Neck: Yes full ROM and Yes no lymphadenopathy Resp Effort & Inspection: normal respiratory effort Auscultation: clear to auscultation bilaterally, no crackles, no rales, no rhonchi and no wheezes Cardio Rate: regular rate Rhythm: regular rhythm Skin General skin exam: no rashes or lesions noted Neuro General: patient oriented x3 Cranial nerves: Yes CN's II-XII intact bilaterally, Yes Facial sensation intact/muscles of mastication intact, Yes Equal, round and reactive pupils present, Yes Normal accommodation reflex present, Yes Bilaterally intact EOM present, Yes Nystagmus not present, Yes Normal facial strength present, Yes Midline tongue present, Yes Normal hearing present, Yes Ability to bilaterally rotate head present and Yes Ability to bilaterally elevate shoulders present Gait exam (Neuro): Normal gait present Motor exam (neuro): 5/5 motor strength present throughout Extrem Other: No pain to palpation over left shoulder. Tenderness to palpation over left antecubital fossa without pain to palpation over medial or lateral aspect of the left elbow. Intact strength, sensation and pulses in bilateral upper extremities General: Yes normal to inspection, Yes full ROM and No edema Psych Affect: normal affect Attitude: cooperative Insight: Good insight present (Psych) Judgement: Good judgement present (Psych) Coding Level of Care Code Est Pt Level 4 (26325) Diagnoses Numbness and tingling in left hand R20.0; R20.2 Left elbow pain M25.522 Transient visual loss H53.129 Essential hypertension I10 Hypertension type: essential hypertension Left shoulder pain M25.512 Assessment & Plan Assessment & Plan (1) Numbness and tingling in left hand: Code(s): R20.0 - Anesthesia of skin; R20.2 - Paresthesia of skin Category: Medical Plan: A nerve conduction study is planned to evaluate the extent of carpal tunnel/cubital tunnel syndrome. The patient is advised to monitor symptoms and report any changes. (2) Left elbow pain: Code(s): M25.522 - Pain in left elbow Category: Medical Plan: The patient will undergo an x-ray of the elbow to assess for any additional issues. Management includes rest, physical therapy, and use of heating pads and Tylenol for pain relief. The patient is advised to avoid complete immobilization to prevent stiffness. Plan for Xr for further guidance of treatment. (3) Transient visual loss: Code(s): H53.129 - Transient visual loss, unspecified eye Category: Medical Plan: The patient is advised to undergo an MRI of the head to investigate the cause of visual disturbances. Immediate ER visit is recommended if symptoms recur before imaging is completed. Negative neuro exam today no neurological deficit noted (4) Hypertension: Code(s): I10 - Essential (primary) hypertension Category: Medical Qualifiers: Hypertension type: essential hypertension Qualified Code(s): I10 - Essential (primary) hypertension Plan: Continue on current blood pressure medication. Avoid salt intake and encourage healthy diet and regular exercise. (5) Left shoulder pain: Code(s): M25.512 - Pain in left shoulder Category: Medical Plan: The patient is advised to reschedule the MRI to further evaluate the lytic lesion. The lesion's nature and implications will be assessed following imaging results. Plan This note was constructed using voice recognition software. While every effort has been made to ensure accuracy and wool hanker, still areas may have been included sometimes these areas may affect the content or meeting of the given symptoms. Total time spent caring for the patient today was 30 minutes. This includes time spent before the visit reviewing the chart, time spent during the visit, and time spent after the visit and documentation. Patient was informed and verbally consented to the use of an ambient scribe for clinic note documentation during this visit. Orders: Orders NE nerve conduction velocity 01/15/25 R20.0 - Anesthesia of skin, R20.2 - Paresthesia of skin XR elbow LT 2V 01/15/25 M25.522 - Pain in left elbow MR head/brain wo con 01/15/25 H53.129 - Transient visual loss, unspecified eye NE electromyogram (EMG) 01/15/25 R20.0 - Anesthesia of skin, R20.2 - Paresthesia of skin Medications: New cyclobenzaprine 10 mg PO BEDTIME 30 tabs 0RF Refilled blood sugar diagnostic (FreeStyle Lite Strips) As directed check the BS QD 100 ea 3RF E11.65 - Type 2 diabetes mellitus with hyperglycemia lancets (FreeStyle Lancets) As directed check BS QD 100 ea 3RF E11.65 - Type 2 diabetes mellitus with hyperglycemia blood-glucose meter (FreeStyle Lite Meter kit) As directed 1 ea 0RF E11.65 - T ype 2 diabetes mellitus with hyperglycemia Discontinued cyclobenzaprine Discontinued Reason: Patient no longer taking 5 mg PO BEDTIME 20 tabs 0RF
[2025-01-15 10:19] VITALS: BP 132/78; PULSE 97; O2SAT 97; BMI 36.3
--- OUTSIDE RECORDS SUMMARY | 2025-01-15 10:55 | XMS_ITS | Clinical Summary ---
Author Organization [address] [place] [address] [place] [phone] Phone Care Team Providers Care Aerial Survey Technician Name Role Phone Rebel Farah MD Primary Care Provider [phone] Surgical History Surgery Date Site/Laterality Comments OTHER SURGICAL HISTORY 1993 PROCEDURE: ---- OTHER ----; COMMENT: rt popliteal bypass after football injury KNEE ARTHROSCOPY 2003 PROCEDURE: [place] [facility] [place] SPINE&/FX KNEE W/O FIXJ; COMMENT: knee replacement at [facility] KNEE SURGERY 2005 PROCEDURE: HISTORICAL KNEE SURGERY; COMMENT: osteotomy Medical History Medical History Date Comments DVT (deep venous thrombosis) ([facility], [facility] V28) 1993 DX:DVT (deep venous thrombos is) ([facility]); COMMENT: on coumadin for 20 yrs ago, f/u by Dr. Sheppard DM (diabetes mellitus) ([facility] V24, [facility] V28) 2011 DX:DM (diabetes mellitus) ([facility]); COMMENT: managed by Dr. Sheppard JEANINE (obstructive sleep apnea) 2012 DX :JEANINE (obstructive sleep apnea); COMMENT: sleep study done at [facility], ordered by Dr. Sheppard Venous insufficiency DX:Venous [...] on file Obstetrics History Plan of Treatment Health Maintenance Due Date [...] Panel) 05/05/2022 Colorectal Cancer Screening: Colonoscopy 05/05/2022 Diabetes: Annual Urine Albumin-Creatinine Ratio (uACR) 05/05/2022 Diabetes: Blood Sugar Contro l Test (HGBA1C) 05/05/2022 HIV Screening 05/05/2022 Hepatitis C Screening 05/05/2022 Medicare Annual Wellness Visit 05/05/2022 Social Influencers of Health Screening 05/05/2022 COVID-19 Vaccine (2 - 2023-2 5 season) 2024 09/20/2020 DTaP,Tdap,and Td Vaccines (2 - Td or Tdap) 05/02/2024 05/02/2014 Depression Screening 05/23/2024 Influenza Vaccine (#1) 2025 9, 05/02/2014 HIB Vaccines Aged Out No longer [...] Insurance MEDICARE MEDICAID - [place] Care Teams Aerial Survey Technician Relationship Specialty Start Date End Date Rebel Farah MD [address] [place] [address] [address] [facility] [place] [address] PCP - General Internal Medicine 10/17/24
--- OUTSIDE RECORDS SUMMARY | 2025-01-15 10:55 | XMS_ITS | Clinical Summary ---
Author Organization [facility] Address [address] [place] [address] Care Team Providers Care Hospice Director Name Role Phone Unavailable Primary Care Provider [...] of 2) 09/12/2021 Hypertension Screening (#1) 10/04/2023 [id number] (3 - 2023- season) 2024 021, 09/20/2020 Imm-Pneumococcal 50+ (3 of 3 - PCV20 or PCV21) 03/22/2024 03/22/2019, 05/02/2014, 09/08/2011, Additional history exists Alcohol and Drug Screen 05/23/2024 Depression Annual Screen 05/23/2024 Imm-Influenza (#1) 2025 03/22/2019, 1 07/03/2013, 04/09/2013, Additional history exists Imm-DTaP/Tdap/Td (5 - Td or Tdap) 08/28/2031 08/27/2021, 06/23/2017, 05/02/2014, Additional history exists
== END 2025-01-15 11:17 | disposition home or self-care (01) ==
LOC: HO.HMCH 10:10
PROVIDERS: PCP Internal Medicine
DX: R20.0 Anesthesia of skin (principal); R20.2 Paresthesia of skin; M25.522 Pain in left elbow; H53.129 Transient visual loss, unspecified eye; I10 Essential (primary) hypertension; M25.512 Pain in left shoulder

== ENCOUNTER → 2025-01-15 10:09 | Outpatient (BNVA) | payer MEDICARE, MEDICAID, SELFPAY | PROVIDERS: PCP Internal Medicine | DX: R20.0 Anesthesia of skin (principal); R20.2 Paresthesia of skin; M25.522 Pain in left elbow; I10 Essential (primary) hypertension; M25.512 Pain in left shoulder | CPT/HCPCS: 99212 ==

== ENCOUNTER 2025-01-17 13:47 | Outpatient (AMB) | payer MEDICARE, MEDICAID, SELFPAY ==
--- NOTE | 2025-01-17 13:49 | MHC.OFFVIS ---
Vital Signs 01/17/25 13:50 Height 5 ft 11 in Weight 257 lb 15.053 oz BMI 36.0 BP 118/60 Blood Pressure Location Lt brachial Position Sitting Pulse 110 H Pulse Source Pulse Oximeter Intake Visit Reasons: f/u after CTA Pt want to be seen by HS only Allergies Penicillins (PENICILLINS) Allergy (Severe, Verified 01/15/25 10:18) hives Medication List - Last Reconciled 01/17/25 by Gómez Curran MD apixaban (Eliquis) 5 mg PO BID 90 days aripiprazole 10 mg PO DAILY [AUTO PAP 6-20 cm H2o humidified air As directed] blood sugar diagnostic (FreeStyle Lite Strips) As directed check the BS QD blood-glucose meter (FreeStyle Lite Meter kit) As directed clotrimazole 1% 1 appl topical BID 4 weeks cyclobenzaprine 10 mg PO BEDTIME escitalopram oxalate (Lexapro) 20 mg PO DAILY fluticasone propionate 50 mcg/actuation (Flonase Allergy Relief) 2 sprays intranasal DAILY gabapentin 300 mg PO TID 90 days lancets (FreeStyle Lancets) As directed check BS QD lisinopril 5 mg PO DAILY 90 days metformin 1,000 mg PO BID 90 days metoprolol succinate ER 50 mg PO DAILY miconazole nitrate 2% (Zeasorb AF) 1 appl topical BID trazodone 100 mg PO BEDTIME PRN walker (Ultra-Light Rollator misc) As directed HPI Comments Details: Genaro returns for follow-up. Recently seen in consultation regarding shortness of breath. He does not have any known cardiac issues including coronary disease or myocardial infarction or cardiomyopathy or in fact any other cardiac concerns. 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 After that, it seems he had fem-pop bypass done. Then it seems he has had DVT/PE issues and is on long-term anticoagulation. He states he gets shortness of breath with any form of physical activity. Random chest pains that can happen any time including at nighttime. He has obstructive sleep apnea but does not use CPAP machine. Also listed to have diabetes and hypertension. He has completed an echocardiogram and coronary CTA. Overall, he is still feels the same. Getting short of breath with activity. There was also apparently an episode of transient visual loss. [facility] Medical History Otitis media Right hip pain Left ear pain Obstructive sleep apnea (adult) (pediatric) Medicare annual wellness visit, initial DVT (deep venous thrombosis) Injury of tendon of biceps Nausea Closed fracture of right proximal tibia Femoral distal fracture Obstructive sleep apnea Carpal tunnel syndrome Peripheral vascular disease History of pulmonary embolism Type 2 diabetes mellitus with hyperglycemia Hypertension Surgical History History of total right knee replacement Status post debridement Total knee replacement status Status post osteotomy History of femoropopliteal bypass History of repair of left rotator cuff Family History Father CVD (cardiovascular disease) Diabetes Hypertension Mother Diabetes Hypertension Brother Past heart attack Substance abuse Maternal Uncle Schizophrenia Paternal Uncle CVD (cardiovascular disease) Social History Household Members: Spouse Housing: House Are you a primary complex care nurse practitioner to a significant other at home: No Do you presently have visiting nurse or other home services: Yes ([employer]) Alcohol intake: never Patient Tobacco Use Status: Never used Tobacco Tobacco use type: Cigarette Years Smoked: smokes week occ e-Cigarette/Vaping Use: Never Used Second Hand Smoke Exposure: No Substance Use Type: Marijuana service: No Current occupational status: unemployed Cognitive needs: No Hearing needs: No Vision needs: No Review of Systems Const Denies weakness ENT Denies dizziness Card Denies chest pain, Denies chest pain with activity, Denies syncope, Denies rapid heart rate, Denies pedal edema, Denies edema, Denies leg edema, Denies lightheadedness, Denies palpitations, Denies dyspnea, Denies dyspnea on exertion and Denies orthopnea Resp Denies cough, Denies dyspnea and Denies dyspnea on exertion GI Denies hematochezia and Denies change in stool character Musc Denies abnormal gait, Denies muscle cramps, Denies muscle weakness, Denies numbness, Denies radiating pain into limb and Denies tingling Neuro Denies abnormal gait, Denies dizziness, Denies syncope, Denies numbness, Denies tingling and Denies weakness Endo Denies palpitations Physical Exam Vital Signs: Last Vital Signs Pulse 110 H 0828/25 13:50 BP 118/60 01/17/25 13:50 BMI result Body Mass Index 36.0 Const General: comfortable and no acute distress Orientation/consciousness: patient oriented x3 HEENT Other: Unremarkable Head: Yes normal to inspection Neck Neck: Yes normal visual inspection Chest Chest palpation & inspection: normal inspection of the chest Resp Auscultation: clear to auscultation bilaterally Cardio Palpation: normal PMI Heart sounds: S1 normal heart sound present, S2 normal heart sound present, no gallops, no murmurs and no rubs GI Palpation (GI): Soft to palpation Back/Spine/Pelvis Other: unremarkable Skin General skin exam: no rashes or lesions noted Neuro General: patient oriented x3 Extrem General: Yes normal to inspection Psych Mental Status: mental status grossly normal Assessment & Plan Assessment & Plan (1) SOB (shortness of breath): Code(s): R06.02 - Shortness of breath Category: Medical (2) Atherosclerotic cardiovascular disease: Code(s): I25.10 - Atherosclerotic heart disease of [place] coronary artery without angina pectoris Category: Medical (3) Morbid obesity: Code(s): E66.01 - Morbid (severe) obesity due to excess calories Category: Medical Plan Cardiac studies reviewed. Echocardiogram with LVEF of 55-60%; mild diastolic dysfunction with normal filling pressures; no significant valvular findings. Coronary CTA-mild coronary disease without any obstructive lesions. Overall, no clear cardiac etiology to explain his shortness of breath. Unclear if it is related to just gradually deconditioning as he states it has been going on for many years. With regard to the question of visual loss, it seems that he is scheduled for an MRI through his own PCP. We can do a carotid Doppler. Otherwise, with regard to the mild coronary disease, consider statins. Follow-up lipids in due course through his own PCP. Follow up in one year. Interim, they will call with any concerns or questions. Discussion Notes During the consultation, we discussed the patient's minimal coronary artery plaque, which is not currently symptomatic, and the recommendation to start statin therapy to prevent progression. We also addressed the patient's claustrophobia, which impacts his ability to undergo certain tests and use CPAP therapy for sleep apnea. The patient was informed about the transient vision loss episode, and a carotid ultrasound was ordered to investigate further. We discussed the patient's peripheral vascular disease and its impact on mobility, as well as the history of pulmonary embolism contributing to his long-standing shortness of breath. The importance of weight management was emphasized, given the patient's history of obesity and significant weight loss. Patient was informed and verbally consented to the use of an ambient scribe for clinic note documentation during this visit. Orders: Orders US carotid duplex BI Today H53.129 - Transient visual loss, unspecified eye, I65.23 - Occlusion and stenosis of bilateral carotid arteries Referrals Pulmonology Referral R06.02 - Shortness of breath Medications: New atorvastatin (Lipitor) 20 mg PO QPM 90 tabs 1RF Patient Instructions: - Start taking prescribed statin medication to manage coronary artery plaque. - Follow up with a sleep specialist to explore alternatives for managing sleep apnea. - Attend scheduled carotid ultrasound to investigate causes of vision loss. - Continue weight management efforts to improve overall health. Coding Level of Care Code Est Pt Level 4 (87728) Complex EM visit Add On G2211 Diagnoses SOB (shortness of breath) R06.02 Atherosclerotic cardiovascular disease I25.10 Morbid obesity E66.01
[2025-01-17 13:50] VITALS: BP 118/60; PULSE 110; BMI 36.0
--- OUTSIDE RECORDS SUMMARY | 2025-01-17 14:32 | XMS_ITS | Encounter Summary ---
Author Organization [facility] Address [address] [place] [address] Care Team Providers Care Purchasing And Claims Supervisor Name Role Phone Michele Castillo MD Primary Care Provider Unavail able Eleonora Breen MD Primary Care Provider Unava ilable Michele Castillo MD Primary Care Provider Unavail able Alea Do MD Primary Care Provider Unava ilable [facility], Pcp Primary Care Provider Unavailabl e Michele Castillo MD Unavailable Unavailable Alea Do MD Unavailable Unavailable Rebel Farah MD Primary Care Provider Unavailabl e Encounter Details Date Type Department Care Team Description 01/15/2014 Release of Information Medical Records [address] [place] [id number] Abstract, Provider Social History Tobacco Use Types [...] on filedocumented in this encounter Care Teams Purchasing And Claims Supervisor Relationship Specialty Start Date End Date Michele Castillo MD PCP - General Internal Medicine 07/30/13 04/10/14 Eleonora Breen MD PCP - General Internal Medicine 04/11/14 04/14/14 Michele Castillo MD PCP - General Internal Medicine 04/15/14 07/20/15 Alea Do MD PCP - General 07/21/15 03/26/18 [facility], [facility] PCP - General Internal Medicine 03/27/18 08/21/23 Rebel Farah MD PCP - General Internal Medicine 08/22/23 Michele Castillo MD Internal Medicine 07/21/15 03/26/18 Alea Do MD 03/27/18 documented as of this encounter
--- OUTSIDE RECORDS SUMMARY | 2025-01-17 14:32 | XMS_ITS | Encounter Summary ---
Author Organization [facility] Address [address] [place] [address] Care Team Providers Care Chemical Laboratory Technician Name Role Phone Michele Castillo MD Primary Care Provider Unavail able Alea Do MD Primary Care Provider Unava [facility], Pcp Primary Care Provider Unavailabl e Michele Castillo MD Unavailable Unavailable Alea Do MD Unavailable Unavailable Rebel Farah MD Primary Care Provider Unavailabl e Reason for Visit * Reason Onset Date Comments Apple Picking Supervisor Feedback 08/08/2014 [facility] Encounter Details Date Type Department Care Team Description 08/08/2014 Telephone Medicine/Pediatrics - [address] [phone] Michele Castillo MD Apple Picking Supervisor Feedback ([facility]) Social History Tobacco Use Types [...] EDT Labs 07/19/14 and order faxed to [phone]. [facility] mailed for sensitive info. * Telephone Encounter - Gladys Martiniayesha - 08/08/2014 10:27 AM EDT You have successfully submitted the Referral for FLORY CUETO . The following Referral Authorization Number should be retained in your records. Referral Authorization # [id number] Number of Visits 6 If you require assistance or support related to this submission, please contact Customer Support [phone]. 08/08/14-08/09/15 Letter with appointment information mailed to patient. Diagnosis: bariatric surgery Fax to [phone]. Notes and Order documented in this encounter Plan of Treatment Not on file documented as of this encounter Visit Diagnoses Not on filedocumented in this encounter Care Teams Chemical Laboratory Technician Relationship Specialty Start Date End Date Michele Castillo MD PCP - General Internal Medicine 04/15/14 07/20/15 Alea Do MD PCP - General 07/21/15 03/26/18 [facility] PCP - General Internal Medicine 03/27/18 08/21/23 Rebel Farah MD PCP - General Internal Medicine 08/22/23 Michele Castillo MD Internal Medicine 07/21/15 03/26/18 Alea Do MD 03/27/18 documented as of this encounter
--- OUTSIDE RECORDS SUMMARY | 2025-01-17 14:32 | XMS_ITS | Encounter Summary ---
Author Organization [facility] Address [address] [place] [address] Care Team Providers Care Quality Control Engineer Name Role Phone Michele Castillo MD Primary Care Provider Unavail able Alea Do MD [facility] Primary Care Provider Unavailabl e Michele Castillo MD Unavailable Unavailable Alea Do MD Unavailable Unavailable Rebel Farah MD Primary Care Provider Unavailabl e Reason for Visit * Reason Onset Date Comments Form 08/07/2014 [facility] Collette lagosrodriguez Encounter Details Date Type Department Care Team Description 08/07/2014 Telephone Medicine/Pediatrics - [address] [phone] Michele Castillo MD Form ([facility]) Social History Tobacco Use Types Packs/Day Years Used Date Smoking Tobacco: Never Comments:pt uses marijuana d aily Alcohol Use Standard Drinks/Week Comments Yes 0 (1 standard drink = 0.6 oz pur e alcohol) four times a year Sex Assigned at Date Recorded Not on file documented as of this encounter Miscellaneous Notes * Telephone Encounter - Michelle Serrano M.A. - 08/07/2014 2:05 PM EDT Form put on Dr Castillo's desk * Telephone Encounter - Maggie Cutler - 08/07/2014 1:47 PM EDT Form from [facility] for section 5A to be filled out. When completed please fax to [phone]. Thank you documented in this encounter Plan of Treatment Not on file documented as of this encounter Visit Diagnoses Not on filedocumented in this encounter Care Teams Quality Control Engineer Relationship Specialty Start Date End Date Michele Castillo MD PCP - General Internal Medicine 04/15/14 07/20/15 Alea Do MD PCP - General 07/21/15 03/26/18 [facility] PCP - General Internal Medicine 03/27/18 08/21/23 Rebel Farah MD PCP - General Internal Medicine 08/22/23 Michele Castillo MD Internal Medicine 07/21/15 03/26/18 Alea Do MD 03/27/18 documented as of this encounter
--- OUTSIDE RECORDS SUMMARY | 2025-01-17 14:32 | XMS_ITS | Encounter Summary ---
Author Organization [facility] Address [address] [place] [address] Care Team Providers Care Program Coordinator Name Role Phone Michele Castillo MD Primary Care Provider Unavail able Eleonora Breen MD Primary Care Provider Unava ilable Michele Castillo MD Primary Care Provider Unavail able Alea Do MD Primary Care Provider Unava ilable [facility], Pcp Primary Care Provider Unavailabl e Michele Castillo MD Unavailable Unavailable Alea Do MD Unavailable Unavailable Rebel Farah MD Primary Care Provider Unavailabl e Encounter Details Date Type Department Care Team Description 08/24/2013 Syrup Shed Supervisor Report Medical Records [address] [place] [address] Iman Moran Social History Tobacco Use Types Packs/Day Years [...] on filedocumented in this encounter Care Teams Program Coordinator Relationship Specialty Start Date End Date Michele Castillo MD PCP - General Internal Medicine 07/30/13 04/10/14 Eleonora Breen MD PCP - General Internal Medicine 04/11/14 04/14/14 Michele Castillo MD PCP - General Internal Medicine 04/15/14 07/20/15 Alea Do MD PCP - General 07/21/15 03/26/18 [facility], Pcp PCP - General Internal Medicine 03/27/18 08/21/23 Rebel Farah MD PCP - General Internal Medicine 08/22/23 Michele Castillo MD Internal Medicine 07/21/15 03/26/18 Alea Do MD 03/27/18 documented as of this encounter
--- OUTSIDE RECORDS SUMMARY | 2025-01-17 14:32 | XMS_ITS | Encounter Summary ---
Author Organization [facility] Address [address] [place] [address] Care Team Providers Care Mail Handler Equipment Operator Name Role Phone Michele Castillo MD Primary Care Provider Unavail able Eleonora Breen MD Primary Care Provider Unava ilable Michele Castillo MD Primary Care Provider Unavail able Alea Do MD Primary Care Provider Unava ilable [facility], Pcp Primary Care Provider Unavailabl e Michele Castillo MD Unavailable Unavailable Alea Do MD Unavailable Unavailable Rebel Farah MD Primary Care Provider Unavailabl e Encounter Details Date Type Department Care Team Description 11/21/2013 Home Health Certification Medical Records [address] [place] [address] Social History Tobacco Use Types Packs/Day Years [...] on filedocumented in this encounter Care Teams Mail Handler Equipment Operator Relationship Specialty Start Date End Date Michele Castillo MD PCP - General Internal Medicine 07/30/13 04/10/14 Eleonora Breen MD PCP - General Internal Medicine 04/11/14 04/14/14 Michele Castillo MD PCP - General Internal Medicine 04/15/14 07/20/15 Alea Do MD PCP - General 07/21/15 03/26/18 [facility], Pcp PCP - General Internal Medicine 03/27/18 08/21/23 Rebel Farah MD PCP - General Internal Medicine 08/22/23 Michele Castillo MD Internal Medicine 07/21/15 03/26/18 Alea Do MD 03/27/18 documented as of this encounter
--- OUTSIDE RECORDS SUMMARY | 2025-01-17 14:32 | XMS_ITS | Encounter Summary ---
Author Organization [facility] Address [address] [place] [address] Care Team Providers Care Inventory Control Supervisor Name Role Phone Michele Castillo MD Primary Care Provider Unavail able Eleonora Breen MD Primary Care Provider Unava ilable Michele Castillo MD Primary Care Provider Unavail able Alea Do MD Primary Care Provider Unava ilable [facility], Pcp Primary Care Provider Unavailabl e Michele Castillo MD Unavailable Unavailable Alea Do MD Unavailable Unavailable Rebel Farah MD Primary Care Provider Unavailabl e Encounter Details Date Type Department Care Team Description 08/02/2013 Home Health Certification Medical Records [address] [place] [address] Social History Tobacco Use Types Packs/Day Years [...] on filedocumented in this encounter Care Teams Inventory Control Supervisor Relationship Specialty Start Date End Date Michele Castillo MD PCP - General Internal Medicine 07/30/13 04/10/14 Eleonora Breen MD PCP - General Internal Medicine 04/11/14 04/14/14 Michele Castillo MD PCP - General Internal Medicine 04/15/14 07/20/15 Alea Do MD PCP - General 07/21/15 03/26/18 [facility], Pcp PCP - General Internal Medicine 03/27/18 08/21/23 Rebel Farah MD PCP - General Internal Medicine 08/22/23 Michele Castillo MD Internal Medicine 07/21/15 03/26/18 Alea Do MD 03/27/18 documented as of this encounter
--- OUTSIDE RECORDS SUMMARY | 2025-01-17 14:32 | XMS_ITS | Clinical Summary ---
Author Organization [address] [place] [address] [place] [phone] Phone Care Team Providers Care Publication Director Name Role Phone Rebel Farah MD Primary Care Provider [phone] Surgical History Surgery Date Site/Laterality Comments OTHER SURGICAL HISTORY 1993 PROCEDURE: ---- OTHER ----; COMMENT: rt popliteal bypass after football injury KNEE ARTHROSCOPY 2003 PROCEDURE: [place] ARTHROSCOPY [place]ID [place] SPINE&/FX KNEE W/O FIXJ; COMMENT: knee replacement at [facility] KNEE SURGERY 2005 PROCEDURE: HISTORICAL KNEE SURGERY; COMMENT: osteotomy Medical History Medical History Date Comments DVT (deep venous thrombosis) ([facility] V24, [facility] V28) 1993 DX:DVT (deep venous thrombos is) ([facility]); COMMENT: on coumadin for 20 yrs ago, f/u by Dr. Sheppard DM (diabetes mellitus) ([facility] V24, [facility] V28) 2011 DX:DM (diabetes mellitus) ([facility]); COMMENT: managed by Dr. Sheppard JEANINE (obstructive sleep apnea) 2012 DX :JEANINE (obstructive sleep apnea); COMMENT: sleep study done at [facility], ordered by Dr. Sheppard Venous insufficiency DX:Venous [...] Insurance MEDICARE MEDICAID - [place] Care Teams Publication Director Relationship Specialty Start Date End Date Rebel Farah MD [address] [place] [address] [address] [facility] [place] [address] PCP - General Internal Medicine 10/17/24
--- OUTSIDE RECORDS SUMMARY | 2025-01-17 14:32 | XMS_ITS | Encounter Summary ---
Author Organization [facility] Address [address] [place] [address] Care Team Providers Care Log Loader Name Role Phone Michele Castillo MD Primary Care Provider Unavail able Alea Do MD Primary Care Provider Tereva nalini [facility], Pcp Primary Care Provider Unavailabl e Michele Castillo MD Unavailable Unavailable Alea Do MD Unavailable Unavailable Rebel Farah MD Primary Care Provider Unavailabl e Encounter Details Date Type Department Care Team Description 05/28/2014 Home Health Certification Medical Records [address] [place] [address] Social History Tobacco Use Types Packs/Day Years [...] on filedocumented in this encounter Care Teams Log Loader Relationship Specialty Start Date End Date Michele Castillo MD PCP - General Internal Medicine 04/15/14 07/20/15 Alea Do MD PCP - General 07/21/15 03/26/18 [facility], Pcp PCP - General Internal Medicine 03/27/18 08/21/23 Rebel Farah MD PCP - General Internal Medicine 08/22/23 Michele Castillo MD Internal Medicine 07/21/15 03/26/18 Alea Do MD 03/27/18 documented as of this encounter
--- OUTSIDE RECORDS SUMMARY | 2025-01-17 14:32 | XMS_ITS | Clinical Summary ---
Author Organization [facility] Address [address] [place] [address] Care Team Providers Care Windows Application Packager Name Role Phone Unavailable Primary Care Provider [...] of 2) 09/12/2021 Hypertension Screening (#1) 10/04/2023 Oon-FPZGX-24 (3 - 2023- season) 2024 021, 09/20/2020 Imm-Pneumococcal 50+ (3 of 3 - PCV20 or PCV21) 03/22/2024 03/22/2019, 05/02/2014, 09/08/2011, Additional history exists Alcohol and Drug Screen 05/23/2024 Depression Annual Screen 05/23/2024 Imm-Influenza (#1) 2025 03/22/2019, 1 07/03/2013, 04/09/2013, Additional history exists Imm-DTaP/Tdap/Td (5 - Td or Tdap) 08/28/2031 08/27/2021, 06/23/2017, 05/02/2014, Additional history exists
--- OUTSIDE RECORDS SUMMARY | 2025-01-17 14:32 | XMS_ITS | Encounter Summary ---
Author Organization [facility] Address [address] [place] [address] Care Team Providers Care Colored Leather Setter Name Role Phone Michele Castillo MD Primary Care Provider Unavail able Alea Do MD Primary Care Provider Tereva nalini [facility], Pcp Primary Care Provider Unavailabl e Michele Castillo MD Unavailable Unavailable Alea Do MD Unavailable Unavailable Rebel Farah MD Primary Care Provider Unavailabl e Encounter Details Date Type Department Care Team Description 11/29/2014 Home Health Certification Medical Records [address] [place] [address] Social History Tobacco Use Types Packs/Day Years [...] on filedocumented in this encounter Care Teams Colored Leather Setter Relationship Specialty Start Date End Date Michele Castillo MD PCP - General Internal Medicine 04/15/14 07/20/15 Alea Do MD PCP - General 07/21/15 03/26/18 [facility], Pcp PCP - General Internal Medicine 03/27/18 08/21/23 Rebel Farah MD PCP - General Internal Medicine 08/22/23 Michele Castillo MD Internal Medicine 07/21/15 03/26/18 Alea Do MD 03/27/18 documented as of this encounter
--- OUTSIDE RECORDS SUMMARY | 2025-01-17 14:32 | XMS_ITS | Encounter Summary ---
Author Organization [facility] Address [address] [place] [address] Care Team Providers Care Oyster Worker Name Role Phone Alea Do MD Primary Care Provider Abhijeet Roach, Pcp Primary Care Provider Unavailabl e Michele Castillo MD Unavailable Unavailable Alea Do MD Unavailable Unavailable Rebel Farah MD Primary Care Provider Unavailabl e Encounter Details Date Type Department Care Team Description 03/10/2018 Release of Information Medical Records [address] [place] [id number] Abstract, Provider Social History Tobacco Use Types [...] on filedocumented in this encounter Care Teams Oyster Worker Relationship Specialty Start Date End Date Alea Do MD PCP - General 07/21/15 03/26/18 Doc, Pcp PCP - General Internal Medicine 03/27/18 08/21/23 Rebel Farah MD PCP - General Internal Medicine 08/22/23 Michele Castillo MD Internal Medicine 07/21/15 03/26/18 Alea Do MD 03/27/18 documented as of this encounter
== END 2025-01-17 14:12 | disposition home or self-care (01) ==
LOC: HO.HCS 13:48
PROVIDERS: PCP Internal Medicine; Visit Provider Internal Medicine
DX: R06.02 Shortness of breath (principal); I25.10 Atherosclerotic heart disease of native coronary artery without angina pectoris; E66.01 Morbid (severe) obesity due to excess calories
CPT/HCPCS: 99214; G2211

== ENCOUNTER → 2025-01-17 13:47 | Outpatient (BNVA) | payer MEDICARE, MEDICAID, SELFPAY | PROVIDERS: PCP Internal Medicine; Visit Provider Internal Medicine | DX: I25.10 Atherosclerotic heart disease of native coronary artery without angina pectoris (principal); R06.02 Shortness of breath; E66.01 Morbid (severe) obesity due to excess calories; Z68.36 Body mass index [BMI] 36.0-36.9, adult | CPT/HCPCS: 99212 ==

== ENCOUNTER 2025-01-29 10:22 | Outpatient (REF) | payer MEDICARE, MEDICAID, SELFPAY ==
--- NOTE | 2025-01-29 10:25 | EMG_ITS ---
Chief complaint: Left hand numbness and tingling Referred by: Mc Tenorio Procedure done: Nerve conduction study and EMG was performed on the left upper extremity. Left median and ulnar motor and sensory studies were performed left radial and median and lateral antecubital brachial sensory studies were performed an EMG needle examination was performed. Impression: 1. [id number] left median neuropathy across carpal tunnel 2. Mild left ulnar neuropathy across cubital tunnel MTDD
--- OUTSIDE RECORDS SUMMARY | 2025-01-29 12:10 | XMS_ITS | Clinical Summary ---
Author Organization [address] [place] [address] [place] [id number] Phone Care Team Providers Care Welder Gas Name Role Phone Rebel Farah MD Primary Care Provider [phone] Surgical History Surgery Date Site/Laterality Comments OTHER SURGICAL HISTORY 1993 PROCEDURE: ---- OTHER ----; COMMENT: rt popliteal bypass after football injury KNEE ARTHROSCOPY 2003 PROCEDURE: OR ARTHROSCOPY AID [place] SPINE&/FX KNEE W/O FIXJ; COMMENT: knee replacement at [facility] KNEE SURGERY 2005 PROCEDURE: HISTORICAL KNEE SURGERY; COMMENT: osteotomy Medical History Medical History Date Comments DVT (deep venous thrombosis) ([facility] V24, [facility] V28) 1993 DX:DVT (deep venous thrombos is) ([facility]); COMMENT: on coumadin for 20 yrs ago, f/u by Dr. Sheppard DM (diabetes mellitus) ([facility] V24, [facility] V28) 2011 DX:DM (diabetes mellitus) ([facility]); COMMENT: managed by Dr. Sheppard JEANINE (obstructive sleep apnea) 2012 DX :JEANINE (obstructive sleep apnea); COMMENT: sleep study done at [facility], ordered by Dr. Sheppard Venous insufficiency DX:Venous [...] 05/05/2022 Social Influencers of Health Screening 05/05/2022 DTaP,Tdap,and Td Vaccines (2 - Td or Tdap) 05/02/2024 05/02/2014 Depression Screening 05/23/2024 COVID-19 Vaccine (2 - 2024-2 6 season) 2025 09/20/2020 Influenza Vaccine (#1) 2025 9, 05/02/2014 HIB [...] Insurance MEDICARE MEDICAID - [place] Care Teams Welder Gas Relationship Specialty Start Date End Date Rebel Farah MD [address] [place] [address] [address] [facility] [place] [address] PCP - General Internal Medicine 10/17/24
--- OUTSIDE RECORDS SUMMARY | 2025-01-29 12:10 | XMS_ITS | Clinical Summary ---
Author Organization [facility] Address [address] [place] [address] Care Team Providers Care Clerical Car Checker Name Role Phone Unavailable Primary Care Provider [...] of 2) 09/12/2021 Hypertension Screening (#1) 10/04/2023 Imm-Pneumococcal 50+ (3 of 3 - PCV20 or PCV21) 03/22/2024 03/22/2019, 05/02/2014, 09/08/2011, Additional history exists Alcohol and Drug Screen 05/23/2024 Depression Annual Screen 05/23/2024 Kio-NMDIT-56 (3 - season) 2025 021, 09/20/2020 Imm-Influenza (#1) 2025 03/22/2019, 1 07/03/2013, 04/09/2013, Additional history exists Imm-DTaP/Tdap/Td (5 - Td or Tdap) 08/28/2031 08/27/2021, 06/23/2017, 05/02/2014, Additional history exists
== END 2025-01-29 10:23 | disposition home or self-care (01) ==
LOC: HO.NEURO 10:22
DX: R20.0 Anesthesia of skin (principal); R20.2 Paresthesia of skin
CPT/HCPCS: 95886; 95910

== ENCOUNTER → 2025-01-29 10:25 | Outpatient (BNV) | payer MEDICARE, MEDICAID, SELFPAY | PROVIDERS: Visit Provider Psychiatry & Neurology Neurology | DX: G56.02 Carpal tunnel syndrome, left upper limb (principal) | CPT/HCPCS: 95886; 95910 ==

== ENCOUNTER 2025-02-21 09:57 | Outpatient (AMB) | payer MEDICARE, MEDICAID, SELFPAY ==
--- NOTE | 2025-02-21 10:00 | A.OFFPC_ITS ---
Vital Signs 02/21/25 10:01 Height 5 ft 11 in Weight 265 lb 8 oz BMI 37.0 BP 122/82 Blood Pressure Location Lt brachial Position Sitting Pulse 84 Pulse Source Pulse Oximeter Temp 97.1 F Temp Source Temporal Artery Scan Pulse Oximetry (%) 96 Oxygen Delivery Method Room Air Intake Visit Reasons: DM Allergies Penicillins (PENICILLINS) Allergy (Severe, Verified 02/21/25 10:05) hives Tobacco use date assessed: 02/21/25 Dental Screening Dental Screen Date: 02/21/25 Did you have a dental visit in the last 12 months?: No Did you have a dental problem in the last 6 months where you did not have access to dental care?: No Was dental information given to patient?: Patient has dentist [facility] Medical History Otitis media Right hip pain Left ear pain Obstructive sleep apnea (adult) (pediatric) Medicare annual wellness visit, initial DVT (deep venous thrombosis) Injury of tendon of biceps Nausea Closed fracture of right proximal tibia Femoral distal fracture Obstructive sleep apnea Carpal tunnel syndrome Peripheral vascular disease History of pulmonary embolism Type 2 diabetes mellitus with hyperglycemia Hypertension Surgical History History of total right knee replacement Status post debridement Total knee replacement status Status post osteotomy History of femoropopliteal bypass History of repair of left rotator cuff Family History Father CVD (cardiovascular disease) Diabetes Hypertension Mother Diabetes Hypertension Brother Past heart attack Substance abuse Maternal Uncle Schizophrenia Paternal Uncle CVD (cardiovascular disease) Social History Household Members: Spouse Housing: House Are you a primary morning caregiver to a significant other at home: No Do you presently have visiting nurse or 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 1. Little interest or pleasure in doing things: nearly every day 2. Feeling down, depressed, or hopeless: nearly every day 3. Trouble falling or staying asleep, or sleeping too much: nearly every day 4. Feeling tired or having little energy: nearly every day 5. Poor appetite or overeating: more than half the days 6. Feeling bad about yourself - or that you are a failure or have let yourself or your family down: nearly every day 7. Trouble concentrating on things, such as reading the newspaper or watching television: nearly every day 8. Moving or speaking so slowly that other people could have noticed. Or the opposite - being so fidgety or restless that you have been moving around a lot more than usual: more than half the days 9. Thoughts that you would be better off or of hurting yourself in some way: nearly every day Total score: 25 Depression Screening Interpretation: Positive Depression Screening Done: Yes Source: Developed by Drs. Leighton West, Comfort Harper, Aries Allan and colleagues, with an educational shane from [employer]. Thrive Questionnaire Date Thrive assessed: 08/31/24 I am a: Patient What is your living situation today?: I have a steady place to live Within the past 12 months, did the food you bought not last and you didn't have the money to get more?: Sometimes True Within the past 12 months, did you worry whether your food would run out before you got money to buy more?: Sometimes True Do you have trouble paying for medicines?: No Do you have trouble getting transportation to medical appointments?: No Do you have trouble paying your heating and electricity bill?: Yes Do you have trouble taking care of your child, family member or friend?: No Do you have trouble with day-to-day activities such as bathing, preparing meals, shopping, managing finances, etc.?: Yes Are you currently unemployed and looking for a job?: Yes Are you interested in more education?: Yes Currently or been in a relationship where the following occur: No concerns reported THRIVE Score: 3 AUDIT C Alcohol Use Questionnaire (AUDIT-C) 1. How often do you have a drink containing alcohol?: Never 3. How often do you have six or more drinks on one occasion?: Never Total Score: 0 CAM-7 AMB Questionnaire CAM-7 Date CAM - 7 assessed: 09/13/24 Feeling nervous, anxious, or on edge: 1 = Several days Not being able to stop or control worryin = Several days Worrying too much about different things: 1 = Several days Trouble relaxin = Several days Being so restless that it is hard to sit still: 1 = Several days Becoming easily annoyed or irritable: 1 = Several days Feeling afraid as if something awful might happen: 1 = Several days Total CAM-7 score (0-4 normal; 5-9 mild; 10-14 moderate; 15-21 severe): 7 Source: Developed by Drs. Leighton West, Comfort Harper, Aries Allan and colleagues, with an educational shane from [employer]. Physical exam (Primary Care) Vital Signs: Last Vital Signs Temp 97.1 F 02/21/25 10:01 Pulse 84 02/21/25 10:01 BP 122/82 02/21/25 10:01 Pulse Ox 96 02/21/25 10:01 Oxygen Delivery Method Room Air 02/21/25 10:01 BMI result Body Mass Index 37.0 Tobacco/Smoking Status: Tobacco use Status Tobacco use date assessed 02/21/25 02/21/25 10:08 Patient Tobacco Use Status Never used Tobacco 02/21/25 10:00 Tobacco use type Cigarette 02/21/25 10:00 e-Cigarette/Vaping Use Never Used 02/21/25 10:00 PHQ-9: PHQ-9 Score PHQ-9: Total score 02/21/25 10:21 Depression Screening Interpretation: Positive Thrive Assessment: Date of Thrive Assessment Date Thrive assessed 08/31/24 02/21/25 10:00 Currently or been in a relationship where the following occur: No concerns reported Const General: alert; No acute distress Eyes Conjunctivae: conjunctivae normal Resp Auscultation: clear to auscultation bilaterally Cardio Rate: regular rate Rhythm: regular rhythm GI Inspection: Yes normal to inspection Extrem General: Yes normal to inspection and No edema Results AMB Hemoglobin A1c AMB Hemoglobin A1c 6.5 % Last Edit by Sharon Martinez CMA on 02/21/25 10:10 Results Reviewed Results Reviewed: Laboratory Last Values Hgb A1c (Clinic) 6.5 % (4.0-6.0) H 02/21/25 10:08 Coding Level of Care Code Est Pt Level 4 (51875) Complex EM visit Add On G2211 Diagnoses Type 2 diabetes mellitus with hyperglycemia, without long-term current use of insulin E11.65 Diabetes mellitus correction insulin use: without correction use History of pulmonary embolism Z86.711 Atherosclerotic cardiovascular disease I25.10 Essential hypertension I10 Hypertension type: essential hypertension Morbid obesity E66.01 Gastroesophageal reflux disease, unspecified whether esophagitis present K21.9 Esophagitis presence: esophagitis presence not specified Left carpal tunnel syndrome G56.02 Severe obstructive sleep apnea G47.33 Left shoulder pain M25.512 Assessment & Plan Assessment & Plan (1) Type 2 diabetes mellitus with hyperglycemia: Code(s): E11.65 - Type 2 diabetes mellitus with hyperglycemia Category: Medical Qualifiers: Diabetes mellitus correction insulin use: without correction use Qualified Code(s): E11.65 - Type 2 diabetes mellitus with hyperglycemia Plan: Decrease the amount of carbohydrate intake, pasta, bread, rice and potatoes are all sugar and that is aside from all the sweet stuff, remember that fruits are good but they are Sweet also. Hemoglobin A1c goal of less than 6.5. Patient on metformin a 1000 mg twice a day patient is reminded about Ophthalmology as well as recommended Podiatry (2) History of pulmonary embolism: Code(s): Z86.711 - Personal history of pulmonary embolism Category: Medical Plan: Continuing with anticoagulation on Eliquis 5 mg twice a day July 2024 last blood work will need repeat renal testing (3) Atherosclerotic cardiovascular disease: Code(s): I25.10 - Atherosclerotic heart disease of [place] coronary artery without angina pectoris Category: Medical Plan: Control the cholesterol, weight, blood pressure, diabetes continue with anticoagulation (4) Hypertension: Code(s): I10 - Essential (primary) hypertension Category: Medical Qualifiers: Hypertension type: essential hypertension Qualified Code(s): I10 - Essential (primary) hypertension Plan: Continue with blood pressure medication. Decrease salt intake and exercise patient is taking lisinopril 5 mg once a day metoprolol 50 mg once a day (5) Morbid obesity: Code(s): E66.01 - Morbid (severe) obesity due to excess calories Category: Medical Plan: Diet and exercise (6) GERD (gastroesophageal reflux disease): Code(s): K21.9 - Gastro-esophageal reflux disease without esophagitis Category: Medical Qualifiers: Esophagitis presence: esophagitis presence not specified Qualified Code(s): K21.9 - Gastro-esophageal reflux disease without esophagitis Plan: Avoid the foods that causes that usually spicy foods, tomato products, juices, coffee, soda and foods that your sensitive to. After eating do not lie down, allow 3-4 hours before in lie down. And keep the head of bed above 30 degrees to avoid the acid from going up. (7) Left carpal tunnel syndrome: Comment: December 2024 Code(s): G56.02 - Carpal tunnel syndrome, left upper limb Category: Medical Plan: Discussed that nerve conduction test showing left mild to moderate carpal tunnel syndrome. (8) Severe obstructive sleep apnea: Comment: September 2021 Code(s): G47.33 - Obstructive sleep apnea (adult) (pediatric) Category: Medical Plan: Discussed about CPAP treatment (9) Left shoulder pain: Code(s): M25.512 - Pain in left shoulder Category: Medical Plan: Patient was advised to get MRI by the Orthopedics Plan History of Present Illness The patient is a 54-year-old male presenting for follow-up of multiple chronic conditions including diabetes mellitus, hypertension, and atherosclerotic c ardiovascular disease. The patient has a history of obesity, with a recent weight gain of 8 pounds, which may impact his diabetes management. His diabetes mellitus is currently managed with metformin 1000 mg twice a day, and his hemoglobin A1c is 6.5, indicating good control. The patient has a history of hypertension, managed with lisinopril 5 mg once daily and metoprolol 50 mg once daily. He also has a history of pulmonary embolism and is on anticoagulation therapy with Eliquis 5 mg daily. The patient reports a history of gastroesophageal reflux disease (GERD) and severe obstructive sleep apnea, for which CPAP therapy has been discussed. He has been referred to a specialist for sleep apnea management, with a follow-up appointment scheduled for March 21. The patient has peripheral arterial disease and atherosclerotic cardiovascular disease, with a recent echocardiogram showing no obstructive lesions. His LDL cholesterol is elevated at 125 mg/dL, and efforts are being made to reduce it below 100 mg/dL. The patient experienced transient visual loss and was evaluated with a nerve conduction study, revealing mild to moderate left carpal tunnel syndrome and mild left ulnar neuropathy. He has been advised to undergo an MRI for left shoulder pain, with an orthopedic follow-up scheduled for April 15. Blood work from October 2024 showed mild chronic anemia, and his liver function tests were within normal limits. Health Maintenance - Flu vaccination recommended - LDL cholesterol management with a target of less than 100 mg/dL - CPAP therapy for obstructive sleep apnea Social History Review of Systems - Neurological: Reports transient visual loss, mild to moderate left carpal tunnel syndrome, mild left ulnar neuropathy - Musculoskeletal: Reports left shoulder pain Physical Exam Results - Labs: Mild chronic anemia noted in October 2024 - Labs: Elevated LDL cholesterol at 125 mg/dL - Tests: Nerve conduction study showing mild to moderate left carpal tunnel syn drome and mild left ulnar neuropathy - Imaging: Echocardiogram showing no obstructive lesions Plan Patient was informed and verbally consented to the use of an ambient scribe for clinic note documentation during this visit. 1. Diabetes Mellitus The patient's diabetes mellitus is managed with metformin 1000 mg twice daily, with a hemoglobin A1c of 6.5 indicating good control. The goal is to maintain the A1c below 6.55, and regular follow-up with ophthalmology and podiatry is advised. 2. Hypertension Hypertension is managed with lisinopril 5 mg once daily and metoprolol 50 mg once daily. 3. Atherosclerotic Cardiovascular Disease The patient is on anticoagulation therapy with Eliquis 5 mg daily due to a history of pulmonary embolism. Efforts are being made to reduce LDL cholesterol below 100 mg/dL to manage cardiovascular risk. 4. Severe Obstructive Sleep Apnea CPAP therapy has been discussed, and the patient is referred to a specialist with a follow-up appointment scheduled for March 21. 5. Left Shoulder Pain The patient has been advised to undergo an MRI for further evaluation, with an orthopedic follow-up scheduled for April 15. 6. Mild To Moderate Left Carpal Tunnel Syndrome Nerve conduction study revealed mild to moderate left carpal tunnel syndrome, and management options are being considered. Discussion Notes During the visit, we discussed the management of the patient's diabetes mellitus, emphasizing the importance of maintaining a hemoglobin A1c below 6.55 and the need for regular follow-up with ophthalmology and podiatry. We also reviewed the patient's hypertension management with lisinopril and metoprolol, and the need to reduce LDL cholesterol to manage cardiovascular risk. The patient was advised on the use of CPAP therapy for obstructive sleep apnea and was referred to a specialist for further management. Patient Instructions - Continue taking metformin 1000 mg twice daily for diabetes management. - Schedule and attend follow-up appointments with ophthalmology and podiatry. - Take lisinopril 5 mg and metoprolol 50 mg daily for blood pressure control. - Use CPAP machine as directed for sleep apnea. - Attend the scheduled orthopedic appointment on April 15 for shoulder pain evaluation. - Get a flu shot at the pharmacy. Orders: Orders AMB Hemoglobin A1c Today Z13.9 - Encounter for screening, unspecified Hemoglobin A1c Today I25.10 - Atherosclerotic heart disease of [place] coronary artery without angina pectoris Ferritin Today I25.10 - Atherosclerotic heart disease of [place] coronary artery without angina pectoris PFT pulmonary function test Today I25.10 - Atherosclerotic heart disease of [place] coronary artery without angina pectoris Lipid Panel Today E78.00 - Pure hypercholesterolemia, unspecified, I25.10 - Atherosclerotic heart disease of [place] coronary artery without angina pectoris Comprehensive Met. Panel Today I25.10 - Atherosclerotic heart disease of [place] coronary artery without angina pectoris Thyroid Stimulating Hormone Today I25.10 - Atherosclerotic heart disease of [place] coronary artery without angina pectoris Complete Blood Count Auto Diff Today I25.10 - Atherosclerotic heart disease of [place] coronary artery without angina pectoris Medications: Changed From atorvastatin (Lipitor) 20 mg PO QPM 90 tabs 1RF To atorvastatin 40 mg PO QPM 30 tabs 3RF
[2025-02-21 10:01] VITALS: BP 122/82; PULSE 84; TEMP 36.2; O2SAT 96; BMI 37.0
--- OUTSIDE RECORDS SUMMARY | 2025-02-21 11:11 | XMS_ITS | Clinical Summary ---
Author Organization [facility] Address [address] [place] [address] Care Team Providers Care Salesperson Art Objects Name Role Phone Unavailable Primary Care Provider [...] Drug Screen 05/23/2024 Depression Annual Screen 05/23/2024 Lay-HPPCI-23 (3 - season) 2025 021, 09/20/2020 Imm-Influenza (#1) 2025 03/22/2019, 1 07/03/2013, 04/09/2013, Additional history exists Imm-DTaP/Tdap/Td (5 - Td or Tdap) 08/28/2031 08/27/2021, 06/23/2017, 05/02/2014, Additional history exists
--- OUTSIDE RECORDS SUMMARY | 2025-02-21 11:11 | XMS_ITS | Clinical Summary ---
Author Organization [address] [place] [address] [place] [id number] Phone Care Team Providers Care Director [employer] Name Role Phone Rebel Farah MD Primary Care Provider [phone] Surgical History Surgery Date Site/Laterality Comments OTHER SURGICAL HISTORY 1993 PROCEDURE: ---- OTHER ----; COMMENT: rt popliteal bypass after football injury KNEE ARTHROSCOPY 2003 PROCEDURE: [place] ARTHROSCOPY AID [place] SPINE&/FX KNEE W/O FIXJ; COMMENT: knee replacement at [facility] KNEE SURGERY 2005 PROCEDURE: HISTORICAL KNEE SURGERY; COMMENT: osteotomy Medical History Medical History Date Comments DVT (deep venous thrombosis) ([facility] V24, [facility] V28) 1993 DX:DVT (deep venous thrombos is) ([facility]); COMMENT: on coumadin for 20 yrs ago, f/u by Dr. Sheppard DM (diabetes mellitus) ([facility] V24, [facility] V28) 2011 DX:DM (diabetes mellitus) ([facility]); COMMENT: managed by Dr. Sheppard JEANINE (obstructive sleep apnea) 2012 DX :JEANINE (obstructive sleep apnea); COMMENT: sleep study done at [facility], ordered by Dr. Sheppard Venous insufficiency DX:Venous [...] Health Maintenance Due Date Last Done Comments Colorectal Cancer Screening: Colonoscopy 1971 Diabetes: Annual GFR (Glomerular Filtration Rate) 1971 Diabetes: Annual Foot Exam 09/12/1981 Diabetes: Annual Retina Eye Exam 09/12/1981 Hepatitis B Vaccines (1 of 3 - 19+ 3-dose series) 09/12/1990 Pneumococcal Vaccine: 50+ Years (2 of 2 - PCV) 09/12/2021 03/22/2019, 05/02/2014 Zoster Vaccines (1 of 2) 09/12/2021 Cholesterol Screening (Lipid Panel) 05/05/2022 Diabetes: Annual Urine Albumin-Creatinine Ratio (uACR) 05/05/2022 Diabetes: Blood Sugar Contro l Test (HGBA1C) 05/05/2022 HIV Screening 05/05/2022 Hepatitis C Screening 05/05/2022 Medicare Annual Wellness Visit 05/05/2022 Social Influencers of Health Screening 05/05/2022 DTaP,Tdap,and Td Vaccines (2 - Td or Tdap) 05/02/2024 05/02/2014 Depression Screening 05/23/2024 COVID-19 Vaccine (2 - 2024-2 6 season) 2025 09/20/2020 Influenza Vaccine (#1) 2025 9, 05/02/2014 RSV Immunization Adult Patients (1 - 1-dose 75+ series) 09/12/2046 HIB Vaccines Aged Out No longer eligi [...] Insurance MEDICARE MEDICAID - [place] Care Teams Director [employer] Relationship Specialty Start Date End Date Rebel Farah MD [address] [place] [address] Dr Parker [address] [facility] [place] [address] PCP - General Internal Medicine 10/17/24
== END 2025-02-21 10:38 | disposition home or self-care (01) ==
LOC: HO.HMCH 09:58
PROVIDERS: PCP Internal Medicine; Visit Provider Internal Medicine
DX: E11.65 Type 2 diabetes mellitus with hyperglycemia (principal); E66.01 Morbid (severe) obesity due to excess calories; Z68.37 Body mass index [BMI] 37.0-37.9, adult; Z86.711 Personal history of pulmonary embolism; I25.10 Atherosclerotic heart disease of native coronary artery without angina pectoris; I10 Essential (primary) hypertension; K21.9 Gastro-esophageal reflux disease without esophagitis; G56.02 Carpal tunnel syndrome, left upper limb; G47.33 Obstructive sleep apnea (adult) (pediatric); M25.512 Pain in left shoulder

== ENCOUNTER → 2025-02-21 09:57 | Outpatient (BNVA) | payer MEDICARE, MEDICAID, SELFPAY | PROVIDERS: PCP Internal Medicine; Visit Provider Internal Medicine | DX: E11.65 Type 2 diabetes mellitus with hyperglycemia (principal); E11.51 Type 2 diabetes mellitus with diabetic peripheral angiopathy without gangrene; I25.10 Atherosclerotic heart disease of native coronary artery without angina pectoris; I10 Essential (primary) hypertension; E66.01 Morbid (severe) obesity due to excess calories; K21.9 Gastro-esophageal reflux disease without esophagitis; G56.02 Carpal tunnel syndrome, left upper limb; G47.33 Obstructive sleep apnea (adult) (pediatric); M25.512 Pain in left shoulder; Z86.711 Personal history of pulmonary embolism | CPT/HCPCS: 83036; 96127; 99212 ==

== ENCOUNTER 2025-03-06 08:56 | Emergency (ER) | payer MEDICARE, MEDICAID, SELFPAY ==
--- NOTE | ~2025-03-06 | US_ITS ---
EXAMINATION: US ABDOMEN LIMITED CLINICAL INFORMATION: Abnormal CT. Severe upper abdominal pain and vomiting.. COMPARISON: Previous limited abdominal ultrasound January [address] of the abdomen and pelvis from earlier the same day TECHNIQUE: Real-time imaging of the right upper quadrant abdominal viscera. FINDINGS: GALLBLADDER: The gallbladder is normal in size. There are small gallstones in the gallbladder. There is a focal area of gallbladder wall thickening measuring up to 0.5 cm anteriorly adjacent to the right lobe of the liver. The remainder of the gallbladder wall appears normal. Positive sonographic Gan sign. COMMON BILE DUCT: Normal in caliber measuring 0.3 cm in diameter. No common bile duct stone seen. FREE FLUID: None. US/US abdomen limited IMPRESSION: Gallstones. Focal area of gallbladder wall thickening measuring up to 0.5 cm and positive sonographic Gan sign. Findings are questionable for acute cholecystitis. Consider follow-up HIDA scan or MRCP if clinically warranted. Electronically signed by: Erika Fuentes MD 03/06/2025 12:42 PM EDT
--- NOTE | ~2025-03-06 | CT_ITS ---
EXAMINATION: CT ABDOMEN PELVIS WITH IV CONTRAST HISTORY: Mid abdominal pain, persistent vomiting COMPARISON: Comparison is made with the prior examination dated 02/15/2024. TECHNIQUE: CT scan of the abdomen and pelvis was performed following administration of 85 mL Omnipaque 350 using standard departmental protocol. Coronal and sagittal reformatted images were generated and reviewed. Oral contrast material was not administered at the request of the referring physician. This CT exam was performed with one or more of the following dose reduction techniques: automated exposure control, adjustment of the mA and/or kV according to patient size, use of iterative reconstruction technique. DLP: 1167 mGy-cm FINDINGS: LOWER CHEST: The visualized lung bases are clear. There is no pleural effusion. CARDIOVASCULATURE: The heart is normal in size. There is no pericardial effusion. LIVER: The liver is normal in size and contour. No liver mass is identified. The hepatic and portal veins are patent. GALLBLADDER / BILE DUCTS: There is cholelithiasis. There is no intra or extrahepatic biliary ductal dilatation. SPLEEN: The spleen is normal in size. No focal splenic lesion is identified. PANCREAS: The pancreas is unremarkable in appearance. ADRENAL GLANDS: Within normal limits. KIDNEYS/RETROPERITONEUM: No renal calculi are identified. There is no hydronephrosis. No renal masses are identified. LYMPH NODES: No abdominal or pelvic lymphadenopathy. VASCULATURE: The abdominal aorta is normal in caliber. MESENTERY/PERITONEUM: No free fluid. No masses. There is no free intraperitoneal gas. STOMACH: The stomach is unremarkable. SMALL BOWEL: The small bowel is normal in caliber. COLON: The colon is unremarkable. APPENDIX: Normal. URINARY BLADDER/PELVIC ORGANS: The urinary bladder is unremarkable. The prostate is normal in size. BONES / SOFT TISSUES: Again seen is a small fat-containing right inguinal hernia. No suspicious bony or soft tissue abnormalities. CT/CT abdomen pelvis w IV con IMPRESSION: Cholelithiasis. Small fat-containing right inguinal hernia. No acute abnormality is identified. Electronically signed by: Leighton Sam MD 03/06/2025 11:07 AM EDT
[2025-03-06 09:10] VITALS: BP 118/84; BP 154/96; PULSE 89; PULSE 90; RESP 29; TEMP 36.6; O2SAT 100; O2SAT 99; BMI 37.1
--- NOTE | 2025-03-06 09:17 | ECG_ITS ---
Test Reason : ABD PN Blood Pressure : */* mmHG Vent. Rate : 102 BPM Atrial Rate : 102 BPM P-R Int : 148 ms QRS Dur : 90 ms QT Int : 360 ms P-R-T Axes : 56 1 22 degrees QTcB Int : 469 ms Sinus tachycardia Otherwise normal ECG When compared with ECG of 11-Nov-2024 13:24, No significant change was found Referred By: Generic ED Physician Electronically Signed By: Germán Rosenthal
--- NOTE | 2025-03-06 09:25 | ED.ABDPAIN ---
HPI - Abdominal Pain General Chief Complaint: Abdominal Pain Stated Complaint: vomiting, abd pain, anxiety Time Seen by Provider: 03/06/25 09:22 Source: patient Mode of arrival: ambulatory Limitations: no limitations History of Present Illness ED Provider: DR. Archibald HPI narrative: 54-year-old male PMHx PE on Eliquis, HTN, HLD, DM, obesity, PVD, mood disorder, achalasia presented with mid abdominal pain started 2 days ago, inability to keep oral intake and persistent vomiting with nausea, decreased urinary output for the past 2 days, declined using recreational drugs only occasional marijuana smoking, no history of intra-abdominal surgery, last bowel movement was yesterday, +passing flatus. Patient had a prior admission for similar presentation with no clear underlying etiology. Related Data Home Medications ?Medication ?Instructions ?Recorded ?Confirmed escitalopram oxalate 20 mg tablet 20 mg PO DAILY 05/07/20 01/17/25 (Lexapro) trazodone 100 mg tablet 100 mg PO BEDTIME PRN Sleep 05/07/20 01/17/25 aripiprazole 10 mg tablet 10 mg PO DAILY 11/30/23 01/17/25 Previous Rx's ?Medication ?Instructions ?Recorded lisinopril 5 mg tablet 5 mg PO DAILY 90 days #90 tabs 11/17/20 metoprolol succinate 50 mg 50 mg PO DAILY #90 tabs 11/17/20 tablet,extended release 24 hr gabapentin 300 mg capsule 300 mg PO TID 90 days #270 caps 07/23/22 metformin 1,000 mg tablet 1,000 mg PO BID 90 days #180 tabs 07/23/22 AUTO PAP 6-20 cm H2o humidified air #1 ea 08/19/23 apixaban 5 mg tablet (Eliquis) 5 mg PO BID 90 days #180 tabs 08/19/23 walker (Ultra-Light Rollator misc) #1 ea 03/05/24 fluticasone propionate 50 2 spray intranasal DAILY #16 grams 05/09/24 mcg/actuation nasal spray,suspension (Flonase Allergy Relief) clotrimazole 1 % topical cream 1 appl topical BID 4 weeks #45 10/26/24 grams miconazole nitrate 2 % topical 1 appl topical BID #85 grams 10/26/24 powder (Zeasorb AF) blood sugar diagnostic (FreeStyle #100 ea 01/15/25 Lite Strips) blood-glucose meter (FreeStyle #1 ea 01/15/25 Lite Meter kit) cyclobenzaprine 10 mg tablet 10 mg PO BEDTIME #30 tabs 01/15/25 lancets 28 gauge (FreeStyle #100 ea 01/15/25 Lancets) alprazolam 0.25 mg tablet See Rx Instructions PO .COMPLEX #2 01/31/25 tabs atorvastatin 40 mg tablet 40 mg PO QPM #30 tabs 02/21/25 cefuroxime axetil 500 mg tablet 500 mg PO BID #14 tabs 03/06/25 Allergies Allergy/AdvReac Type Severity Reaction Status Date / Time Penicillins (PENICILLINS) Allergy Severe hives Verified 03/06/25 09:16 Review of Systems Review of Systems All other systems are reviewed and are negative Constitutional: Reports as per HPI and Reports no additional constitutional complaints Eyes: Reports as per HPI and Reports no additional eye complaints Reports system reviewed and no additional complaints, except as documented Cardiovascular: Reports as per HPI and Reports no additional cardiovascular complaints Respiratory: Reports as per HPI and Reports no additional respiratory complaints Gastrointestinal: Reports as per HPI and Reports no additional gastrointestinal complaints Genitourinary: Reports no additional female genitourinary complaints Musculoskeletal: Reports no additional musculoskeletal complaints Skin/Breast: Reports system reviewed and no additional complaints, except as docu Psychiatric: Reports no additional psychiatric complaints Endocrine: Reports no additional endocrine complaints Hematologic/Lymphatic: Reports no additional hematologic/lymphatic complaints Allergic/Immunologic: Reports no additional allergic/immunologic complaints Reports system reviewed and no additional complaints, except as documented and Reports Abnormal speech present [facility] Past Medical History Medical History Otitis media Right hip pain Left ear pain Obstructive sleep apnea (adult) (pediatric) Medicare annual wellness visit, initial DVT (deep venous thrombosis) Injury of tendon of biceps Nausea Closed fracture of right proximal tibia Femoral distal fracture Obstructive sleep apnea Carpal tunnel syndrome Peripheral vascular disease History of pulmonary embolism Type 2 diabetes mellitus with hyperglycemia Hypertension Surgical History History of total right knee replacement Status post debridement Total knee replacement status Status post osteotomy History of femoropopliteal bypass History of repair of left rotator cuff Family History Family History Father CVD (cardiovascular disease) Diabetes Hypertension Mother Diabetes Hypertension Brother Past heart attack Substance abuse Maternal Uncle Schizophrenia Paternal Uncle CVD (cardiovascular disease) Social History Social History Household Members: Spouse Housing: House Are you a primary wound care center consultant to a significant other at home: No Do you presently have visiting nurse or other home services: Yes ([employer]) Alcohol intake: never Patient Tobacco Use Status: Never used Tobacco Tobacco use type: Cigarette Years Smoked: smokes week occ Smoked in Last 30 Days: No e-Cigarette/Vaping Use: Never Used Second Hand Smoke Exposure: No Substance Use Type: Marijuana Advance Directives: No Advance Directives Information Provided: Yes service: No Current occupational status: unemployed Cognitive needs: No Hearing needs: No Vision needs: No Physical Exam ED Vital Signs: Vital Signs - 24 hr 03/06/25 09:10 03/06/25 10:03 03/06/25 10:04 Temperature 97.8 F 97.8 F Pulse Rate 89 85 Respiratory Rate 29 H 15 Blood Pressure 154/96 H 154/96 H 151/99 H Pulse Oximetry 100 97 Oxygen Delivery Method Room Air Room Air Oxygen Flow Rate 03/06/25 13:51 Temperature 97.9 F Pulse Rate 97 Respiratory Rate 15 Blood Pressure 99/74 Pulse Oximetry 99 Oxygen Delivery Method Nasal Cannula Oxygen Flow Rate 2 BMI result Body Mass Index 37.1 Vital signs have been reviewed and appear to be correct. Blood pressure elevated. Heart rate normal. Respiratory rate normal. Temperature normal. Oxygen saturation normal. Appearance: Alert. Oriented X3. No acute distress. Head: Normal external exam. Normocephalic. Atraumatic. No Renteria signs noted. No raccoon eyes noted Eyes: PERRLA. EOMI. Conjunctiva and sclera normal. Eyelids normal. ENT: TM's Normal. Pharynx normal. Uvula midline. Moist mucous membranes. No trismus noted. No drooling noted. No muffled voice noted. Neck: Normal inspection. Neck supple. FROM. No adenopathy. Thyroid Normal. No meningeal signs. No neck mass noted. CVS: Normal heart rate and rhythm. Heart sound normal. No murmurs noted. Pulses normal throughout. Respiratory: No respiratory distress. Painless inspiration. Breath sounds normal. No wheezes/rales/rhonchi noted. Chest nontender. No accessory muscle usage noted or decreased air movement noted. Abdomen: Epigastric, right upper quadrant abdominal tenderness, no rebound tenderness, no guarding. Bowel sounds normal in all 4 quadrants. No distention noted. No organomegaly noted. No visible injury noted. Back: No CVA tenderness. Full range of motion noted. Skin: Skin warm and dry. Normal skin color. Normal skin turgor. No rashes/lesions/lacerations noted. Extremities: No lower extremity edema. Extremities exhibit normal range of motion. Extremities nontender. Neuro: Oriented X 3. Cranial nerve exam: II-XII are grossly intact No motor deficit. No sensory deficit. Reflexes normal. Course Reevaluation(s) Reevaluation #1: Right upper quadrant abdominal pain, acute cholecystitis, no sepsis, case was discussed with Dr. López because patient is on anticoagulation and all other medical comorbidities patient needed to be admitted to a medical service and surgery will consult on the patient. Start the patient on ceftriaxone for acute cholecystitis. Time: 14:33 Reevaluation #2: Patient feels better, able to tolerate p.o. intake with no abdominal pain or vomiting. Patient will be following with Dr. López as an outpatient. Will discharge Zithromax. Time: 15:06 Medical Decision Making Differential Diagnosis Differential Diagnoses: The differential diagnosis associated with the presentation includes (Acute cholecystitis, acute pancreatitis, acute colitis, acute diverticulitis, acute appendicitis, gastritis, gastroenteritis, electrolyte derangement, severe anemia) Admission/Observation Consideration of admission/observation: Escalation of care including admission/observation considered Consult Healthcare Provider Management of the patient was discussed with: Quality Analyst (Dr. López) Lab Data MDM Lab Attestation statement: I reviewed the patient's lab results. 03/06/25 10:02 03/06/25 10:02 Labs: Lab Results 03/06/25 03/06/25 03/06/25 Range/Units 10:01 10:02 11:36 WBC 6.6 (4.8-10.8) X10*3/uL RBC 5.00 (4.60-5.80) X10*6/uL Hgb 15.6 (14.0-18.0) g/dl Hct 46.3 (42.0-52.0) % MCV 92.6 (80.0-98.0) fL MCH 31.2 (27.0-33.0) pg MCHC 33.7 (31.0-36.0) g/dl RDW 12.2 (11.0-16.0) % Plt Count 240 (160-400) X10*3/uL MPV 9.5 (9.4-12.4) fL Immature Gran % (Auto) 0.3 (0.0-0.4) % Neut % (Auto) 47.1 (45-73) % Lymph % (Auto) 42.3 H (20-40) % [place] % (Auto) 9.5 (2-11) % Eos % (Auto) 0.5 (0-4) % Baso % (Auto) 0.3 (0-2) % Lymph # (Auto) 2.8 (1.2-4.9) X10*3/uL [place] # (Auto) 0.6 (0.1-1.2) X10*3/uL Eos # (Auto) 0.0 (0.0-0.4) X10*3/uL Baso # (Auto) 0.0 (0.0-0.2) X10*3/uL Abs Immat Gran (auto) 0.02 (0.00-0.03) X10*3/uL Absolute Neuts (auto) 3.1 (2.0-8.3) x10*3/uL Absolute Nucleated RBC 0.000 (0.0-0.012) X10*3/uL Nucleated RBC % (auto) 0.0 (0.0-0.2) /100WBC PT 10.7 L (10.9-12.4) SEC INR 0.9 (0.9-1.1) APTT 29.0 (26.7-34.1) SEC Sodium 139 (135-145) mmol/L Potassium 3.6 (3.3-5.1) mmol/L Chloride 101 (96-108) mmol/L Carbon Dioxide 26 (22-29) mmol/L Anion Gap 16 (12-20) BUN 20 H (9-16) mg/dL Creatinine 1.09 (0.5-1.4) mg/dL Estim Creat Clear Calc 100.6 Estimated GFR > 60 Random Glucose 189 H (60-115) mg/dL Lactic Acid 2.3 H* (0.5-2.0) mmol/L Lactic Acid F/U @ 2Hr (0.5-2.0) mmol/L Calcium 9.3 (8.4-10.2) mg/dL Troponin I High Sens 2.9 (<3.5-35.0) ng/L Urine Color Yellow Urine Appearance Clear Urine pH 6.5 (5.0-9.0) Ur Specific Wisner >= 1.030 H (1.005-1.025) Urine Protein Trace (Neg-Trace) mg/dL Urine Glucose (UA) Negative (Negative) mg/dL Urine Ketones 80 (Negative) mg/dL Urine Blood Negative (Negative) Urine Nitrite Negative (Negative) Ur Leukocyte Esterase Negative (Negative) 03/06/25 Range/Units 13:15 WBC (4.8-10.8) X10*3/uL RBC (4.60-5.80) X10*6/uL Hgb (14.0-18.0) g/dl Hct (42.0-52.0) % MCV (80.0-98.0) fL MCH (27.0-33.0) pg MCHC (31.0-36.0) g/dl RDW (11.0-16.0) % Plt Count (160-400) X10*3/uL MPV (9.4-12.4) fL Immature Gran % (Auto) (0.0-0.4) % Neut % (Auto) (45-73) % Lymph % (Auto) (20-40) % [place] % (Auto) (2-11) % Eos % (Auto) (0-4) % Baso % (Auto) (0-2) % Lymph # (Auto) (1.2-4.9) X10*3/uL [place] # (Auto) (0.1-1.2) X10*3/uL Eos # (Auto) (0.0-0.4) X10*3/uL Baso # (Auto) (0.0-0.2) X10*3/uL Abs Immat Gran (auto) (0.00-0.03) X10*3/uL Absolute Neuts (auto) (2.0-8.3) x10*3/uL Absolute Nucleated RBC (0.0-0.012) X10*3/uL Nucleated RBC % (auto) (0.0-0.2) /100WBC PT (10.9-12.4) SEC INR (0.9-1.1) APTT (26.7-34.1) SEC Sodium (135-145) mmol/L Potassium (3.3-5.1) mmol/L Chloride (96-108) mmol/L Carbon Dioxide (22-29) mmol/L Anion Gap (12-20) BUN (9-16) mg/dL Creatinine (0.5-1.4) mg/dL Estim Creat Clear Calc Estimated GFR Random Glucose (60-115) mg/dL Lactic Acid (0.5-2.0) mmol/L Lactic Acid F/U @ 2Hr 1.0 (0.5-2.0) mmol/L Calcium (8.4-10.2) mg/dL Troponin I High Sens (<3.5-35.0) ng/L Urine Color Urine Appearance Urine pH (5.0-9.0) Ur Specific Wisner (1.005-1.025) Urine Protein (Neg-Trace) mg/dL Urine Glucose (UA) (Negative) mg/dL Urine Ketones (Negative) mg/dL Urine Blood (Negative) Urine Nitrite (Negative) Ur Leukocyte Esterase (Negative) Independent Interpretation I performed an independent interpretation of an: Ultrasound (Abdominal ultrasound:Gallstones. Focal area of gallbladder wall thickening measuring up to 0.5 cm and positive sonographic Gan sign. Findings are questionable for acute cholecystitis. Consider follow-up HIDA scan or MRCP if clinically warranted. ) and CT Scan (Abdomen pelvis:Cholelithiasis. Small fat-containing right inguinal hernia. No acute abnormality is identified. ) Radiology Impression Discussion of test interpretation with radiology: I have reviewed the radiologist's reading. Medications Administered Discontinued Medications Generic Name Dose Route Start Last Admin Trade Name Freq PRN Reason Stop Dose Admin Al Hydroxide/Mg Hydroxide 30 ml 03/06/25 09:31 03/06/25 09:53 Magnesium Hydrox/Alum Hydrox 30 Ml Oral.Susp PO 03/06/25 09:32 30 ml ONCE ONE Administration Hydromorphone HCl 2 mg 03/06/25 10:21 03/06/25 10:47 Hydromorphone Hcl 2 Mg/Ml Vial IVPUSH 03/06/25 10:22 2 mg ONCE ONE Administration Protocol Iohexol 100 ml 03/06/25 10:54 03/06/25 11:00 Iohexol 350 Mg/Ml 100 Ml Infus..Btl IV 03/06/25 10:55 85 ml ONCE ONE Administration Ondansetron HCl 4 mg 03/06/25 09:31 03/06/25 09:53 Ondansetron Hcl 4 Mg/2 Ml Vial IVPUSH 03/06/25 09:32 4 mg ONCE ONE Administration Pantoprazole Sodium 40 mg 03/06/25 09:31 03/06/25 09:54 Pantoprazole Sodium 40 Mg/10 Ml Vial IVPUSH 03/06/25 09:32 40 mg ONCE ONE Administration Sucralfate 1 gm 03/06/25 09:31 03/06/25 09:53 Sucralfate Oral Suspension 1 Gm/10 Ml Oral.Susp PO 03/06/25 09:32 1 gm ONCE ONE Administration Discharge Plan Discharge Clinical Impression: Cholelithiasis, Acute cholecystitis Patient Disposition: Home, Self-Care Instructions: Cholecystitis (ED) Additional Instructions: Avoid greasy food, return if any fever, chills, abdominal pain, or vomiting. Otherwise follow-up with Dr. López as discussed. Take the antibiotic as prescribed. Prescriptions: New cefuroxime axetil 500 mg tablet 500 mg PO BID Qty: 14 0RF No Action gabapentin 300 mg capsule 300 mg PO TID 90 Days Qty: 270 1RF metformin 1,000 mg tablet 1,000 mg PO BID 90 Days Qty: 180 2RF fluticasone propionate [Flonase Allergy Relief] 50 mcg/actuation spray,suspension 2 spray intranasal DAILY Qty: 16 2RF Rx Instructions: administer into each nostril alprazolam 0.25 mg tablet See Rx Instructions PO .COMPLEX Qty: 2 0RF Rx Instructions: 1-2 tablets 1 hour before the procedure orally; escitalopram oxalate [Lexapro] 20 mg tablet 20 mg PO DAILY trazodone 100 mg tablet 100 mg PO BEDTIME PRN (Reason: Sleep) metoprolol succinate 50 mg tablet extended release 24 hr 50 mg PO DAILY Qty: 90 1RF lisinopril 5 mg tablet 5 mg PO DAILY 90 Days Qty: 90 2RF (DME) AUTO PAP 6-20 cm H2o humidified air See Rx Instructions .Route .MEDSUPPLY Qty: 1 0RF Rx Instructions: As directed Eliquis 5 mg tablet 5 mg PO BID 90 Days Qty: 180 3RF clotrimazole 1 % cream 1 appl topical BID 28 Days Qty: 45 2RF miconazole nitrate [Zeasorb AF] 2 % powder 1 appl topical BID Qty: 85 0RF aripiprazole 10 mg tablet 10 mg PO DAILY (DME) Ultra-Light Rollator Misc See Rx Instructions .Route Qty: 1 0RF Rx Instructions: As directed atorvastatin 40 mg tablet 40 mg PO QPM Qty: 30 3RF (DME) FreeStyle Lite Strips Strip See Rx Instructions .ROUTE .MEDSUPPLY Qty: 100 3RF Rx Instructions: As directed check the BS QD (DME) blood-glucose meter [FreeStyle Lite Meter] Kit See Rx Instructions .ROUTE .MEDSUPPLY Qty: 1 0RF Rx Instructions: As directed (DME) lancets [FreeStyle Lancets] 28 gauge misc See Rx Instructions .ROUTE .MEDSUPPLY Qty: 100 3RF Rx Instructions: As directed check BS QD cyclobenzaprine 10 mg tablet 10 mg PO BEDTIME Qty: 30 0RF Referrals: Gagan,Rebel Frances MD [Primary Care Provider, Internal Medicine] Rajinder López MD [Physician, General Surgery] Print Language: Icelandic
[2025-03-06] MEDS: Magnesium Hydrox/Alum Hydrox 30 ML ORAL.SUSP PO (09:53)
[2025-03-06] MEDS: Sucralfate Oral Suspension 1 GM/10 ML ORAL.SUSP PO (09:53)
[2025-03-06 10:03] VITALS: BP 154/96; PULSE 85; RESP 15; TEMP 36.6; O2SAT 97
[2025-03-06 10:04] VITALS: BP 151/99
[2025-03-06 10:07] LABS: MANUAL DIFF FLAG NO
[2025-03-06 10:09] LABS: Hematocrit 46.3 % (42.0-52.0); Hemoglobin 15.6 g/dl (14.0-18.0); Imm Gran Abs Auto 0.02 X10*3/uL (0.00-0.03); Imm Gran Pct Auto 0.3 % (0.0-0.4); Lymphocytes Absolute Auto 2.8 X10*3/uL (1.2-4.9); Mean Corpuscular HGB Conc 33.7 g/dl (31.0-36.0); Mean Corpuscular Hemoglobin 31.2 pg (27.0-33.0); Mean Corpuscular Volume 92.6 fL (80.0-98.0); NRBC Abs Auto 0.000 X10*3/uL (0.0-0.012); NRBC Pct Auto 0.0 /100WBC (0.0-0.2); Platelet Count 240 X10*3/uL (160-400); Red Blood Count 5.00 X10*6/uL (4.60-5.80); White Blood Count 6.6 X10*3/uL (4.8-10.8)
[2025-03-06 10:15] LABS: INTERNATIONAL NORM RATIO 0.9 (0.9-1.1); Prothrombin Time 10.7 SEC (10.9-12.4)
[2025-03-06 10:17] LABS: Partial Thromboplastin Time 29.0 SEC (26.7-34.1)
[2025-03-06 10:27] LABS: Anion Gap 16 (12-20); Blood Urea Nitrogen 20 mg/dL (9-16); Calcium 9.3 mg/dL (8.4-10.2); Carbon Dioxide 26 mmol/L (22-29); Chloride 101 mmol/L (96-108); Creatinine Clr Calc Pharmacy 100.6; Estimated Glomerular Filt Rate > 60; Potassium 3.6 mmol/L (3.3-5.1); Sodium 139 mmol/L (135-145)
[2025-03-06 10:36] LABS: Troponin-I High Sensitivity 2.9 ng/L (<3.5-35.0)
[2025-03-06] MEDS: iohexoL 350 MG/ML 100 ML INFUS..BTL IV (11:00)
--- OUTSIDE RECORDS SUMMARY | 2025-03-06 11:25 | XMS_ITS | Clinical Summary ---
Author Organization [address] [place] [address] [place] [id number] Phone Care Team Providers Care Rda Name Role Phone Rebel Farah MD Primary Care Provider [phone] Surgical History Surgery Date Site/Laterality Comments OTHER SURGICAL HISTORY 1993 PROCEDURE: ---- OTHER ----; COMMENT: rt popliteal bypass after football injury KNEE ARTHROSCOPY 2003 PROCEDURE: [place] ARTHROSCOPY AID [place] SPINE&/FX KNEE W/O FIXJ; COMMENT: knee replacement at [facility] KNEE SURGERY 2005 PROCEDURE: HISTORICAL KNEE SURGERY; COMMENT: osteotomy Medical History Medical History Date Comments DVT (deep venous thrombosis) ([facility] V24, [facility] V28) 1993 DX:DVT (deep venous thrombos is) ([facility]); COMMENT: on coumadin for 20 yrs ago, f/u by Dr. Sheppard DM (diabetes mellitus) ([facility] V24, [facility] V28) 2011 DX:DM (diabetes mellitus) ([facility]); COMMENT: managed by Dr. Sheppard JEANINE (obstructive sleep apnea) 2012 DX :JEANINE (obstructive sleep apnea); COMMENT: sleep study done at [facility], ordered by Dr. Sheppard Venous insufficiency DX:Venous [...] Insurance MEDICARE [place] - [place] Care Teams Rda Relationship Specialty Start Date End Date Rebel Farah MD [address] [place] [address] Dr Parker [address] [facility] [place] [address] PCP - General Internal Medicine 10/17/24
--- OUTSIDE RECORDS SUMMARY | 2025-03-06 11:25 | XMS_ITS | Clinical Summary ---
Author Organization [facility] Address [address] [place] [address] Care Team Providers Care Athletic Equipment Custodian Name Role Phone Unavailable Primary Care Provider [...] Drug Screen 05/23/2024 Depression Annual Screen 05/23/2024 [id number] (3 - season) 2025 021, 09/20/2020 Imm-Influenza (#1) 2025 03/22/2019, 1 07/03/2013, 04/09/2013, Additional history exists Imm-DTaP/Tdap/Td (5 - Td or Tdap) 08/28/2031 08/27/2021, 06/23/2017, 05/02/2014, Additional history exists
[2025-03-06 11:42] LABS: Appearance Urine Clear; Glucose Urine UA Negative (Negative); PH 6.5 (5.0-9.0); Specific Gravity - Urine >= 1.030 (1.005-1.025)
[2025-03-06 12:05] LABS: Reflex Lactate? Lactic Acid Added
--- NOTE | 2025-03-06 12:11 | PC.NURSE ---
Pt still reported severe nausea and pain after zofran, maalox and carafate. Dilaudid was effective. Pt able to urinate aabout 200mls. Sent to lab.
--- NOTE | 2025-03-06 13:14 | PC.NURSE ---
Late entry: Pt placed on 2L o2 while sleeping. Apnea noted. his sats drop to 87% intermittently. reports that he has a sleep study scheduled. Pt resting now after dilaudid.
[2025-03-06 13:37] LABS: ~Lactic Acid-LAB USE ONLY 1.0 mmol/L (0.5-2.0)
[2025-03-06 13:51] VITALS: BP 99/74; PULSE 97; RESP 15; TEMP 36.6; O2SAT 99
--- NOTE | 2025-03-06 14:34 | P.CONGS_ITS ---
History of Present Illness Consult details Consult date: 03/06/25 Reason for consult: abdominal pain Requesting physician: Krystal Archibald Narrative: 54-year-old male patient presenting with complaints of abdominal pain felt mainly in the mid abdomen with the associated nausea and vomiting. His past history is significant for PE on Eliquis, HTN, HLD, DM, obesity, PVD, mood disorder, achalasia. He reports a previous history of similar pain for which he was evaluated in the emergency department and determined to have gallstone in the gallbladder. He reports that this episode is much more severe. He reports taking his Eliquis today despite the nausea and vomiting. Workup in the emergency department with ultrasound revealed gallstones within the gallbladder with thickened gallbladder wall and a positive sonographic Gan sign. CT also shows gallstones in the thickened gallbladder wall consistent with acute cholecystitis. Patient reports the pain is improved now and was a considering going home. Review of Systems 2 Review of Systems: Yes all other systems are reviewed and are negative PMFSH Past Medical History Medical History Otitis media Right hip pain Left ear pain Obstructive sleep apnea (adult) (pediatric) Medicare annual wellness visit, initial DVT (deep venous thrombosis) Injury of tendon of biceps Nausea Closed fracture of right proximal tibia Femoral distal fracture Obstructive sleep apnea Carpal tunnel syndrome Peripheral vascular disease History of pulmonary embolism Type 2 diabetes mellitus with hyperglycemia Hypertension Family History Family History Father CVD (cardiovascular disease) Diabetes Hypertension Mother Diabetes Hypertension Brother Past heart attack Substance abuse Maternal Uncle Schizophrenia Paternal Uncle CVD (cardiovascular disease) Surgical History Surgical History History of total right knee replacement Status post debridement Total knee replacement status Status post osteotomy History of femoropopliteal bypass History of repair of left rotator cuff Social History Social History Household Members: Spouse Housing: House Are you a primary date night caregiver to a significant other at home: No 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) Alcohol intake: never Patient Tobacco Use Status: Never used Tobacco Tobacco use type: Cigarette Years Smoked: smokes week occ Smoked in Last 30 Days: No e-Cigarette/Vaping Use: Never Used Second Hand Smoke Exposure: No Substance Use Type: Marijuana Advance Directives: No Advance Directives Information Provided: Yes service: No Current occupational status: unemployed Cognitive needs: No Hearing needs: No Vision needs: No Meds Allergies Allergy/AdvReac Type Severity Reaction Status Date / Time Penicillins (PENICILLINS) Allergy Severe hives Verified 03/06/25 09:16 Home Medications ?Medication ?Instructions ?Recorded ?Confirmed ?Last Taken ?Type escitalopram oxalate 20 mg tablet 20 mg PO DAILY 05/0701/17/25 Unknown History (Lexapro) trazodone 100 mg tablet 100 mg PO BEDTIME PRN Sleep 05/07/20 01/17/25 Unknown History aripiprazole 10 mg tablet 10 mg PO DAILY 11/30/2312/22 Unknown History Physical Exam 2 Vital Signs: Vital Signs: Last Vital Signs Temp 97.9 F 03/06/25 13:51 Pulse 97 03/06/25 13:51 Resp 15 03/06/25 13:51 BP 99/74 03/06/25 13:51 Pulse Ox 99 03/06/25 13:51 O2 Del Method Nasal Cannula 03/06/25 13:51 O2 Flow Rate 2 03/06/25 13:51 BMI result Body Mass Index 37.1 Const: General: cooperative and no acute distress Nutritional Appearance: w ell nourished Orientation/consciousness: patient oriented x3 Limitations: no limitations HEENT: Head: Yes normocephalic and Yes atraumatic Ears: hearing grossly normal bilaterally Eyes: Other: Sclerae nonicteric Resp: Effort & Inspection: normal respiratory effort, no audible wheezes, no cough and no respiratory distress Cardio: Jugular venous distension: no JVD GI: Other: Soft, nondistended, tender in both the right upper quadrant and left upper quadrant with a positive Gan sign. No rebound, guarding or rigidity. No abdominal scars are appreciated. Inspection: Yes normal to inspection Skin: Other: Warm, dry, no rash, no jaundice Neuro: General: patient oriented x3 Extrem: General: Yes no clubbing, cyanosis or edema Results Labs 03/06/25 10:02 03/06/25 10:02 Labs: Abnormal lab results 03/06/25 03/06/25 03/06/25 Range/Units 10:01 10:02 11:36 Lymph % (Auto) 42.3 H (20-40) % PT 10.7 L (10.9-12.4) SEC BUN 20 H (9-16) mg/dL Random Glucose 189 H (60-115) mg/dL Lactic Acid 2.3 H* (0.5-2.0) mmol/L Ur Specific [place] >= 1.030 H (1.005-1.025) Short CBC 03/06/25 Range/Units 10:02 WBC 6.6 (4.8-10.8) X10*3/uL Hgb 15.6 (14.0-18.0) g/dl Hct 46.3 (42.0-52.0) % Plt Count 240 (160-400) X10*3/uL BMP 03/06/25 10:02 Sodium 139 Potassium 3.6 Chloride 101 Carbon Dioxide 26 BUN 20 H Creatinine 1.09 Calcium 9.3 Urine 03/06/25 Range/Units 11:36 Urine Color Yellow Urine Appearance Clear Urine pH 6.5 (5.0-9.0) Ur Specific [place] >= 1.030 H (1.005-1.025) Urine Protein Trace (Neg-Trace) mg/dL Urine Glucose (UA) Negative (Negative) mg/dL All other labs normal. Imaging Abdomen CT scan report/results: image reviewed CT scan - pelvis: image reviewed Abdominal ultrasound report/results: image reviewed Assessment and Plan (1) Cholecystitis, acute with cholelithiasis: Qualifiers: Biliary obstruction: without biliary obstruction Qualified Code(s): K 80.00 - Calculus of gallbladder with acute cholecystitis without obstruction Status: Acute Plan 54-year-old male patient presenting with acute onset of abdominal pain of 2 days' duration mainly in the midabdomen found on exam to be tender in the right upper quadrant with a positive Gan sign. Findings are suggestive of acute cholecystitis. CT an ultrasound confirmed gallstones within the gallbladder with thickened gallbladder wall. Unfortunately patient is on Eliquis for pulmonary embolus and will need to be be off this prior to surgery. The patient is indicating that he would like to be discharged. If patient is discharged home surgery can be arranged as an outpatient, otherwise surgery can be arranged sooner if he is in admitted. Procedures Date of Service Date of Service: 03/06/25
[2025-03-06 15:22] VITALS: BP 120/72; PULSE 92; RESP 12; TEMP 36.6; O2SAT 94
== END 2025-03-06 15:22 | disposition home or self-care (01) ==
PROVIDERS: Emergency Provider Emergency Medicine; PCP Internal Medicine
DX: K80.00 Calculus of gallbladder with acute cholecystitis without obstruction (principal)
CPT/HCPCS: 36415; 74177; 76705; 80048; 81003; 83605; 84484; 85025; 85610; 85730; 93005; 99284; J0696; J1171; J2405; J2470; Q9967

== ENCOUNTER → 2025-03-06 09:17 | Outpatient (BNV) | payer MEDICARE, MEDICAID, SELFPAY | PROVIDERS: Emergency Provider Emergency Medicine; PCP Internal Medicine; Visit Provider Internal Medicine Cardiovascular Disease | DX: R00.0 Tachycardia, unspecified (principal) | CPT/HCPCS: 93010 ==

== ENCOUNTER → 2025-03-06 09:31 | Outpatient (BNV) | payer MEDICARE, MEDICAID, SELFPAY | PROVIDERS: Emergency Provider Emergency Medicine; PCP Internal Medicine; Visit Provider Radiology Diagnostic Radiology | DX: K80.20 Calculus of gallbladder without cholecystitis without obstruction (principal); K44.9 Diaphragmatic hernia without obstruction or gangrene; R10.84 Generalized abdominal pain | CPT/HCPCS: 74177; 76705 ==

== ENCOUNTER → 2025-03-06 09:51 | Outpatient (BNV) | payer MEDICARE, MEDICAID, SELFPAY | PROVIDERS: Emergency Provider Emergency Medicine; PCP Internal Medicine; Visit Provider Surgery | DX: K80.00 Calculus of gallbladder with acute cholecystitis without obstruction (principal) | CPT/HCPCS: 99222 ==

== ENCOUNTER 2025-03-07 13:47 | Inpatient (IN) | payer MEDICARE, MEDICAID, SELFPAY ==
--- NOTE | ~2025-03-07 | CT_ITS ---
EXAMINATION: CT ABDOMEN AND PELVIS WITH CONTRAST CLINICAL INFORMATION: Nausea and vomiting. COMPARISON: March 06, 2025. TECHNIQUE: Multidetector volumetric images were obtained from the superior aspect of the liver through the pubic symphysis following administration 100 mL of Omnipaque 350 intravenous contrast. Sagittal and coronal reformatted images were obtained on the technologist's workstation. Oral contrast: No This CT examination was performed using dose optimization techniques as appropriate, variously including the following: *Automated exposure control *Adjustment of mA and/or kV according to patient size (this includes techniques or standardized protocols for targeted exams where dose is matched to indication/reason for exam; i.e. extremities or head) *Use of iterative reconstruction technique. DLP: 770 mGy centimeter. FINDINGS: LUNG BASES: No acute airspace disease. LIVER, GALLBLADDER, AND BILIARY TREE: Liver measures 20 cm. No focal mass. Cholelithiasis. No pericholecystic fluid collection or gallbladder wall thickening. No intrahepatic or extrahepatic biliary ductal dilatation. PANCREAS: [Liposubstitution.. No focal mass. No main pancreatic ductal dilatation. No peripancreatic fluid collection. SPLEEN: 8 cm. No focal lesion. ADRENAL GLANDS: No nodular lesion. KIDNEYS AND URETERS: No hydronephrosis. No gross renal mass. 1 mm nephrolithiasis, right kidney. BLADDER: Contrast and fluid-filled nondistended. GASTROINTESTINAL TRACT: Appendix is normal. No intestinal obstruction pattern. No pneumatosis intestinalis. No gross intestinal wall thickening. No ascites. No pneumoperitoneum. Small hiatal hernia. ABDOMINAL WALL: Fat-containing right inguinal hernia. LYMPH NODES: Nonspecific mildly prominent mesenteric and retroperitoneum. VASCULAR: No aneurysm or dissection, abdominal aorta. PELVIC VISCERA: Not enlarged. OSSEOUS STRUCTURES: Multilevel thoracolumbar spondylosis. No acute fracture or gross listhesis. Degenerative changes in the sacroiliac joints and symphysis pubis. CT/CT abdomen pelvis w IV con IMPRESSION: Cholelithiasis. Fat-containing right inguinal hernia. Hepatomegaly. Probable 1 mm nonobstructing nephrolithiasis, right kidney. Fleischner guidelines were followed. Electronically signed by: Atul Reese MD 03/07/2025 03:40 PM EDT
--- NOTE | 2025-03-07 13:48 | ECG_ITS ---
Test Reason : CP Blood Pressure : */* mmHG Vent. Rate : 120 BPM Atrial Rate : 120 BPM P-R Int : 138 ms QRS Dur : 90 ms QT Int : 338 ms P-R-T Axes : 63 26 4 degrees QTcB Int : 477 ms Sinus tachycardia Otherwise normal ECG When compared with ECG of 06-Mar-2025 09:43, No significant change was found Referred By: Generic ED Physician Electronically Signed By: Germán Rosenthal
[2025-03-07 14:07] VITALS: BP 185/110; PULSE 108; RESP 26; TEMP 36.6; O2SAT 100
[2025-03-07 14:20] LABS: Alanine Aminotransferase 12 U/L (0-40); Albumin Level 4.4 g/dL (3.5-5.0); Alkaline Phosphatase 73 U/L (39-117); Anion Gap 16 (12-20); Aspartate Amino Transferase 25 U/L (5-37); Blood Urea Nitrogen 20 mg/dL (9-16); Calcium 9.3 mg/dL (8.4-10.2); Carbon Dioxide 23 mmol/L (22-29); Chloride 102 mmol/L (96-108); Estimated Glomerular Filt Rate > 60; Potassium 3.7 mmol/L (3.3-5.1); Sodium 137 mmol/L (135-145); Total Protein 8.0 g/dL (6.5-8.0)
[2025-03-07 14:26] LABS: Hematocrit 45.5 % (42.0-52.0); Hemoglobin 15.8 g/dl (14.0-18.0); Imm Gran Abs Auto 0.05 X10*3/uL (0.00-0.03); Imm Gran Pct Auto 0.7 % (0.0-0.4); Lymphocytes Absolute Auto 3.6 X10*3/uL (1.2-4.9); MANUAL DIFF FLAG SCAN; Mean Corpuscular HGB Conc 34.7 g/dl (31.0-36.0); Mean Corpuscular Hemoglobin 31.7 pg (27.0-33.0); Mean Corpuscular Volume 91.4 fL (80.0-98.0); NRBC Abs Auto 0.000 X10*3/uL (0.0-0.012); NRBC Pct Auto 0.0 /100WBC (0.0-0.2); PLT CLUMP 1; Red Blood Count 4.98 X10*6/uL (4.60-5.80); SCAN SMEAR FLAG 1
[2025-03-07 14:37] LABS: Platelet Count 199 X10*3/uL (160-400); White Blood Count 7.1 X10*3/uL (4.8-10.8)
--- NOTE | 2025-03-07 14:40 | ED.ABDPAIN ---
HPI - Abdominal Pain General Chief Complaint: Abdominal Pain Stated Complaint: chest pain, abd pain Time Seen by Provider: 03/07/25 14:39 Source: patient Mode of arrival: ambulatory Limitations: no limitations History of Present Illness ED Provider: Vicenta Brice PA-C HPI narrative: 54 y/ old male presenting to emergency department today after returning from his presentation yesterday. Past medical history significant for PE that was diagnosed 20 years ago he has been on Eliquis but off of it for the last 20 days due to not having a prescription for this. He was diagnosed with acute cholecystitis yesterday but ultimately his pain was well-controlled and he wanted to go home and follow up outpatient. He came back to the ED today for intractable pain and intractable nausea or vomiting. He has not been able to tolerate fluids. Feels like he is losing weight. He is requesting to change his mind to have his gallbladder removed. He denies any coughing or respiratory symptoms he has noticed some speckled blood in his vomit but otherwise no diarrhea voiding regularly without pain reports pain right now is 10/10 in his epigastric and right upper quadrant region no chest pain. Related Data Home Medications ?Medication ?Instructions ?Recorded ?Confirmed escitalopram oxalate 20 mg tablet 20 mg PO DAILY 05/07/20 01/17/25 (Lexapro) trazodone 100 mg tablet 100 mg PO BEDTIME PRN Sleep 05/07/20 01/17/25 aripiprazole 10 mg tablet 10 mg PO DAILY 11/30/23 01/17/25 Previous Rx's ?Medication ?Instructions ?Recorded lisinopril 5 mg tablet 5 mg PO DAILY 90 days #90 tabs 11/17/20 metoprolol succinate 50 mg 50 mg PO DAILY #90 tabs 11/17/20 tablet,extended release 24 hr gabapentin 300 mg capsule 300 mg PO TID 90 days #270 caps 07/23/22 metformin 1,000 mg tablet 1,000 mg PO BID 90 days #180 tabs 07/23/22 AUTO PAP 6-20 cm H2o humidified air #1 ea 08/19/23 apixaban 5 mg tablet (Eliquis) 5 mg PO BID 90 days #180 tabs 08/19/23 walker (Ultra-Light Rollator [facility] [place]) #1 ea 03/05/24 fluticasone propionate 50 2 spray intranasal DAILY #16 grams 05/09/24 mcg/actuation nasal spray,suspension (Flonase Allergy Relief) clotrimazole 1 % topical cream 1 appl topical BID 4 weeks #45 10/26/24 grams miconazole nitrate 2 % topical 1 appl topical BID #85 grams 10/26/24 powder (Zeasorb AF) blood sugar diagnostic (FreeStyle #100 ea 01/15/25 Lite Strips) blood-glucose meter (FreeStyle #1 ea 01/15/25 Lite Meter kit) cyclobenzaprine 10 mg tablet 10 mg PO BEDTIME #30 tabs 01/15/25 lancets 28 gauge (FreeStyle #100 ea 01/15/25 Lancets) alprazolam 0.25 mg tablet See Rx Instructions PO .COMPLEX #2 01/31/25 tabs atorvastatin 40 mg tablet 40 mg PO QPM #30 tabs 02/21/25 cefuroxime axetil 500 mg tablet 500 mg PO BID #14 tabs 03/06/25 ondansetron HCl 4 mg tablet 4 mg PO Q6H PRN nausea and 03/07/25 vomiting #20 tabs Allergies Allergy/AdvReac Type Severity Reaction Status Date / Time Penicillins (PENICILLINS) Allergy Severe hives Verified 03/07/25 14:11 Review of Systems Review of Systems Yes all other systems are reviewed and are negative COUNT INCLUDES THE [facility] Past Medical History Attestation statement: The following information was validated with the patient. Source: old records reviewed and nursing notes reviewed Medical History Otitis media Right hip pain Left ear pain Obstructive sleep apnea (adult) (pediatric) Medicare annual wellness visit, initial DVT (deep venous thrombosis) Injury of tendon of biceps Nausea Closed fracture of right proximal tibia Femoral distal fracture Obstructive sleep apnea Carpal tunnel syndrome Peripheral vascular disease History of pulmonary embolism Type 2 diabetes mellitus with hyperglycemia Hypertension Surgical History History of total right knee replacement Status post debridement Total knee replacement status Status post osteotomy History of femoropopliteal bypass History of repair of left rotator cuff Family History Family History Father CVD (cardiovascular disease) Diabetes Hypertension Mother Diabetes Hypertension Brother Past heart attack Substance abuse Maternal Uncle Schizophrenia Paternal Uncle CVD (cardiovascular disease) Social History Social History Household Members: Spouse Housing: House Are you a primary animal care technician to a significant other at home: No 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) Alcohol intake: never Patient Tobacco Use Status: Never used Tobacco Tobacco use type: Cigarette Years Smoked: smokes week occ Smoked in Last 30 Days: No e-Cigarette/Vaping Use: Never Used Second Hand Smoke Exposure: No Use of substances other than those prescribed or required for medical reasons: No Substance Use Type: Marijuana Advance Directives: Yes Advance Directives on File: Yes Advance Directives Date on File: 02/22/24 service: No Current occupational status: unemployed Cognitive needs: No Hearing needs: No Vision needs: No Physical Exam ED Exam Exam: General: Appears in moderate painful acute distress, appears well nourished body habitus is obese, appears stated age. No septic or ill-appearing. Vitals reviewed normal, PMH/Social and Surgical hx reviewed including allergies and current medications. - reviewed for prior visits here and red as it pertains to similar chief complaint seen yesterday. Patient is seeing rolling down moaning rolling [id number] dry heaving Head: Normocephalic, no obvious trauma or skin lesions noted. Eyes: EOMI ENMT: slighty dry oral mucosa, uvula midline no trismus Neck: trachea midline Cardiovascular: peripheral perfusion normal, Regular heart rate, sinus tachy however after pain medication rate regular Respiratory: no respiratory distress, was slight tachypneic on arrival however after pain medication respirations normal Abdomen: Obese abdomen diffusely tender especially in the upper quadrants guarding not able to do any peritoneal sign checking secondary to pain shins level of pain Extremities: warm and moving without difficulty Psych: Cooperative Neuro: Alert and oriented. Vital Signs: Vital Signs - 24 hr 03/07/25 14:07 03/07/25 14:59 03/07/25 14:59 Temperature 97.9 F 98.7 F Pulse Rate 108 H 93 Respiratory Rate 26 H 20 16 Blood Pressure 185/110 H 158/100 H Pulse Oximetry 100 98 Oxygen Delivery Method Room Air Room Air BMI result Body Mass Index 0.0 Medical Decision Making Medical Decision Making MDM Narrative: 54-year-old male presenting to the emergency department today for intractable nausea and vomiting as setting of recent gallstone diagnosis here yesterday. Upon arrival to ED he has mild tachypneic and mildly tachycardic but does not appear to be septic or toxic he is afebrile saturating 100% on room air. Abdominal labs were ordered from triage I touched base with the general surgeon in regards to him already having imaging yesterday showing possible cholecystitis. IV fluids along with IV pain medication and Zofran was ordered. We will order a lactate just in case but I do not suspect sepsis at this point. 1450: Consulted with Dr. Kaur from surgery in regards to yesterday's imaging and today's presentation. He has requested CT scan instead of repeat U/S in setting of no WBC or abnormal hepatobiliary levels. 1620: CT scan resulted which shows cholelithiasis without Cholecystitis. When I went to discuss these results with the patient at bedside general surgeon Dr. Kaur was evaluating patient. He does not feel the main diagnosis causing the patient's level of discomfort and intractable pain is his gallbladder however he would like patient to be admitted for further observation with plans for potential cholecystectomy tomorrow based on presentation of biliary colic with intractable pain nausea vomiting. Patient is no longer tachycardic or tachypneic his blood pressure has lower this was likely elevated in the setting of pain not infection. Dr. Kaur will admit to surgery. Differential Diagnosis Differential Diagnoses: The differential diagnosis associated with the presentation includes cholecystitis biliary colic choledocolithiasis gastritis Admission/Observation Consideration of admission/observation: Escalation of care including admission/observation considered Consult Healthcare Provider Management of the patient was discussed with: Hardwood [employer] Lab Data MDM Lab Attestation statement: I reviewed the patient's lab results. 03/07/25 14:00 03/07/25 14:00 Labs: Lab Results 03/07/25 03/07/25 Range/Units 14:00 14:56 WBC 7.1 (4.8-10.8) X10*3/uL RBC 4.98 (4.60-5.80) X10*6/uL Hgb 15.8 (14.0-18.0) g/dl Hct 45.5 (42.0-52.0) % MCV 91.4 (80.0-98.0) fL MCH 31.7 (27.0-33.0) pg MCHC 34.7 (31.0-36.0) g/dl RDW 12.0 (11.0-16.0) % Plt Count 199 (160-400) X10*3/uL MPV 10.8 (9.4-12.4) fL Immature Gran % (Auto) 0.7 H (0.0-0.4) % Neut % (Auto) 38.5 L (45-73) % Lymph % (Auto) 51.3 H (20-40) % [place] % (Auto) 8.1 (2-11) % Eos % (Auto) 1.0 (0-4) % Baso % (Auto) 0.4 (0-2) % Lymph # (Auto) 3.6 (1.2-4.9) X10*3/uL [place] # (Auto) 0.6 (0.1-1.2) X10*3/uL Eos # (Auto) 0.1 (0.0-0.4) X10*3/uL Baso # (Auto) 0.0 (0.0-0.2) X10*3/uL Abs Immat Gran (auto) 0.05 H (0.00-0.03) X10*3/uL Absolute Neuts (auto) 2.7 (2.0-8.3) x10*3/uL Absolute Nucleated RBC 0.000 (0.0-0.012) X10*3/uL Nucleated RBC % (auto) 0.0 (0.0-0.2) /100WBC Smear Tech's Comments VERIFIED Sodium 137 (135-145) mmol/L Potassium 3.7 (3.3-5.1) mmol/L Chloride 102 (96-108) mmol/L Carbon Dioxide 23 (22-29) mmol/L Anion Gap 16 (12-20) BUN 20 H (9-16) mg/dL Creatinine 1.07 (0.5-1.4) mg/dL Estim Creat Clear Calc TNP Estimated GFR > 60 Random Glucose 151 H (60-115) mg/dL Lactic Acid 1.9 (0.5-2.0) mmol/L Calcium 9.3 (8.4-10.2) mg/dL Total Bilirubin 0.7 (0.0-1.0) mg/dL Direct Bilirubin 0.2 (0.0-0.5) mg/dL AST 25 (5-37) U/L ALT 12 (0-40) U/L Alkaline Phosphatase 73 (39-117) U/L Total Protein 8.0 (6.5-8.0) g/dL Albumin 4.4 (3.5-5.0) g/dL Independent Interpretation I performed an independent interpretation of an: EKG and CT Scan Interpretation: CT: Gallstones noted no perforation, EKG: Sinus tachy 120 beats per minute no malignant arrhythmia or obvious ischemia no changes when compared to yesterday's EKG Radiology Impression Discussion of test interpretation with radiology: I have reviewed the radiologist's reading. Radiologist Impression: Cholelithiasis without cholecystitis noted Tests considered The following testing was considered but not selected: Would have considered cardiac workup including CTA head patient's presentation been more suggestive of that for etiology Prescription Management I considered prescription management with: Pain Medication Chronic Conditions Patient?s care impacted by: Diabetes and Other Social Determinants Patient?s care significantly limited by Social Determinants of Health including: Other Social Determinant of Health Medications Administered Discontinued Medications Generic Name Dose Route Start Last Admin Trade Name Freq PRN Reason Stop Dose Admin Sodium Chloride 1,000 mls @ 999 mls/hr 03/07/25 14:41 03/07/25 14:59 Ns IV 03/07/25 15:41 999 mls/hr .Q1H1M ONE Administration Iohexol 100 ml 03/07/25 15:27 03/07/25 15:28 Iohexol 350 Mg/Ml 100 Ml Infus..Btl IV 03/07/25 15:28 100 ml ONCE ONE Administration Morphine Sulfate 2 mg 03/07/25 14:41 03/07/25 14:59 Morphine Sulfate 2 Mg/Ml Cartridge IVPUSH 03/07/25 14:42 2 mg ONCE ONE Administration Protocol Ondansetron HCl 4 mg 03/07/25 14:41 03/07/25 14:59 Ondansetron Hcl 4 Mg/2 Ml Vial IVPUSH 03/07/25 14:42 4 mg ONCE ONE Administration Critical Care Time Critical Care Time Critical Care Time: Yes Total Critical Care Time: 45 Attestation: This patient required critical care. Due to the fact that the patient required a significant amount of one on one physician ? patient contact time, ordering and review of studies, arranging urgent treatment with development of a management plan, evaluation of patient?s response to treatment with frequent reassessments, and discussions with other providers this patient required critical care time in excess of 30 minutes. Critical care time was indicated due to the inherent instability and/or potential for instability in this patient. The critical care time that is allocated to this patient is above and beyond any time spent on any other billable procedures performed on this patient. Discharge Plan Discharge Clinical Impression: Biliary colic, Cholelithiasis, Intractable abdominal pain Patient Disposition: Admitted As Inpatient Print Language: Irish
[2025-03-07 14:59] VITALS: BP 158/100; PULSE 93; RESP 16; RESP 20; TEMP 37.1; O2SAT 98
[2025-03-07] MEDS: iohexoL 350 MG/ML 100 ML INFUS..BTL IV (15:28)
--- NOTE | 2025-03-07 15:45 | PC.NURSE ---
spoke with pt tonja- updated on plan of care- pt awaiting results of CT imaging
[2025-03-07 16:30] VITALS: BP 125/83; PULSE 86; RESP 16; RESP 18; O2SAT 98
--- NOTE | 2025-03-07 16:36 | P.HPGS_ITS ---
History of Present Illness History of Present Illness Date of Service: 03/11/25 Chief complaint: Gallstones Narrative: Genaro Lenrer is a 54 year old male with a history of PE, diabetes, anxiety, here in the ER because of abdominal pain. He was actually here yesterday as well because of the same complaints. He had an ultrasound and CAT and the working diagnosis then was pain secondary to gallstones. His white count was normal yesterday be He went home as she had felt better. However, he says he has had episodes of pain again today so he came back to the emergency room. He currently describes pain which he says this mostly in the right side. He says he had been vomiting at home as well He was supposed to be on Eliquis for PE but says he has not taken this in several weeks. He had told Dr. López yesterday in the ER that he took this yesterday morning. He denies any fever or chills. The patient does not appear to be a good historian Review of Systems Constitutional: Constitutional: Denies chills and Denies fever(s) Cardiovascular: Cardiovascular: Denies chest pain, Denies dyspnea and Denies dyspnea on exertion Respiratory: Respiratory: Denies cough, Denies dyspnea and Denies dyspnea on exertion Gastrointestinal: Gastrointestinal: Denies hematochezia, Denies change in bowel habits and Reports vomiting Genitourinary: Genitourinary: Denies hematuria and Denies difficulty urinating Musculoskeletal: Musculoskeletal: Denies back pain and Denies limited range of motion Neurologic: Denies focal weakness and Denies convulsions Psychiatric: Psychiatric: Denies depression and Denies mood swings [facility] Past Medical History Medical History Hyperlipidemia Gallstones Otitis media Right hip pain Left ear pain Obstructive sleep apnea (adult) (pediatric) Medicare annual wellness visit, initial DVT (deep venous thrombosis) Injury of tendon of biceps Nausea Closed fracture of right proximal tibia Femoral distal fracture Obstructive sleep apnea Carpal tunnel syndrome Peripheral vascular disease History of pulmonary embolism Type 2 diabetes mellitus with hyperglycemia Hypertension Family History Family History Father CVD (cardiovascular disease) Diabetes Hypertension Mother Diabetes Hypertension Brother Past heart attack Substance abuse Maternal Uncle Schizophrenia Paternal Uncle CVD (cardiovascular disease) Surgical History Surgical History History of total right knee replacement Status post debridement Total knee replacement status Status post osteotomy History of femoropopliteal bypass History of repair of left rotator cuff Social History Social History Household Members: Family Housing: House Are you a primary child care specialist to a significant other at home: No 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) Alcohol intake: never Patient Tobacco Use Status: Never used Tobacco Tobacco use type: Cigarette Years Smoked: smokes week occ e-Cigarette/Vaping Use: Never Used Second Hand Smoke Exposure: No Substance Use Type: Marijuana Advance Directives Date on File: 02/22/24 service: No Current occupational status: unemployed Cognitive needs: No Hearing needs: No Vision needs: No Meds Allergies Allergy/AdvReac Type Severity Reaction Status Date / Time Penicillins (PENICILLINS) Allergy Severe hives Verified 03/07/25 14:11 Home Medications ?Medication ?Instructions ?Recorded ?Confirmed ?Last Taken ?Type escitalopram oxalate 20 mg tablet 20 mg PO DAILY 05/0703/07/25 Unknown History (Lexapro) trazodone 100 mg tablet 100 mg PO BEDTIME PRN Sleep 05/07/20 03/07/25 Unknown History atorvastatin 40 mg tablet 40 mg PO BEDTIME 03/07/25 Unknown History Physical Exam Vital Signs: Vital Signs: Last Vital Signs Temp 98.7 F 03/07/25 14:59 Pulse 86 03/07/25 16:30 Resp 16 03/07/25 16:30 BP 125/83 03/07/25 16:30 Pulse Ox 98 03/07/25 16:30 O2 Del Method Room Air 03/07/25 16:30 BMI result Body Mass Index 0.0 Const: Other: Appears very anxious General: no acute distress Orientation/consciousness: patient oriented x3 Neck: Neck: Yes no lymphadenopathy Resp: Auscultation: clear to auscultation bilaterally Cardio: Rhythm: regular rhythm GI: Palpation (GI): Soft to palpation, Tenderness to palpation present (GI) (Diffusely although he says that his pain is mostly in the right side) and no guarding Neuro: General: patient oriented x3 Results Results Labs: Short CBC 03/07/25 Range/Units 14:00 WBC 7.1 (4.8-10.8) X10*3/uL Hgb 15.8 (14.0-18.0) g/dl Hct 45.5 (42.0-52.0) % Plt Count 199 (160-400) X10*3/uL BMP 03/07/25 14:00 Sodium 137 Potassium 3.7 Chloride 102 Carbon Dioxide 23 BUN 20 H Creatinine 1.07 Calcium 9.3 Liver Function 03/07/25 Range/Units 14:00 Total Bilirubin 0.7 (0.0-1.0) mg/dL Direct Bilirubin 0.2 (0.0-0.5) mg/dL AST 25 (5-37) U/L ALT 12 (0-40) U/L Alkaline Phosphatase 73 (39-117) U/L Albumin 4.4 (3.5-5.0) g/dL CT/CT abdomen pelvis w IV con IMPRESSION: Cholelithiasis. Fat-containing right inguinal hernia. Hepatomegaly. Probable 1 mm nonobstructing nephrolithiasis, right kidney. Fleischner guidelines were followed. Electronically signed by: Atul Reese MD 03/07/2025 03:40 PM EDT RP Abdomen CT scan report/results: report reviewed and image reviewed CT scan - pelvis: report reviewed Assessment and Plan (1) Gallstones: Status: Acute 54-year-old male with known gallstones, here in the ER because of abdominal pain. It is kind of difficult to assess him as he is extremely anxious and has stated different versions of his pain and history. He says that he has pain all over the abdomen but states that he knows he has gallstones and he is insisting that this has the etiology of his pain. He has had some vomiting as well . I have reviewed his CAT scan and despite the presence of gallstones, the gal lbladder does not appear inflamed. This does appear significantly distended however. He had been here yesterday as well for the same complaints. In view of his repeated visits with no other etiology of his pain, I will admit him to the hospital and explained to him that we can plan on doing his cholecystectomy tomorrow. I reviewed with the technique of laparoscopic cholecystectomy and possible open cholecystectomy. I had a long discussion with him about the risks including but not limited to bleeding, infections, injury to other organs including bowel, liver and the bile ducts, bile leak, retained stones, as well as the benefits and alternatives. I will stop start him on antibiotics. I will keep him NPO in view of his vomiting earlier . He can have p.o. meds. He has no leukocytosis. Her LFTs are normal. He has no acidosis. He has a history of PE and the popliteal DVT. He says he has not taken his Eliquis for a month now Quality Stroke Does the patient have a stroke diagnosis?: No VTE Prior VTE?: No VTE Risk Level:: Medical - moderate - high VTE Device Contraindication: N/A - Device Ordered VTE Drug Contraindication: N/A - Med Ordered Procedures Date of Service Date of Service: 03/11/25
--- NOTE | 2025-03-07 16:55 | PHA.MEDREC ---
Addendum entered by Jesus Samuel, Selina 03/07/25 17:12: MED REC CHECKED BY [facility] Original Note: Pharmacy Consult ? Medication Reconciliation Pharmacy has completed the medication reconciliation. Patient is a poor historian. Spoke to patients over the phone to confirm med list. was able to confirm patient medications. states patient has not been taking Eliquis 5 mg. he not taking in in over a month. confirmed Cyclobenzaprine 10 mg, Escitalopram 20 mg, Gabapentin 300 mg, Lisinopril 5 mg, Metformin 1,000 mg, and Metoprolol succ 50 mg, however there is no fill history. states patient fills all his medications at [facility]. Called [facility] and they confirm Atrovastatin 40 mg and nothing else. states patient hasn't had any of his medication ion over a week.
[2025-03-07 17:42] VITALS: BP 128/47
[2025-03-07] MEDS: Lactated Ringers 1,000 ML 100 ML IVCONT (17:42)
[2025-03-07 17:56] VITALS: BMI 34.9
--- NOTE | 2025-03-07 19:33 | P.CONHOSP_ITS ---
History of Present Illness Data of Consult Service Date: 03/07/25 Requesting physician: aNhum Kaur Primary Care Provider: Rebel Farah MD HPI Reason for consult: medical mgmt HTN hx of PE Pt is a 54 yo Togolese speaking male with PMH Football injury R popliteal with surgical popliteal bypass/ osteotomy and bone debridement and later DVT/PE, PE 2000, DVT 2 additional times since with no blood clots in last 8 years on coumadin then changed to Eliquis, HTN. HLD, Obesity, B rotator cuff tears with surgery completed on the Left, NIDDM, JEANINE, PVD, marijuana use, is seen for consultation per surgery prior to planned cholecystectomy 03/08/2025. Pt states he stopped taking Eliquis over a month ago due to things happening at home and did not take any since then. Pt is on eliquis for his PE/DVT hx but has never been seen by a power plant engineer for evaluation. Pt denies any underlying clotting disorders to include Factor V Leiden. Pt denies any current SOB at rest or with exertion, chest pain, RIVAS and states abdominal pain is controlled but pt has lost about 10 pounds in 4 days from not being able to eat due to his abdominal symptoms. Pt was in the ED yesterday and decided to be discharged with planned outpatient surgical consult for possible surgery . Pt returned today, lying on the floor of the ED in excruciating pain experiencing vomiting. Pt was admitted by surgery and pt is agreeable to inpatient intervention. CT scan notes cholelithiasis, nonobstructing 1 mm R nephrolithiaiss without hydronephrosis or mass, small hiatal hernia and fat containing R inguinal hernia and hepatomegaly. Surgery planned for 03/08/2025. Pt does have a PCP and is not seeing any other providers regularly. Pt does have a father that passed in his late 60's from [place] and a brother that passed in his mid 30's from [place]. Pt denies any specific cardiac hx including [place], Angina, need for stress test, cardiac angiogram, stents or open heart surgery . Pt denies hx of murmur. Pt denies hx of tobacco use, alcohol use and illicit drug use. Pt does use marijuana about once per week. Currently, on exam, pt has no clinical evidence of DVT or PE. above pt did stop taking his Elqiuis over a month ago. Pt is on RA, Narinder negative BLE's. ECG SR with no ischemic changes. Pt states he is not on insulin, but takes metformin for his diabetes control and he has been stable for some time. A1C 6.5 02/21/2025. Hemodynamics are stable and BP well controlled. Review of Systems 2 Review of Systems: Pt currently denies any chest pain, SOB at rest or with exertion, N/V. Pt is having some mild abd pain mid epi gastric area. Pt denies any unusual edema or pain BLE's. Pt is not having fever or chills. Yes all other systems are reviewed and are negative [facility] Medical History (Updated 03/08/25 @ 00:00 by Ronda Dathea) Hyperlipidemia Gallstones Otitis media Right hip pain Left ear pain Obstructive sleep apnea (adult) (pediatric) Medicare annual wellness visit, initial DVT (deep venous thrombosis) Injury of tendon of biceps Nausea Closed fracture of right proximal tibia Femoral distal fracture Obstructive sleep apnea Carpal tunnel syndrome Peripheral vascular disease History of pulmonary embolism Type 2 diabetes mellitus with hyperglycemia Hypertension Cognitive capacity: A/O X3 Functional capacity: independent ambulation Family History Father CVD (cardiovascular disease) Diabetes Hypertension Mother Diabetes Hypertension Brother Past heart attack Substance abuse Maternal Uncle Schizophrenia Paternal Uncle CVD (cardiovascular disease) Surgical History History of total right knee replacement Status post debridement Total knee replacement status Status post osteotomy History of femoropopliteal bypass History of repair of left rotator cuff Social History Household Members: Family Housing: House Are you a primary pediatric critical care nurse to a significant other at home: No Do you presently have visiting nurse or other home services: Yes (CHEMICAL ANALYST) Alcohol intake: never Patient Tobacco Use Status: Never used Tobacco Tobacco use type: Cigarette Years Smoked: smokes week occ Smoked in Last 30 Days: No e-Cigarette/Vaping Use: Never Used Second Hand Smoke Exposure: No Use of substances other than those prescribed or required for medical reasons: No Substance Use Type: Marijuana Have you been hit, kicked, punched, or otherwise hurt by someone within the past year? If so, by whom?: No Do you feel safe in your current relationship?: Yes Is there a partner from a previous relationship who is making you feel unsafe now?: No Are you made to feel afraid or neglected: No Advance Directives: Yes Advance Directives on File: Yes Advance Directives Date on File: 02/22/24 Do you have a plan to hurt others: No Plan Nutrition Risks: No Nutritional Risk service: No Current occupational status: unemployed Cognitive needs: No Hearing needs: No Vision needs: No Ebola Risk: Travel/Contact With Anyone From Affected Area/s: No Has Patient Experienced Ebola Symptoms: No Meds Allergies Allergy/AdvReac Type Severity Reaction Status Date / Time Penicillins (PENICILLINS) Allergy Severe hives Verified 03/07/25 14:11 Active Medications: Current Medications Acetaminophen (Acetaminophen 325 Mg Tablet) 650 mg PO Q6H PRN PRN Reason: Pain, Mild 1-3,fever,headache Lactated Ringer's (Lr) 1,000 mls @ 100 mls/hr IVCONT .Q10H [facility] Last Admin: 03/07/25 17:42 Dose: 100 mls/hr Piperacillin Sod/Tazobactam (Sod 3.375 gm/ Sodium Chloride) 50 mls @ 100 mls/hr IV Q6H [facility] Last Infusion: 03/07/25 19:03 Dose: Infused Lisinopril (Lisinopril 5 Mg Tablet) 5 mg PO DAILY [facility]; Protocol Last Admin: 03/07/25 17:42 Dose: 5 mg Magnesium Hydroxide (Milk Of Magnesia 30 Ml Oral.Susp) 30 ml PO DAILY PRN PRN Reason: Constipation Melatonin (Melatonin 3 Mg Tablet) 6 mg PO BEDTIME PRN PRN Reason: Insomnia Morphine Sulfate (Morphine Sulfate 4 Mg/Ml Cartridge) 4 mg IVPUSH Q4H PRN; Protocol PRN Reason: Pain, Severe (Pain Scale 7-10) Sodium Chloride (0.9 % Sodium Chloride Flush 3 Ml Syringe) 3 ml IVFLUSH QSHIFT [facility] Home Medications ?Medication ?Instructions ?Recorded ?Confirmed ?Last Taken ?Type escitalopram oxalate 20 mg tablet 20 mg PO DAILY 05/0703/07/25 Unknown History (Lexapro) trazodone 100 mg tablet 100 mg PO BEDTIME PRN Sleep 05/07/20 03/07/25 Unknown History atorvastatin 40 mg tablet 40 mg PO BEDTIME 03/07/25 Unknown History Physical Exam 2 Vital Signs and Narrative: Vital Signs: Last Vital Signs Temp 98.7 F 03/07/25 14:59 Pulse 86 03/07/25 16:30 Resp 16 03/07/25 16:30 BP 128/47 L 03/07/25 17:42 Pulse Ox 98 03/07/25 16:30 O2 Del Method Room Air 03/07/25 16:30 BMI result Body Mass Index 34.9 Pt A/O X3, NAD< good historian Neuro: CN II-XII intact HEENT: PERRLA, EOM intact, sclera nonictetic, teeth in good repair, nares patent, thyroid normal in size Lungs: CTA B Cardiac: S1S2, RRR, no mumrur, no JVD ABD: soft, tender mildly mid epigastric area, active bowel sounds EXT: no edema, scarring noted R mid leg Psych: calm cooperative, insight and judgement good Skin: no new rashes or lesions Results Labs 03/07/25 14:00 03/07/25 14:00 Labs: Laboratory Results - last 24 hr 03/07/25 03/07/25 14:00 14:56 MCV 91.4 MCH 31.7 MCHC 34.7 RDW 12.0 Plt Count 199 MPV 10.8 Immature Gran % (Auto) 0.7 H Neut % (Auto) 38.5 L Lymph % (Auto) 51.3 H [place] % (Auto) 8.1 Eos % (Auto) 1.0 Baso % (Auto) 0.4 Lymph # (Auto) 3.6 [place] # (Auto) 0.6 Eos # (Auto) 0.1 Baso # (Auto) 0.0 Abs Immat Gran (auto) 0.05 H Absolute Neuts (auto) 2.7 Absolute Nucleated RBC 0.000 Nucleated RBC % (auto) 0.0 Smear Tech's Comments VERIFIED Anion Gap 16 Estim Creat Clear Calc TNP Estimated GFR > 60 Random Glucose 151 H Lactic Acid 1.9 Calcium 9.3 Total Bilirubin 0.7 Direct Bilirubin 0.2 AST 25 ALT 12 Alkaline Phosphatase 73 Total Protein 8.0 Albumin 4.4 ECG Attestation: I personally reviewed and interpreted this ECG as follows: (SR no ischemic changes Qtc 477) Prior ECG tracings: available for review Imaging Radiologist's Impressions: Impressions Abdomen/Pelvis CT 03/07/25 15:10 IMPRESSION: Cholelithiasis. Fat-containing right inguinal hernia. Hepatomegaly. Probable 1 mm nonobstructing nephrolithiasis, right kidney. Fleischner guidelines were followed. 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, bilateral Status: Chronic (4) Type 2 diabetes mellitus with hyperglycemia: Qualifiers: Diabetes mellitus domestic maid insulin use: without domestic maid use Q ualified Code(s): E11.65 - Type 2 diabetes mellitus with hyperglycemia Status: Acute (5) Obesity (BMI 35.0-39.9 without comorbidity): Status: Acute (6) Severe obstructive sleep apnea: Status: Acute (7) Hyperlipidemia: Qualifiers: Hyperlipidemia type: mixed hyperlipidemia Qualified Code(s): E78.2 - Mixed hyperlipidemia Status: Acute Plan Pt is a 54 yo Togolese speaking male with PMH Football injury R popliteal with surgical popliteal bypass/ osteotomy and bone debridement and later DVT/PE, PE 2000, DVT 2 additional times since with no blood clots in last 8 years on coumadin then changed to Eliquis, HTN. HLD, Obesity, B rotator cuff tears with surgery completed on the Left, NIDDM, JEANINE, PVD, marijuana use, is seen for consultation per surgery prior to planned cholecystectomy 03/08/2025. Pt states he stopped taking Eliquis over a month ago due to things happening at home and did not take any since then.Pt seen by hospitalist for consultation for HTN, HX of DVT/PE. HTN Currently controlled on metoprolol, this can continue Low NA diet HX of DVT/PE Dx age 16 after football accident, required popliteal bypass, osteotomy and bone debridement - resulted in PE, DVT Had another PE 2000 Had 2 additional DVTs between 2001 and 2016 Pt needs Heme consult as an outpatient, has never been evaluated by power plant engineer Pt has not had elqiuis in over 1 month due o family issues at home (he did not have any 2 days ago) Hold eliquis for now due to plan for surgery tomorrow Pt educated on the importance of not stopping blood thinner for the future Checking DDIMER for baseline, 399 and WNL, pt does not present with clincial signs of PE, DVT and does not require BLE doppler. CTA not required. NIDDM SSI Currently NPO Diabetic diet once able to eat AIC 6.5 02/21/2025 Obesity Pt counseled on the benefits of wt loss Pt deferred need to meet with enrollment nurse Severe JEANINE Auto PAP Ordered CPAP for tonight HLD Continue statin LFTS stable Cardiac diet GERD Omeperazole Protonix IV for now Incidental findings on CT: small hiatal hernia, R fat containing inguinal hernia, nonobstructing 1 mm nephroloithiasis without hydronephrosis, hepatomegaly Hospitalist will continue to follow with surgery in case any medical issues arise. Please reach out with any questions or concerns. We appreciate this consultation!
[2025-03-07 21:45] VITALS: BMI 36.0
[2025-03-07 21:57] LABS: Glucose, Whole Blood 118 mg/dL (60-115)
[2025-03-07 21:59] LABS: D Dimer High Sensitivity 339 NG/ML
[2025-03-07 22:02] VITALS: BP 132/74; PULSE 82; RESP 18; TEMP 36.4; O2SAT 93
[2025-03-07 23:54] LABS: Glucose, Whole Blood 128 mg/dL (60-115)
[2025-03-08] VITALS (10 sets, daily range): BP systolic 105–152; BP diastolic 61–100; PULSE 70–85; RESP 10–20; TEMP 36.1–36.7; O2SAT 90–100
[2025-03-08] MEDS: Lactated Ringers 1,000 ML 100 ML IVCONT (05:52)
[2025-03-08 06:14] LABS: Hematocrit 40.0 % (42.0-52.0); Hemoglobin 13.5 g/dl (14.0-18.0); Mean Corpuscular HGB Conc 33.8 g/dl (31.0-36.0); Mean Corpuscular Hemoglobin 32.1 pg (27.0-33.0); Mean Corpuscular Volume 95.2 fL (80.0-98.0); NRBC Abs Auto 0.000 X10*3/uL (0.0-0.012); NRBC Pct Auto 0.0 /100WBC (0.0-0.2); Platelet Count 219 X10*3/uL (160-400); Red Blood Count 4.20 X10*6/uL (4.60-5.80); White Blood Count 5.9 X10*3/uL (4.8-10.8)
[2025-03-08 06:19] LABS: Glucose, Whole Blood 123 mg/dL (60-115)
[2025-03-08 06:29] LABS: Alanine Aminotransferase 12 U/L (0-40); Albumin Level 3.7 g/dL (3.5-5.0); Alkaline Phosphatase 58 U/L (39-117); Anion Gap 11 (12-20); Aspartate Amino Transferase 20 U/L (5-37); Blood Urea Nitrogen 15 mg/dL (9-16); Calcium 8.5 mg/dL (8.4-10.2); Carbon Dioxide 28 mmol/L (22-29); Chloride 103 mmol/L (96-108); Creatinine Clr Calc Pharmacy 120.8; Estimated Glomerular Filt Rate > 60; Potassium 3.4 mmol/L (3.3-5.1); Sodium 139 mmol/L (135-145); Total Protein 6.5 g/dL (6.5-8.0)
--- NOTE | 2025-03-08 08:23 | P.PNIM_ITS ---
Subjective Subjective Date of Service: 03/08/25 Interval History: seen and examined this morning follow up for medical consultation overnight did not requiring pain medication, but this am reporting abdominal pain Review of Systems Review of Systems: Yes all other systems are reviewed and are negative Constitutional Constitutional: Denies chills and Denies fever(s) Cardiovascular Cardiovascular: Denies chest pain and Denies palpitations Gastrointestinal Gastrointestinal: Reports abdominal pain and Reports nausea Endocrine Endocrine: Denies palpitations Physical Exam 2 Vital Signs: Vital Signs: Last Vital Signs Temp 98.0 F 03/08/25 08:00 Pulse 83 03/08/25 08:00 Resp 20 03/08/25 08:00 BP 105/67 03/08/25 08:00 Pulse Ox 95 03/08/25 08:00 O2 Del Method Room Air 03/08/25 08:00 BMI result Body Mass Index 36.0 Const: Other: appears uncomfortable General: alert, awake and Physically active Nutritional Appearance: o bese Orientation/consciousness: patient oriented x3 Resp: Effort & Inspection: normal respiratory effort, able to speak in complete sentences, no respiratory distress and no use of accessory muscles Cardio: Rate: regular rate GI: Inspection: No distended Palpation (GI): Soft to palpation Neuro: General: patient oriented x3, moves all extremities and CN's II-XI intact bilaterally Objective Data Active Medications Acetaminophen (Acetaminophen 325 Mg Tablet) 650 mg PO Q6H PRN PRN Reason: Pain, Mild 1-3,fever,headache Dextrose (Dextrose 50 % 25 Gm/50 Ml Syringe) 25 gm IVPUSH Q15M PRN; Protocol PRN Reason: per Hypoglycemia Standing Ord. Glucose (Glucose Gel 15 Gm Gel..Gram.) 15 gm PO Q15M PRN; Protocol PRN Reason: per Hypoglycemia Standing Ord. Lactated Ringer's (Lr) 1,000 mls @ 100 mls/hr IVCONT .Q10H [facility] Last Infusion: 03/08/25 06:22 Dose: 100 mls/hr Documented By: MEG Piperacillin Sod/Tazobactam (Sod 3.375 gm/ Sodium Chloride) 50 mls @ 100 mls/hr IV Q6H [facility] Last Infusion: 03/08/25 06:21 Dose: Infused Documented By: MEG Insulin Human Lispro (Insulin Lispro 100 Unit/Ml 3 Ml Vial) 0 unit SUBCUT Q6H [facility]; Protocol Last Admin: 03/08/25 06:17 Dose: Not Given Documented By: MEG Non-Admin Reason: No Insulin Coverage Lisinopril (Lisinopril 5 Mg Tablet) 5 mg PO DAILY [facility]; Protocol Last Admin: 03/07/25 17:42 Dose: 5 mg Documented By: MIRNA Magnesium Hydroxide (Milk Of Magnesia 30 Ml Oral.Susp) 30 ml PO DAILY PRN PRN Reason: Constipation Melatonin (Melatonin 3 Mg Tablet) 6 mg PO BEDTIME PRN PRN Reason: Insomnia Morphine Sulfate (Morphine Sulfate 4 Mg/Ml Cartridge) 4 mg IVPUSH Q4H PRN; Protocol PRN Reason: Pain, Severe (Pain Scale 7-10) Last Admin: 03/08/25 08:02 Dose: 4 mg Documented By: MAIK Ondansetron HCl (Ondansetron Hcl 4 Mg/2 Ml Vial) 4 mg IVPUSH Q6H PRN PRN Reason: Nausea and Vomiting Pantoprazole Sodium (Pantoprazole Sodium 40 Mg/10 Ml Vial) 40 mg IVPUSH DAILY@0630 [facility] Last Admin: 03/08/25 05:52 Dose: 40 mg Documented By: MEG Sodium Chloride (0.9 % Sodium Chloride Flush 3 Ml Syringe) 3 ml IVFLUSH QSHIFT [facility] Last Admin: 03/08/25 00:05 Dose: Not Given Documented By: MEG Non-Admin Reason: IV Running Labs 03/08/25 05:20 03/08/25 05:20 Labs: Laboratory Results - last 24 hr 03/07/25 03/07/25 03/07/25 14:00 14:56 21:47 MCV 91.4 MCH 31.7 MCHC 34.7 RDW 12.0 Plt Count 199 MPV 10.8 Immature Gran % (Auto) 0.7 H Neut % (Auto) 38.5 L Lymph % (Auto) 51.3 H [place] % (Auto) 8.1 Eos % (Auto) 1.0 Baso % (Auto) 0.4 Lymph # (Auto) 3.6 [place] # (Auto) 0.6 Eos # (Auto) 0.1 Baso # (Auto) 0.0 Abs Immat Gran (auto) 0.05 H Absolute Neuts (auto) 2.7 Absolute Nucleated RBC 0.000 Nucleated RBC % (auto) 0.0 Smear Tech's Comments VERIFIED D-Dimer High Sensitivty 339 Anion Gap 16 Estim Creat Clear Calc TNP Estimated GFR > 60 POC Glucose Random Glucose 151 H Lactic Acid 1.9 Calcium 9.3 Total Bilirubin 0.7 Direct Bilirubin 0.2 AST 25 ALT 12 Alkaline Phosphatase 73 Total Protein 8.0 Albumin 4.4 03/07/25 03/07/25 03/08/25 21:50 23:48 05:20 MCV 95.2 MCH 32.1 MCHC 33.8 RDW 11.9 Plt Count 219 MPV 9.9 Immature Gran % (Auto) Neut % (Auto) Lymph % (Auto) [place] % (Auto) Eos % (Auto) Baso % (Auto) Lymph # (Auto) [place] # (Auto) Eos # (Auto) Baso # (Auto) Abs Immat Gran (auto) Absolute Neuts (auto) Absolute Nucleated RBC 0.000 Nucleated RBC % (auto) 0.0 Smear Tech's Comments D-Dimer High Sensitivty Anion Gap 11 L Estim Creat Clear Calc 120.8 Estimated GFR > 60 POC Glucose 118 H 128 H Random Glucose 112 Lactic Acid Calcium 8.5 D Total Bilirubin 0.9 Direct Bilirubin AST 20 ALT 12 Alkaline Phosphatase 58 Total Protein 6.5 Albumin 3.7 03/08/25 06:15 MCV MCH MCHC RDW Plt Count MPV Immature Gran % (Auto) Neut % (Auto) Lymph % (Auto) [place] % (Auto) Eos % (Auto) Baso % (Auto) Lymph # (Auto) [place] # (Auto) Eos # (Auto) Baso # (Auto) Abs Immat Gran (auto) Absolute Neuts (auto) Absolute Nucleated RBC Nucleated RBC % (auto) Smear Tech's Comments D-Dimer High Sensitivty Anion Gap Estim Creat Clear Calc Estimated GFR POC Glucose 123 H Random Glucose Lactic Acid Calcium Total Bilirubin Direct Bilirubin AST ALT Alkaline Phosphatase Total Protein Albumin Assessment and Plan (1) Cholelithiases: Status: Acute (2) Nausea & vomiting: Status: Acute (3) History of pulmonary embolism: Status: Acute Plan This is a 54 yo Egyptian speaking male with PMH Football injury R popliteal with surgical popliteal bypass/ osteotomy and bone debridement and later DVT/PE, PE 2000, DVT 2 additional times since with no blood clots in last 8 years on coumadin then changed to Eliquis, HTN, HLD, Obesity, B rotator cuff tears with surgery completed on the Left, NIDDM, JEANINE, PVD, marijuana use admitted to the hospital for abdominal pain Abdominal pain recurrent episodes of abdominal pain ongoing over one year; cholilithiasis demonstrated on imaging due to biliary colic, plan for cholecystectomy today abnormal barium swallow in 2023 - mild to moderate cricopharyngeal achalasia; small superficial aphthous ulcers. Findings suggest gastritis. Recommend correlation with EGD - may need outpatient follow up with GI and EGD if not yet done HTN BP soft this am, lisinopril and metoprolol on hold for now will follow bp closely and resume as bp allows HX of DVT/PE multiple DVT/PE with long history of medication non-compliance seen by hematology in 2021- thrombophilia work up negative; was recommended to continue lifelong AC Pt denies taking Eliquis for the past 20 days due to family issues which he would not disclose Eliquis on hold due to plan for surgery Resume Eliquis when safe from surgical perspective NIDDM AIC 6.5 02/21/2025 hold metformin Currently NPO for planned surgery today - follow q6h POCs until tolerating diet Morbid obesity BMI 36.0 weight loss encouraged Severe JEANINE Auto PAP Ordered CPAP for tonight HLD Continue statin upon discharge GERD Protonix IV for now, can transition to po omeprazole when tolerating diet Incidental findings on CT: small hiatal hernia, R fat containing inguinal hernia, nonobstructing 1 mm nephroloithiasis without hydronephrosis, hepatomegaly Thank you for allowing us to participate in the care of this patient, we will follow along with you Quality Stroke Does the patient have a stroke diagnosis?: No VTE Prior VTE?: No VTE Risk Level:: Medical - moderate - high VTE Device Contraindication: N/A - Device Ordered VTE Drug Contraindication: N/A - Med Ordered
--- NOTE | 2025-03-08 08:48 | PC.NURSE ---
Penicillins listed as allergy. Patient reports allergy is from childhood. Patient has been receiving zosyn this admission without incident. Reviewed allergy with Dr. Kaur. Okayed to continue administration. Patient agreeable with plan.
--- NOTE | 2025-03-08 08:55 | HO.ANESPROP2 ---
Documented by User: Maria A Guaman NP 03/08/25 09:02 HPI - Anesthesia Eval Consult details Narrative: 54 yr old male for Cholecystectomy Laparoscopic, possible open Saw [facility] [place] [facility] [place] 2024, reported chronic SOB, random chest pains, his cardiac studies were reviewed: -Echocardiogram with LVEF of 55-60%; mild diastolic dysfunction with normal filling pressures; no significant valvular findings. -Coronary CTA-mild coronary disease without any obstructive lesions. -Dr. Curran states: overall, no clear cardiac etiology to explain his shortness of breath. He was referred to pulmonary. JEANINE: not on CPAP H/O DVT: on eliquis, but intermittent use due to not having a prescription PMFSH Active Problems Active Problems: All Active Problems Hyperlipidemia (Acute) Gallstones (Acute) Intractable abdominal pain (Acute) Cholelithiasis (Acute) Biliary colic (Acute) Cholecystitis, acute with cholelithiasis (Acute) Cubital tunnel syndrome on left (Acute) Left carpal tunnel syndrome (Acute) Morbid obesity (Acute) Atherosclerotic cardiovascular disease (Acute) Transient visual loss (Acute) Left elbow pain (Acute) Numbness and tingling in left hand (Acute) Gait instability (Acute) Left hip pain (Acute) Chest pain (Acute) SOB (shortness of breath) (Acute) Obesity (BMI 35.0-39.9 without comorbidity) (Acute) Bloody stools (Acute) Left shoulder pain (Acute) Left lower lobe pneumonia (Acute) Otitis media, left (Acute) COVID-19 (Acute) Cholelithiases (Acute) Anxiety about health (Acute) Hearing difficulty (Acute) Onychomycosis (Acute) Tinea pedis (Acute) Vasectomy evaluation (Acute) Dysphagia (Acute) Annual physical exam (Acute) PAD (peripheral artery disease) (Acute) Tinnitus (Acute) Encounter for subsequent annual wellness visit (AWV) in Medicare patient (Acute) Severe obstructive sleep apnea (Acute) Dyspnea on exertion (Acute) COVID-19 (Acute) DVT (deep venous thrombosis) (Chronic) Nausea & vomiting (Acute) Generalized anxiety disorder (Acute) Hearing decreased (Acute) GERD (gastroesophageal reflux disease) (Acute) Colon cancer screening (Acute) Traumatic partial tear of biceps tendon (Acute) Peripheral vascular disease (Acute) History of pulmonary embolism (Acute) Type 2 diabetes mellitus with hyperglycemia (Acute) Hypertension (Acute) Past Medical History Medical History Hyperlipidemia Gallstones Otitis media Right hip pain Left ear pain Obstructive sleep apnea (adult) (pediatric) Medicare annual wellness visit, initial DVT (deep venous thrombosis) Injury of tendon of biceps Nausea Closed fracture of right proximal tibia Femoral distal fracture Obstructive sleep apnea Carpal tunnel syndrome Peripheral vascular disease History of pulmonary embolism Type 2 diabetes mellitus with hyperglycemia Hypertension Functional capacity: independent ambulation Family History Family History Father CVD (cardiovascular disease) Diabetes Hypertension Mother Diabetes Hypertension Brother Past heart attack Substance abuse Maternal Uncle Schizophrenia Paternal Uncle CVD (cardiovascular disease) Surgical History Surgical History History of total right knee replacement Status post debridement Total knee replacement status Status post osteotomy History of femoropopliteal bypass History of repair of left rotator cuff Social History Social History Household Members: Family Housing: House Are you a primary senior care manager to a significant other at home: No Do you presently have visiting nurse or other home services: Yes (DEPARTMENT HELPER) Alcohol intake: never Patient Tobacco Use Status: Never used Tobacco Tobacco use type: Cigarette Years Smoked: smokes week occ Smoked in Last 30 Days: No e-Cigarette/Vaping Use: Never Used Second Hand Smoke Exposure: No Use of substances other than those prescribed or required for medical reasons: No Substance Use Type: Marijuana Have you been hit, kicked, punched, or otherwise hurt by someone within the past year? If so, by whom?: No Do you feel safe in your current relationship?: Yes Is there a partner from a previous relationship who is making you feel unsafe now?: No Are you made to feel afraid or neglected: No Are you DNR?: No Advance Directives: Yes Advance Directives on File: Yes Advance Directives Date on File: 02/22/24 Do you have a plan to hurt others: No Plan Nutrition Risks: No Nutritional Risk service: No Current occupational status: unemployed Cognitive needs: No Hearing needs: No Vision needs: No Meds Allergies Allergy/AdvReac Type Severity Reaction Status Date / Time Penicillins (PENICILLINS) Allergy Severe hives Verified 03/07/25 14:11 Active Medications: Current Medications Acetaminophen (Acetaminophen 325 Mg Tablet) 650 mg PO Q6H PRN PRN Reason: Pain, Mild 1-3,fever,headache Dextrose (Dextrose 50 % 25 Gm/50 Ml Syringe) 25 gm IVPUSH Q15M PRN; Protocol PRN Reason: per Hypoglycemia Standing Ord. Fluticasone Propionate (Fluticasone Propionate Nasal 16 Gm [place]) 2 spray NOSTRIL-B DAILY [facility] Glucose (Glucose Gel 15 Gm Gel..Gram.) 15 gm PO Q15M PRN; Protocol PRN Reason: per Hypoglycemia Standing Ord. Lactated Ringer's (Lr) 1,000 mls @ 100 mls/hr IVCONT .Q10H [facility] Last Infusion: 03/08/25 06:22 Dose: 100 mls/hr Piperacillin Sod/Tazobactam (Sod 3.375 gm/ Sodium Chloride) 50 mls @ 100 mls/hr IV Q6H [facility] Last Infusion: 03/08/25 06:21 Dose: Infused Insulin Human Lispro (Insulin Lispro 100 Unit/Ml 3 Ml Vial) 0 unit SUBCUT Q6H [facility]; Protocol Last Admin: 03/08/25 06:17 Dose: Not Given Lisinopril (Lisinopril 5 Mg Tablet) 5 mg PO DAILY [facility]; Protocol On Hold: 03/08/25 08:40 Last Admin: 03/07/25 17:42 Dose: 5 mg Magnesium Hydroxide (Milk Of Magnesia 30 Ml Oral.Susp) 30 ml PO DAILY PRN PRN Reason: Constipation Melatonin (Melatonin 3 Mg Tablet) 6 mg PO BEDTIME PRN PRN Reason: Insomnia Morphine Sulfate (Morphine Sulfate 4 Mg/Ml Cartridge) 4 mg IVPUSH Q4H PRN; Protocol PRN Reason: Pain, Severe (Pain Scale 7-10) Last Admin: 03/08/25 08:02 Dose: 4 mg Ondansetron HCl (Ondansetron Hcl 4 Mg/2 Ml Vial) 4 mg IVPUSH Q6H PRN PRN Reason: Nausea and Vomiting Pantoprazole Sodium (Pantoprazole Sodium 40 Mg/10 Ml Vial) 40 mg IVPUSH DAILY@0630 [facility] Last Admin: 03/08/25 05:52 Dose: 40 mg Sodium Chloride (0.9 % Sodium Chloride Flush 3 Ml Syringe) 3 ml IVFLUSH QSHIFT [facility] Last Admin: 03/08/25 08:44 Dose: Not Given Home Medications ?Medication ?Instructions ?Recorded ?Confirmed ?Last Taken ?Type escitalopram oxalate 20 mg tablet 20 mg PO DAILY 05/07/20 03/07/25 Unknown History (Lexapro) trazodone 100 mg tablet 100 mg PO BEDTIME PRN Sleep 05/07/20 03/07/25 Unknown History atorvastatin 40 mg tablet 40 mg PO BEDTIME 03/07/25 03/07/25 Unknown History Exam Height,Weight and Vital Signs: Height 5 ft 11 in Weight 117 kg Last Vital Signs Temp 98.0 F 03/08/25 08:00 Pulse 83 03/08/25 08:00 Resp 20 03/08/25 08:00 BP 105/67 03/08/25 08:00 Pulse Ox 95 03/08/25 08:00 O2 Del Method Room Air 03/08/25 08:00 Pertinent Lab Results Pertinent Lab Results: Laboratory Tests 03/07/25 03/07/25 03/07/25 14:00 14:56 21:47 WBC 7.1 RBC 4.98 Hgb 15.8 Hct 45.5 MCV 91.4 MCH 31.7 MCHC 34.7 RDW 12.0 Plt Count 199 MPV 10.8 Immature Gran % (Auto) 0.7 H Neut % (Auto) 38.5 L Lymph % (Auto) 51.3 H [place] % (Auto) 8.1 Eos % (Auto) 1.0 Baso % (Auto) 0.4 Lymph # (Auto) 3.6 [place] # (Auto) 0.6 Eos # (Auto) 0.1 Baso # (Auto) 0.0 Abs Immat Gran (auto) 0.05 H Absolute Neuts (auto) 2.7 Absolute Nucleated RBC 0.000 Nucleated RBC % (auto) 0.0 Smear Tech's Comments VERIFIED D-Dimer High Sensitivty 339 Sodium 137 Potassium 3.7 Chloride 102 Carbon Dioxide 23 Anion Gap 16 BUN 20 H Creatinine 1.07 Estim Creat Clear Calc TNP Estimated GFR > 60 POC Glucose Random Glucose 151 H Lactic Acid 1.9 Calcium 9.3 Total Bilirubin 0.7 Direct Bilirubin 0.2 AST 25 ALT 12 Alkaline Phosphatase 73 Total Protein 8.0 Albumin 4.4 03/07/25 03/07/25 03/08/25 21:50 23:48 05:20 WBC 5.9 RBC 4.20 L Hgb 13.5 L Hct 40.0 L MCV 95.2 MCH 32.1 MCHC 33.8 RDW 11.9 Plt Count 219 MPV 9.9 Immature Gran % (Auto) Neut % (Auto) Lymph % (Auto) [place] % (Auto) Eos % (Auto) Baso % (Auto) Lymph # (Auto) [place] # (Auto) Eos # (Auto) Baso # (Auto) Abs Immat Gran (auto) Absolute Neuts (auto) Absolute Nucleated RBC 0.000 Nucleated RBC % (auto) 0.0 Smear Tech's Comments D-Dimer High Sensitivty Sodium 139 Potassium 3.4 Chloride 103 Carbon Dioxide 28 Anion Gap 11 L BUN 15 Creatinine 0.92 Estim Creat Clear Calc 120.8 Estimated GFR > 60 POC Glucose 118 H 128 H Random Glucose 112 Lactic Acid Calcium 8.5 D Total Bilirubin 0.9 Direct Bilirubin AST 20 ALT 12 Alkaline Phosphatase 58 Total Protein 6.5 Albumin 3.7 03/08/25 06:15 WBC RBC Hgb Hct MCV MCH MCHC RDW Plt Count MPV Immature Gran % (Auto) Neut % (Auto) Lymph % (Auto) [place] % (Auto) Eos % (Auto) Baso % (Auto) Lymph # (Auto) [place] # (Auto) Eos # (Auto) Baso # (Auto) Abs Immat Gran (auto) Absolute Neuts (auto) Absolute Nucleated RBC Nucleated RBC % (auto) Smear Tech's Comments D-Dimer High Sensitivty Sodium Potassium Chloride Carbon Dioxide Anion Gap BUN Creatinine Estim Creat Clear Calc Estimated GFR POC Glucose 123 H Random Glucose Lactic Acid Calcium Total Bilirubin Direct Bilirubin AST ALT Alkaline Phosphatase Total Protein Albumin Documented by User: Shawn Valderrama MD 03/08/25 12:01 [facility] Past Medical History Medical History Hyperlipidemia Gallstones Otitis media Right hip pain Left ear pain Obstructive sleep apnea (adult) (pediatric) Medicare annual wellness visit, initial DVT (deep venous thrombosis) Injury of tendon of biceps Nausea Closed fracture of right proximal tibia Femoral distal fracture Obstructive sleep apnea Carpal tunnel syndrome Peripheral vascular disease History of pulmonary embolism Type 2 diabetes mellitus with hyperglycemia Hypertension Family History Family History Father CVD (cardiovascular disease) Diabetes Hypertension Mother Diabetes Hypertension Brother Past heart attack Substance abuse Maternal Uncle Schizophrenia Paternal Uncle CVD (cardiovascular disease) Family history of problems with anesthesia: No Surgical History Surgical History History of total right knee replacement Status post debridement Total knee replacement status Status post osteotomy History of femoropopliteal bypass History of repair of left rotator cuff History of Problems with Anesthesia: No Social History Social History Household Members: Family Housing: House Are you a primary senior care manager to a significant other at home: No Do you presently have visiting nurse or other home services: Yes (DEPARTMENT HELPER) Alcohol intake: never Patient Tobacco Use Status: Never used Tobacco Tobacco use type: Cigarette Years Smoked: smokes week occ Smoked in Last 30 Days: No e-Cigarette/Vaping Use: Never Used Second Hand Smoke Exposure: No Use of substances other than those prescribed or required for medical reasons: No Substance Use Type: Marijuana Have you been hit, kicked, punched, or otherwise hurt by someone within the past year? If so, by whom?: No Do you feel safe in your current relationship?: Yes Is there a partner from a previous relationship who is making you feel unsafe now?: No Are you made to feel afraid or neglected: No Are you DNR?: No Advance Directives: Yes Advance Directives on File: Yes Advance Directives Date on File: 02/22/24 Do you have a plan to hurt others: No Plan Nutrition Risks: No Nutritional Risk service: No Current occupational status: unemployed Cognitive needs: No Hearing needs: No Vision needs: No Meds Allergies Allergy/AdvReac Type Severity Reaction Status Date / Time Penicillins (PENICILLINS) Allergy Severe hives Verified 03/07/25 14:11 Home Medications ?Medication ?Instructions ?Recorded ?Confirmed ?Last Taken ?Type escitalopram oxalate 20 mg tablet 20 mg PO DAILY 05/07/20 03/07/25 Unknown History (Lexapro) trazodone 100 mg tablet 100 mg PO BEDTIME PRN Sleep 05/07/20 03/07/25 Unknown History atorvastatin 40 mg tablet 40 mg PO BEDTIME 03/07/25 03/07/25 Unknown History Exam Exam Date and Time: 03/08/2025 Airway Mallampati Class: III TM Dist: <=3cm Loose/Missing/Broken Teeth: Yes Heart: rrr Lungs: ctab vesicular Assessment and Plan Assessment Anesthesia Assessment: Anesthesia Plan Discussed and Chart Reviewed Final Anesthetic Review Family History of Problems with Anesthesia: No History of Problems with Anesthesia: No NPO: Yes ASA Class: III Final Preanesthetic Review: No Changes in Pt Med Stat, Meds/Allgs Chart Reviewed, Consent Obtained/Reviewed and Anes Risks/Benef Reviewed Patient Risk: Intermediate Procedure Risk: Low Anesthetic Plan Anesthetic Plan: GA Disposition: Standard PACU
[2025-03-08 10:41] LABS: Glucose, Whole Blood 129 mg/dL (60-115)
[2025-03-08] MEDS: Lactated Ringers 1,000 ML 50 ML IVCONT (10:48)
--- NOTE | 2025-03-08 11:43 | PM.EVENT ---
Event Note Date of Service: 03/08/25 Event Note: Seen early this morning Says he still has abdominal pain, diffuse, but says this is mostly in the right side No nausea or vomiting No fever Stable vital signs Abdomen is soft WBC normal LFTs normal He wants to proceed with cholecystectomy I explained to him that there is no guarantee that all his abdominal symptoms we will resolve with cholecystectomy He understands the technique of the planned procedure as well as the risks, benefits, and alternatives He has given consent Case discussed with the hospitalist service Time Spent With Patient Time: Total time managing care of this patient today ____ minutes.
--- NOTE | 2025-03-08 13:36 | W.PM.OPN ---
Operative Note Operative Note Date of Service: 03/08/25 Narrative: Preop diagnosis: Symptomatic gallstones Postop diagnosis: Acute calculous cholecystitis, with signs of the gallbladder, markedly adherent omentum covering the gallbladder Procedure: Laparoscopic cholecystectomy Surgeon: Nahum Kaur MD electrical assistant: KEARA Proctor The patient is a 54-year-old male was side abdominal pain mostly in the right side with note of gallstones on CAT scan. He said that he has had this problem on and off for years and he had been worsening the past 3 days. He wanted to proceed with cholecystectomy. He understood the technique of the planned procedure as was the risks, benefits, and alternatives.. He was brought to the operating room and placed supine under general anesthesia via endotracheal tube. The abdomen was prepped and draped in the usual sterile fashion. A surgical time-out was done. The patient was on scheduled IV antibiotics . I made a short incision on the supraumbilical area using blade 15. This was carried down through the full-thickness of the skin and thick subcutaneous fat to the fascia. The fascia was incised. The peritoneum was entered. Through this incision a Marquez port was introduced pneumoperitoneum was introduced to a pressure of 15 mm Hg. From here on the rest of procedure was done under vision with the 10 mm flat laparoscope. With laparoscopic visualization inserted a 5/12 mm port in the epigastric area. Two 5 mm ports introduced a small incision below the subcostal margin along the anterior axillary line and the midclavicular line. Graspers were placed through these working ports. The patient was placed in a head up and [id number] position The gallbladder was partially seen as this was wrapped in thick amounts of omentum. The gallbladder was markedly distended, very edematous and inflamed. This was therefore consistent with the acute cholecystitis. I had to decompress this with an aspirating needle. Thick bile was aspirated. Once the gallbladder was decompressed, I was able to apply a grasper at the fundus to retract this cephalad. I had to do a lot of dissection to peel off very indurated omentum from the anterior wall of the gallbladder. This was done with the [place] dissector as well as electrocautery. I had to control oozing areas on the omentum as well with electrocautery. I was then able to expose the pouch of the gallbladder so another grasper was applied to retract the gallbladder laterally. At this point the gallbladder was being retracted in cephalad and lateral fashion to put the area of the cystic duct on stretch. I carefully dissected the neck of the gallbladder using the [place] dissector to tease off the very indurated and inflamed fiber areolar tissue until I was able to visualize the cystic duct. With continued dissection using the [place] dissector, I was able to visualize the cystic duct with its confluence with the neck of the gallbladder. The cystic artery was also seen running alongside this. We had achieved the critical view of the hepatocystic triangle at this point. I therefore applied clips in the cystic duct with 2 clips being applied distally. The cystic duct was transected between clips with Endo scissors. I applied clips on the cystic artery with 2 clips applied distally. The cystic artery was transected with the clips with Endo scissors as well. We then proceeded to carefully divide history of the fatty areolar tissue surrounding the gallbladder using the L hook electrocautery to allow us to reach the interface of the gallbladder wall and the liver bed. With traction of the gallbladder away from the liver bed. I proceeded to then used the L hook cautery to define a plane of dissection between the very inflamed gallbladder wall and the liver bed. We proceeded slowly all the way to the fundus until the entire gallbladder was completely . The gallbladder was retrieved through an endobag through the umbilical incision. I reinserted all ports and re-insufflated. I observed for hemostasis. Since there was note of oozing from the liver bed earlier, I positioned Surgicel this area We copiously irrigated in view of some spillage of bile from a tear in the gallbladder wall We irrigated and observed for hemostasis. After a few minutes re-examined the subhepatic space and this was dry I observed all 4 quadrants. There was no evidence of any bowel injury or any bile leak . With hemostasis confirmed, we desufflated through the port sites. The ports were removed, with the umbilical port removed last. The fascia of the umbilical incision was closed with a [id number] Polysorb 0 stitch. Skin closure was achieved on all incisions using Polysorb 4-0 subcuticular running sutures. All incisions were infiltrated with Marcaine 0.5% for postop analgesia. Steri-Strips and dressings were applied and the procedure was completed The patient tolerated procedure well. There were no immediate complications. Initial and final counts of sponges and instruments were correct. Estimated blood loss was about 75 cc. The patient was extubated without difficulty and transferred to the recovery room with stable vital signs.
[2025-03-08 14:49] LABS: Glucose, Whole Blood 149 mg/dL (60-115)
--- NOTE | 2025-03-08 15:15 | HO.ANESEVENT ---
Anesthesia Event Note Date of Service: 03/08/25 Event Note: went to room 363 to speak to the patient Time Spent With Patient Time: Total time managing care of this patient today ____ minutes.
--- NOTE | 2025-03-08 15:24 | HO.ANESEVENT ---
Anesthesia Event Note Date of Service: 03/08/25 Event Note: I visited the patient on the floor to notify him of the possible exposure. I apologized to him, explained the processes that failed, and explained how we will improve them. I described the exposure as low risk and mentioned that the other patient agreed to release their results to him and that they will be released as soon as possible. I mentioned post-exposure prophylaxis for HIV and stated that someone more familiar with the risks and benefits would speak to him. I asked if he had any questions and he had none. I then described the conversation to Dr. Kaur and he stated that he would speak to the patient about post-exposure prophylaxis. Time Spent With Patient Time: Total time managing care of this patient today ____ minutes.
--- NOTE | 2025-03-08 15:49 | PM.EVENT ---
Event Note Date of Service: 03/11/25 Event Note: Seen postop Underwent laparoscopic cholecystectomy earlier, with severely inflamed and distended gallbladder Appears to have good pain control Looks well Abdomen is soft Stable vital signs Plan to discharge home tomorrow if he continues to do well I also had a long discussion with the patient about incident in the OR involving him The anesthesiologist apparently used a suction catheter that was already used on a patient previously as this was not changed in between cases The previous patient is deemed to be very low risk for HIV, hepatitis and other illnesses transmitted through oral secretions I explained this to the patient and his and they seemed to be understanding We will get baseline labs the patient for hepatitis as well as HIV Time Spent With Patient Time: Total time managing care of this patient today ____ minutes.
--- NOTE | 2025-03-08 16:27 | MHC.CM.PN ---
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
[2025-03-08 16:30] LABS: Glucose, Whole Blood 173 mg/dL (60-115)
[2025-03-08 20:21] LABS: Glucose, Whole Blood 223 mg/dL (60-115)
[2025-03-08] MEDS: 0.9 % Sodium Chloride Flush 3 ML SYRINGE IVFLUSH (20:52)
[2025-03-09 04:00] VITALS: BP 124/78; PULSE 85; RESP 18; TEMP 36.2; O2SAT 99
[2025-03-09 07:34] LABS: Glucose, Whole Blood 96 mg/dL (60-115)
[2025-03-09 07:57] VITALS: BP 115/66; PULSE 74; RESP 18; TEMP 36.1; O2SAT 100
[2025-03-09] MEDS: 0.9 % Sodium Chloride Flush 3 ML SYRINGE IVFLUSH (08:24)
--- NOTE | 2025-03-09 09:32 | MHC.CM.PN ---
pt dcd home self care
[2025-03-09] MEDS: oxyCODONE HCl Immed Release 5 MG TABLET PO (10:17)
[2025-03-09 10:31] VITALS: BP 126/80; PULSE 83; RESP 18; TEMP 36.4; O2SAT 97
[2025-03-09 10:44] LABS: HBS Num1 0.11 mIU/mL (0-7.99); HIV Num 1 0.06 S/CO (0.00-0.99); ~HepC Num1 0.08 S/CO (0.00-0.79); ~Hepatitis B Surface Antibody NONREACTIVE (Nonreactive); ~Hepatitis C Antibody Nonreactive (Nonreactive)
--- NOTE | 2025-03-09 11:47 | P.PNGS_ITS ---
Subjective Subjective Date of Service: 03/09/25 Interval history: Genaro feels much improved today following the surgery. He is very happy with his care here. He tolerated a regular diet yesterday without nausea or vomiting. He feels ready to be discharged to home. Physical Exam 2 Vital Signs: Vital Signs: Last Vital Signs Temp 97.6 F 03/09/25 10:31 Pulse 83 03/09/25 10:31 Resp 18 03/09/25 10:31 BP 126/80 03/09/25 10:31 Pulse Ox 97 03/09/25 10:31 O2 Del Method Room Air 03/09/25 10:31 O2 Flow Rate 2 03/09/25 07:57 BMI result Body Mass Index 36.0 Const: General: no acute distress Nutritional Appearance: well nourished Orientation/consciousness: patient oriented x3 Limitations: no limitations Resp: Effort & Inspection: normal respiratory effort GI: Other: Trocar bandages are clean and intact without bleeding or redness. Skin: Other: Warm, dry, no rash Neuro: General: patient oriented x3 Extrem: Other: No pedal edema Objective Data Labs 03/08/25 05:20 03/08/25 05:20 Labs: Laboratory Results - last 24 hr 03/08/25 03/08/25 03/08/25 14:44 16:19 19:17 POC Glucose 149 H 173 H Hep Bs Antibody NONREACTIVE Hepatitis C Ab (EIA) Nonreactive HIV 1&2 Ab/P24 Ag 4thGn Nonreactive 03/08/25 03/09/25 20:15 07:30 POC Glucose 223 H 96 Hep Bs Antibody Hepatitis C Ab (EIA) HIV 1&2 Ab/P24 Ag 4thGn Microbiology Microbiology Results: Microbiology 03/07/25 14:56 Blood Culture - Preliminary Blood - Venous No growth after 24 hours. 03/07/25 14:56 Blood Culture - Preliminary Blood - Venous No growth after 24 hours. Procedures Date of Service Date of Service: 03/09/25 Progress Note: A&P Assessment and plan (1) Cholecystitis, acute with cholelithiasis: Status: Acute Plan 54-year-old male patient presenting with acute cholecystitis due to cholelithiasis. He feels much improved today following the surgery in his tolerating a regular diet without nausea or vomiting. His wounds are clean and intact without redness or discharge. He is ready for discharge to home. He should follow up in the office with Dr. Kaur in approximately 2 weeks. He should call sooner for any nausea, vomiting, increased abdominal pain or other concerns. Time Spent With Patient Time: Total time managing care of this patient today ____ minutes. Quality Stroke Does the patient have a stroke diagnosis?: No VTE Prior VTE?: No VTE Risk Level:: Medical - moderate - high VTE Device Contraindication: N/A - Device Ordered VTE Drug Contraindication: N/A - Med Ordered
--- NOTE | 2025-03-09 14:47 | PM.DS ---
DS: Providers Provider Date of Service: 03/09/25 Date of admission: 03/07/25 16:47 Date of discharge: 03/09/25 Primary care physician: Rebel Farah MD Attending physician on admission: Nahum Kaur Consults: 03/07/25 16:47 Consult to Hospitalist Routine Comment: Consulting Provider: [facility] [place] [facility] Reason For Exam: Hypertension, history of PE Attending physician on discharge: Rajinder López DS: Diagnosis Discharge Diagnosis (1) Gallstones: Status: Resolved DS: Summary Hospital Course Hospital Course: HPI AT ADMISSION: Genaro Lerner is a 54 year old male with a history of PE, diabetes, anxiety, here in the ER because of abdominal pain. He was actually here yesterday as well because of the same complaints. He had an ultrasound and CAT and the working diagnosis then was pain secondary to gallstones. His white count was normal yesterday. He went home as she had felt better. However, he says he has had episodes of pain again today so he came back to the emergency room. He currently describes pain which he says this mostly in the right side. He says he had been vomiting at home as well. He was supposed to be on Eliquis for PE but says he has not taken this in several weeks. He had told Dr. López yesterday in the ER that he took this yesterday morning. He denies any fever or chills. The patient does not appear to be a good historian. HOSPITAL COURSE: The patient was admitted to the surgical service for further treatment. The following day he had continued RUQ pain as well as nausea and vomiting. Treatment options were discussed with the patient and he wanted to proceed with cholecystectomy. It was explained to him that there is no guarantee that all his abdominal symptoms we will resolve with cholecystectomy and he understood. He was added onto the OR schedule for that day. On 03/08/25, a laparoscopic cholecystectomy was performed by Dr. Kaur without complication. He was found to have acute calculous cholecystitis, with markedly adherent omentum covering the gallbladder. The patient tolerated the procedure well. He had an uncomplicated recovery course. On POD #1, he felt well and was tolerating a solid diet without nausea or vomiting, had good pain control and was ambulating without difficulty. He was hemodynamically stable. His abdomen was benign with appropriate post op tenderness and clean and intact dressings. He felt ready for discharge. He was discharged to home on 03/09/25 in stable condition. He is to follow up in the office in 2 weeks. Of note, unfortunately a used suction catheter that was not changed in between cases was used on him. This was discussed with him. The previous patient is deemed to be very low risk for HIV, hepatitis and other illnesses transmitted through oral secretions however workup was employed. Baseline hepatitis and HIV labs for the patientwere obtained. Status at Discharge Functional status at discharge: independent ambulation Overall status at discharge: patient is progressing back to baseline Time Attestation Discharge Coordination Time (in mins): 25 Quality: Safe Use of Opioids Does Pt have an Active Cancer Diagnosis on the Problem List?: No Quality: Stroke Does the patient have a stroke diagnosis?: No Physical Exam Vital Signs: Vital Signs: Last Vital Signs Temp 97.6 F 03/09/25 10:31 Pulse 83 03/09/25 10:31 Resp 18 03/09/25 10:31 BP 126/80 03/09/25 10:31 Pulse Ox 97 03/09/25 10:31 O2 Del Method Room Air 03/09/25 10:31 O2 Flow Rate 2 03/09/25 07:57 BMI result Body Mass Index 36.0 Const: General: comfortable, no acute distress and alert Orientation/consciousness: patient oriented x3 Resp: Effort & Inspection: normal respiratory effort GI: Other: dressing clean and intact Skin: General skin exam: no rashes or lesions noted Neuro: General: patient oriented x3 Extrem: Other: no pedal edema DS: Data Data Completed and Pending Completed studies during hospitalization [Text1]: 03/08/25 12:55 Surgical [PTH] Routine Gallbladder, cholecystectomy: Chronic cholecystitis and cholelithiasis Labs on day of discharge: Preliminary micro results at discharge 03/07/25 14:56 Blood Culture - Preliminary Blood - Venous No growth after 48 hours. 03/07/25 14:56 Blood Culture - Preliminary Blood - Venous No growth after 48 hours. Discharge Plan Discharge Anticipated Discharge Date/Time: 03/09/25 08:07 Patient Disposition: Home, Self-Care Discharge Diagnosis: acute cholecystitis, s/p laparoscopic cholecystectomy Referrals: Nahum Kaur MD [Physician, General Surgery] - 2 Weeks Po,Rebel Frances MD [Primary Care Provider, Internal Medicine] - 1 Week Discharge Medications: New docusate sodium [Colace] 100 mg capsule 100 mg PO BID PRN (Reason: constipation) Qty: 30 0RF oxycodone 5 mg tablet 5 mg PO Q4H PRN (Reason: pain (scale score 7-10)) Qty: 24 0RF Rx Instructions: Partial Fill upon patient request. Continued gabapentin 300 mg capsule 300 mg PO TID 90 Days Qty: 270 1RF fluticasone propionate [Flonase Allergy Relief] 50 mcg/actuation spray,suspension 2 spray intranasal DAILY Qty: 16 2RF Rx Instructions: administer into each nostril cefuroxime axetil 500 mg tablet 500 mg PO BID Qty: 14 0RF atorvastatin 40 mg tablet 40 mg PO BEDTIME metformin 1,000 mg tablet 1,000 mg PO BID 90 Days Qty: 180 2RF escitalopram oxalate [Lexapro] 20 mg tablet 20 mg PO DAILY trazodone 100 mg tablet 100 mg PO BEDTIME PRN (Reason: Sleep) metoprolol succinate 50 mg tablet extended release 24 hr 50 mg PO DAILY Qty: 90 1RF lisinopril 5 mg tablet 5 mg PO DAILY 90 Days Qty: 90 2RF (DME) AUTO PAP 6-20 cm H2o humidified air See Rx Instructions .Route .MEDSUPPLY Qty: 1 0RF Rx Instructions: As directed (DME) Ultra-Light Rollator Misc See Rx Instructions .Route Qty: 1 0RF Rx Instructions: As directed (DME) FreeStyle Lite Strips Strip See Rx Instructions .ROUTE .MEDSUPPLY Qty: 100 3RF Rx Instructions: As directed check the BS QD (DME) blood-glucose meter [FreeStyle Lite Meter] Kit See Rx Instructions .ROUTE .MEDSUPPLY Qty: 1 0RF Rx Instructions: As directed (DME) lancets [FreeStyle Lancets] 28 gauge misc See Rx Instructions .ROUTE .MEDSUPPLY Qty: 100 3RF Rx Instructions: As directed check BS QD cyclobenzaprine 10 mg tablet 10 mg PO BEDTIME Qty: 30 0RF No Action Eliquis 5 mg tablet 5 mg PO BID 90 Days Qty: 180 0RF Discharge Orders: Discharge Order (Routine); Ordered 03/09/25 Ordered By: Rajinder López Diet: Diabetic diet Activity on Discharge: No heavy lifting Stand Alone Forms: Patient Portal Discharge page Print Language: Russian Activity Restrictions/Additional Instructions: Okay to restart Eliquis on March 11 If the incision area is tender, you may apply an ice pack for short intervals (No more than 20 minutes on, followed by at least 20 minutes off). Do not apply heat. Do not use creams, lotions, or topical antibiotics. These can cause infection or allergic reaction. Ok to shower 24 hours after your surgery. Remove bandaids in 2 days. You have steri strips (small white strips) covering your incision- these will fall off ~1 week. Follow up in office with Dr. Kaur in 2 weeks. ([phone]) No heavy lifting (>10-20lbs) or strenuous activity! Call Your Doctor If: -Your temperature exceeds 101.5? F -You experience excessive pain or swelling -You have an unexpected reaction to medication -You have excessive bleeding -You experience continued vomiting/nausea -Your incision begins to separate -Your incision shows signs of infection such as increased redness, swelling, excessive pain, drainage (light blood or clear fluid is normal) or heat Care Plan Goals: Return to baseline health and resume normal activities following recovery period. Health Concerns: acute cholecystitis diabetes mellitus Plan of Treatment: s/p laparoscopic cholecystectomy follow up in the office in 2 weeks pain control Assessment: Doing well post op Patient Instructions: Oxycodone, Rapid Release (By mouth), Laparoscopic Cholecystectomy (GEN) Discharge Date/Time: 03/09/25 10:42
== END 2025-03-09 10:42 | disposition home or self-care (01) | DRG 419 ==
LOC: HO.ED 16:39 → HO.EDOVER 16:48 → HO.S3 19:56
PROVIDERS: Nurse Practitioner Family; Physician Assistant Medical; Admitting Provider Surgery; Emergency Provider Emergency Medicine; PCP Internal Medicine; Visit Provider Surgery
PROC: 0FT44ZZ Resection of Gallbladder, Percutaneous Endoscopic Approach (ICD-10-PCS; CPT 47562; principal; 2025-03-08 12:50)
DX: K80.00 Calculus of gallbladder with acute cholecystitis without obstruction (principal); G47.33 Obstructive sleep apnea (adult) (pediatric); I10 Essential (primary) hypertension; E11.9 Type 2 diabetes mellitus without complications; E66.01 Morbid (severe) obesity due to excess calories; Z86.711 Personal history of pulmonary embolism; Z86.718 Personal history of other venous thrombosis and embolism; Z68.36 Body mass index [BMI] 36.0-36.9, adult; Z79.01 Long term (current) use of anticoagulants; Z79.51 Long term (current) use of inhaled steroids; Z79.84 Long term (current) use of oral hypoglycemic drugs; Z79.899 Other long term (current) drug therapy
CPT/HCPCS: 36415; 74177; 80048; 80053; 80076; 82947; 83605; 85025; 85027; 85379; 86706; 86803; 87040; 87389; 88304; 93005; 99285; 99499; J0131; J1171; J1885; J1920; J2003; J2250; J2270; J2405; J2470; J2543; J2704; J2795; J3010; J7120; Q9967

== ENCOUNTER → 2025-03-07 13:48 | Outpatient (BNV) | payer MEDICARE, MEDICAID, SELFPAY | PROVIDERS: Admitting Provider Surgery; Emergency Provider Emergency Medicine; PCP Internal Medicine; Visit Provider Internal Medicine Cardiovascular Disease | DX: R00.0 Tachycardia, unspecified (principal) | CPT/HCPCS: 93010 ==

== ENCOUNTER → 2025-03-07 14:48 | Outpatient (BNV) | payer MEDICARE, MEDICAID, SELFPAY | PROVIDERS: Emergency Provider Emergency Medicine; PCP Internal Medicine; Visit Provider Radiology Diagnostic Radiology | DX: K80.20 Calculus of gallbladder without cholecystitis without obstruction (principal); K40.90 Unilateral inguinal hernia, without obstruction or gangrene, not specified as recurrent; R16.0 Hepatomegaly, not elsewhere classified | CPT/HCPCS: 74177 ==

== ENCOUNTER → 2025-03-07 16:47 | Outpatient (BNV) | payer MEDICARE, MEDICAID, SELFPAY | PROVIDERS: Admitting Provider Surgery; Emergency Provider Emergency Medicine; PCP Internal Medicine; Visit Provider Nurse Practitioner Family | DX: I10 Essential (primary) hypertension (principal); Z86.711 Personal history of pulmonary embolism; I82.533 Chronic embolism and thrombosis of popliteal vein, bilateral; E11.65 Type 2 diabetes mellitus with hyperglycemia; E66.9 Obesity, unspecified; G47.33 Obstructive sleep apnea (adult) (pediatric); E78.2 Mixed hyperlipidemia; K80.20 Calculus of gallbladder without cholecystitis without obstruction; R11.2 Nausea with vomiting, unspecified | CPT/HCPCS: 99223; 99232 ==

== ENCOUNTER → 2025-03-07 16:47 | Outpatient (BNV) | payer MEDICARE, MEDICAID, SELFPAY | PROVIDERS: Admitting Provider Surgery; Emergency Provider Emergency Medicine; PCP Internal Medicine; Visit Provider Surgery | DX: K80.20 Calculus of gallbladder without cholecystitis without obstruction (principal) | CPT/HCPCS: 47562; 99024; 99222; 99499 ==

== ENCOUNTER 2025-03-14 09:48 | Outpatient (AMB) | payer MEDICARE, MEDICAID, SELFPAY ==
[2025-03-14 09:52] VITALS: BP 152/98; PULSE 83; RESP 18; TEMP 36.3; O2SAT 97; BMI 36.7
--- NOTE | 2025-03-14 09:52 | MHC.PC.OV ---
Vital Signs 03/14/25 09:52 03/14/25 11:04 Height 5 ft 11 in Weight 263 lb 4 oz BMI 36.7 BP 152/98 H 122/76 Blood Pressure Location Lt brachial Lt brachial Position Sitting Sitting Respiration 18 Pulse 83 Pulse Source Pulse Oximeter Temp 97.3 F Temp Source Temporal Artery Scan Pulse Oximetry (%) 97 Oxygen Delivery Method Room Air Intake Visit Reasons: [facility] 03/09 Gallstones Apparel Fashion Designer Required: No Accompanied by: Self / Same As Patient Allergies Penicillins (PENICILLINS) Allergy (Severe, Verified 03/14/25 10:49) hives Medication List - Last Reconciled 03/14/25 by Karyn Luciano PA-C atorvastatin 40 mg PO BEDTIME [AUTO PAP 6-20 cm H2o humidified air As directed] blood sugar diagnostic (FreeStyle Lite Strips) As directed check the BS QD blood-glucose meter (FreeStyle Lite Meter kit) As directed cefuroxime axetil 500 mg PO BID cyclobenzaprine 10 mg PO BEDTIME docusate sodium (Colace) 100 mg PO BID PRN escitalopram oxalate (Lexapro) 20 mg PO DAILY fluticasone propionate 50 mcg/actuation (Flonase Allergy Relief) 2 sprays intranasal DAILY gabapentin 300 mg PO TID 90 days lancets (FreeStyle Lancets) As directed check BS QD lisinopril 5 mg PO DAILY 90 days metformin 1,000 mg PO BID 90 days metoprolol succinate ER 50 mg PO DAILY oxycodone 5 mg PO Q4H PRN trazodone 100 mg PO BEDTIME PRN walker (Ultra-Light Rollator misc) As directed Tobacco use date assessed: 03/14/25 Dental Screening Dental Screen Date: 03/14/25 Did you have a dental visit in the last 12 months?: No Did you have a dental problem in the last 6 months where you did not have access to dental care?: No Was dental information given to patient?: No HPI [facility] 03/09 Gallstones HPI Details 54-year-old male with past medical history of diabetes mellitus, hypertension, history of pulmonary embolism, GERD, generalized anxiety disorder, obstructive sleep apnea last seen 02/2025 coming in for [facility]. In review of the notes, patient was seen in [facility] 03/07/2025 for abdominal pain which was secondary to gallstones. He was admitted for surgical intervention and underwent lap torres 03/08/2025 with uncomplicated recovery course. Discharged 03/09/2025 and advised to follow up in office in 2 weeks. Presenting with postoperative follow-up after recent surgery. Reports significant pain at incision sites, particularly sensitive areas due to surgical tool insertion. Experiences diarrhea, advised to avoid fatty foods due to increased risk post-gallbladder removal. Persistent nausea and vomiting led to non-adherence to Eliquis, unable to retain oral medications. Nausea and vomiting have since resolved since surgery and he has resumed his medications. Denying any SOB or new leg pain or swelling. TCM TCM Information Date of Discharge 03/09/25 Discharged From [facility] Interactive Contact Date (Reference documentation from this date) 03/11/25 [facility] Medical History Hyperlipidemia Gallstones Otitis media Right hip pain Left ear pain Obstructive sleep apnea (adult) (pediatric) Medicare annual wellness visit, initial DVT (deep venous thrombosis) Injury of tendon of biceps Nausea Closed fracture of right proximal tibia Femoral distal fracture Obstructive sleep apnea Carpal tunnel syndrome Peripheral vascular disease History of pulmonary embolism Type 2 diabetes mellitus with hyperglycemia Hypertension Surgical History History of total right knee replacement Status post debridement Total knee replacement status Status post osteotomy History of femoropopliteal bypass History of repair of left rotator cuff Family History Father CVD (cardiovascular disease) Diabetes Hypertension Mother Diabetes Hypertension Brother Past heart attack Substance abuse Maternal Uncle Schizophrenia Paternal Uncle CVD (cardiovascular disease) Social History Household Members: Family Housing: House Are you a primary healthcare business analyst to a significant other at home: No Do you presently have visiting nurse or 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) Alcohol intake: never Patient Tobacco Use Status: Never used Tobacco Tobacco use type: Cigarette Years Smoked: smokes week occ e-Cigarette/Vaping Use: Never Used Second Hand Smoke Exposure: No Substance Use Type: Marijuana Advance Directives Date on File: 02/22/24 service: No Current occupational status: unemployed Cognitive needs: No Hearing needs: No Vision needs: No Questionnaire Thrive Questionnaire Date Thrive assessed: 08/31/24 I am a: Patient What is your living situation today?: I have a steady place to live Within the past 12 months, did the food you bought not last and you didn't have the money to get more?: Sometimes True Within the past 12 months, did you worry whether your food would run out before you got money to buy more?: Sometimes True Do you have trouble paying for medicines?: No Do you have trouble getting transportation to medical appointments?: No Do you have trouble paying your heating and electricity bill?: Yes Do you have trouble taking care of your child, family member or friend?: No Do you have trouble with day-to-day activities such as bathing, preparing meals, shopping, managing finances, etc.?: Yes Are you currently unemployed and looking for a job?: Yes Are you interested in more education?: Yes Currently or been in a relationship where the following occur: No concerns reported THRIVE Score: 3 CAM-7 AMB Questionnaire CAM-7 Date CAM - 7 assessed: 09/13/24 Source: Developed by Drs. Leighton West, Comfort Harper, Aries Allan and colleagues, with an educational shane from [employer]. Review of Systems Const Denies body aches, Denies chills, Denies fever(s), Denies headache(s) and Denies poor appetite Eyes Reports no additional complaints ENT Denies dizziness and Denies headache(s) Card Denies chest pain, Denies edema, Denies lightheadedness and Denies dyspnea Resp Denies cough and Denies dyspnea GI Reports abdominal pain (around incision sites ), Denies dyspepsia, Denies heartburn, Reports diarrhea, Denies nausea and Denies vomiting Reports no additional complaints Musc Reports no additional complaints and Denies abnormal gait Skin/Breast Reports system reviewed and no additional complaints, except as documented Neuro Denies abnormal gait, Denies dizziness and Denies headache(s) Psych Reports no additional complaints Physical exam (Primary Care) Vital Signs: Last Vital Signs Temp 97.3 F 03/14/25 09:52 Pulse 83 03/14/25 09:52 Resp 18 03/14/25 09:52 BP 122/76 03/14/25 11:04 Pulse Ox 97 03/14/25 09:52 Oxygen Delivery Method Room Air 03/14/25 09:52 BMI result Body Mass Index 36.7 Tobacco/Smoking Status: Tobacco use Status Tobacco use date assessed 03/14/25 03/14/25 09:53 Patient Tobacco Use Status Never used Tobacco 03/14/25 09:53 Tobacco use type Cigarette 03/14/25 09:53 e-Cigarette/Vaping Use Never Used 03/14/25 09:53 Thrive Assessment: Date of Thrive Assessment Date Thrive assessed 08/31/24 03/14/25 09:53 Currently or been in a relationship where the following occur: No concerns reported Const General: cooperative, healthy appearing, comfortable and no acute distress Orientation/consciousness: patient oriented x3 HENMT Head: Yes normocephalic Ears: hearing grossly normal bilaterally General nose exam: Normal external nose present Eyes General: appearance normal, both eyes and all related structures Conjunctivae: conjunctivae normal Neck Neck: Yes full ROM and Yes no lymphadenopathy Resp Effort & Inspection: normal respiratory effort Auscultation: clear to auscultation bilaterally, no crackles, no rales, no rhonchi and no wheezes Cardio Rate: regular rate Rhythm: regular rhythm GI Abdomen image:  1. incision site clean, dry and intact with no evidence of infection or drainage and mild ecchymosis 2. incision site clean, dry and intact with no evidence of infection or drainage 3. incision site clean, dry and intact with no evidence of infection or drainage Skin General skin exam: no rashes or lesions noted Neuro General: patient oriented x3 Gait exam (Neuro): Normal gait present Extrem General: Yes normal to inspection, Yes full ROM and No edema Psych Affect: normal affect Attitude: cooperative Insight: Good insight present (Psych) Judgement: Good judgement present (Psych) Coding Level of Care Code TCM Mod MDM <= 7 Days Complex EM visit Add On G2211 Diagnoses Essential hypertension I10 Hypertension type: essential hypertension Chronic deep vein thrombosis (DVT) of popliteal vein of both lower extremities I82.533 Affected thrombotic vein of extremity: popliteal Chronicity: chronic DVT location: lower extremity Laterality: bilateral Calculus of gallbladder with acute cholecystitis without obstruction K80.00 Biliary obstruction: without biliary obstruction Assessment & Plan Assessment & Plan (1) Hypertension: Code(s): I10 - Essential (primary) hypertension Category: Medical Qualifiers: Hypertension type: essential hypertension Qualified Code(s): I10 - Essential (primary) hypertension Plan: Continue on current blood pressure medication. Avoid salt intake and encourage healthy diet and regular exercise. Improved when retaken. (2) DVT (deep venous thrombosis): Code(s): I82.409 - Acute embolism and thrombosis of unspecified deep veins of unspecified lower extremity Category: Medical Qualifiers: Affected thrombotic vein of extremity: popliteal Chronicity: chronic DVT location: lower extremity Laterality: bilateral Qualified Code(s): I82.533 - Chronic embolism and thrombosis of popliteal vein, bilateral Plan: Reinforced medication adherence. Denies any new leg pain, swelling, redness or warmth. (3) Cholecystitis, acute with cholelithiasis: Code(s): K80.00 - Calculus of gallbladder with acute cholecystitis without obstruction Category: Medical Qualifiers: Biliary obstruction: without biliary obstruction Qualified Code(s): K80.00 - Calculus of gallbladder with acute cholecystitis without obstruction Plan: Doing well post op and incision sites are clean, dry and intact without evidence of infection. The patient is advised to continue using oxycodone as needed for pain management and apply ice packs to reduce inflammation, particularly at the most sensitive incision site. He will reach out to general surgery to follow up appointment. He is having mild diarrhea advised to avoid fatty foods and consider cholestyramine if persistent s/p cholecystectomy. Plan This note was constructed using voice recognition software. While every effort has been made to ensure accuracy and asbestos siding mechanic, still areas may have been included sometimes these areas may affect the content or meeting of the given symptoms. Total time spent caring for the patient today was 20 minutes. This includes time spent before the visit reviewing the chart, time spent during the visit, and time spent after the visit and documentation. Patient was informed and verbally consented to the use of an ambient scribe for clinic note documentation during this visit. Medications: Refilled apixaban (Eliquis) 5 mg PO BID 180 tabs 0RF 90 days Z86.711 - Personal history of pulmonary embolism
[2025-03-14 11:04] VITALS: BP 122/76
--- OUTSIDE RECORDS SUMMARY | 2025-03-14 11:13 | XMS_ITS | Clinical Summary ---
Author Organization [address] [place] [address] [place] [id number] Phone Care Team Providers Care Supervisor Travel Information Center Name Role Phone Rebel Farah MD Primary Care Provider [phone] Surgical History Surgery Date Site/Laterality Comments OTHER SURGICAL HISTORY 1993 PROCEDURE: ---- OTHER ----; COMMENT: rt popliteal bypass after football injury KNEE ARTHROSCOPY 2003 PROCEDURE: [place] ARTHROSCOPY AID [place] SPINE&/FX KNEE W/O FIXJ; COMMENT: knee replacement at [facility] KNEE SURGERY 2005 PROCEDURE: HISTORICAL KNEE SURGERY; COMMENT: osteotomy Medical History Medical History Date Comments DVT (deep venous thrombosis) ([facility] V24, [facility] V28) 1993 DX:DVT (deep venous thrombos is) ([facility]); COMMENT: on coumadin for 20 yrs ago, f/u by Dr. Sheppard DM (diabetes mellitus) ([facility] V24, [facility] V28) 2011 DX:DM (diabetes mellitus) ([facility]); COMMENT: managed by Dr. Sheppard JEANINE (obstructive sleep apnea) 2012 DX :JEANINE (obstructive sleep apnea); COMMENT: sleep study done at [facility], ordered by Dr. Sheppard Venous insufficiency DX:Venous [...] Insurance MEDICARE MEDICAID - [place] Care Teams Supervisor Travel Information Center Relationship Specialty Start Date End Date Rebel Farah MD [address] [place] [address] Dr [address] [facility] [place] [address] PCP - General Internal Medicine 10/17/24
== END 2025-03-14 11:08 | disposition home or self-care (01) ==
LOC: HO.HMCH 09:48
PROVIDERS: PCP Internal Medicine
DX: I10 Essential (primary) hypertension (principal); I82.533 Chronic embolism and thrombosis of popliteal vein, bilateral; K80.00 Calculus of gallbladder with acute cholecystitis without obstruction

== ENCOUNTER → 2025-03-14 09:48 | Outpatient (BNVA) | payer MEDICARE, MEDICAID, SELFPAY | PROVIDERS: PCP Internal Medicine | DX: E11.9 Type 2 diabetes mellitus without complications (principal); I10 Essential (primary) hypertension; K21.9 Gastro-esophageal reflux disease without esophagitis; F41.1 Generalized anxiety disorder; G47.33 Obstructive sleep apnea (adult) (pediatric); R11.2 Nausea with vomiting, unspecified; I82.533 Chronic embolism and thrombosis of popliteal vein, bilateral; Z48.815 Encounter for surgical aftercare following surgery on the digestive system; Z86.711 Personal history of pulmonary embolism; Z79.01 Long term (current) use of anticoagulants; Z98.890 Other specified postprocedural states; Z90.49 Acquired absence of other specified parts of digestive tract | CPT/HCPCS: 99495 ==

== ENCOUNTER 2025-03-28 10:04 | Outpatient (AMB) | payer MEDICARE, MEDICAID, SELFPAY ==
--- NOTE | 2025-03-28 10:08 | MHC.OFFVIS ---
Vital Signs 03/28/25 10:18 Height 5 ft 11 in Weight 264 lb 8.875 oz BMI 36.9 BP 120/72 Blood Pressure Location Lt brachial Position Sitting Intake Visit Reasons: s/p gallbladder surgery Intake Note: Patient is seen in office for post op assessment post laparoscopic cholecystectomy. 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 Lerner is here for wound check and follow up after a recent admission for acute cholecystitis on 03/07/25. He underwent laparoscopic cholecystectomy on 03/08/[address] Kaur. He tolerated the procedure well and was discharged to home on 03/09/25. Unfortunately during the procedure, a used suction catheter that was not changed in between cases was used on him. This was discussed with him following the procedure. He reports having a lot of anxiety and difficulty sleeping since the procedure due to the events that had occured. He has been worried. He does report that his RUQ/epigastris pain that he has for years as well as nausea and vomiting have resolved. He has been able to resume his home meds including his eliquis (hx of DVT) and has been taking them as prescribed. He is tolerating a solid diet and having regular bowel movements. He has minimal pain and has occasional soreness at the incision sites. [facility] Medical History Hyperlipidemia Gallstones Otitis media Right hip pain Left ear pain Obstructive sleep apnea (adult) (pediatric) Medicare annual wellness visit, initial DVT (deep venous thrombosis) Injury of tendon of biceps Nausea Closed fracture of right proximal tibia Femoral distal fracture Obstructive sleep apnea Carpal tunnel syndrome Peripheral vascular disease History of pulmonary embolism Type 2 diabetes mellitus with hyperglycemia Hypertension Surgical History Hx laparoscopic cholecystectomy (03/08/25) History of total right knee replacement Status post debridement Total knee replacement status Status post osteotomy History of femoropopliteal bypass History of repair of left rotator cuff Family History Father CVD (cardiovascular disease) Diabetes Hypertension Mother Diabetes Hypertension Brother Past heart attack Substance abuse Maternal Uncle Schizophrenia Paternal Uncle CVD (cardiovascular disease) Social History Household Members: Family Housing: House Are you a primary director of health care marketing to a significant other at home: No Do you presently have visiting nurse or 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) Alcohol intake: never Patient Tobacco Use Status: Never used Tobacco Tobacco use type: Cigarette Years Smoked: smokes week occ e-Cigarette/Vaping Use: Never Used Second Hand Smoke Exposure: No Substance Use Type: Marijuana Advance Directives Date on File: 02/22/24 service: No Current occupational status: unemployed Cognitive needs: No Hearing needs: No Vision needs: No Review of Systems Const Denies chills, Denies fever(s) and Denies malaise ENT Denies dizziness Card Denies chest pain and Denies dyspnea Resp Denies dyspnea GI Reports as per HPI Skin/Breast Denies rash and Denies jaundice Neuro Denies dizziness Physical Exam Vital Signs: Last Vital Signs BP 120/72 03/28/25 10:18 BMI result Body Mass Index 36.9 Const General: comfortable, no acute distress and alert Resp Effort & Inspection: normal respiratory effort GI Other: soft well healed incisions, no surrounding erythema, edema or induration nontender, nondistended Palpation (GI): no guarding Skin General skin exam: no rashes or lesions noted and no jaundice Results Reviewed Results Reviewed: Gallbladder, cholecystectomy: Chronic cholecystitis and cholelithiasis Assessment & Plan Assessment & Plan (1) S/P laparoscopic cholecystectomy: Code(s): Z90.49 - Acquired absence of other specified parts of digestive tract Category: Surgical Plan 54 year old male s/p laparoscopic cholecystectomy on 03/08/25 for acute cholecystitis. He tolerated the procedure well and is doing well post operatively. His abdomen is benign with well healed and clean incisions without evidence of infection. HIV, hepatitis serology results from the patient where the suction catheter was used prior were reviewed- no active illnesses identified. This was discussed and reviewed with the patient in detail by Dr. Kaur and the patient. He was reassured. He is to continue no heavy lifting or strenuous exercise for another week. He can follow up as needed if he develops concerns. Patient comfortable with plan, all questions answered. Coding Level of Care Code Global (26990) Diagnoses S/P laparoscopic cholecystectomy Z90.49
[2025-03-28 10:18] VITALS: BP 120/72; BMI 36.9
--- OUTSIDE RECORDS SUMMARY | 2025-03-28 11:46 | XMS_ITS | Clinical Summary ---
Author Organization [facility] Address [address] [place] [address] Care Team Providers Care Director Of Quality Name Role Phone Unavailable Primary Care Provider [...] Drug Screen 05/23/2024 Depression Annual Screen 05/23/2024 [id number] (3 - season) 2025 021, 09/20/2020 Imm-Influenza (#1) 2025 03/22/2019, 1 07/03/2013, 04/09/2013, Additional history exists Imm-DTaP/Tdap/Td (5 - Td or Tdap) 08/28/2031 08/27/2021, 06/23/2017, 05/02/2014, Additional history exists
--- OUTSIDE RECORDS SUMMARY | 2025-03-28 11:46 | XMS_ITS | Clinical Summary ---
Author Organization [address] [place] [address] [place] [phone] Phone Care Team Providers Care Panelboard Tank Pumper Name Role Phone Rebel Farah MD Primary Care Provider [phone] Surgical History Surgery Date Site/Laterality Comments OTHER SURGICAL HISTORY 1993 PROCEDURE: ---- OTHER ----; COMMENT: rt popliteal bypass after football injury KNEE ARTHROSCOPY 2003 PROCEDURE: [place] ARTHROSCOPY AID [place] SPINE&/FX KNEE W/O FIXJ; COMMENT: knee replacement at [facility] KNEE SURGERY 2005 PROCEDURE: HISTORICAL KNEE SURGERY; COMMENT: osteotomy Medical History Medical History Date Comments DVT (deep venous thrombosis) ([facility] V24, [facility] V28) 1993 DX:DVT (deep venous thrombos is) ([facility]); COMMENT: on coumadin for 20 yrs ago, f/u by Dr. Sheppard DM (diabetes mellitus) ([facility] V24, [facility] V28) 2011 DX:DM (diabetes mellitus) ([facility]); COMMENT: managed by Dr. Sheppard JEANINE (obstructive sleep apnea) 2012 DX :JEANINE (obstructive sleep apnea); COMMENT: sleep study done at [facility], ordered by Dr. Sheppard Venous insufficiency DX:Venous [...] Insurance MEDICARE [place]ICA[place] - [place] Care Teams Panelboard Tank Pumper Relationship Specialty Start Date End Date Rebel Farah MD [address] [place] [address] [address] [facility] [place] [address] PCP - General Internal Medicine 10/17/24
== END 2025-03-28 10:24 | disposition home or self-care (01) ==
LOC: HO.HGS 10:05
PROVIDERS: PCP Internal Medicine; Visit Provider Physician Assistant Surgical
DX: Z90.49 Acquired absence of other specified parts of digestive tract (principal)
CPT/HCPCS: 99024

== ENCOUNTER → 2025-03-28 10:04 | Outpatient (BNVA) | payer MEDICARE, MEDICAID, SELFPAY | PROVIDERS: PCP Internal Medicine; Visit Provider Physician Assistant Surgical | DX: Z48.815 Encounter for surgical aftercare following surgery on the digestive system (principal); Z90.49 Acquired absence of other specified parts of digestive tract; Z77.9 Other contact with and (suspected) exposures hazardous to health | CPT/HCPCS: 99212 ==

== ENCOUNTER 2025-04-03 08:56 | Outpatient (AMB) | payer MEDICARE, MEDICAID, SELFPAY ==
[2025-04-03 09:01] VITALS: BMI 36.7
--- NOTE | 2025-04-03 09:01 | A.OFFVIS_ITS ---
Vital Signs 04/03/25 09:01 Height 5 ft 11 in Weight 263 lb BMI 36.7 Intake Visit Reasons: Pulled incision area/lots of pain Intake Note: Patient presents for wound check, Hx lap torres. Pt c/o; reports lots of pain, reports no discharge or drainage from incision, reports one of his incisions looks open. Treatment Technician Required: No Accompanied by: Child Allergies Penicillins (PENICILLINS) Allergy (Severe, Verified 04/03/25 09:15) hives HPI HPI Pulled incision area/lots of pain: Details: He had undergone laparoscopic cholecystectomy as an inpatient for acute cholecystitis last 03/08/2025. He tolerated procedure well. He says that he had been doing well but apparently ?pulled? his umbilical incision and had some pain and he wanted this checked. He said he was climbing a ladder and he thought that he may have missed a step last Tuesday and that is how this started. He has good oral intake. Denies any fever or chills. ON LICENSE OF [facility] Medical History Hyperlipidemia Gallstones Otitis media Right hip pain Left ear pain Obstructive sleep apnea (adult) (pediatric) Medicare annual wellness visit, initial DVT (deep venous thrombosis) Injury of tendon of biceps Nausea Closed fracture of right proximal tibia Femoral distal fracture Obstructive sleep apnea Carpal tunnel syndrome Peripheral vascular disease History of pulmonary embolism Type 2 diabetes mellitus with hyperglycemia Hypertension Surgical History Hx laparoscopic cholecystectomy (03/08/25) History of total right knee replacement Status post debridement Total knee replacement status Status post osteotomy History of femoropopliteal bypass History of repair of left rotator cuff Family History Father CVD (cardiovascular disease) Diabetes Hypertension Mother Diabetes Hypertension Brother Past heart attack Substance abuse Maternal Uncle Schizophrenia Paternal Uncle CVD (cardiovascular disease) Social History Household Members: Family Housing: House Are you a primary med care manager to a significant other at home: No Do you presently have 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) Alcohol intake: never Patient Tobacco Use Status: Never used Tobacco Tobacco use type: Cigarette Years Smoked: smokes week occ e-Cigarette/Vaping Use: Never Used Second Hand Smoke Exposure: No Substance Use Type: Marijuana Advance Directives Date on File: 02/22/24 service: No Current occupational status: unemployed Cognitive needs: No Hearing needs: No Vision needs: No Review of Systems Const Denies chills and Denies fever(s) Resp Denies cough GI Denies vomiting Physical Exam Const General: no acute distress Resp Effort & Inspection: normal respiratory effort GI Other: No palpable hernia on the umbilicus, no evidence of any infection Palpation (GI): Soft to palpation and not firm Assessment & Plan Assessment & Plan (1) S/P laparoscopic cholecystectomy: Code(s): Z90.49 - Acquired absence of other specified parts of digestive tract Category: Surgical Plan: He has been doing well after laparoscopic cholecystectomy but apparently had ?pulled? his incision. Current exam does not suggest any hernia, infection, or acute pathology. I explained to him that we may have pulled a muscle surrounding area. He advised him to take ibuprofen for this for now. I told him that he is welcome to come back to the office to be re-evaluated He denies any GI complaints. Coding Level of Care Code Global (58930) Diagnoses S/P laparoscopic cholecystectomy Z90.49
== END 2025-04-03 09:20 | disposition home or self-care (01) ==
LOC: HO.HGS 08:57
PROVIDERS: PCP Internal Medicine; Visit Provider Surgery
DX: Z90.49 Acquired absence of other specified parts of digestive tract (principal)
CPT/HCPCS: 99024

== ENCOUNTER → 2025-04-03 08:56 | Outpatient (BNVA) | payer MEDICARE, MEDICAID, SELFPAY | PROVIDERS: PCP Internal Medicine; Visit Provider Surgery | DX: R10.33 Periumbilical pain (principal); Z90.49 Acquired absence of other specified parts of digestive tract | CPT/HCPCS: 99212 ==

== ENCOUNTER 2025-04-15 10:51 | Outpatient (AMB) | payer MEDICARE, MEDICAID, SELFPAY ==
[2025-04-15 10:59] VITALS: BMI 36.7
--- NOTE | 2025-04-15 10:59 | MHC.OFFVIS ---
Vital Signs 04/15/25 10:59 Height 5 ft 11 in Weight 263 lb BMI 36.7 Intake Visit Reasons: Newprob-Carpal tunnel syndrome, left hand Intake Note: Genaro is a 54 year old right hand dominant male who presents today for a New Problem Visit with complaints of Left Hand Numbness & Tingling. Patient complains of left index and middle finger numbness and tingling with associated sleep disturbance. Patient reports symptoms are dailyl and constant, making it difficult to director of rehabilitation, squeeze, and open and close lids. Denies finger locking. Has has not tried braces, steroid injections, OT, or meds. Denies any prior injuries or surgeries to the left hand. Patient states he was previously diagnosed with Right Carpal Tunnel Syndrome many years ago. He would like to be assessed as well. Although his right hand is more bothersome, he would like to start with his left hand until he is able to have an EMG done. Patient has a history of Type 2 Diabetes Mellitus. Last A1C done 02/21/25 - 6.5%. Patient is also on Eliquis. Impression 01/29/25: 1. Slkc-yy-hezscovi left median neuropathy across carpal tunnel 2. Mild left ulnar neuropathy across cubital tunnel Allergies Penicillins (PENICILLINS) Allergy (Severe, Verified 04/15/25 11:00) hives HPI HPI Newprob-Carpal tunnel syndrome, left hand: Details: Genaro is a 54 year old right hand dominant male who presents today for a New Problem Visit with complaints of Left Hand Numbness & Tingling. Patient complains of left index and middle finger numbness and tingling with associated sleep disturbance. Patient reports that at times, all digits of the bilateral hands do go numb. Patient reports symptoms are intermittent but daily, making it difficult to director of rehabilitation, squeeze, and open and close lids. Denies finger locking. Has has not tried braces, steroid injections, OT, or meds. Denies any prior injuries or surgeries to the left hand. Patient states he was previously diagnosed with Right Carpal Tunnel Syndrome many years ago. He would like to be assessed as well. Although his right hand is more bothersome, he would like to start with his left hand until he is able to have an EMG done. Patient has a history of Type 2 Diabetes Mellitus. Last A1C done 02/21/25 - 6.5%. Patient is also on Eliquis. Impression 01/29/25: 1. Dfoh-cv-qjiokcex left median neuropathy across carpal tunnel 2. Mild left ulnar neuropathy across cubital tunnel [facility] Medical History Hyperlipidemia Gallstones Otitis media Right hip pain Left ear pain Obstructive sleep apnea (adult) (pediatric) Medicare annual wellness visit, initial DVT (deep venous thrombosis) Injury of tendon of biceps Nausea Closed fracture of right proximal tibia Femoral distal fracture Obstructive sleep apnea Carpal tunnel syndrome Peripheral vascular disease History of pulmonary embolism Type 2 diabetes mellitus with hyperglycemia Hypertension Surgical History Hx laparoscopic cholecystectomy (03/08/25) History of total right knee replacement Status post debridement Total knee replacement status Status post osteotomy History of femoropopliteal bypass History of repair of left rotator cuff Family History Father CVD (cardiovascular disease) Diabetes Hypertension Mother Diabetes Hypertension Brother Past heart attack Substance abuse Maternal Uncle Schizophrenia Paternal Uncle CVD (cardiovascular disease) Social History (Updated 04/15/25 @ 11:05 by AKSHAT Curtis) Household Members: Family Housing: House Are you a primary day care home provider to a significant other at home: No Do you presently have 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) Alcohol intake: current Alcohol intake frequency: holidays/special occasions only Patient Tobacco Use Status: Never used Tobacco Tobacco use type: Cigarette Years Smoked: smokes week occ e-Cigarette/Vaping Use: Never Used Second Hand Smoke Exposure: No Substance Use Type: Marijuana Advance Directives Date on File: 02/22/24 service: No Current occupational status: disabled Cognitive needs: No Hearing needs: No Vision needs: No Review of Systems Const All systems reviewed & are unremarkable except as noted in HPI and below Physical Exam Vital Signs: BMI result Body Mass Index 36.7 Extrem Other: Neuro: Normal sensation to the tips of all digits of bilateral hands in the office today No thenar or intrinsic wasting. Good APB muscle firing and good finger cross. Vascular: Capillary refill brisk. ROM: Patient can make a fist and extend all their digits. Skin: No lacerations or abrasions noted. General: No ecchymosis. No erythema or evidence of infection. Assessment & Plan Assessment & Plan (1) Cubital tunnel syndrome on left: Code(s): G56.22 - Lesion of ulnar nerve, left upper limb Category: Medical (2) Left carpal tunnel syndrome: Comment: December 2024 Code(s): G56.02 - Carpal tunnel syndrome, left upper limb Category: Medical Plan 1. Left cubital tunnel syndrome 2. Left carpal tunnel syndrome Symptoms intermittent, daily, much worse at night I educated the patient about the condition. I discussed both operative and nonoperative treatment options. The patient would like to proceed with surgery. The risks and benefits of operative treatment were discussed with the patient and the patient wishes to proceed with surgery. These risks include, but are not limited to, risk of damage to blood vessels, nerves, tendons, infection, recurrence, incomplete relief of preoperative symptoms, persistent pain, possible need for further surgery, and the risks associated with regional blocks and/or anesthesia. Plan is to take the patient to the operating room at some point in the next few weeks for the following procedures: 1. Left cubital tunnel release under general 2. Left carpal tunnel release under general All of the preoperative paperwork including the consent was discussed today. All of the patient's questions were answered in the clinic today. The patient understands that they will be in contact with our surgical device sales representative to discuss scheduling their procedure. Patient reports diabetes, last A1c 6.5 Patient is on Eliquis, we will hold 48 hours prior to surgery Denies asthma, heart issues, lung issues, kidney issues, or current smoking. Coding Level of Care Code Est Pt Level 4 (39488) Diagnoses Cubital tunnel syndrome on left G56.22 Left carpal tunnel syndrome G56.02
== END 2025-04-15 11:37 | disposition home or self-care (01) ==
LOC: HO.HOS 10:52
DX: G56.22 Lesion of ulnar nerve, left upper limb (principal); G56.02 Carpal tunnel syndrome, left upper limb
CPT/HCPCS: 99214

== ENCOUNTER → 2025-04-15 10:51 | Outpatient (BNVA) | payer MEDICARE, MEDICAID, SELFPAY | DX: G56.22 Lesion of ulnar nerve, left upper limb (principal); G56.02 Carpal tunnel syndrome, left upper limb; Z79.01 Long term (current) use of anticoagulants | CPT/HCPCS: 99212 ==

== ENCOUNTER 2025-04-26 17:51 | Emergency (ER) | payer MEDICARE, MEDICAID, SELFPAY ==
--- NOTE | ~2025-04-26 | XR_ITS ---
CLINICAL HISTORY: pain, injury 2 view right clavicle Comparison: None provided Findings: No fractures or dislocations. Minimal degenerative changes of the acromioclavicular joint. No erosions. No radiopaque foreign body. IMPRESSION: 1. No acute fracture. This document has been electronically signed by: Ana Cleary MD on 04/26/2025 18:43:45
--- NOTE | ~2025-04-26 | XR_ITS ---
CLINICAL HISTORY: pain, injury 3 view right shoulder Comparison: None provided Findings: No fractures or dislocations. Mild degenerative changes of the glenohumeral joint. Faint calcifications of the supraspinatus tendon may represent calcific tendinitis. No erosions. No radiopaque foreign body. IMPRESSION: 1. No acute fracture This document has been electronically signed by: Ana Cleary MD on 04/26/2025 18:43:03
[2025-04-26 17:57] VITALS: BP 137/81; PULSE 102; RESP 18; TEMP 36.5; O2SAT 96; BMI 36.5
--- NOTE | 2025-04-26 17:58 | ED_ITS ---
HPI - General Adult General Chief complaint: Extremity Injury, Upper Stated complaint: Injury Time Seen by Provider: 04/26/25 19:09 Source: patient Mode of arrival: ambulatory Limitations: no limitations History of Present Illness ED Provider: Valerie Saravia PA-C HPI narrative: Patient is a 54 year old assigned male at with a history of HTN, DM, PVD, left rotator cuff repair, DVT on anti-coags, and PAD presenting to the emergency department today with right shoulder and clavicle pain. Patient states that on 04/24/2025 he slipped and fell on ice and landed on his right arm outstretched behind him. Patient states that ever since he has had right shoulder and clavicle pain with all movement. Patient states that he did not hit his head or have any loss of consciousness with the incident. Patient denies any other complaints at this time. Onset (ago): day(s) Location: right and upper extremity Relieving factors: none Exacerbating factors: movement Associated symptoms: denies other symptoms Related Data Home Medications ?Medication ?Instructions ?Recorded ?Confirmed escitalopram oxalate 20 mg tablet 20 mg PO DAILY 05/0703/14/25 (Lexapro) trazodone 100 mg tablet 100 mg PO BEDTIME PRN Sleep 05/07/20 03/14/25 atorvastatin 40 mg tablet 40 mg PO BEDTIME 03/07/25 Previous Rx's ?Medication ?Instructions ?Recorded lisinopril 5 mg tablet 5 mg PO DAILY 90 days #90 ta bs 11/17/20 metoprolol succinate 50 mg 50 mg PO DAILY #90 tabs tablet,extended release 24 hr gabapentin 300 mg capsule 300 mg PO TID 90 days #270 c aps 07/23/22 AUTO PAP 6-20 cm H2o humidified air #1 ea 08/19/23 walker (Ultra-Light Rollator misc) #1 ea 03/05/24 fluticasone propionate 50 2 spray intranasal DAILY #16 grams 05/09/24 mcg/actuation nasal spray,suspension (Flonase Allergy Relief) blood sugar diagnostic (FreeStyle #100 ea 01/15/25 Lite Strips) blood-glucose meter (FreeStyle #1 ea 01/15/25 Lite Meter kit) cyclobenzaprine 10 mg tablet 10 mg PO BEDTIME #30 tabs 01/15/25 lancets 28 gauge (FreeStyle #100 ea 01/15/25 Lancets) docusate sodium 100 mg capsule 100 mg PO BID PRN const ipation #30 03/08/25 (Colace) caps metformin 1,000 mg tablet 1,000 mg PO BID 90 days #180 tabs 03/09/25 apixaban 5 mg tablet (Eliquis) 5 mg PO BID 90 days #18 0 tabs 03/14/25 Allergies Allergy/AdvReac Type Severity Reaction Status Date / Time Penicillins (PENICILLINS) Allergy Severe hives Verified 04/26/25 17:59 Review of Systems Constitutional: Constitutional: Reports as per HPI Eyes: Eyes: Reports as per HPI ENT: Reports as per HPI Cardiovascular: Cardiovascular: Reports as per HPI Respiratory: Respiratory: Reports as per HPI Gastrointestinal: Gastrointestinal: Reports as per HPI Genitourinary: Genitourinary: Reports as per HPI Musculoskeletal: Musculoskeletal: Reports as per HPI Integumentary/Breasts: Skin/Breast: Reports as per HPI Neurologic: Reports as per HPI Psychiatric: Psychiatric: Reports as per HPI Endocrine: Endocrine: Reports as per HPI Hematologic/Lymphatic: Hematologic/Lymphatic: Reports as per HPI Allergic/Immunologic: Allergic/Immunologic: Reports as per HPI [facility] Past Medical History Attestation statement: The following information was validated with the patient. Source: old records reviewed and nursing notes reviewed Medical History Hyperlipidemia Gallstones Otitis media Right hip pain Left ear pain Obstructive sleep apnea (adult) (pediatric) Medicare annual wellness visit, initial DVT (deep venous thrombosis) Injury of tendon of biceps Nausea Closed fracture of right proximal tibia Femoral distal fracture Obstructive sleep apnea Carpal tunnel syndrome Peripheral vascular disease History of pulmonary embolism Type 2 diabetes mellitus with hyperglycemia Hypertension Surgical History Hx laparoscopic cholecystectomy (03/08/25) History of total right knee replacement Status post debridement Total knee replacement status Status post osteotomy History of femoropopliteal bypass History of repair of left rotator cuff Family History Family History Father CVD (cardiovascular disease) Diabetes Hypertension Mother Diabetes Hypertension Brother Past heart attack Substance abuse Maternal Uncle Schizophrenia Paternal Uncle CVD (cardiovascular disease) Social History Social History Household Members: Family Housing: House Are you a primary child care center assistant director to a significant other at home: No Do you presently have visiting nurse or other home services: Yes (SEAT NAILER) Alcohol intake: current Alcohol intake frequency: holidays/special occasions only Patient Tobacco Use Status: Never used Tobacco Tobacco use type: Cigarette Years Smoked: smokes week occ e-Cigarette/Vaping Use: Never Used Second Hand Smoke Exposure: No Substance Use Type: Marijuana Advance Directives: Yes Advance Directives on File: Yes Advance Directives Date on File: 02/22/24 Do you have a plan to hurt others: No Plan service: No Current occupational status: disabled Cognitive needs: No Hearing needs: No Vision needs: No Physical Exam ED Vital Signs: Vital Signs - 24 hr 04/26/25 17:57 04/26/25 19:29 Temperature 97.7 F 97.7 F Pulse Rate 102 H 102 H Respiratory Rate 18 18 Blood Pressure 137/81 137/81 Pulse Oximetry 96 96 Oxygen Delivery Method Room Air Room Air BMI result Body Mass Index 36.5 Const General: cooperative, no acute distress, alert and awake Nutritional Appearance: well nourished Orientation/consciousness: patient oriented x3 HENMT Head: Yes normal to inspection and Yes atraumatic Ears: hearing grossly normal bilaterally and external ears normal General nose exam: Normal external nose present, no nasal discharge noted and no epistaxis Face and sinus: Yes normal facial exam, No abrasion and No laceration Mouth: Normal oral and palatal mucosa present, no drooling and no muffled voice Eyes General: appearance normal, both eyes and all related structures Periorbital: periorbital findings normal Eyelids: Yes eyelids normal Conjunctivae: conjunctivae normal Pupils: Equal, round and reactive pupils present EOM: EOMs intact bilaterally Neck Neck: Yes normal visual inspection and Yes full ROM Resp Effort & Inspection: normal respiratory effort and able to speak in complete sentences Neuro General: patient oriented x3, moves all extremities and CN's II-XI intact bilaterally Cranial nerves: Yes Equal, round and reactive pupils present Cognition (Neuro): normal cognition Extrem Other: pain with right shoulder ROM General: Yes normal to inspection, Yes full ROM and Yes capillary refill normal Psych Appearance: grossly normal Mental Status: mental status grossly normal Affect: normal affect Attitude: cooperative Thought process: Normal thought process present Thought content: Normal thought content present Insight: Good insight present (Psych) Course Course Course Narrative: Rapid medical examination performed in triage by Valerie Saravia PA-C: Patient is a 54 year old assigned male at presenting to the emergency department with right shoulder and clavicle pain. Detailed physical exam and review of systems are deferred to the organizational consultant. Imaging ordered. Patient placed back in the waiting room pending room availability and results. Medications Administered Discontinued Medications Generic Name Dose Route Start Last Admin Trade Name Vandana PRN Reason Stop Dose Admin Methylprednisolone Sodium Succinate 60 mg 04/26/25 19:09 04/26/25 19:23 Methylprednisolone Sod Succ 125 Mg/2 Ml Vial IM 04/26/25 19:10 60 mg ONCE ONE Administration Medical Decision Making Medical Decision Making MDM Narrative: Patient is a 54 year old assigned male at with a history of HTN, DM, PVD, left rotator cuff repair, DVT on anti-coags, and PAD presenting to the emergency department today with right shoulder and clavicle pain. Patient's physical exam was as noted in the physical exam portion of this note and consistent with a right rotator cuff injury / sprain / strain. Patient's right shoulder and clavicle x-rays showed no acute process. Patient was given a dose of IM Solu-medrol while in the department. I explained my physical exam findings as well as all test results to the patient. I answered all questions asked by the patient. I stressed the importance of the patient taking his medication as directed (either prescribed or as the over the counter packaging recommends). I stressed the importance of the patient following up with his primary care provider and with the orthopedic team. I stressed the importance of the patient returning to the emergency department immediately if his symptoms were to worsen or if he were to develop any dizziness, shortness of breath, difficulty breathing, chest pain, blurry vision, loss of vision, nausea, vomiting, abdominal pain, fever, chills, back pain, or any other complaints. Patient verbalized agreement and understanding with this treatment plan and discharge. Differential Diagnosis Differential Diagnoses: The differential diagnosis associated with the presentation includes Slip and fall Right shoulder pain Right shoulder strain Humerus fracture Clavicle fracture Admission/Observation Consideration of admission/observation: Escalation of care including admission/observation considered Patient would have been admitted to the hospital had his work up had any findings where hospital admission was appropriate and his clinical presentation warranted hospital admission. Independent Interpretation I performed an independent interpretation of an: Plain X-Ray Interpretation: My interpretation is in agreement with the radiologist's impression of these imaging studies as written below. Reason for Exam: pain, injury CLINICAL HISTORY: pain, injury 3 view right shoulder Comparison: None provided Findings: No fractures or dislocations. Mild degenerative changes of the glenohumeral joint. Faint calcifications of the supraspinatus tendon may represent calcific tendinitis. No erosions. No radiopaque foreign body. IMPRESSION: 1. No acute fracture This document has been electronically signed by: Ana Cleary MD on 04/26/2025 18:43:03 Dictated By: Ana Cleary MD Signed By: Electronically signed by Ana Cleary MD 04/26/25 977 Reason for Exam: pain, injury CLINICAL HISTORY: pain, injury 2 view right clavicle Comparison: None provided Findings: No fractures or dislocations. Minimal degenerative changes of the acromioclavicular joint. No erosions. No radiopaque foreign body. IMPRESSION: 1. No acute fracture. This document has been electronically signed by: Ana Cleary MD on 04/26/2025 18:43:45 Dictated By: Ana Cleary MD Signed By: Electronically signed by Ana Cleary MD 04/26/25 847 Radiology Impression Discussion of test interpretation with radiology: I have reviewed the radiologist's reading. Discharge Plan Discharge Clinical Impression: Injury of right rotator cuff Qualifiers: Encounter type: initial encounter Qualified Code(s): S46.001A - Unspecified injury of muscle(s) and tendon(s) of the rotator cuff of right shoulder, initial encounter Patient Disposition: Home, Self-Care Instructions: Rotator Cuff Injury (ED), Rotator Cuff Injury Exercises (DC) Additional Instructions: Your right shoulder and clavicle x-rays showed no kashmir process. I am suspicious that you have injured your right rotator cuff. Follow up with the orthopedic team. IF you are prescribed home medications and/or you are taking over the counter medications at home - it is very important you continue to do so as prescribed / directed unless told otherwise by a healthcare provider. Follow up with your primary care provider. Do your best to stay well hydrated and rest. Return to the emergency department immediately if your symptoms worsen or if you develop any numbness, tingling, dizziness, shortness of breath, difficulty breathing, chest pain, blurry vision, loss of vision, nausea, vomiting, abdominal pain, fever, chills, back pain, or any other complaints. If you do not have a primary care provider - call any of the below numbers to establish and follow up with a primary care provider. [facility] Primary Care ([place]) [phone] [place] [address], [address] [facility] Primary Care ([address] [place]) [phone] [place] [address], [address] [facility], [address] [facility] Primary Care ([address] [place]) [phone] [place] [address], [address] [facility], [address] [facility] Primary Care ([place]) [phone] [place] [address] [address] [facility], [address] [facility] Family Medicine [phone] [place] [address], [address] Please see the information below about our Patient Portal. If you are not yet enrolled in the [facility] Patient Portal, you will receive an enrollment email invitation following your visit to any [facility] care setting. You may also self-enroll in the Patient Portal by visiting our website: [email or web address] The following information is required to access the Patient Portal: - Your [facility] Medical Record Number - Your personal home email address (must match what is in your electronic medical record, Registration staff can assist with this) - Name - Date of Capabilities of the Patient Portal: - Message some providers - View upcoming appointments - Access your health summary, medical history, and visit history - View current conditions and allergies - View procedure and lab results - View your medications, including guidelines, side effects, and precautions - Complete pre-appointment questionnaires requested by your provider - Ready summary reports of your office visits and procedures To access the Patient Portal Mobile Be, follow these directions: - Search [employer] in the Be Store or [employer] Store - Download the Be - Search for [facility] - Enter your login/password Prescriptions: No Action gabapentin 300 mg capsule 300 mg PO TID 90 Days Qty: 270 1RF fluticasone propionate [Flonase Allergy Relief] 50 mcg/actuation spray,suspension 2 spray intranasal DAILY Qty: 16 2RF Rx Instructions: administer into each nostril atorvastatin 40 mg tablet 40 mg PO BEDTIME docusate sodium [Colace] 100 mg capsule 100 mg PO BID PRN (Reason: constipation) Qty: 30 0RF metformin 1,000 mg tablet 1,000 mg PO BID 90 Days Qty: 180 2RF escitalopram oxalate [Lexapro] 20 mg tablet 20 mg PO DAILY trazodone 100 mg tablet 100 mg PO BEDTIME PRN (Reason: Sleep) metoprolol succinate 50 mg tablet extended release 24 hr 50 mg PO DAILY Qty: 90 1RF lisinopril 5 mg tablet 5 mg PO DAILY 90 Days Qty: 90 2RF (DME) AUTO PAP 6-20 cm H2o humidified air See Rx Instructions .Route .MEDSUPPLY Qty: 1 0RF Rx Instructions: As directed (DME) Ultra-Light Rollator Misc See Rx Instructions .Route Qty: 1 0RF Rx Instructions: As directed (DME) FreeStyle Lite Strips Strip See Rx Instructions .ROUTE .MEDSUPPLY Qty: 100 3RF Rx Instructions: As directed check the BS QD (DME) blood-glucose meter [FreeStyle Lite Meter] Kit See Rx Instructions .ROUTE .MEDSUPPLY Qty: 1 0RF Rx Instructions: As directed (DME) lancets [FreeStyle Lancets] 28 gauge misc See Rx Instructions .ROUTE .MEDSUPPLY Qty: 100 3RF Rx Instructions: As directed check BS QD cyclobenzaprine 10 mg tablet 10 mg PO BEDTIME Qty: 30 0RF Eliquis 5 mg tablet 5 mg PO BID 90 Days Qty: 180 0RF Referrals: [facility] Orthopedic Surgeons [Provider Group] Referral Note: Call to establish and follow up with the orthopedic team about your right rotator cuff injury. Gagan,Rebel Frances MD [Primary Care Provider, Internal Medicine] Stand Alone Forms: Work/School Release Interventions: ED Discharge Assessment Last Done: 04/26/25 19:29 Discharge Date/Time: 04/26/25 19:29 Print Language: Croatian
[2025-04-26 19:29] VITALS: BP 137/81; PULSE 102; RESP 18; TEMP 36.5; O2SAT 96
== END 2025-04-26 19:29 | disposition home or self-care (01) ==
PROVIDERS: Emergency Provider Student in an Organized Health Care Education/Training Program; PCP Internal Medicine
DX: S46.001A Unspecified injury of muscle(s) and tendon(s) of the rotator cuff of right shoulder, initial encounter (principal); M79.601 Pain in right arm; W00.0XXA Fall on same level due to ice and snow, initial encounter; Y93.H1 Activity, digging, shoveling and raking; Y92.9 Unspecified place or not applicable; Y99.8 Other external cause status
CPT/HCPCS: 73000; 73030; 96372; 99282; 99284; J2919

== ENCOUNTER → 2025-04-26 17:59 | Outpatient (BNV) | payer MEDICARE, MEDICAID, SELFPAY | PROVIDERS: PCP Internal Medicine; Visit Provider Student in an Organized Health Care Education/Training Program | DX: M25.511 Pain in right shoulder (principal); Z04.3 Encounter for examination and observation following other accident | CPT/HCPCS: 73000; 73030 ==

== ENCOUNTER 2025-05-06 08:41 | Emergency (ER) | payer MEDICARE, MEDICAID, SELFPAY ==
[2025-05-06 09:14] VITALS: BP 159/83; PULSE 92; RESP 20; TEMP 36.6; O2SAT 95; BMI 36.8
[2025-05-06 11:13] VITALS: BP 142/88; PULSE 90; RESP 20; TEMP 35.9; O2SAT 98
--- NOTE | 2025-05-06 11:17 | ED.EXTPRO ---
HPI - Extremity Problem General Chief complaint: Extremity Injury, Upper Stated complaint: Fell 1 week ago, shoulder/ neck pain Time Seen by Provider: 05/06/25 10:49 Source: patient and old records reviewed Mode of arrival: ambulatory Limitations: no limitations History of Present Illness ED Provider: CORY ESPARZA Narrative: 54 yo male who is R handed he has PMH of obesity, CAD, JEANINE, DVT on eliquis, GERD, PVD here with c/o severe pain of the R shoulder he had a mechanical fall and was seen here with neg R shoulder and clavicle xrays. He was told by MARY this was likely a rotator cuff tear. He is pending 2nd appointment and MRI. He notes no numbness or weakness of the hand. He was given tramadol but no relief. He has throbbing pain at the shoulder joint and distal clavicle. MD Complaint: joint pain Onset (ago): day(s) (10) Pain Consistency: constant Location: right and upper extremity Quality: crushing and constant Radiation: proximal and distal Relieving factors: immobilization Exacerbating factors: range of motion and palpation Associated symptoms: denies other symptoms Context: other Related Data Home Medications ?Medication ?Instructions ?Recorded ?Confirmed escitalopram oxalate 20 mg tablet 20 mg PO DAILY 05/07/20 03/14/25 (Lexapro) trazodone 100 mg tablet 100 mg PO BEDTIME PRN Sleep 05/07/20 03/14/25 atorvastatin 40 mg tablet 40 mg PO BEDTIME 03/07/25 03/14/25 Previous Rx's ?Medication ?Instructions ?Recorded lisinopril 5 mg tablet 5 mg PO DAILY 90 days #90 tabs 11/17/20 metoprolol succinate 50 mg 50 mg PO DAILY #90 tabs 11/17/20 tablet,extended release 24 hr gabapentin 300 mg capsule 300 mg PO TID 90 days #270 caps 07/23/22 AUTO PAP 6-20 cm H2o humidified air #1 ea 08/19/23 walker (Ultra-Light Rollator [facility]) #1 ea 03/05/24 fluticasone propionate 50 2 spray intranasal DAILY #16 grams 05/09/24 mcg/actuation nasal spray,suspension (Flonase Allergy Relief) blood sugar diagnostic (FreeStyle #100 ea 01/15/25 Lite Strips) blood-glucose meter (FreeStyle #1 ea 01/15/25 Lite Meter kit) cyclobenzaprine 10 mg tablet 10 mg PO BEDTIME #30 tabs 01/15/25 lancets 28 gauge (FreeStyle #100 ea 01/15/25 Lancets) docusate sodium 100 mg capsule 100 mg PO BID PRN constipation #30 03/08/25 (Colace) caps metformin 1,000 mg tablet 1,000 mg PO BID 90 days #180 tabs 03/09/25 apixaban 5 mg tablet (Eliquis) 5 mg PO BID 90 days #180 tabs 03/14/25 diazepam 5 mg tablet (Valium) 5 mg PO TID PRN muscle spasm #10 05/06/25 tabs Allergies Allergy/AdvReac Type Severity Reaction Status Date / Time Penicillins (PENICILLINS) Allergy Severe hives Verified 05/06/25 09:17 Review of Systems Review of Systems: Yes all other systems are reviewed and are negative [facility] Past Medical History Attestation statement: The following information was validated with the patient. Source: old records reviewed Medical History Hyperlipidemia Gallstones Otitis media Right hip pain Left ear pain Obstructive sleep apnea (adult) (pediatric) Medicare annual wellness visit, initial DVT (deep venous thrombosis) Injury of tendon of biceps Nausea Closed fracture of right proximal tibia Femoral distal fracture Obstructive sleep apnea Carpal tunnel syndrome Peripheral vascular disease History of pulmonary embolism Type 2 diabetes mellitus with hyperglycemia Hypertension Surgical History Hx laparoscopic cholecystectomy (03/08/25) History of total right knee replacement Status post debridement Total knee replacement status Status post osteotomy History of femoropopliteal bypass History of repair of left rotator cuff Family History Family History Father CVD (cardiovascular disease) Diabetes Hypertension Mother Diabetes Hypertension Brother Past heart attack Substance abuse Maternal Uncle Schizophrenia Paternal Uncle CVD (cardiovascular disease) Social History Social History Household Members: Family Housing: House Are you a primary home care and home health aides teacher to a significant other at home: No Do you presently have visiting nurse or other home services: Yes ([employer]) Alcohol intake: current Alcohol intake frequency: holidays/special occasions only Patient Tobacco Use Status: Never used Tobacco Tobacco use type: Cigarette Years Smoked: smokes week occ e-Cigarette/Vaping Use: Never Used Second Hand Smoke Exposure: No Substance Use Type: Marijuana Advance Directives: Yes Advance Directives on File: Yes Advance Directives Date on File: 02/22/24 service: No Current occupational status: disabled Cognitive needs: No Hearing needs: No Vision needs: No Physical Exam Vital Signs: Vital Signs: Last Vital Signs Temp 96.7 F L 05/06/25 11:13 Pulse 90 05/06/25 11:13 Resp 20 05/06/25 11:13 BP 142/88 H 05/06/25 11:13 Pulse Ox 98 05/06/25 11:13 O2 Del Method Room Air 05/06/25 11:13 BMI result Body Mass Index 36.8 Appearance: Alert. Oriented X3. No acute distress. Eyes: Pupils equal, round and reactive to light. ENT: Pharynx normal. Neck: Normal inspection. Neck supple. CVS: Pulses normal. Respiratory: No respiratory distress. Breath sounds normal. Abdomen: atraumatic Skin: Skin warm and dry. Normal skin color. Extremities:R shoulder ttp along AC joint and distal clavicle distal NV intact, SILT intact, 2+ radial pulse, BCR Neuro: Oriented X 3. No motor deficit. No sensory deficit. Medical Decision Making Medical Decision Making MDM Narrative: 54 yo male who is R handed he has PMH of obesity, CAD, JEANINE, DVT on eliquis, GERD, PVD here with c/o R shoulder pain x 10 days but no new injury. At this time no new injury has been seen by ortho as well will offer better pain control. Normal NV exam. He has a sling. He agrees with plan. Differential Diagnosis Differential Diagnoses: The differential diagnosis associated with the presentation includes strain, sprain, rotator cuff injury Admission/Observation Consideration of admission/observation: Escalation of care including admission/observation considered stable for outpatient management External Record Review External record reviewed: Outpatient record and Prior outpatient radiology Prescription Management I considered prescription management with: Other Discharge Plan Discharge Clinical Impression: Injury of right rotator cuff Qualifiers: Encounter type: subsequent encounter Qualified Code(s): S46.001D - Unspecified injury of muscle(s) and tendon(s) of the rotator cuff of right shoulder, subsequent encounter Patient Disposition: Home, Self-Care Instructions: Rotator Cuff Injury (ED) Additional Instructions: at this time I would follow up with [facility] return for any numbness of the hand or weakness monitor for increased swelling I suspect this could be a joint swelling and rotator cuff injury we will add on muscle relaxer continue your care plan with [facility] Prescriptions: New diazepam [Valium] 5 mg tablet 5 mg PO TID PRN (Reason: muscle spasm) Qty: 10 0RF Rx Instructions: partial fill is okay No Action gabapentin 300 mg capsule 300 mg PO TID 90 Days Qty: 270 1RF fluticasone propionate [Flonase Allergy Relief] 50 mcg/actuation spray,suspension 2 spray intranasal DAILY Qty: 16 2RF Rx Instructions: administer into each nostril atorvastatin 40 mg tablet 40 mg PO BEDTIME docusate sodium [Colace] 100 mg capsule 100 mg PO BID PRN (Reason: constipation) Qty: 30 0RF metformin 1,000 mg tablet 1,000 mg PO BID 90 Days Qty: 180 2RF escitalopram oxalate [Lexapro] 20 mg tablet 20 mg PO DAILY trazodone 100 mg tablet 100 mg PO BEDTIME PRN (Reason: Sleep) metoprolol succinate 50 mg tablet extended release 24 hr 50 mg PO DAILY Qty: 90 1RF lisinopril 5 mg tablet 5 mg PO DAILY 90 Days Qty: 90 2RF (DME) AUTO PAP 6-20 cm H2o humidified air See Rx Instructions .Route .MEDSUPPLY Qty: 1 0RF Rx Instructions: As directed (DME) Ultra-Light Rollator Misc See Rx Instructions .Route Qty: 1 0RF Rx Instructions: As directed (DME) FreeStyle Lite Strips Strip See Rx Instructions .ROUTE .MEDSUPPLY Qty: 100 3RF Rx Instructions: As directed check the BS QD (DME) blood-glucose meter [FreeStyle Lite Meter] Kit See Rx Instructions .ROUTE .MEDSUPPLY Qty: 1 0RF Rx Instructions: As directed (DME) lancets [FreeStyle Lancets] 28 gauge misc See Rx Instructions .ROUTE .MEDSUPPLY Qty: 100 3RF Rx Instructions: As directed check BS QD cyclobenzaprine 10 mg tablet 10 mg PO BEDTIME Qty: 30 0RF Eliquis 5 mg tablet 5 mg PO BID 90 Days Qty: 180 0RF Interventions: ED Discharge Assessment Last Done: 05/06/25 11:27 Print Language: Kinyarwanda
[2025-05-06 11:27] VITALS: BP 142/88; PULSE 90; RESP 20; TEMP 35.9; O2SAT 98
== END 2025-05-06 11:28 | disposition home or self-care (01) ==
PROVIDERS: Emergency Provider Emergency Medicine; PCP Internal Medicine
DX: S43.001A Unspecified subluxation of right shoulder joint, initial encounter (principal); W01.0XXA Fall on same level from slipping, tripping and stumbling without subsequent striking against object, initial encounter; Y93.9 Activity, unspecified; Y92.9 Unspecified place or not applicable; Y99.9 Unspecified external cause status
CPT/HCPCS: 99282; 99283

== ENCOUNTER 2025-05-10 08:50 | Outpatient (REF) | payer MEDICARE, MEDICAID, SELFPAY ==
--- NOTE | 2025-05-10 08:53 | PFT_ITS ---
Flows: FEV1: 109 % of predicted at 3.78 L FVC: 97 % of predicted at 4.24 L FEV1/FVC: 89 % Bronchodilator response: Absent Volumes: Total lung capacity: 97 % of predicted at 6.33 L Residual volume: 116 % of predicted at 2.09 L Slow vital capacity: 89 % of predicted at 4.24 L Expiratory reserve volume: 72 % of predicted at 0.87 L Diffusion capacity: Mildly decreased Impression: No obstructive or restrictive ventilatory defect. No bronchodilator response. Decreased diffusion capacity suggests emphysema. MTDD
--- OUTSIDE RECORDS SUMMARY | 2025-05-10 09:06 | XMS_ITS | Clinical Summary ---
Author Organization [address] [place] [address] [place] [id number] Phone Care Team Providers Care Energy Sales Consultant Name Role Phone Rebel Farah MD Primary Care Provider Surgical History Surgery Date Site/Laterality Comments OTHER SURGICAL HISTORY 1993 PROCEDURE: ---- OTHER ----; COMMENT: rt popliteal bypass after football injury KNEE ARTHROSCOPY 2003 PROCEDURE: [place] ARTHROSCOPY AID [place] SPINE&/FX KNEE W/O FIXJ; COMMENT: knee replacement at [facility] KNEE SURGERY 2005 PROCEDURE: HISTORICAL KNEE SURGERY; COMMENT: osteotomy Medical History Medical History Date Comments DVT (deep venous thrombosis) ([facility] V24, [facility] V28) 1993 DX:DVT (deep venous thrombos is) ([facility]); COMMENT: on coumadin for 20 yrs ago, f/u by Dr. Sheppard DM (diabetes mellitus) ([facility] V24, [facility] V28) 2011 DX:DM (diabetes mellitus) ([facility]); COMMENT: managed by Dr. Sheppard JEANINE (obstructive sleep apnea) 2012 DX :JEANINE (obstructive sleep apnea); COMMENT: sleep study done at [facility], ordered by Dr. Sheppard Venous insufficiency DX:Venous [...] on file Sexual Orientation Not on file Plan of Treatment Health Maintenance Due Date [...] Insurance MEDICARE MEDICAID - [place] Care Teams Energy Sales Consultant Relationship Specialty Start Date End Date Rebel Farah MD [address] [place] [address] [address] [facility] [place] [address] PCP - General Internal Medicine 10/17/24
[2025-05-10 09:36] VITALS: PULSE 88
== END 2025-05-10 08:51 | disposition home or self-care (01) ==
LOC: HO.RESP 08:50
PROVIDERS: PCP Internal Medicine; Visit Provider Internal Medicine
DX: I25.10 Atherosclerotic heart disease of native coronary artery without angina pectoris (principal); F17.210 Nicotine dependence, cigarettes, uncomplicated
CPT/HCPCS: 94060; 94640; 94727; 94729

== ENCOUNTER → 2025-05-10 08:53 | Outpatient (BNV) | payer MEDICARE, MEDICAID, SELFPAY | PROVIDERS: PCP Internal Medicine; Visit Provider Internal Medicine Pulmonary Disease | DX: I25.10 Atherosclerotic heart disease of native coronary artery without angina pectoris (principal) | CPT/HCPCS: 94060; 94727; 94729 ==

== ENCOUNTER 2025-05-13 13:29 | Outpatient (AMB) | payer MEDICARE, MEDICAID, SELFPAY ==
--- OUTSIDE RECORDS SUMMARY | 2025-05-10 23:59 | XMS_ITS | Continuity of Care Document ---
Author Organization [facility] ter Address [address] [place] [id number]- Care Team Providers Care Regional Sales Director Name Role Phone Po Rebel MANZANARES Primary Care Physician Encounter 05/09/25 - 05/10/[address] [address]- Attending Physician: Not on Staff, Attending MD Referring Physician: Michael Franz Encounter Type: [facility]RI Allergies, Adverse Reactions, Alerts Substance Criticality Severity Reaction Reaction Severity Status penicillin unknown Active penicillins Active Immunizations Given and Recorded Vaccine Date Status Refusal Reason tetanus/diphtheria/pertussis, acel(Tdap) 08/27/21 Recorded tetanus/diphtheria/pertussis, acel(Tdap) 06/23/17 Given tetanus/diphtheria/pertussis, acel(Tdap) 05/02/14 Recorded SARS-CoV-2 (COVID-19) mRNA-1273 vaccine 03/31/21 R ecorded SARS-CoV-2 (COVID-19) mRNA-1273 vaccine 5/1/21 R ecorded pneumococcal 23-valent vaccine 03/22/19 Recorded pneumococcal 23-valent vaccine 05/02/14 Recorded pneumococcal 23-valent vaccine 05/12/10 Given influenza virus vaccine, inactivated 03/22/19 Eladio rded influenza virus vaccine, inactivated 05/02/14 Eladio rded influenza virus vaccine, inactivated 04/09/13 Give n influenza virus vaccine, inactivated 1 05/30/12 Gi elen influenza virus vaccine, inactivated 03/07/11 Give n influenza virus vaccine, inactivated 05/12/10 Give n influenza virus vaccine, inactivated 2 07/30/06 Gi elen tetanus-diphtheria toxoids (Td) 3 05/28/11 Given Pneumococcal Vaccine (oldterm) 4 07/30/06 Given 1Admin Note: VIS GIVEN 2011-04 2Result Comment: LOT# [id number] 3Admin Note: vis 10/30/93 4Result Comment: LOT# [id number] 2007 Medications ARIPiprazole 10 mg oral tablet 10 mg, 1, tablet, By Mouth, Daily, # 90 tablet, Refills 0, Maintenance, 08/04/20 8:34:00 PM EDT, Partial fill upon patient request if the prescription is for a schedule II opioid drug. Start Date: 08/04/20 Status: Ordered Medication Dispense Status: Completed Quantity: 90.0 Unit: tablet Total Allowed Fills: 1 Fills Dispensed: 0 azithromycin 250 mg oral tablet 1 pack/packet, By Mouth, Once, # 6 tablet, 0 Refills, Soft Stop, 12/29/21 6:37:00 PM EDT, Tablet, [facility]/pharm[facility] #[id number], Partial fill upon patient request if the prescription is for a schedule II opioid drug., 180, cm, 12/29/21 18:16:00 EDT, Height, 131.4, kg, 11/21/21 2:07:00 EDT, Dry Weight Start Date: 12/29/21 Status: Ordered Medication Dispense Status: Completed Quantity: 6.0 Unit: tablet Total Allowed Fills: 1 Fills Dispensed: 0 Indications: Otitis media, unspecified, left ear; Eliquis Starter Pack 5 mg oral tablet 2 tablet = 10 mg, By Mouth, 2 times a day, followed by 1 tablet by mouth twice daily for 23 days, #74 tablet, 0 Refills, Maintenance, 07/22/21 2:04:00 PM EST, [facility]/pharmacy #[id number], if no starter pack available can fill with 74 tabs. 10mg BID X 7 days then 5mg BID, 180, cm, 07/22/21 6:33:00 EST, Height, 127, kg, 07/22/21 6:33:00 EST, Dry Weight Start Date: 07/22/21 Stop Date: 07/29/21 Status: Ordered Medication Dispense Status: Completed Quantity: 74.0 Unit: tablet Total Allowed Fills: 1 Fills Dispensed: 0 escitalopram 20 mg oral tablet 1 tablet = 20 mg, By Mouth, Daily, # 30 tablet, 0 Refills, Maintenance, 08/04/20 8:34:00 PM EDT, Tablet, Partial fill upon patient request if the prescription is for a schedule II opioid drug. Start Date: 08/04/20 Status: Ordered Medication Dispense Status: Completed Quantity: 30.0 Unit: tablet Total Allowed Fills: 1 Fills Dispensed: 0 metFORMIN 500 mg oral tablet, extended release 3 tablet = 1,500 mg, By Mouth, 2 times a day, 0 Refills, Maintenance, 08/16/20 11:18:00 AM EDT, Partial fill upon patient request if the prescription is for a schedule II opioid drug. Start Date: 08/16/20 Status: Ordered Medication Dispense Status: Completed Total Allowed Fills: 1 Fills Dispensed: 0 Metoprolol Succinate ER 50 mg oral tablet, extended release 1 tablet = 50 mg, By Mouth, Daily, # 30 tablet, 0 Refills, Maintenance, 08/04/20 8:35:00 PM EDT, ER Tablet, Partial fill upon patient request if the prescription is for a schedule II opioid drug. Start Date: 08/04/20 Status: Ordered Medication Dispense Status: Completed Quantity: 30.0 Unit: tablet Total Allowed Fills: 1 Fills Dispensed: 0 mirtazapine 30 mg oral tablet 1 tablet = 30 mg, By Mouth, Daily at bedtime, # 30 tablet, 0 Refills, Maintenance, 08/04/20 8:35:00 PM EDT, Tablet, Partial fill upon patient request if the prescription is for a schedule II opioid drug. Start Date: 08/04/20 Status: Ordered Medication Dispense Status: Completed Quantity: 30.0 Unit: tablet Total Allowed Fills: 1 Fills Dispensed: 0 ondansetron 4 mg oral tablet, disintegrating 1 tablet = 4 mg, By Mouth, Every 8 hours, PRN Nausea & Vomiting, # 10 tablet, 0 Refills, Maintenance, 07/23/21 2:33:00 PM EST, Tablet, [id number], Partial fill upon patient request if the prescription is for a schedule II opioid drug., 180, cm, 07/23/21 11:14:00 EST, Height, 127.5, kg, 07/23/21 11:14:00 EST, Dry Weight Start Date: 07/23/21 Status: Ordered Medication Dispense Status: Completed Quantity: 10.0 Unit: tablet Total Allowed Fills: 1 Fills Dispensed: 0 traZODone 100 mg oral tablet TAKE 1 TABLET BY MOUTH EVERYDAY AT BEDTIME Start Date: 08/04/20 Status: Ordered Medication Dispense Status: Completed Total Allowed Fills: 1 Fills Dispensed: 0 Problem List Condition Confirmation Course Effective Dates Status H ealth Status Informant Acute hypoxemic respiratory failure Confirmed Active Acute respiratory distress syndrome (ARDS) due to COVID-19 virus Confirmed Active Anxiety Confirmed Active Carpal tunnel syndrome- EMG done 09/2011 Confirmed Active Chest pain Confirmed Active COVID-19 1 Confirmed 07/23/21 Active Depression, major Confirmed Active Diabetes mellitus Confirmed Active DM (diabetes mellitus) Confirmed Active Diabetic neuropathy Confirmed Active Recurrent DVT - needs lifelong anticoagulation Confirmed 1993 Active GERD (gastroesophageal reflux disease) Confirmed Active GERD (gastroesophageal reflux disease) Confirmed Active HLD (hyperlipidemia) Confirmed Active HTN (hypertension) Confirmed Active Lymphedema Confirmed Active MDD (major depressive disorder) Confirmed Active Morbid obesity Confirmed Active Myofascial pain Confirmed Active Neuropatic pain of both legs Confirmed Active JEANINE on CPAP Confirmed Active JEANINE - Obstructive sleep apnea Confirmed 12/08/09 Active PE - Pulmonary embolism Confirmed 2000 Active PVD (peripheral vascular disease) with claudication Confirmed Active Pulmonary embolism Confirmed Active PVD - Peripheral vascular disease Confirmed Active Severe obesity Confirmed Active Hepatic steatosis on CT angio Confirmed 07/28/06 Active Venous hypertension Confirmed Active 1Problem added by Discern Expert Social History Social History Type Response Tobacco Use: pt denies. Sex Male Sex Representation Male (finding) Patient Care team information Care Team Personnel Name: Tangela Jensen RN Position: [facility] RN Member Role: Primary Care Nurse Name: Joanna Fletcher RN Position: [facility] RN Member Role: Primary Care Nurse Name: Carolann Dunlap RN Position: S RN Member Role: Primary Care Nurse Name: Francisco Cardenas RN Position: S RN Member Role: Primary Care Nurse Name: Sherley Putnam RN Position: S RN Member Role: Primary Care Nurse Name: Rebel Farah MD Position: Reference Physician Member Role: PCP Address: [address] [place] [address] Telecom: Name: Janet Ortiz RN Position: S RN Member Role: Primary Care Nurse Name: Casi Santana RN Position: [facility] RN Member Role: Primary Care Nurse Care Team Related Persons Name: YOGESH CARR Name: SARBJIT CUETO Name: ISRAEL HYDE Insurance Providers Guarantor name: FLORY CUETO Health Plan Information #: 1 Payer: MEDICARE B Payer Identifier: Member Number: [id number] Group Number: Subscriber Identifier: Relationship to Subscriber: self Coverage Type: NA Coverage Verification Date: NA Telecom: NA Address: Health Plan Information #: 2 Payer: [employer] Payer Identifier: Member Number: [id number] Group Number: Subscriber Identifier: Relationship to Subscriber: self Coverage Type: MEDICAID Coverage Verification Date: NA Telecom: NA Address:
[2025-05-13 13:35] VITALS: BP 120/70; PULSE 100; O2SAT 96; BMI 36.7
--- NOTE | 2025-05-13 13:35 | MHC.OFFVIS ---
Vital Signs 05/13/25 13:35 Height 5 ft 11 in Weight 263 lb 7.238 oz BMI 36.7 BP 120/70 Blood Pressure Location Lt brachial Position Sitting Pulse 100 Pulse Source Pulse Oximeter Pulse Oximetry (%) 96 Oxygen Delivery Method Room Air Intake Visit Reasons: Shortness of breath Camp Tender Required: No Rural Electrification Engineer: Rural Electrification Engineer offered & declined Accompanied by: Self / Same As Patient Allergies Penicillins (PENICILLINS) Allergy (Severe, Verified 05/13/25 13:38) hives HPI Comments Details: The patient is here for pulmonary evaluation. The patient is a 54-year-old gentleman presenting with worsening respiratory symptoms. Per the patient does have a history of thromboembolic disease. The patient had significant amount of DVTs and also peripheral vascular disease surgery. The patient states that he has had pulmonary emboli. This was about 20 years ago he has been on anticoagulation. The last CTA he had was back in [address] [facility]. I did personally review the CAT scan. It was a suboptimal study but no significant pulmonary emboli noted. His thrombus pulmonary trunk was normal in size. He did have some slight pleural-based changes in the right hemithorax which appeared to be scarring. But at some point he will need additional imaging studies to review that. The patient also had an echocardiogram back in the spring of 2024 demonstrating some diastolic dysfunction but otherwise normal pulmonary pressures. In addition to this the patient does have severe sleep apnea. His sleep study about 3 years ago I did review it with AHI of 54 oxygen dropped to about 77%. The patient needs to have a repeat study specially since he is not on PAP therapy right now. Will order an urgent sleep study in the laboratory specially because of significant hypoxia. In order for him to hopefully have a split study and be able to be titrated on PAP therapy. In the meantime I did tell the patient to practice positional therapy specialist sleeping on his left side down since this is the best way to sleep to minimize the severe apnea. The patient did go for a walking oximetry he did good during the walk just tachycardic up to about 113. But pulse ox was stable. He also had PFTs done that I personally reviewed from last week demonstrating just a mild isolated diffusion impairment likely secondary to some underlying pulmonary vascular disease. At this point the patient will continue with his current therapy. Will go ahead and request a V/Q scan to assess for chronic thromboembolic disease. He will continue with the anticoagulation and will also go ahead and request a urgent sleep study. The patient follow-up after that. [facility] Medical History (Updated 05/13/25 @ 14:10 by Victorino Rivero MD) Pulmonary embolism and infarction Tachycardia Hyperlipidemia Gallstones Otitis media Right hip pain Left ear pain Obstructive sleep apnea (adult) (pediatric) Medicare annual wellness visit, initial DVT (deep venous thrombosis) Injury of tendon of biceps Nausea Closed fracture of right proximal tibia Femoral distal fracture Obstructive sleep apnea Carpal tunnel syndrome Peripheral vascular disease History of pulmonary embolism Type 2 diabetes mellitus with hyperglycemia Hypertension Surgical History Hx laparoscopic cholecystectomy (03/08/25) History of total right knee replacement Status post debridement Total knee replacement status Status post osteotomy History of femoropopliteal bypass History of repair of left rotator cuff Family History Father CVD (cardiovascular disease) Diabetes Hypertension Mother Diabetes Hypertension Brother Past heart attack Substance abuse Maternal Uncle Schizophrenia Paternal Uncle CVD (cardiovascular disease) Social History Household Members: Family Housing: House Are you a primary career development engineer to a significant other at home: No Do you presently have visiting nurse or other home services: Yes (GROUP 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) Alcohol intake: current Alcohol intake frequency: holidays/special occasions only Patient Tobacco Use Status: Never used Tobacco Tobacco use type: Cigarette Years Smoked: smokes week occ e-Cigarette/Vaping Use: Never Used Second Hand Smoke Exposure: No Substance Use Type: Marijuana Advance Directives Date on File: 02/22/24 service: No Current occupational status: disabled Cognitive needs: No Hearing needs: No Vision needs: No Review of Systems Const Reports daytime sleepiness, Reports difficulty sleeping, Reports fatigue, Reports snoring and Reports stops breathing during sleep Eyes Reports no additional complaints ENT Reports nasal congestion and Reports nasal discharge Card Denies chest pain, Reports palpitations and Reports dyspnea on exertion Resp Denies cough, Reports dyspnea on exertion, Reports snoring and Denies wheezing GI Reports dyspepsia Musc Reports myalgias Skin/Breast Denies rash Neuro Reports no additional complaints Endo Reports fatigue and Reports palpitations Vlad/Lymph Reports no additional complaints Aller/Immun Denies wheezing Physical Exam Vital Signs: Last Vital Signs Pulse 100 05/13/25 13:35 BP 120/70 05/13/25 13:35 Pulse Ox 96 05/13/25 13:35 Oxygen Delivery Method Room Air 05/13/25 13:35 BMI result Body Mass Index 36.7 Const General: comfortable HEENT Head: Yes normocephalic Neck Neck: Yes supple Chest Chest palpation & inspection: normal inspection of the chest Resp Effort & Inspection: normal respiratory effort Auscultation: clear to auscultation bilaterally Cardio Rate: regular rate Rhythm: regular rhythm Heart sounds: S1 normal heart sound present and S2 normal heart sound present GI Palpation (GI): Soft to palpation Skin General skin exam: no rashes or lesions noted Extrem General: Yes no clubbing, cyanosis or edema Office Procedures Flu Questionnaire Does the patient have a severe egg allergy?: No Does the patient have severe life threatening allergies?: No Does the patient have a fever or illness today?: No Has the patient ever had Guillain-Plymouth Syndrome?: No Has the patient ever had any past reaction to a flu shot?: No Immunizations Fluarix 9765-1368 (PF) 45 mcg (15 mcg x 3)/0.5 mL IM syringe Performing Provider: Victorino Rivero MD Performing Location: [facility] Administered by: Dee Daniel LPN on 05/13/25 14:26 Dose Route Admin Location Dispensed Lot Number Expiration Date NDC Qa Intern 0.5 mL IM Left Deltoid 0.5 mL [id number] 11/19/25 98932-409-06 [employer] VIS Given Date VIS Provided VIS Publication Date 05/13/25 Single Vaccine 24 Eligibility Eligibility Date Funding Source Not [facility] Eligible 05/13/25 Private Assessment & Plan Assessment & Plan (1) Obstructive sleep apnea: Code(s): G47.33 - Obstructive sleep apnea (adult) (pediatric) Category: Medical (2) Tachycardia: Code(s): R00.0 - Tachycardia, unspecified Category: Medical (3) Pulmonary embolism and infarction: Code(s): I26.99 - Other pulmonary embolism without acute cor pulmonale Category: Medical Plan CXR/VQ to r/o chronic thrombo-embolic disease in lab PSG F/U 2 months Orders: Orders Influenza [id number] Immunization Today Z23 - Encounter for immunization RT PSG in-lab sleep study Today G47.33 - Obstructive sleep apnea (adult) (pediatric), R00.0 - Tachycardia, unspecified XR chest 2V Today I26.99 - Other pulmonary embolism without acute cor pulmonale NM pul perfusion Today I26.99 - Other pulmonary embolism without acute cor pulmonale Coding Level of Care Code New Pt Level 4 (65028) Diagnoses Obstructive sleep apnea G47.33 Tachycardia R00.0 Pulmonary embolism and infarction I26.99 Time Spent (min) 40
--- OUTSIDE RECORDS SUMMARY | 2025-05-13 16:53 | XMS_ITS | Data Portability ---
Author Organization [place] - [facility], FRANK Brown PT Address [address] [place] [address] Assessment No assessment recorded. Plan of Treatment Reminders Order Date Submit Date Provider Last Modified By Organization Details Last Modified Time Details Appointments None recorded. Lab None recorded. Referral None recorded. Procedures None recorded. Surgeries None recorded. Imaging XR, shoulder, 2 or more view - 2. RT shoulder, 4v 2024 025 carola [facility], [address], [place], [address], 5 11:40:48 MRI, shoulder, w/o contrast - MRI RT SHOULDER to R/O ROTATOR CUFF TEAR/INJUR Y 2024 025 carola [facility] ([facility]), [address], [place], [address], 5 12:08:46 Medication Orders tramadol 50 mg tablet 2024 025 [facility] #[id number], [address] [place], [address], 5 11:41:23 Patient TargetsNo targets recorded. Patient InstructionsNo instructions recorded. Reason for Referral None Reported. Results Created Date Observation Date Name Description Value Unit Range Abnormal Flag Note LastModifiedBy Organization Detail LastModifiedTime 04/30/20 25 04/30/2025 XR, shoul truman, 2 or more view [email or web address] ?Encry pted=s hAaTro YD8dLq bEUv6g %2BXZw aYqtaq 0bqfl% 2Fg9IQ a4ajBk vP9nXo QUaueC m3YtLR FvZlgJ JJ8mAn HZtai3 8j0367 AC0Kka n6BVqq gKiQtr MwF INTERFACE [facility] Office [address], [address], 04/30/2025 11:00:53 04/30/20 25 04/30/2025 XR, shoul truman, 2 or more view [email or web address] ?Encry pted=s hAaTro YD8dLq bEUv6g %2BXZw aYqtaq 0bqfl% 2Fg9IQ a4ajBk vP9nXo QUaueC m3YtLR FvZlgJ JJ8mAn HZtai3 9p7488 AC0Kka n6BVqq gKiQtr F INTERFACE [facility] [address] [address], [place], [address], 04/30/2025 11:00:55 Result Notes Documentation Provider Name and Address Organization Details Recorded Time Xr, Shoulder, 2 Or More View : [email or web address] Encrypted=qlImQuoMX6wQtbI Uv6g%3YUZgcNghpx4ccpn%2Fg 0XMe4ufIojC6vJuAYmapDi7Ii RNRnMrqMDD6iRvPItcj48g304 8RP1Mgmf8BZfnxTzRjhRkW Not Available [facility] 04/30/2025 11:00: 54 Xr, Shoulder, 2 Or More View : [email or web address] Encrypted=wiSmTejYS0jCauN Uv6g%9DKRcbLctyi8wwuo%2Fg 5QPv2zoGamW5yQmFDxmcSo2Od EYAaBtaDBF6nZsGBcaq82s296 9HV2Skzy6JGezvGnXgmNaL Not Available [facility] 04/30/2025 11:00: 56 Problems Name Problem SNOMED Code Status Onset Date Resolution Date Notes Provider Name and Address Organization Details Recorded Time Pain of right shoulder region Active 025 WESTON dubose [place] - [facility] 5 10:45:23 Problem Notes None recorded. Medical Equipment None Reported. Allergies Allergen ID Allergen Name Allergen Category Reaction Reaction Severity Criticality Documentation Date Start Date Code Code System Note Provider Name and Address Organization Details Recorded Time 916864 Product containin g penicilli n (product) medicatio n Not available Not available Not available 04/30/2025 24046 8001 SNOMED Not Available bibi - External Data Service - prod 5 09:13:44 Medications Name Sig Start Date Stop Date Status Note LastModified by Organization Details LastModified Time cyclobenzap rine 10 mg tablet TAKE 1 TABLET BY MOUTH EVERYDAY AT BEDTIME active Not Available Not Available No t Available doxycycline hyclate 100 mg capsule TAKE 1 CAPSULE ORALLY 2 TIMES A DAY FOR 7 DAYS 04/30 completed Not Available Not Available Not Available atorvastati n 20 mg tablet TAKE 1 TABLET BY MOUTH EVERY DAY IN THE EVENING active Not Available Not Available No t Available FreeStyle Lancets 28 gauge DIRECTED CHECK BLOOD SUGAR EVERY DAY active Not Available Not Available No t Available ondansetron HCl 4 mg tablet TAKE 1 TABLET BY MOUTH EVERY 6 HOURS NEEDED FOR NAUSEA AND VOMITING active Not Available Not Available No t Available tramadol 50 mg tablet Take 1 tablet every 6 hours by oral route as directed for 7 days. 2024 active Not Available Not Available Not Avai lable ofloxacin 0.3 % ear drops PLACE 5 DROPS INTO BOTH EARS 2 TIMES A DAY X5 DAYS 04/30 completed Not Available Not Available Not Available alprazolam 0.25 mg tablet TAKE 1-2 TABLETS BY MOUTH 1 HOUR BEFORE THE PROCEDURE ORALLY active Not Available Not Available No t Available metformin 1,000 mg tablet TAKE 1 TABLET BY MOUTH TWICE A DAY FOR 90 DAYS active Not Available Not Available No t Available docusate sodium 100 mg capsule TAKE 1 CAPSULE BY MOUTH 2 TIMES A DAY NEEDED FOR CONSTIPAT ION active Not Available Not Available No t Available cefuroxime axetil 500 mg tablet TAKE 1 TABLET BY MOUTH TWICE A DAY 04/30 completed Not Available Not Available Not Available cefdinir 300 mg capsule TAKE 2 CAPSULE BY MOUTH DAILY FOR 7 DAYS 04/30 completed Not Available Not Available Not Available fluticasone propionate 50 mcg/actuati on nasal spray,suspe nsion INSTILL 2 SPRAYS INTRANASA LLY DAILY ADMINISTE R INTO EACH NOSTRIL active Not Available Not Available No t Available clotrimazol e 1 % topical cream APPLY TOPICALLY TWICE A DAY FOR 4 WEEKS active Not Available Not Available No t Available oxycodone 5 mg tablet TAKE 1 TABLET BY MOUTH EVERY 4 HOURS NEEDED FOR PAIN (SCALE SCORE 7-10) active Not Available Not Available No t Available neomycin-po lymyxin-hyd rocort 3.5 mg-10,000 unit/mL-1 % ear drops,susp PLACE 4 DROPS INTO THE LEFT EAR EVERY 8 HOURS 04/30 completed Not Available Not Available Not Available ciprofloxac in 0.3 %-dexametha sone 0.1 % ear drops,suspe nsion PLEASE SEE ATTACHED FOR DETAILED DIRECTION S 04/30 completed Not Available Not Available Not Available FreeStyle Lite Strips DIRECTED CHECK THE BLOOD SUGAR DAILY active Not Available Not Available No t Available Antifungal (miconazole ) 2 % topical powder USE 1 APPL TOPICALLY 2 TIMES A DAY active Not Available Not Available No t Available Eliquis 5 mg tablet TAKE 1 TABLET BY MOUTH TWICE A DAY FOR 90 DAYS active Not Available Not Available No t Available Vitals None Recorded Social History None recorded. Functional Status None recorded. Mental Status None recorded. Family History Nothing Reported. Medical History No medical history recorded. Past Encounters Encounter ID Performer Location Encounter Start Date Encounter Closed Date Diagnosis/Indication Diagnosis SNOMED-CT Code Diagnosis ICD10 Code Diagnosis IMO Codes Diagnosis Note [id number] Michael Roe PA-C [place] [place] [address] [place] [address] 04/30/2025 09:12:23 05/06/2025 15:02:53 Pain of right shoulder region [id number] M25.511 08786989 Traumatic partial rupture of rotator cuff of right shoulder 0222260448 90536074 S46.011A [id number] Health Concerns Section Related Observation LastModified by Organization Detai ls LastModified Time None Recorded Concern Status LastModified by Organization Details LastModified Time None Recorded Advance Directives Directive None Recorded Payers Insurance Date Sequence Insurance Name Policy Number Policy Perry Covered Member ID Perry Member ID Guarantor Name 04/30/2025 1 [place] B-[place]: [facility] [employer] Genaro Lerner [id number] Genaro Lerner 04/30/2025 2 [place] [facility] Genaro Lerner [id number] Genaro Lerner Notes Date Note Type Note Provider Name and Address Organization Details Recorded Time 04/30/2025 text/html ROS as noted in the HPI I am seeing the patient today under the supervision of Dr. Corrales who was available but who did not see the patient. HPI: Patient is a 54-year-old male who presents to the urgent care clinic today for orthopedic evaluation of right shoulder pain. On 04/24 patient was walking when he slipped on ice falling backwards and he reached out behind him to brace himself with his right arm. He experienced pain immediately which has been progressing and getting worse. Does have history of previous left rotator cuff rupture which she states that this feels worse than that did when it occurred. He has been icing. Not able to utilize anti-inflammatories because of Eliquis. Denies any numbness or tingling of the right upper extremity. Past family, medical, social history and review of systems has been reviewed, updated and is located in the patient s chart. Examination: Well-appearing 54-year-old male in no acute distress. He is alert and oriented x 3. Ambulates with symmetric gait.Examination of the right shoulder reveals no erythema, warmth, ecchymosis or swelling.Exquisite tenderness to palpation over the posterior, lateral as well as anterior aspect of the shoulder. Actively with forward flexion and abduction patient gets to about 60 degrees. Internal rotation to back pocket external rotation 70 degrees. Negative cross body adduction. Diminished strength through the infraspinatus and supraspinatus although there is still some firing of the muscles. Sensate to light touch over the deltoid. 4 views of the right shoulder obtained and independently reviewed in the office today reveals some mild glenohumeral joint narrowing. Type III acromion. Mild AC joint arthritis. No fracture or dislocation. Impression:Right shoulder rotator cuff tear Plan:discussed the nature the diagnosis with the patient. Patient was provided with sling for his right shoulder for support. He can come out of it to do pendulum exercises. I did encourage elbow and wrist range of motion to avoid stiffness. MRI was ordered today to rule out traumatic rotator cuff tear of the right shoulder. Patient also given prescription for tramadol for pain relief. He can continue utilizing Tylenol if needed. Did encourage continued icing elevating. He will avoid anti-inflammatories . Once MRI results come back to me I will call him we will discuss next apps. Patient agrees with this treatment plan. At this time all patient questions and concerns answered and addressed today. Michael Roe PA-C [address] [place] [address] [address], [place], [address], [facility] - [facility] 04/30/2025 11:41:39
--- OUTSIDE RECORDS SUMMARY | 2025-05-13 16:53 | XMS_ITS | Continuity of Care Document ---
Author Organization [place] - [facility], [place] - [place] Address [address] [place] [address] Assessment No assessment recorded. Plan of Treatment Reminders Order Date Submit Date Provider Last Modified By Organization Details Last Modified Time Details Appointments None recorded. Lab None recorded. Referral None recorded. Procedures None recorded. Surgeries None recorded. Imaging XR, shoulder, 2 or more view - Uc 2. RT shoulder, 4v 2024 025 [facility], [address], [place], [address], 5 11:40:48 MRI, shoulder, w/o contrast - MRI RT SHOULDER to R/O ROTATOR CUFF TEAR/INJUR Y 2024 025 carola [facility] ([facility]), [address], [place], [address], 5 12:08:46 Medication Orders tramadol 50 mg tablet 2024 025 [facility]/Pharmacy #[id number], [address] [place], [address], 5 11:41:23 Patient TargetsNo targets recorded. Patient InstructionsNo instructions recorded. Reason for Referral None Reported. Results Created Date Observation Date Name Description Value Unit Range Abnormal Flag Note LastModifiedBy Organization Detail LastModifiedTime 04/30/2004/30/2025 XR, shoul truman, 2 or more view [email or web address] ?Encry pted=s hAaTro YD8dLq bEUv6g %2BXZw aYqtaq 0bqfl% 2Fg9IQ a4ajBk vP9nXo QUaueC m3YtLR FvZlgJ JJ8mAn HZtai3 2o3340 AC0Kka n6BVqq gKiQtr MwF INTERFACE [facility] Office [address], [address], 04/30/2025 11:00:53 04/30/20 25 04/30/2025 XR, shoul truman, 2 or more view [email or web address] ?Encry pted=s Diza YD8dLq bEUv6g %2BXZw aYqtaq 0bqfl% 2Fg9IQ a4ajBk vP9nXo QUaueC m3YtLR FvZlgJ JJ8mAn HZtai3 0c6528 AC0Kka n6BVqq gKiQtr F INTERFACE [address], [address], 04/30/2025 11:00:55 Result Notes Documentation Provider Name and Address Organization Details Recorded Time Xr, Shoulder, 2 Or More View : [email or web address] Encrypted=clQuPzqZQ2lWgpD Uv6g%9ALObgYgfls7acsa%2Fg 8DCm7ffFwtG0jZbLFcjoQk7Te YCHsUzcUDZ2lBdXShav89z445 8ER0Ycjl9ONfexFxDzwHxG Not Available [facility] 04/30/2025 11:00: 54 Xr, Shoulder, 2 Or More View : [email or web address] Encrypted=zjUnCryBG9mHlwB Uv6g%9NEJzzZiown0lypr%2Fg 9LFu6xoFstJ2kPjBTtlhQz7Ho JWYzZqeRNO5eIwUIiiu67z408 1YS4Kozv8NYykmHqJhlZiP Not Available [facility] 04/30/2025 11:00: 56 Problems Name Problem SNOMED Code Status Onset Date Resolution Date Notes Provider Name and Address Organization Details Recorded Time Pain of right shoulder region Active 025 WESTON dubose [place] - [facility] 5 10:45:23 Problem Notes None recorded. Medical Equipment None Reported. Allergies Allergen ID Allergen Name Allergen Category Reaction Reaction Severity Criticality Documentation Date Start Date Code Code System Note Provider Name and Address Organization Details Recorded Time 972407 Product containin g penicilli n (product) medicatio n Not available Not available Not available 04/30/2025 75629 8001 SNOMED Not Available bibi - External [...] 1 TABLET BY MOUTH TWICE A DAY 12/09 /2025 completed Not Available Not Available Not Available [...] ICD10 Code Diagnosis IMO Codes Diagnosis Note [id number] Michael Roe PA-C [facility] [place] [address] [place] [address] 04/30/2025 09:12:23 05/06/2025 15:02:53 Pain of right shoulder region [id number] M25.511 59268856 Traumatic partial rupture of rotator cuff of right shoulder 8282598951 84959401 S46.011A [id number] Health Concerns Section Related Observation LastModified by Organization Detai ls LastModified Time None Recorded Concern Status LastModified by Organization Details LastModified Time None Recorded Payers Encounter Date Sequence Insurance Name Policy Number Policy Perry Covered Member ID Perry Member ID Guarantor Name 04/30/2025 2 [place] [facility] Genaro Lerner [id number] Genaro Lerner 04/30/2025 1 [place] [employer] Genaro Lerner [id number] Genaro Lerner Notes Date Note Type Note [...] answered and addressed today. Michael Roe PA-C [address] [place] [address] [address], [place], [address], [facility] - [facility] 04/30/2025 11:41:39
--- OUTSIDE RECORDS SUMMARY | 2025-05-13 16:53 | XMS_ITS | Clinical Summary ---
Author Organization [address] [place] [address] [place] [address] Phone Care Team Providers Care Lead Coater Name Role Phone Rebel Farah MD Primary Care Provider [phone] Surgical History Surgery Date Site/Laterality Comments OTHER SURGICAL HISTORY 1993 PROCEDURE: ---- OTHER ----; COMMENT: rt popliteal bypass after football injury KNEE ARTHROSCOPY 2003 PROCEDURE: [place] ARTHROSCOPY AID [place] SPINE&/FX KNEE W/O FIXJ; COMMENT: knee replacement at [facility] KNEE SURGERY 2005 PROCEDURE: HISTORICAL KNEE SURGERY; COMMENT: osteotomy Medical History Medical History Date Comments DVT (deep venous thrombosis) ([facility] V24, [facility] V28) 1993 DX:DVT (deep venous thrombos is) ([facility]); COMMENT: on coumadin for 20 yrs ago, f/u by Dr. Sheppard DM (diabetes mellitus) ([facility] V24, [facility] V28) 2011 DX:DM (diabetes mellitus) ([facility]); COMMENT: managed by Dr. Sheppard JEANINE (obstructive sleep apnea) 2012 DX :JEANINE (obstructive sleep apnea); COMMENT: sleep study done at [facility], ordered by Dr. Sheppard Venous insufficiency DX:Venous [...] Insurance MEDICARE [place]ICAID - [place] Care Teams Lead Coater Relationship Specialty Start Date End Date Rebel Farah MD [address] [place] [address] [address] [facility] [place] [address] PCP - General Internal Medicine 10/17/24
== END 2025-05-13 14:22 | disposition home or self-care (01) ==
LOC: HO.HPS 13:30
PROVIDERS: PCP Internal Medicine; Visit Provider Hospitalist
DX: G47.33 Obstructive sleep apnea (adult) (pediatric) (principal); R00.0 Tachycardia, unspecified; I26.99 Other pulmonary embolism without acute cor pulmonale; Z23 Encounter for immunization
CPT/HCPCS: 99204

== ENCOUNTER → 2025-05-13 13:29 | Outpatient (BNVA) | payer MEDICARE, MEDICAID, SELFPAY | PROVIDERS: PCP Internal Medicine; Visit Provider Hospitalist | DX: Z01.818 Encounter for other preprocedural examination (principal); Z23 Encounter for immunization; G47.33 Obstructive sleep apnea (adult) (pediatric); R00.0 Tachycardia, unspecified; I26.99 Other pulmonary embolism without acute cor pulmonale | CPT/HCPCS: 90471; 90656; 99202 ==

== ENCOUNTER 2025-05-15 12:47 | Outpatient (REF) | payer MEDICARE, MEDICAID, SELFPAY ==
--- NOTE | ~2025-05-15 | US_ITS ---
EXAMINATION: BILATERAL CAROTID ULTRASOUND WITH DOPPLER HISTORY: I65.23 - Occlusion and stenosis of bilateral carotid arteries COMPARISON: There are no prior studies available for comparison. TECHNIQUE: Real time and Color and Spectral doppler ultrasonography of the carotid and vertebral arteries was performed in multiple planes. FINDINGS: No significant plaque is identified. VERTEBRAL FLOW DIRECTION: Antegrade bilaterally. PEAK SYSTOLIC VELOCITIES (in cm/sec): RIGHT: CCA: Prox: 90.6 Dist: 92.5 ICA: Prox: 65.7 Mid: 73.7 Dist: 78.7 ICA/CCA Ratio: 0.87 ECA: 104 Peak ICA end diastolic velocity (EDV): 41.4 LEFT: CCA: Prox: 82.9 Dist: 88.5 ICA: Prox: 66.0 Mid: 75.3 Dist: 64.5 ICA/CCA Ratio: 0.85 ECA: 125.6 Peak ICA end diastolic velocity (EDV): 35.6 US/US carotid duplex BI IMPRESSION: Unremarkable carotid ultrasound. No significant stenosis. Electronically signed by: Leighton Sam MD 05/15/2025 02:42 PM [facility]
--- NOTE | ~2025-05-15 | XR_ITS ---
EXAMINATION: XR CHEST 2 VIEWS HISTORY: I26.99 - Other pulmonary embolism without acute cor pulmonale COMPARISON: Comparison is made with the prior examination dated 11/11/2024. FINDINGS: PA and lateral views of the chest are submitted. The lungs are expanded and clear. There is no pleural effusion, pneumothorax, or pulmonary vascular congestion. The heart is normal in size. The bones are intact. XR/XR chest 2V IMPRESSION: No acute cardiopulmonary abnormality. Electronically signed by: Leighton Sam MD 05/15/2025 01:13 PM [facility]
--- OUTSIDE RECORDS SUMMARY | 2025-05-15 12:51 | XMS_ITS | Encounter Summary ---
Author Organization [facility] Prior to 03/23/2024 Address [address] [place] [address] Care Team Providers Care Hand Rug Braider Name Role Phone Jasen Villarreal MD Primary Care Provider UnaMichele Duncan MD Primary Care Provider Unavail able Eleonora Breen MD Primary Care Provider UnaMichele Duncan MD Primary Care Provider Unavail able Alea Do MD Primary Care Provider Unava nalini [facility] Pcp Primary Care Provider Unavailabl e Michele Castillo MD Unavailable Unavailable Alea Do MD Unavailable Unavailable Rebel Farah MD Primary Care Provider Unavailabl e Encounter Details Date Type Department Care Team Description 07/18/2013 Orders Only Coumadin [address] [address] Jasen Villarreal MD DVT (deep venous thrombosis) [...] extremity documented in this encounter Care Teams Hand Rug Braider Relationship Specialty Start Date End Date Jasen [...] Michele Castillo MD Internal Medicine 07/21/15 03/26/18 Alae Do MD 03/27/18 documented as of this encounter
--- OUTSIDE RECORDS SUMMARY | 2025-05-15 12:51 | XMS_ITS | Encounter Summary ---
Author Organization [facility] Prior to 03/23/2024 Address [address] [place] [address] Care Team Providers Care Principal Librarian Name Role Phone Michele Castillo MD Primary Care Provider Unavail able Alea oD MD Primary Care Provider Abhijeet gayle [facility], Pcp Primary Care Provider Unavailabl e Michele Castillo MD Unavailable Unavailable Alea Do MD Unavailable Unavailable Rebel Farah MD Primary Care Provider Unavailabl e Encounter Details Date Type Department Care Team Description 11/29/2014 Home Health Certification Medical Records [address] [place] [id number] Social History Tobacco Use Types Packs/Day Years [...] on filedocumented in this encounter Care Teams Principal Librarian Relationship Specialty Start Date End Date Michele Castillo MD PCP - General Internal Medicine 04/15/14 07/20/15 Alea Do MD PCP - General 07/21/15 03/26/18 [facility], Pcp PCP - General Internal Medicine 03/27/18 08/21/23 Rebel Farah MD PCP - General Internal Medicine 08/22/23 Michele Castillo MD Internal Medicine 07/21/15 03/26/18 Alea Do MD 03/27/18 documented as of this encounter
--- OUTSIDE RECORDS SUMMARY | 2025-05-15 12:51 | XMS_ITS | Encounter Summary ---
Author Organization [facility] Prior to 03/23/2024 Address [address] [place] [address] Care Team Providers Care Regional Retail Sales Manager Name Role Phone Jasen Villarreal MD Primary Care Provider UnaMichele Duncan MD Primary Care Provider Unavail able Eleonora Breen MD Primary Care Provider Unava Michele Xiao MD Primary Care Provider Unavail able Alea Do MD Primary Care Provider Unava ilable [facility] Pcp Primary Care Provider Unavailabl e Michele Castillo MD Unavailable Unavailable Alea Do MD Unavailable Unavailable Rebel Farah MD Primary Care Provider Unavailabl e Encounter Details Date Type Department Care Team Description 07/19/2013 Level Vial Sealer Report Medical Records [address] [place] [id number] Reno Perez MD Social History Tobacco Use Types Packs/Day Years [...] filedocumented in this encounter Care Teams Regional Retail Sales Manager Relationship Specialty Start Date End Date Jasen Villarreal MD PCP - General Internal Medicine 07/12/13 07/29/13 Michele Castillo MD PCP - General Internal Medicine 07/30/13 04/10/14 Eleonora Breen MD PCP - General Internal Medicine 04/11/14 04/14/14 Michele Castillo MD PCP - General Internal Medicine 04/15/14 07/20/15 Alea Do MD PCP - General 07/21/15 03/26/18 [facility], Pcp PCP - General Internal Medicine 03/27/18 08/21/23 Rebel Farah MD PCP - General Internal Medicine 08/22/23 Michele Castillo MD Internal Medicine 07/21/15 03/26/18 Alea Do MD 03/27/18 documented as of this encounter
--- OUTSIDE RECORDS SUMMARY | 2025-05-15 12:51 | XMS_ITS | Continuity of Care Document ---
Author Organization [place] - [facility], [facility] Address [address] [place] [address] Assessment No assessment recorded. Plan of Treatment Reminders Order Date Submit Date Provider Name Organization Details Last Modified By Last Modified Time Details Appointments None recor ded. Lab None recor ded. Referral None recor ded. Procedures None recor ded. Surgeries None recor ded. Imaging MRI, jocelyn laughlin, w/o contr ast 2024 11:39: 24 025 Michael Roe PA-C [facility] ([facility]) [address] [place], [address], Michael Roe PA-C 12:08:46 XR, jocelyn laughlin, 2 or more view 2024 10:45: 56 025 Michael Roe PA-C [facility] Office [address],[facility] [address], [place], [address], Michael Roe PA-C 5 11:40:48 MedicationOrder s trama dol 50 mg table t 2024 11:40: 47 [id number] [address] [facility], [address], Ph [phone] Not Available Not available 05:01:57 Take 1 tablet every 6 hours by oral route as directed for 7 days. VaccineOrders None recor ded. Patient TargetsNo targets recorded. Patient InstructionsNo instructions recorded. Reason for Referral None Reported. Results Created Date Observation Date Name Description Value Unit Range Abnormal Flag Specimen Type Note LastModifiedBy Organization Detail LastModifiedTime 04/30/2025 04/30/2025 shoulder 4 view [email or web address]=flIvFcwCB1pQlfJYy3c%1OLSesTtbuk5uwov%6Gp9GYx3 dyKsdZ9oFqEHyqwLp2RtBUSaSqiFPK7lHoEYrkp16i4590RE0Uvyv6TYjuzCjBgtMuY Not Available [facility] , [address],[facility] [address] , [place], [place] , [facility], , 04/30/2025 11:00:54 04/30/2025 04/30/2025 shoulder 4 view [email or web address]=bkMnSibAK1fUphYHx3v%1EIVcgSeikg5vfns%4Gf1AMx9 jeYdmA0dZlJGswtJu9QzSCUjTdmIDP6jMzIJail23l9685JC0Jjiq4IDdzqMlMjzVxA Not Available [facility] , [address],[facility] [address] , [place] , [address], , 04/30/2025 11:00:56 Result Notes Documentation Provider Name and Address Organization Details Recorded Time Xr, Shoulder, 2 Or More View : [email or web address] Encrypted=jjArRslXC4wPiyQ Uv6g%2FWOopPilld6zoaz%2Fg 5BUx2eqIexH1mVaAYnxyTf0Ad RTNfRflEYU9zDfHVtwc68v712 8IN1Fxwp8WEkfjKdIssUeS Not Available [facility] 04/30/2025 11:00: 54 Xr, Shoulder, 2 Or More View : [email or web address] Encrypted=tgVqEwgTA5aWbuL Uv6g%2GCEgcMebnv0ejpo%2Fg 4GBy4qaRhxX8tPkILihfMy7Oe SKXeCxgPYN3wXlZEprk04x548 8YS9Wsmh4MTbldNlVlcRgQ Not Available [facility] 04/30/2025 11:00: 56 Problems Name Problem SNOMED Code Status Onset Date Resolution Date Notes Provider Name and Address Organization Details Recorded Time Pain of right shoulder region Active 025 [place] - [facility] 5 10:45:23 Problem Notes None recorded. Medical Equipment None Reported. Allergies Allergen ID Allergen Name Allergen Category Reaction Reaction Severity Criticality Documentation Date Start Date Code Code System Note Provider Name and Address Organization Details Recorded Time 181664 Product containin g penicilli n (product) medicatio n Not available Not available Not available 04/30/2025 10095 8001 SNOMED Not Available bibi - External Data Service - prod 09:13:44 Medications Name Authored On Sig Start Date Stop Date Status Note Indication Fill Status Repeat Number Dispense Quantity LastModified by Organization Details LastModified Time cefur oxime axeti l 500 mg table t 5 09:09:45 TAKE 1 TABL ET BY MOUT H TWIC E A DAY 04/30 aborted Not Available Not availab le 0 Not Available Not Available [facility] - [employer] - prod 04/30/2025 09:09:45 docus ate sodiu m 100 mg capsu le 5 09:09:45 TAKE 1 CAPS ULE BY MOUT H 2 TIME S A DAY NEED ED FOR CONS TIPA TION active Not Available Not availab le 0 Not Available Not Available bib[employer] - External Data Service - prod 04/30/2025 09:09:45 Eliqu is 5 mg table t 5 09:09:45 TAKE 1 TABL ET BY MOUT H TWIC E A DAY FOR 90 DAYS active Not Available Not availab le 0 Not Available Not Available bibi - External Data Service - prod 04/30/2025 09:09:45 metfo rmin 1,000 mg table t 5 09:09:45 TAKE 1 TABL ET BY MOUT H TWIC E A DAY FOR 90 DAYS active Not Available Not availab le 0 Not Available Not Available bibi - External Data Service - prod 04/30/2025 09:09:45 ondan setro n HCl 4 mg table t 5 09:09:45 TAKE 1 TABL ET BY MOUT H EVER Y 6 HOUR S NEED ED FOR NAUS EA AND VOMI TING active Not Available Not availab le 0 Not Available Not Available bibi - External Data Service - prod 04/30/2025 09:09:45 oxyco done 5 mg table t 5 09:09:45 TAKE 1 TABL ET BY MOUT H EVER Y 4 HOUR S NEED ED FOR PAIN (SCA LE SCOR E 7-10 ) active Not Available Not availab le 0 Not Available Not Available bibi - External Data Service - prod 04/30/2025 09:09:45 alpra zolam 0.25 mg table t 5 09:09:46 TAKE 1-2 TABL ETS BY MOUT H 1 HOUR BEFO RE THE PROC EDUR E ORAL LY active Not Available Not availab le 0 Not Available Not Available bibi - External Data Service - prod 04/30/2025 09:09:46 Antif ungal (kiki nazol e) 2 % topic al powde r 5 09:09:46 USE 1 APPL TOPI CALL Y 2 TIME S A DAY active Not Available Not availab le 0 Not Available Not Available bibi - External Data Service - prod 04/30/2025 09:09:46 atorv astat in 20 mg table t 5 09:09:46 TAKE 1 TABL ET BY MOUT H EVER Y DAY IN THE EVEN ING active Not Available Not availab le 0 Not Available Not Available bib[employer] - External Data Service - prod 04/30/2025 09:09:46 clotr imazo le 1 % topic al cream 5 09:09:46 APPL Y TOPI CALL Y TWIC E A DAY FOR 4 WEEK S active Not Available Not availab le 0 Not Available Not Available bibi - External Data Service - prod 04/30/2025 09:09:46 cyclo benza manda 10 mg table t 5 09:09:46 TAKE 1 TABL ET BY MOUT H EVER YDAY AT [facility] active Not Available Not availab le 0 Not Available Not Available bibi - External Data Service - prod 04/30/2025 09:09:46 doxyc yclin e hycla te 100 mg capsu le 5 09:09:46 TAKE 1 CAPS ULE ORAL LY 2 TIME S A DAY FOR 7 DAYS 04/30 aborted Not Available Not availab le 0 Not Available Not Available bib[employer] - External Data Service - prod 04/30/2025 09:09:46 fluti terri e propi stuart 50 mcg/a ctuat ion nasal spray ,susp ensio n 5 09:09:46 INST ILL 2 SPRA YS INTR ANAS ALLY RAMSEY Y ADMI NIST ER INTO EACH NOST RIL active Not Available Not availab le 0 Not Available Not Available bibi - External Data Service - prod 04/30/2025 09:09:46 FreeS tyle Papito ts 28 gauge 5 09:09:46 DIRE CTED CHEC K BLOO D SUGA R EVER Y DAY active Not Available Not availab le 0 Not Available Not Available bibi - External Data Service - prod 04/30/2025 09:09:46 FreeS tyle Lite Strip s 5 09:09:46 DIRE CTED CHEC K THE BLOO D SUGA R RAMSYE Y active Not Available Not availab le 0 Not Available Not Available bibi - External Data Service - prod 04/30/2025 09:09:46 neomy ludwin-p olymy tamara-h ydroc ort 3.5 mg-10 ,000 unit/ mL-1 % ear drops ,susp 5 09:09:46 PLAC E 4 DROP S INTO THE LEFT EAR EVER Y 8 HOUR S 04/30 aborted Not Available Not availab le 0 Not Available Not Available bibi - External Data Service - prod 04/30/2025 09:09:46 oflox acin 0.3 % ear drops 5 09:09:46 PLAC E 5 DROP S INTO BOTH EARS 2 TIME S A DAY X5 DAYS 04/30 aborted Not Available Not availab le 0 Not Available Not Available bibi - External Data Service - prod 04/30/2025 09:09:46 cefdi lexus 300 mg capsu le 09:09:47 TAKE 2 CAPS ULE BY MOUT H RAMSEY Y FOR 7 DAYS 04/30 aborted Not Available Not availab le 0 Not Available Not Available bibi - External Data Service - prod 04/30/2025 09:09:47 cipro floxa ludwin 0.3 %-dex ameth asone 0.1 % ear drops ,susp ensio n 09:09:47 PLEA SE SEE VINOD CHED FOR DETA ILED DIRE CTIO NS 04/30 aborted Not Available Not availab le 0 Not Available Not Available bibi - External Data Service - prod 04/30/2025 09:09:47 trama dol 50 mg table t 11:40:47 Take 1 tabl et ever y 6 hour s by oral rout e as dire cted for 7 days . 05/14 aborted Traumatic partial rupture of rotator cuff of right shoulder Not availab le 0 Not Available Not Available [facility] 05/14/2025 05:01:57 Vitals None Recorded Social History Social History Observation Description Date Observed Sex Unknown 04/30/2025 Legal Sex Male Status Not (finding) 05/15/20 25 No social history survey screeners recorded No social history SDOH screeners recorded Functional Status None recorded. No Functional Screening assessment recorded No Functional SDOH screeners recorded Mental Status None recorded. No Mental Screening assessment recorded No Mental SDOH screeners recorded Family History Nothing Reported. Medical History No medical history recorded. Past Encounters Encounter ID Performer Location Encounter Start Date Encounter Closed Date Diagnosis/Indication Diagnosis SNOMED-CT Code Diagnosis ICD10 Code Diagnosis IMO Codes Diagnosis Note [id number] Michael Roe PA-C [facility] [address], [place] [phone] 04/30/2025 09:12:23 05/06/2025 15:02:53 Pain of right shoulder region 3419954173 M25.511 [id number] Traumatic partial rupture of rotator cuff of right shoulder 4903795270 74909908 S46.011A [id number] Health Concerns Section Related Observation LastModified by Organization Detai ls LastModified Time None Recorded Concern Status LastModified by Organization Details LastModified Time None Recorded SDOH Concern Status LastModified by Organization Detai ls LastModified Time None Recorded Payers Encounter Date Sequence Insurance Name Policy Number Policy Perry Covered Member ID Perry Member ID Guarantor Name 04/30/2025 2 [place] [facility] Genaro Lerner [id number] Genaro Lerner 04/30/2025 1 MEDIC[place] B-[place]: [id number] Genaro Lerner [id number] Genaro Lerner Notes Date Note Type Note [...] answered and addressed today. Michael Roe PA-C [address] [facility] [address], [place], [address], [place] [facility] 04/30/2025 11:41:39 Care Team Name Role Member ID Specialty Address Phone None Recorded.
--- OUTSIDE RECORDS SUMMARY | 2025-05-15 12:51 | XMS_ITS | Encounter Summary ---
Author Organization [facility] Prior to 03/23/2024 Address [address] [place] [address] Care Team Providers Care Pricing Lead Name Role Phone Michele Castillo MD Primary Care Provider Unavail able Eleonora Breen MD Primary Care Provider Unava Michele Xiao MD Primary Care Provider Unavail able Alea Do MD Primary Care Provider Unava latyrone [facility], Pcp Primary Care Provider Unavailabl e Michele Castillo MD Unavailable Unavailable Alea Do MD Unavailable Unavailable Rebel Farah MD Primary Care Provider Unavailabl e Encounter Details Date Type Department Care Team Description 03/18/2014 Home Health Certification Medical Records [address] [place] [address] Social History Tobacco Use Types Packs/Day Years [...] on filedocumented in this encounter Care Teams Pricing Lead Relationship Specialty Start Date End Date Michele Castillo MD PCP - General Internal Medicine 07/30/13 04/10/14 Eleonora Breen MD PCP - General Internal Medicine 04/11/14 04/14/14 Michele Castillo MD PCP - General Internal Medicine 04/15/14 07/20/15 Alea Do MD PCP - General 07/21/15 03/26/18 [facility], [facility] PCP - General Internal Medicine 03/27/18 08/21/23 Rebel Farah MD PCP - General Internal Medicine 08/22/23 Michele Castillo MD Internal Medicine 07/21/15 03/26/18 Alea Do MD 03/27/18 documented as of this encounter
--- OUTSIDE RECORDS SUMMARY | 2025-05-15 12:51 | XMS_ITS | Encounter Summary ---
Author Organization [facility] Prior to 03/23/2024 Address [address] [place] [address] Care Team Providers Care Infrastructure Software Engineer Name Role Phone Jasen Villarreal MD Primary Care Provider UnaMichele Duncan MD Primary Care Provider Unavail able Eleonora Breen MD Primary Care Provider UnaMichele Duncan MD Primary Care Provider Unavail able Alea Do MD Primary Care Provider Unava nalini [facility] Pcp Primary Care Provider Unavailabl e Michele Castillo MD Unavailable Unavailable Alea Do MD Unavailable Unavailable Rebel Farah MD Primary Care Provider Unavailabl e Encounter Details Date Type Department Care Team Description 07/17/2013 Release of Information Medical Records [address] [place] [id number] Abstract, Provider Social History Tobacco Use Types [...] on filedocumented in this encounter Care Teams Infrastructure Software Engineer Relationship Specialty Start Date End Date Jasen Villarreal MD PCP - General Internal Medicine 07/12/13 07/29/13 Michele Castillo MD PCP - General Internal Medicine 07/30/13 04/10/14 Eleonora Breen MD PCP - General Internal Medicine 04/11/14 04/14/14 Michele Castillo MD PCP - General Internal Medicine 04/15/14 07/20/15 Alea Do MD PCP - General 07/21/15 03/26/18 [facility]cp PCP - General Internal Medicine 03/27/18 08/21/23 Rebel Farah MD PCP - General Internal Medicine 08/22/23 Michele Castillo MD Internal Medicine 07/21/15 03/26/18 Alea Do MD 03/27/18 documented as of this encounter
--- OUTSIDE RECORDS SUMMARY | 2025-05-15 12:51 | XMS_ITS | Encounter Summary ---
Author Organization [facility] Prior to 03/23/2024 Address [address] [place] [address] Care Team Providers Care Restaurant Assistant Name Role Phone Michele Castillo MD Primary Care Provider Unavail able Eleonora Breen MD Primary Care Provider Unava Michele Xiao MD Primary Care Provider Unavail able Alea Do MD Primary Care Provider Unava catyrone [facility], Pcp Primary Care Provider Unavailabl e Michele Castillo MD Unavailable Unavailable Alea Do MD Unavailable Unavailable Rebel Farah MD Primary Care Provider Unavailabl e Encounter Details Date Type Department Care Team Description 08/24/2013 Charge Histotechnologist Report Medical Records [address] [place] [address] Iman Moran Social History Tobacco Use Types [...] on filedocumented in this encounter Care Teams Restaurant Assistant Relationship Specialty Start Date End Date Michele Castillo MD PCP - General Internal Medicine 07/30/13 04/10/14 Eleonora Breen MD PCP - General Internal Medicine 04/11/14 04/14/14 Michele Castillo MD PCP - General Internal Medicine 04/15/14 07/20/15 Alea Do MD PCP - General 07/21/15 03/26/18 [facility], [facility] PCP - General Internal Medicine 03/27/18 08/21/23 Rebel Farah MD PCP - General Internal Medicine 08/22/23 Michele Castillo MD Internal Medicine 07/21/15 03/26/18 Alea Do MD 03/27/18 documented as of this encounter
--- OUTSIDE RECORDS SUMMARY | 2025-05-15 12:51 | XMS_ITS | Clinical Summary ---
Author Organization [address] [place] [address] [place] [phone] Phone Care Team Providers Care Half Section Ironer Name Role Phone Rebel Farah MD Primary Care Provider [phone] Surgical History Surgery Date Site/Laterality Comments OTHER SURGICAL HISTORY 1993 PROCEDURE: ---- OTHER ----; COMMENT: rt popliteal bypass after football injury KNEE ARTHROSCOPY 2003 PROCEDURE: [place] ARTHROSCOPY A[place] SPINE&/FX KNEE W/O FIXJ; COMMENT: knee replacement at [facility] KNEE SURGERY 2005 PROCEDURE: HISTORICAL KNEE SURGERY; COMMENT: osteotomy Medical History Medical History Date Comments DVT (deep venous thrombosis) ([facility] V24, [facility] V28) 1993 DX:DVT (deep venous thrombos is) ([facility]); COMMENT: on coumadin for 20 yrs ago, f/u by Dr. Sheppard DM (diabetes mellitus) ([facility] V24, [facility] V28) 2011 DX:DM (diabetes mellitus) ([facility]); COMMENT: managed by Dr. Sheppard JEANINE (obstructive sleep apnea) 2012 DX :JEANINE (obstructive sleep apnea); COMMENT: [place] [facility] ordered by Dr. Sheppard Venous insufficiency DX:Venous [...] Insurance MEDICARE [place]ICAID - [place] Care Teams Half Section Ironer Relationship Specialty Start Date End Date Rebel Farah MD [address] [place] [address] [address] [facility] [place] [address] PCP - General Internal Medicine 10/17/24
--- OUTSIDE RECORDS SUMMARY | 2025-05-15 12:51 | XMS_ITS | Encounter Summary ---
Author Organization [facility] Prior to 03/23/2024 Address [address] [place] [address] Care Team Providers Care Fell Cutter Name Role Phone Jasen Villarreal MD Primary Care Provider UnaMichele Duncan MD Primary Care Provider Unavail able Eleonora Breen MD Primary Care Provider UnaMichele Duncan MD Primary Care Provider Unavail able Alea Do MD Primary Care Provider Unava nalini [facility], Pcp Primary Care Provider Unavailabl e Michele Castillo MD Unavailable Unavailable Alea Do MD Unavailable Unavailable Rebel Farah MD Primary Care Provider Unavailabl e Reason for Visit * Reason Onset Date Comments Form 07/25/2013 [facility] Encounter Details Date Type Department Care Team Description 07/25/2013 Telephone Adult Medicine - [address] [address] Jasen Villarreal MD Form ([facility] ) Social History Tobacco Use Types Packs/Day Years Used Date Smoking Tobacco: Never Comments:pt uses marijuana d aily Alcohol Use Standard Drinks/Week Comments Not Asked 0 (1 standard drink = 0.6 oz pur e alcohol) Sex Assigned at Date Recorded Not on file documented as of this encounter Miscellaneous Notes * Telephone Encounter - Deshaun Jacobson - 08/02/2013 3:40 PM EDT Form received in [place] via fax and to Dr. Castillo's desk. * Telephone Encounter - Gifty Watkins L.P.N. - 07/25/2013 4:57 PM EST Form to b side * Telephone Encounter - Yesenia Humphries - 07/25/2013 2:48 PM EST Form - [facility] - complete, sign and date. Org to triage documented in this encounter Plan of Treatment Not on file documented as of this encounter Visit Diagnoses Not on filedocumented in this encounter Care Teams Fell Cutter Relationship Specialty Start Date End Date Jasen Villarreal MD PCP - General Internal Medicine 07/12/13 07/29/13 Michele Castillo MD PCP - General Internal Medicine 07/30/13 04/10/14 Eleonora Breen MD PCP - General Internal Medicine 04/11/14 04/14/14 Michele Castillo MD PCP - General Internal Medicine 04/15/14 07/20/15 Alea Do MD PCP - General 07/21/15 03/26/18 [facility], Pcp PCP - General Internal Medicine 03/27/18 08/21/23 Rebel Farah MD PCP - General Internal Medicine 08/22/23 Michele Castillo MD Internal Medicine 07/21/15 03/26/18 Alea Do MD 03/27/18 documented as of this encounter
--- OUTSIDE RECORDS SUMMARY | 2025-05-15 12:51 | XMS_ITS | Data Portability ---
Author Organization [facility], FRANK Brown Address [address] [place] [address] Assessment No assessment recorded. Plan of Treatment Reminders Order Date Submit Date Provider Name Organization Details Last Modified By Last Modified Time Details Appointments None recor ded. Lab None recor ded. Referral None recor ded. Procedures None recor ded. Surgeries None recor ded. Imaging MRI, jocelyn laughlin, w/o contr ast 2024 11:39: 24 025 Michael Roe PA-C [facility] ([facility]) [address] [place], [address], Michael Roe PA-C 12:08:46 XR, jocelyn laughlin, 2 or more view 2024 10:45: 56 025 Michael Roe PA-C [facility] Office [address] [facility] [address], [place], [address], Micahel Roe PA-C 11:40:48 MedicationOrder s trama dol 50 mg table t 2024 11:40: 47 [id number] [address] [facility], [address], Ph [phone] Not Available Not available 05:01:57 Take 1 tablet every 6 hours by oral route as directed for 7 days. VaccineOrders None recor ded. Patient TargetsNo targets recorded. Patient InstructionsNo instructions recorded. Reason for Referral None Reported. Results Created Date Observation Date Name Description Value Unit Range Abnormal Flag Specimen Type Note LastModifiedBy Organization Detail LastModifiedTime 04/30/2025 04/30/2025 shoulder 4 view [email or web address]=afSjMjpSQ6xFcoWUk1x%9XGAqzLdlzf0udfu%2Ro9NVj5 yrCefH0gDhOFgirSq2UbCDSsGotTTI0bYjVKywn18i8876TA8Ieul7KMqbtCuVybNlA Not Available [facility] , [address],[facility] [address] , [place] , [address], , 04/30/2025 11:00:54 04/30/2025 04/30/2025 shoulder 4 view [email or web address]?Encrypted=auFzUlvPY4pIdyNCf6q%1OBHvgShxoi8ghau%5Zt1RNw5 vdGynW1cVaJCglqUk1MbWITmBdnXHX7bOzERixh51c2472SE8Lqbs9PTsauJkYwaBeF Not Available [facility] , [address],[facility] [address] , [place] , [address], , 04/30/2025 11:00:56 Result Notes Documentation Provider Name and Address Organization Details Recorded Time Xr, Shoulder, 2 Or More View : [email or web address]? Encrypted=aeUtZulFF7mThcF Uv6g%3EOCklLbmfh6efyr%2Fg 4LKs3qiDweP1iXpYNxdhDg7Km RJYzReqGSG5bNzZHdnt39q061 5XZ0Nrxq4YSjmqJwAycMeP Not Available [facility] 04/30/2025 11:00: 54 Xr, Shoulder, 2 Or More View : [email or web address] Encrypted=mqRjAutXK6cHkeG Uv6g%8UQDziYvbnj0zrop%2Fg 1TBt6nxJppD3tWoXWxyeJj0Qv DWRxYcnBSI0hCbFTpho71j557 7HH2Igoe0AOgcwNpOpgXaZ Not Available [facility] 04/30/2025 11:00: 56 Problems Name Problem SNOMED Code Status Onset Date Resolution Date Notes Provider Name and Address Organization Details Recorded Time Pain of right shoulder region Active Sushila WESTON dubose [place] - [facility] 5 10:45:23 Problem Notes None recorded. Medical Equipment None Reported. Allergies Allergen ID Allergen Name Allergen Category Reaction Reaction Severity Criticality Documentation Date Start Date Code Code System Note Provider Name and Address Organization Details Recorded Time 507278 Product containin g penicilli n (product) medicatio n Not available Not available Not available 04/30/2025 78763 8001 SNOMED Not Available bibi - External [...] Data Service - prod 04/30/2025 09:09:46 FreeS skylare Papito ts 28 gauge 5 09:09:46 DIRE CTED CHEC K BLOO D SUGA R EVER Y DAY active Not Available Not availab le 0 Not Available Not Available bibi - External Data Service - prod 04/30/2025 09:09:46 FreeS tyle Lite Strip s 5 09:09:46 DIRE CTED CHEC K THE BLOO D SUGA R RAMSEY Y active Not Available Not availab le [...] 09:09:46 cefdi lexus 300 mg capsu le 5 09:09:47 TAKE 2 CAPS ULE BY MOUT [...] availab le 0 Not Available Not Available [facility] 05/14/2025 05:01:57 Vitals None Recorded Social History Social History Observation Description Date Observed Sex Unknown 05/06/2025 Legal Sex Male Status Not (finding) 05/15/20 [...] ICD10 Code Diagnosis IMO Codes Diagnosis Note [id number] Michael Roe PA-C [place] - [place] [address], [place] [address] 04/30/2025 09:12:23 05/06/2025 15:02:53 Pain of right shoulder region 0893168845 M25.511 08332142 Traumatic partial rupture of rotator cuff of right shoulder [id number] 69614955 S46.011A [id number] Health Concerns Section Related Observation LastModified by Organization Detai ls LastModified Time None Recorded Concern Status LastModified by Organization Details LastModified Time None Recorded SDOH Concern Status LastModified by Organization [employer] fortune LastModified Time None Recorded Advance Directives Directive None Recorded Payers Insurance Date Sequence Insurance Name Policy Number Policy Perry Covered Member ID Perry Member ID Guarantor Name 04/30/2025 1 [place] [employer] Genaro Lerner [id number] Genaro Lerner 04/30/2025 2 [place]: [facility] Genaro Lerner [id number] Genaro Lerner Notes Date Note Type Note [...] and addressed today. Michael Roe PA-C [address] [facility] [address], [place], [address], [place] - [facility] 04/30/2025 11:41:39 Care Team Name Role Member ID Specialty Address Phone None Recorded.
== END 2025-05-15 12:48 | disposition home or self-care (01) ==
LOC: HO.US 12:47
PROVIDERS: PCP Internal Medicine; Visit Provider Surgery Vascular Surgery
DX: I26.99 Other pulmonary embolism without acute cor pulmonale (principal); I65.23 Occlusion and stenosis of bilateral carotid arteries; H53.129 Transient visual loss, unspecified eye; I73.9 Peripheral vascular disease, unspecified
CPT/HCPCS: 71046; 93880; 93922; 93925

== ENCOUNTER → 2025-05-15 12:50 | Outpatient (BNV) | payer MEDICARE, MEDICAID, SELFPAY | PROVIDERS: PCP Internal Medicine; Visit Provider Radiology Diagnostic Radiology | DX: I65.23 Occlusion and stenosis of bilateral carotid arteries (principal); I26.99 Other pulmonary embolism without acute cor pulmonale | CPT/HCPCS: 71046; 93880 ==

== ENCOUNTER → 2025-05-21 19:30 | Outpatient (REF) | payer MEDICARE, MEDICAID, SELFPAY ==
--- OUTSIDE RECORDS SUMMARY | 2025-05-21 22:00 | XMS_ITS | Continuity of Care Document ---
Author Organization [facility], [place] - [place] Address [address] [place] [address] Support Name Relationship Address Phone FLORY CUETO self [address] [place] [address] Assessment No assessment recorded. Plan of Treatment Reminders Order Date Submit Date Provider Name Organization Details Last Modified By Last Modified Time Details Appointments None recor ded. Lab None recor ded. Referral None recor ded. Procedures None recor ded. Surgeries None recor ded. Imaging MRI, jocelyn laughlin, w/o contr ast 2024 11:39: 24 025 Michael Roe PA-C [facility] ([facility]) [address] [place], [address], Michael Roe PA-C 5 12:08:46 XR, jocelyn laughlin, 2 or more view 2024 10:45: 56 025 Michael Roe PA-C [facility] Office [address],[facility] [address], [place], [address], Michael Roe PA-C 5 11:40:48 MedicationOrder s trama dol 50 mg table t 2024 11:40: 47 [facility] [place] [address], [address], Ph [phone] Not Available Not available 5 05:01:57 Take 1 tablet every 6 hours by oral route as directed for 7 days. VaccineOrders None recor ded. Patient TargetsNo targets recorded. Patient InstructionsNo instructions recorded. Reason for Referral None Reported. Results Created Date Observation Date Name Description Value Unit Range Abnormal Flag Specimen Type Note LastModifiedBy Organization Detail LastModifiedTime 04/30/2025 04/30/2025 shoulder 4 view [email or web address]?Encrypted=reAfZfiCJ2mTfrOXy9h%0VUWppSrzrr2ecly%1Od6TRj2 nhDeiD8wScBLxwyPu2FqRSXxDipLHD1cCqRRwrj33o5026LP6Ubmy5NFajrPaUlyUqD Not Available [facility] , [address] [facility] [place] [address] , [place], [place] , [facility], , 04/30/2025 11:00:54 04/30/2025 04/30/2025 shoulder 4 view [email or web address]?Encrypted=rwOyAseRH3xXajEIj8y%0PAVgzKlfck1goht%8Gs9ASa0 lfMqoW8hHlGHbwjQi6WjMKPgEahUAF5mMbBMess15i1979KV6Xery2WBfznCtNckGhL Not Available [facility] Office , [address] [facility] [address],[facility] [address] , [place], [place] , [facility], , 04/30/2025 11:00:56 Result Notes Documentation Provider Name and Address Organization Details Recorded Time Xr, Shoulder, 2 Or More View : [email or web address]? Encrypted=qsYmLjtPN2iOsaA Uv6g%0NHFuiIbcqo9gird%2Fg 6UCl4wvWzyM5oPlVIdqhPl9Pd ELLwOkuQQR5mNjSZlfb58p276 0BC0Jnlv7UZrvgFfLxpDsK Not Available [employer] 04/30/2025 11:00: 54 Xr, Shoulder, 2 Or More View : [email or web address]? Encrypted=vnAsLgxSJ1cLsyE Uv6g%2MXVfpTdyll7rhgq%2Fg 7OAn4xsYngL8iYvCNrqaXl2Hm DXDrGcaYIB0jVeWWcwj08f257 1UP1Lpmf8VGaqpHtGtwNeR Not Available [facility] 04/30/2025 11:00: 56 Problems Name Problem SNOMED Code Status Onset Date Resolution Date Notes Provider Name and Address Organization Details Recorded Time Pain of right shoulder region Active [facility] dubose [facility] 5 10:45:23 Traumatic partial rupture of rotator cuff of right shoulder Active 025 Eleonora dubose [facility] 5 13:29:02 Problem Notes None recorded. Medical Equipment None Reported. Allergies Allergen ID Allergen Name Allergen Category Reaction Reaction Severity Criticality Documentation Date Start Date Code Code System Note Provider Name and Address Organization Details Recorded Time 059073 Product containin g penicilli n (product) medicatio n Not available Not available Not available 04/30/2025 10264 8001 SNOMED Not Available [employer] Data Service - prod 5 09:13:44 Medications Name Authored On Sig Start Date Stop Date Status Note Indication Fill Status Repeat Number Dispense Quantity LastModified by Organization Details LastModified Time cefur oxime axeti l 500 mg table t 5 09:09:45 TAKE 1 TABL ET BY SERINA ELMORE E A DAY 04/30 aborted Not Available Not availab le 0 Not Available Not Available bibi - External Data Service - prod 04/30/2025 09:09:45 docus ate sodiu m 100 mg capsu le 5 09:09:45 TAKE 1 CAPS ULE BY SERINA Sutherland 2 TIME S A DAY NEED ED FOR CONS TIPA TION active Not Available Not availab le 0 Not Available Not Available bibi - External Data Service - prod 04/30/2025 09:09:45 Eliqu is 5 mg table t 5 09:09:45 TAKE 1 TABL ET BY SERINA ELMORE E A DAY FOR 90 DAYS active [...] 09:09:46 oflox acin 0.3 % ear drops 09:09:46 PLAC E 5 DROP S INTO BOTH EARS 2 TIME S A DAY X5 DAYS 04/30 aborted Not Available Not availab le 0 Not Available Not Available [facility] External Data Service - prod 04/30/2025 09:09:46 [...] availab le 0 Not Available Not Available [facility] External Data Service - prod 04/30/2025 09:09:47 trama dol 50 mg table t 11:40:47 Take 1 tabl et ever y 6 hour s by oral rout e as dire cted for 7 days . 05/14 aborted Traumatic partial rupture of rotator cuff of right shoulder Not availab le 0 Not Available Not Available [facility] 05/14/2025 05:01:57 Vitals None Recorded Social History Social History Observation Description Date Observed Sex Unknown 04/30/2025 Legal Sex Male Status Not (finding) 05/21/20 25 No social history survey screeners recorded [...] ICD10 Code Diagnosis IMO Codes Diagnosis Note [id number] Michael Roe PA-C [place] - [place] [address], [place] [address] 04/30/2025 09:12:23 05/06/2025 15:02:53 Pain of right shoulder region 0007168335 M25.511 06006251 Traumatic partial rupture of rotator cuff of right shoulder 4316113259 68707564 S46.011A 388140334 Health Concerns Section Related Observation LastModified by Organization Detai ls LastModified Time None Recorded Concern Status LastModified by Organization Details LastModified Time None Recorded SDOH Concern Status LastModified by Organization Detai ls LastModified Time None Recorded Payers Encounter Date Sequence Insurance Name Policy Number Policy Perry Covered Member ID Perry Member ID Guarantor Name 04/30/2025 2 [place] [facility] Flory Cueto [id number] Flory Cueto 04/30/2025 1 [place] [employer] Flory Cueto [id number] Flory Cueto Notes Date Note Type Note Provider Name [...] answered and addressed today. Michael Roe PA-C [address] [place], [place] [address] [address], [place], [address], [facility] [place] [facility] 04/30/2025 11:41:39 Care Team Name Role Member ID Specialty Address Phone None Recorded.
--- OUTSIDE RECORDS SUMMARY | 2025-05-21 22:01 | XMS_ITS | Data Portability ---
Author Organization [facility], FRANK - [place] PT Address [address] [place] [address] Support Name Relationship Address Phone FLORY CUETO self [address] [place] [address] Assessment No assessment recorded. Plan of Treatment Reminders Order Date Submit Date Provider Name Organization Details Last Modified By Last Modified Time Details Appointments None recor ded. Lab None recor ded. Referral None recor ded. Procedures None recor ded. Surgeries None recor ded. Imaging MRI, jocelyn laughlin, w/o contr ast 2024 11:39: 24 025 Michael Roe PA-C [facility] ([facility]) [address] [place], [address], Michael Roe PA-C 5 12:08:46 XR, jocelyn laughlin, 2 or more view 2024 10:45: 56 025 Michael Roe PA-C [facility] Office [address],[facility] [address], [place], [address], Michael Roe PA-C 5 11:40:48 MedicationOrder s trama dol 50 mg table t 2024 11:40: 47 [facility] [place] [address], [address], Ph [phone] Not Available Not available 5 05:01:57 Take 1 tablet every 6 hours by oral route as directed for 7 days. VaccineOrders None recor ded. Patient TargetsNo targets recorded. Patient InstructionsNo instructions recorded. Reason for Referral None Reported. Results Created Date Observation Date Name Description Value Unit Range Abnormal Flag Specimen Type Note LastModifiedBy Organization Detail LastModifiedTime 04/30/2025 04/30/2025 shoulder 4 view [email or web address]=yoNjGthVX2hXiqKWj0e%5UZHkeVtbck6jsse%0Bw5GPt4 vtKuqE6kYhFVccwGw8FmXVRlPveDNC6eElVIqqw62k3446AZ0Iaqr0EAhuxTzVnoFaQ Not Available [facility] , [address] [facility] [address] [address] , [place], [place] , [facility], , 04/30/2025 11:00:54 04/30/2025 04/30/2025 shoulder 4 view [email or web address]?Encrypted=qmTpPjjZK2wNnsGRr3y%8APGfwKzvsa2rdbh%7Xz0DFe7 nvSthC6rKsLCfvoKf2AqVVNbNroKXA5kVlTZylo02j6921HW9Dzqv4AGsdbOhGrxMnL Not Available [facility] Office , [address] [facility] [address],[facility] [address] , [place], [place] , [address] [place] [address] , 04/30/2025 11:00:56 Result Notes Documentation Provider Name and Address Organization Details Recorded Time Xr, Shoulder, 2 Or More View : [email or web address]? Encrypted=qoIyAbhDY1zCjtD Uv6g%7YFJgcChmrh1nprb%2Fg 8EJo1hkQqhN1eAkIZztqDp0Rm ADTzUfvDYC4mCmKUjsy42y455 7ZU1Dgrf6FOwgeYaPsiXbP Not Available [employer] 04/30/2025 11:00: 54 Xr, Shoulder, 2 Or More View : [email or web address]? Encrypted=jnRtLsnFC5nJfjO Uv6g%9NVHkgOxfai9ilaq%2Fg 2JEd1whYsqG7xFePQwubYa8Xo PPHdUfyXNJ1cZhCFstv32n810 1DN7Jtsr5DLvynYaUpkXdE Not Available [facility] 04/30/2025 11:00: 56 Problems Name Problem SNOMED Code Status Onset Date Resolution Date Notes Provider Name and Address Organization Details Recorded Time Pain of right shoulder region Active 025 WESTON dubose [facility] 5 10:45:23 Traumatic partial rupture of rotator cuff of right shoulder Active 025 Eleonora dubose [facility] 5 13:29:02 Problem Notes None recorded. Medical Equipment None Reported. Allergies Allergen ID Allergen Name Allergen Category Reaction Reaction Severity Criticality Documentation Date Start Date Code Code System Note Provider Name and Address Organization Details Recorded Time 195931 Product containin g penicilli n (product) medicatio n Not available Not available Not available 04/30/2025 97108 8001 SNOMED Not Available [employer] [facility] Data Service - prod 09:13:44 Medications Name [...] cyclo benza manda 10 mg table t 09:09:46 TAKE 1 TABL ET BY MOUT [...] 0 Not Available Not Available [facility] External Data Service - prod 04/30/2025 09:09:46 [...] 0 Not Available Not Available [facility] External Data Service - prod 04/30/2025 09:09:47 trama dol 50 mg table t 11:40:47 Take 1 tabl et ever y 6 hour s by oral rout e as dire cted for 7 days . 05/14 aborted Traumatic partial rupture of rotator cuff of right shoulder Not availab le 0 Not Available Not Available [facility] 05/14/2025 05:01:57 Vitals None Recorded Social History Social History Observation Description Date Observed Sex Unknown 05/20/2025 Legal Sex Male Status Not (finding) 05/21/20 [...] ICD10 Code Diagnosis IMO Codes Diagnosis Note [id number] Michael Roe PA-C [place] [address] [place] [address] 04/30/2025 09:12:23 05/06/2025 15:02:53 Pain of right shoulder region 5382999813 M25.511 23832954 Traumatic partial rupture of rotator cuff of right shoulder 7951560182 51181583 S46.011A 071639265 Health Concerns Section Related Observation LastModified by Organization Detai ls LastModified Time None Recorded Concern Status LastModified by Organization Details LastModified Time None Recorded SDOH Concern Status LastModified by Organization Detai ls LastModified Time None Recorded Advance Directives Directive None Recorded Payers Insurance Date Sequence Insurance Name Policy Number Policy Perry Covered Member ID Perry Member ID Guarantor Name 05/20/2025 1 [place] [employer] Flory Cueto [id number] Flory Cueto 05/20/2025 2 [place] [facility] Flory Wooua [id number] Flory Cueto Notes Date Note Type Note [...] answered and addressed today. Michael Roe PA-C [address] [place], [place] [address]lilliam [address], [place], [address], [facility] - [place] [facility] 04/30/2025 11:41:39 Care Team Name Role Member ID Specialty Address Phone None Recorded.
--- OUTSIDE RECORDS SUMMARY | 2025-05-21 22:01 | XMS_ITS | Clinical Summary ---
Author Organization [address] [place] [address] [place] [address] Phone Care Team Providers Care Senior Network Systems Engineer Name Role Phone Rebel Farah MD Primary Care Provider [phone] Surgical History Surgery Date Site/Laterality Comments OTHER SURGICAL HISTORY 1993 PROCEDURE: ---- OTHER ----; COMMENT: rt popliteal bypass after football injury KNEE ARTHROSCOPY 2003 PROCEDURE: [place] ARTHROSCOPY AID [place] SPINE&/FX KNEE W/O FIXJ; COMMENT: knee replacement at [facility] KNEE SURGERY 2005 PROCEDURE: HISTORICAL KNEE SURGERY; COMMENT: osteotomy Medical History Medical History Date Comments DVT (deep venous thrombosis) ([facility] V24, [facility] V28) 1993 DX:DVT (deep venous thrombos is) ([facility]); COMMENT: on coumadin for 20 yrs ago, f/u by Dr. Sheppard DM (diabetes mellitus) ([facility] V24, [facility] V28) 2011 DX:DM (diabetes mellitus) ([facility]); COMMENT: managed by Dr. Sheppard JEANINE (obstructive [...] Insurance MEDICARE MEDICAID - [place] Care Teams Senior Network Systems Engineer Relationship Specialty Start Date End Date Rebel Farah MD [address] [place] [address] [address] [facility] [place] [address] PCP - General Internal Medicine 10/17/24
== END ==
LOC: HO.SL 19:30
PROVIDERS: PCP Internal Medicine; Visit Provider Hospitalist
DX: G47.33 Obstructive sleep apnea (adult) (pediatric) (principal); R00.0 Tachycardia, unspecified
CPT/HCPCS: 95810